=== PATIENT | female | born 1940 | race Caucasian/White ===

== ENCOUNTER → 2018-12-17 12:00 | Outpatient (BNVA) | payer MEDICARE, OTHER, SELFPAY | PROVIDERS: PCP Internal Medicine; Referring Provider Internal Medicine; Visit Provider Psychiatry & Neurology Neurology | DX: M54.17 Radiculopathy, lumbosacral region (principal); I10 Essential (primary) hypertension | CPT/HCPCS: 95886; 95908; 99204 ==

== ENCOUNTER 2022-01-10 16:18 | Emergency (ER) | payer MEDICARE, SELFPAY ==
[2022-01-10] VITALS (31 sets, daily range): BP systolic 118–163; BP diastolic 36–68; PULSE 57–89; RESP 13–29; TEMP 36.2; O2SAT 81–100
--- NOTE | 2022-01-10 16:15 | DI.CT_ITS ---
Exam(s) CT HEAD CERVICAL SPINE WO EXAM: CT HEAD CERVICAL SPINE WO CLINICAL HISTORY: trauma, fall, headache, eliquis. TECHNIQUE: Imaging Protocol: Axial computed tomography images with coronal and sagittal reformatted images were created and reviewed COMPARISON: No exams were available for comparison FINDINGS: CT Head: Ventricles and Extra axial spaces: Normal in size and morphology for the patient's age. Hemorrhage: None. Cerebral parenchyma: No acute territorial infarct is present. There are areas of decreased attenuati on in the white matter most consistent with small vessel ischemic disease. There is a 4.5 AP by 3.5 transverse by 3.3 craniocaudad cm extra-axial parafalcine mass it causes mass effect on the adjacent parietal lobe. It is most suggestive of a meningioma. Midline shift: None. Brainstem/Cerebellum: Normal. Calvarium: Normal. Visualized Paranasal sinuses/Mastoids: Clear. Soft Tissues: There is a right posterior scalp hematoma measuring 1.[address] Cervical Spine: Bones: No acute fracture or subluxation. There is C4 through C7 anterior cervical fusion. Moderate c ervical spondylosis is present. Soft Tissues: Unremarkable. Lung Apices: Clear. IMPRESSION: 1. No acute intracranial process. No intracranial hemorrhage or skull fracture. 2. Right posterior scalp hematoma measuring 1.5 cm in thickness. 3. 4.5 cm hyperdense extra-axial mass along the left parietal convexity with a mass effect on the adj acent parietal lobe. This is most suggestive of a meningioma. An MRI without and with contrast is r ecommended for further evaluation. 4. No acute fracture or subluxation in the cervical spine. RADIATION DOSE DELIVERED: 1,784.71mGy.cm Total DLP DATA REPOSITORY: All CT scans at this facility are submitted to the National Radiology Data Registry (NRDR) Dose Index Registry (DIR) with the [employer] (ACR). RADIATION OPTIMIZATION: All CT scans at this facility use at least one of these dose optimization te chniques: automated exposure control; mA and/or kV adjustment per patient size (includes targeted exa ms where dose is matched to clinical indication); or iterative reconstruction.
--- NOTE | 2022-01-10 16:33 | NUR.NOTE ---
labs done bNursing Note:
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
[2022-01-10 16:48] LABS: HGB 11.9 g/dL (11.2-15.7); MCH 30.9 pg (27.0-33.0); MCV 91 fL (80-95); MPV 9.4 fL (8.0-11.0); Platelet Count 224 10^3/uL (130-400); RBC 3.85 10^6/uL (3.93-5.22); RDW 13.9 % (11.7-14.6); RDW-SD 46.8 fL; WBC 4.38 10^3/uL (4.4-10.8)
--- NOTE | 2022-01-10 17:02 | DI.VRAD_ITS ---
PROCEDURE INFORMATION: Exam: CT Head Without Contrast Exam date and time: 01/10/2022 4:44 PM Age: 81 years old Clinical indication: Injury or trauma; Blunt trauma (contusions or hematomas); Other: Trauma, fall, headache, eliquis; Prior surgery; Surgery date: 6+ months TECHNIQUE: Imaging protocol: Computed tomography of the head without contrast. COMPARISON: No relevant prior studies available. FINDINGS: Brain: Large 4.7 cm left superomedial parietal convexity meningioma causing mass effect upon the adjacent left parietal lobe. Mild nonspecific hypodensities of the periventricular and deep subcortical white matter, most likely secondary to chronic microangiopathic ischemic change. No intracranial hemorrhage or extra-axial fluid collection. Baez-white matter differentiation is normal. Cerebral ventricles: Mild prominence of the ventricles and sulci, most likely attributed to parenchymal volume loss. Paranasal sinuses: Unremarkable. No fluid levels. Mastoid air cells: Unremarkable. Bones/joints: No acute osseus lesion or fracture. Soft tissues: Right posterior scalp hematoma measuring 1.5 cm in thickness. IMPRESSION: 1. No acute traumatic intracranial findings. 2. Large 4.7 cm left superomedial parietal convexity meningioma causing mass effect upon the adjacent left parietal lobe. Recommend neurosurgery consultation and further evaluation with MRI brain with and without IV contrast. 3. Right posterior scalp hematoma measuring 1.5 cm in thickness. 4. Other chronic findings, as above. PROCEDURE INFORMATION: Exam: CT Cervical Spine Without Contrast Exam date and time: 01/10/2022 4:44 PM Age: 81 years old Clinical indication: Injury or trauma; Blunt trauma (contusions or hematomas); Other: Trauma, fall, headache, eliquis; Prior surgery; Surgery date: 6+ months TECHNIQUE: Imaging protocol: Computed tomography of the cervical spine without contrast. COMPARISON: No relevant prior studies available. FINDINGS: Bones/joints: Chronic ACDF changes from C4 through C7. Vertebral body heights are maintained. No locked or perched facets. Multilevel facet arthropathy. No acute cervical spine fracture. The dens is intact. Atlanto-axial intervals are normal. Multilevel degenerative changes with intervertebral disc height loss and osteophyte formation, with multilevel areas of mild canal stenosis. Lungs: Lung apices are clear. Soft tissues: Unremarkable. IMPRESSION: 1. No acute cervical spine fracture. 2. Chronic findings, as above. Dictated and Authenticated by: Ye Cope MD. Ordering:EMMA Andujar MD
[2022-01-10 17:08] LABS: ALT 20 U/L (14-59); AST 12 U/L (15-37); Albumin 3.5 g/dL (3.4-5.0); Alkaline Phosphatase 73 U/L (46-116); Anion Gap 4.8 mmol/L (3-11); BUN 20 mg/dL (7-18); Bilirubin, Total 0.3 mg/dL (0.2-1.0); CO2 28.2 mmol/L (21.0-32.0); CREATININE 1.1 mg/dL (0.55-1.02); Calcium 8.9 mg/dL (8.5-10.1); Chloride 107 mmol/L (98-107); Glucose 118 mg/dL (74-106); Potassium 4.2 mmol/L (3.5-5.1); Sodium 140 mmol/L (136-145); Total Protein 7.2 g/dL (6.4-8.2)
--- NOTE | 2022-01-10 18:12 | NUR.NOTE ---
made dr aware that pt is in pain , no new orders at this time . Nursing Note:
[2022-01-10] MEDS: Acetaminophen 325 MG TAB 650 MG PO (18:33)
== END 2022-01-10 19:15 | disposition home or self-care (01) ==
PROVIDERS: Emergency Provider Student in an Organized Health Care Education/Training Program; PCP Internal Medicine
DX: D32.0 Benign neoplasm of cerebral meninges (principal); S00.03XA Contusion of scalp, initial encounter; W18.39XA Other fall on same level, initial encounter; I47.1 Supraventricular tachycardia; Z79.01 Long term (current) use of anticoagulants
CPT/HCPCS: 80053; 85027; 99284; 70450; 72125

== ENCOUNTER → 2022-02-13 02:43 | Outpatient (CLI) | payer MEDICARE, SELFPAY ==
--- NOTE | 2022-02-13 | DI.MRI_ITS ---
Exam(s) MR BRAIN WO/W EXAM: MR BRAIN WO/W CLINICAL HISTORY: MENINGIOMA, D32.9 TECHNIQUE: Multiplanar multisequence MRI of the brain was performed. Both noninfused and contrast i nfused sequences were performed. IV Contrast injected was cc Dotarem. COMPARISON: CT CT HEAD CERVICAL SPINE WO from 01/10/2022 FINDINGS: CEREBRAL PARENCHYMA: There is no evidence of intracranial hemorrhage. There is a large almost uniformly enhancing extra-axial dural-based mass over the upper left convexit y which has appearance of a meningioma and measures 4.6 cm AP by 3.5 cm wide by 3.1 cm craniocaudal. There is no prominent surrounding brain edema nor shift of midline structures. No ventriculomegaly. There is no adjacent thrombosis of the sagittal venous sinus There are no other abnormal enhancing structures in the brain, intra nor extra-axial. There are multiple small sub CN FLAIR bright foci of signal abnormality consistent with chronic small vessel disease. No abnormal signal on DWI to suggest restricted diffusion. PITUITARY GLAND: No mass nor parasellar abnormality. No obvious abnormality in the cavernous sinuses. FLOW VOIDS: The expected flow void are noted. No evidence of obvious aneurysm nor obvious vascular ma lformation. PARANASAL SINUSES: The visualized paranasal sinuses appear unremarkable. ORBITS: No obvious abnormal findings. IMPRESSION: 1. Large dural-based enhancing extra-axial lesion over the upper left convexity measuring 4.6 x 3.5 x 3.1 cm, not associated with prominent surrounding brain edema, ventriculomegaly, or shift of midline structures. Findings are consistent with a meningioma. 2. No other abnormal enhancing intracranial findings. 3. There are multiple nonspecific sub cm foci of white matter signal abnormality consistent with chr onic small vessel disease, not associated with hemorrhage, surrounding edema, nor restricted diffusio n. DATA REPOSITORY:
[2022-02-13] MEDS: Normal Saline Flush 10 ML SYR IVP (09:51)
[2022-02-13] MEDS: Gadoterate meglumine 20 ML VIAL IVP (09:51)
== END ==
PROVIDERS: PCP Internal Medicine; Visit Provider Neurological Surgery
DX: D32.0 Benign neoplasm of cerebral meninges (principal); I67.89 Other cerebrovascular disease
CPT/HCPCS: 70553

== ENCOUNTER → 2022-06-24 08:41 | Outpatient (BNVA) | payer MEDICARE, SELFPAY | PROVIDERS: PCP Internal Medicine; Referring Provider Neurological Surgery; Visit Provider Psychiatry & Neurology Neurology | DX: M21.371 Foot drop, right foot (principal); D32.0 Benign neoplasm of cerebral meninges | CPT/HCPCS: 95885; 95908; 99214 ==

== ENCOUNTER 2022-07-10 01:29 | Outpatient (CLI) | payer MEDICARE, SELFPAY ==
[2022-07-10 12:09] LABS: Estimated GFR 56.95 (mL/min/1.73m2)
[2022-07-10] MEDS: Normal Saline Flush 10 ML SYR IVP (12:30)
[2022-07-10] MEDS: Gadoterate meglumine 20 ML SYRINGE IVP (12:30)
--- NOTE | 2022-07-10 13:00 | DI.MRI_ITS ---
Exam(s) MR BRAIN WO/W EXAM: MR BRAIN WO/W CLINICAL HISTORY: MENINGIOMA, D32.9. TECHNIQUE: Multiplanar multisequence MRI of the brain was performed. CONTRAST MATERIAL: IV Contrast: 20 ML of Dotarem contrast administered. COMPARISON: MR MR BRAIN WO/W from 02/13/2022 FINDINGS: VENTRICLES AND EXTRA AXIAL SPACES: Normal in size and morphology for the patient's age. HEMORRHAGE: None. CEREBRAL PARENCHYMA: No focus of restricted diffusion to suggest acute infarct. Mild interval increas e in size of previously noted meningioma in the high left frontal parietal region, now measuring 4.9 AP by 3.6 transverse by 3.3 cm cephalo caudad compared to 4.6 x 3.5 x 3.1 cm on the prior exam. Enha ncement pattern is similar. No evidence of hemorrhage. No adjacent white matter edema. Few scatter ed high signal foci in the white matter again noted consistent with microvascular changes. There is mild atrophy consistent with the patient's age. MIDLINE SHIFT: None. BRAINSTEM/CEREBELLUM: Normal. CALVARIUM: Normal. VISUALIZED PARANASAL SINUSES/MASTOIDS: Clear. OTHER FINDINGS: Pituitary and orbits unremarkable. IMPRESSION: Mild interval increase in size left upper convexity meningioma. DATA REPOSITORY:
== END 2022-07-10 01:49 ==
LOC: DI 01:29
PROVIDERS: PCP Internal Medicine; Visit Provider Neurological Surgery
DX: D32.9 Benign neoplasm of meninges, unspecified (principal)
CPT/HCPCS: 70553; 82565

== ENCOUNTER → 2022-07-15 11:06 | Outpatient (BNVA) | payer MEDICARE, SELFPAY | PROVIDERS: PCP Internal Medicine; Referring Provider Internal Medicine; Visit Provider Student in an Organized Health Care Education/Training Program | DX: M17.12 Unilateral primary osteoarthritis, left knee (principal) | CPT/HCPCS: 99214 ==

== ENCOUNTER 2022-10-18 01:59 | Outpatient (CLI) | payer MEDICARE, SELFPAY ==
--- OUTSIDE RECORDS SUMMARY | 2022-10-18 02:01 | XMS_ITS | CCD ---
Author Name Unknown Address [address] [place] [address] [phone] Organization Unknown Address [address] [place] [address] [id number] Care Team Providers Care Dock Associate Name Role Phone TROY PAYNE Attending Physician [phone] TROY PAYNE Rounding (Secondary) Physician [phone] Vital Signs Unknown or Not Available. Allergies Unknown or Not Available. Procedures Unknown or Not Available. 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 Active Medications Unknown or Not Available. Medications Administered During Visit Unknown or Not Available. Encounters Encounter Diagnosis Diagnosis Code Start Date Canceled operative procedure [id number] 05/2021 Social History Smoking Status Code Start Date End Date Never smoker [id number] Patient Decision Aids Unknown or Not Available. Discharge Instructions You were admitted to [facility] on 05/17/2021 13:45 with a principal diagnosis of Procedure and treatment not carried out, unspecified reason You were discharged from [facility] on 05/17/2021 00:00 Should you have any questions prior to discharge, please contact a member of your healthcare team. If you have left the hospital and have any questions, please contact your primary care physician. Chief Complaint and Reason For Visit Unknown or Not Available. Function Status Unknown or Not Available. Plan of Care Unknown or Not Available. Referral/Transition of Care Unknown or Not Available.
--- OUTSIDE RECORDS SUMMARY | 2022-10-18 02:01 | XMS_ITS | CCD ---
Author Name Unknown Address [address] [place] [address] [id number] Organization Unknown Address [address] [place] [address] [phone] Care Team Providers Care Welfare Adviser Name Role Phone TROY PAYNE Attending Physician [phone] TROY PAYNE Rounding (Secondary) Physician [phone] Vital Signs Unknown or Not Available. Allergies [...] Start Date Resolved Date Status MRSA colonization [id number] Active Results Unknown or Not Available. Active Medications Unknown or Not Available. Medications Administered During Visit Unknown or Not Available. 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 Discharge Instructions You were admitted to [facility] on 02/06/2021 14:06 with a principal diagnosis of Bilateral primary osteoarthritis of knee You were discharged from [facility] on 02/06/2021 00:00 Should you have any questions prior [...]
--- OUTSIDE RECORDS SUMMARY | 2022-10-18 02:01 | XMS_ITS | CCD ---
Author Name Unknown Address [address] [place] [address] [phone] Organization Unknown Address [address] [place] [address] [phone] Care Team Providers Care Pharmacist Aide Name Role Phone VALDEZ HARTLEY Attending Physician [phone] VALDEZ HARTLEY Rounding (Secondary) Physician [phone] Vital Signs Unknown or Not Available. Allergies [...] Start Date Resolved Date Status MRSA colonization [id number] Active Results Unknown or Not Available. Active Medications Unknown or Not Available. Medications Administered During Visit Unknown or Not Available. Encounters Encounter Diagnosis Diagnosis Code Start Date Idiopathic osteoarthritis [id number] 2021 Social History Smoking Status Code Start Date End Date Never smoker [id number] Patient Decision Aids Unknown or Not Available. Discharge Instructions You were admitted to [facility] on 04/26/2021 08:48 with a principal diagnosis of Bilateral primary osteoarthritis of knee You were discharged from [facility] on 04/26/2021 00:00 Should you have any questions prior [...]
--- OUTSIDE RECORDS SUMMARY | 2022-10-18 02:01 | XMS_ITS | CCD ---
Author Name Unknown Address [address] [place] [address] [id number] Organization Unknown Address [address] [place] [address] [phone] Care Team Providers Care Pairer Name Role Phone TROY PAYNE Attending Physician [phone] TROY PAYNE Rounding (Secondary) Physician [phone] Vital Signs Unknown or Not Available. Allergies [...] Start Date Resolved Date Status MRSA colonization 019172367 Active Results Unknown or Not Available. Active Medications Unknown or Not Available. Medications Administered During Visit Unknown or Not Available. 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 Discharge Instructions You were admitted to [facility] on 05/21/2021 09:08 with a principal diagnosis of Bilateral primary osteoarthritis of knee You were discharged from [facility] on 05/21/2021 00:00 Should you have any questions prior [...]
--- OUTSIDE RECORDS SUMMARY | 2022-10-18 02:01 | XMS_ITS | CCD ---
Author Name Unknown Address [address] [place] [address] [phone] Organization Unknown Address [address] [place] [address] [phone] Care Team Providers Care Territory Account Executive Name Role Phone TROY PAYNE Attending Physician [phone] Vital Signs Unknown or Not Available. Allergies Unknown or Not Available. Procedures Unknown or Not Available. 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 2 AGE 80 years eGFR (non-Afr.Amer.) 73837-0 57 mL/min eGFR (Afr-Citizen Of [place]) 13258-9 70 mL/min CBC W/ DIFFERENTIAL* - [facility] ct Date/Time: 07/11/2021 10:40 Test Name Code Test Result Test Units Test Ref Rang e WBC 6690-2 4.45 th/cmm L=5.00 H=10.00 NEUT % 53.7 % L=40.0 H=80.0 LYMPH % 34.2 % L=10.0 H=50.0 MONO % 83118-4 8.8 % L=2.0 H=12.0 EOS % 2.0 % L=0.0 H=8.0 BASO % 1.1 % L=0.0 H=3.0 IG % 2514-8 0.2 % L=0.0 H=1.1 NRBC % 89160-3 0.0 % L=0.0 H=0.0 NEUT abs count 751-8 2.4 th/cmm L=1.6 H=8. 4 LYMPH abs count 731-0 1.5 th/cmm L=1.5 H=4 .0 MONO abs count 742-7 0.4 th/cmm L=0.2 H=1. 0 EOS abs count 711-2 0.1 th/cmm L=0.0 H=0.5 BASO abs count 704-7 0.1 th/cmm L=0.0 H=0. 2 IG abs count 25631-8 0.0 th/cmm L=0.0 H=0.1 NRBC abs count 00354-1 0.0 mil/cmm L=0.0 H=0. 0 RBC 789-8 4.23 mil/cmm L=3.90 H=5.40 HEMOGLOBIN 718-7 13.2 gm/dL L=12.0 H=16.0 HEMATOCRIT 4544-3 39 % L=37 H=47 MCV 787-2 92 fL L=82 H=92 MCH 785-6 31.2 pg L=27.0 H=31.0 MCHC 786-4 33.8 % L=32.0 H=36.0 RDW-SD 788-0 46.0 fL L=39.0 H=49.0 PLATELET COUNT 777-3 262 th/cmm L=150 H=45 0 PT PROTHROMBIN TIME* - [facility] ct Date/Time: 07/11/2021 10:40 Test Name Code Test Result Test Units Test Ref Rang e PROTIME 5902-2 10.1 seconds L=9.3 H=11.4 INR 20476-4 1.01 L=2.00 H=3.00 MRSA/MSSA NASAL COMPLETE BY PCR* - Collect Date/Time: 07/11/2021 10:40 Test Name Code Test Result Test Units Test Ref Rang e MRSA 20164-7 POSITIVE N/A Normal: Negati ve MSSA DNR N/A Normal: Negati ve TYPE AND SCREEN* - Collect D ate/Time: 07/11/2021 10:40 Test Name Code Test Result Test Units Test Ref Rang e Blood Group 883-9 B N/A Rh (D) 37677-6 NEGATIVE N/A Antibody Screen 1005-8 NEGATIVE N/A Active Medications Unknown or Not Available. Medications Administered During Visit Unknown or Not Available. Encounters Encounter Diagnosis Diagnosis Code Start Date Encounter for other preprocedural examination Z0 1818 07/11/2021 Social History Smoking Status Code Start Date End Date Never smoker [id number] Patient Decision Aids Unknown or Not Available. Discharge Instructions You were admitted to [facility] on 07/11/2021 09:53 with a principal diagnosis of Encounter for other preprocedural examination You had the following tests done:BASIC METABOLIC PANEL (BMP)CBC W/ DIFFERENTIAL*MRSA/MSSA NASAL COMPLETE BY PCR*PT PROTHROMBIN TIME*TYPE AND SCREEN* You were discharged from [facility] on 07/11/2021 09:53 Should you have any questions prior to [...]
--- OUTSIDE RECORDS SUMMARY | 2022-10-18 02:01 | XMS_ITS | CCD ---
Author Name Unknown Address [address] [place] [address] [phone] Organization Unknown Address [address] [place] [address] [phone] Care Team Providers Care Tugboat Captain Name Role Phone TROY PAYNE Attending Physician [phone] TROY PAYNE Rounding (Secondary) Physician [phone] Vital Signs Unknown or Not Available. Allergies Allergy Code Allergy Type Reaction Status [facility] 79585 Drug allergy HALLUCINATIONS Active SULFA (sulfonamide) 0 Drug allergy ORAL SORES Act elvira Procedures Unknown or Not Available. History of Immunizations Immunization Code Date COVID-19, mRNA, LNP-S, PF, 100 mcg/0.5mL dose or 50 mcg/0.25mL dose 05/03/2020 COVID-19, mRNA, LNP-S, PF, 100 mcg/0.5mL dose or 50 mcg/0.25mL dose 05/31/2020 influenza, unspecified formulation 88 01/08/2021 COVID-19, mRNA, LNP-S, PF, 100 mcg/0.5mL dose or 50 mcg/0.25mL dose 01/20/2021 Problems Problem Code Start Date Resolved Date Status MRSA colonization 320851175 Active Results Unknown or Not Available. Active Medications Unknown or Not Available. Medications Administered During Visit Unknown or Not Available. Encounters Encounter Diagnosis Diagnosis Code Start Date Artificial knee joint present [id number] Social History Smoking Status Code Start Date End Date Never smoker 827365582 Patient Decision Aids Unknown or Not Available. Discharge Instructions You were admitted to [facility] on 08/14/2021 10:20 with a principal diagnosis of Presence of right artificial knee joint You were discharged from [facility] on 08/14/2021 00:00 Should you have any questions prior [...]
--- OUTSIDE RECORDS SUMMARY | 2022-10-18 02:02 | XMS_ITS | CCD ---
Author Name Unknown Address [address] [place] [address] [phone] Organization Unknown Address [address] [place] [address] [phone] Care Team Providers Care Sonography Technologist Name Role Phone TROY PAYNE Attending Physician [phone] Vital Signs Unknown or Not Available. Allergies Allergy Code Allergy Type Reaction Status [facility] 70474 Drug allergy HALLUCINATIONS Active SULFA (sulfonamide) 0 [...] Start Date Resolved Date Status MRSA colonization 965770079 Active Results [facility] COVID RHEONIX* - Vicente ect Date/Time: 08/04/2021 10:34 Test Name Code Test Result Test Units Test Ref Rang e Tier- 54593-3 PRE-OP N/A SARS COV2 RNA: 30418-1 NEGATIVE N/A REFERENCE RANGE: NEGAT Active Medications Unknown or Not Available. Medications Administered During Visit Unknown or Not Available. Encounters Encounter Diagnosis Diagnosis Code Start Date Pre-surgery testing 897810527 08/04/2021 Social History Smoking Status Code Start Date End Date Never smoker 954913035 Patient Decision Aids Unknown or Not Available. Discharge Instructions You were admitted to [facility] on 08/04/2021 06:24 with a principal diagnosis of Encounter for preprocedural laboratory examination You had the following tests done:SENIA ALEXANDER* You were discharged from [facility] on 08/04/2021 06:24 Should you have any questions prior to [...]
--- OUTSIDE RECORDS SUMMARY | 2022-10-18 02:02 | XMS_ITS | CCD ---
Author Name Unknown Address [address] [place] [address] [id number] Organization Unknown Address [address] [place] [address] [phone] Care Team Providers Care Rn Practitioner Name Role Phone TROY PAYNE Attending Physician [phone] TROY PAYNE Rounding (Secondary) Physician [phone] Vital Signs Unknown or Not Available. Allergies Allergy Code Allergy Type Reaction Status [facility] 068[address] Drug allergy HALLUCINATIONS Active SULFA (sulfonamide) 0 [...] Start Date Resolved Date Status MRSA colonization 101191013 Active Results Unknown or Not Available. Active Medications Unknown or Not Available. Medications Administered During Visit Unknown or Not Available. Encounters Encounter Diagnosis Diagnosis Code Start Date Aftercare [id number] 09/10/2021 Social History Smoking Status Code Start Date End Date Never smoker 539565163 Patient Decision Aids Unknown or Not Available. Discharge Instructions You were admitted to [facility] on 09/10/2021 07:49 with a principal diagnosis of Aftercare following joint replacement surgery You were discharged from [facility] on 09/10/2021 00:00 Should you have any questions prior [...]
--- OUTSIDE RECORDS SUMMARY | 2022-10-18 02:02 | XMS_ITS | CCD ---
Author Name Unknown Address [address] [place] [address] [id number] Organization Unknown Address [address] [place] [address] [phone] Care Team Providers Care Roof Plumber Name Role Phone TROY PAYNE Attending Physician [phone] TROY PAYNE Rounding (Secondary) Physician [phone] Vital Signs Unknown or Not Available. Allergies Allergy Code Allergy Type Reaction Status [facility] 33698 Drug allergy HALLUCINATIONS Active SULFA (sulfonamide) 0 [...] Start Date Resolved Date Status MRSA colonization 164515086 Active Results Unknown or Not Available. Active Medications Unknown or Not Available. Medications Administered During Visit Unknown or Not Available. Encounters Encounter Diagnosis Diagnosis Code Start Date Canceled operative procedure [id number] Social History Smoking Status Code Start Date End Date Never smoker 924398357 Patient Decision Aids Unknown or Not Available. Discharge Instructions You were admitted to [facility] on 09/07/2021 10:57 with a principal diagnosis of Procedure and treatment not carried out, unspecified reason You were discharged from [facility] on 09/07/2021 09:19 Should you have any questions prior to [...]
--- OUTSIDE RECORDS SUMMARY | 2022-10-18 02:02 | XMS_ITS | CCD ---
Author Name Unknown Address [address] [place] [address] [id number] Organization Unknown Address [address] [place] [address] [phone] Care Team Providers Care Talent Advisor Name Role Phone TROY PAYNE Attending Physician [phone] Vital Signs Vital Sign Value Unit Date/Time Recent/Initial ? BMI (Body Mass Index) 39.07 kg/m^2 07/24/2021 07: 43 Initial VS Weight Measured 206.78 lbs 07/24/2021 07:43 Ini tial VS Height 61 in 07/24/2021 07:43 Initial VS BSA (Body Surface Area) 2.01 m^2 07/24/2021 0 7:43 Initial VS BP Systolic 127 mmHg 08/07/2021 13:29 Initial VS BP Diastolic 53 mmHg 08/07/2021 13:29 Initia l VS Respiratory Rate 12 bpm 08/07/2021 13:29 In itial VS Heart Rate 54 bpm 08/07/2021 13:29 Initial VS O2 % BldC Oximetry 99 % 08/07/2021 13:29 Initial VS Body Temperature 35.8 degrees 08/07/2021 13:29 In itial VS Weight Measured 229.8 lbs 08/07/2021 14:23 Mos t Recent VS BP Systolic 115 mmHg 08/08/2021 11:40 Most Re cent VS BP Diastolic 72 mmHg 08/08/2021 11:40 Most R ecent VS Respiratory Rate 16 bpm 08/08/2021 11:[address] Recent VS Heart Rate 65 bpm 08/08/2021 11:40 Most Rec ent VS O2 % BldC Oximetry 96 % 08/08/2021 11:40 Most Recent VS Body Temperature 35.7 degrees 08/08/2021 11:[address] Recent VS Allergies Allergy Code Allergy Type Reaction Status [facility] 18021 Drug allergy HALLUCINATIONS Active SULFA (sulfonamide) 0 Drug allergy ORAL SORES Act elvira Procedures Procedure Code Procedure Type Date Replace R Knee Jt w Zirc on Poly, Cement, Open [id number] ICD-10 PCS 08/07/2021 Robotic Assisted Procedure o f Lower Extremity, Open Approach [id number] ICD-10 PCS 08/07/2021 Introduction of Anesthetic A gent into Peripheral Nerves and Plexi, Percutaneous Approach [id number] ICD-10 PCS 08/07/2021 Anesthesia, Open/Surg Arthro scopic Proc, Knee Joint; Total Knee Arthroplasty 08487 CPT 2 History of Immunizations Immunization Code Date COVID-19, mRNA, LNP-S, PF, 100 mcg/0.5mL dose or 50 mcg/0.25mL dose 05/03/2020 COVID-19, mRNA, LNP-S, PF, 100 mcg/0.5mL dose or 50 mcg/0.25mL dose 05/31/2020 influenza, unspecified formulation 88 01/08/2021 COVID-19, mRNA, LNP-S, PF, 100 mcg/0.5mL dose or 50 mcg/0.25mL dose 01/20/2021 Problems Problem Code Start Date Resolved Date Status MRSA colonization 476556295 Active Results Unknown or Not Available. Active Medications Medications Administered During Visit Medication Dose Units Frequency Route Date/Time of Last Dose LACTATED RINGERS 1000ML 1000 ML X1 08/07/2021 09:14 CeFAZolin IVPB FROZEN PREMIX: 2GM/100ML 2 GM X1 08/07/2021 10:45 MIDAZOLAM INJ SDV: 2MG/2ML 3 MG X1 IVP 08/07/2021 09:59 ACETAMINOPHEN TABLET: 325MG 325 MG X1 PO 08/07/2021 08:59 CELECOXIB CAPSULE: 100MG 200 MG X1 PO 08/07/2021 09:00 HYDROmorphone INJ SYRINGE: 0.5MG/0.5ML 0.25 MG PRN IN PACU Q5MIN IVP 08/07/2021 13:59 CETIRIZINE TABLET: 10MG 10 MG DAILY PO 08/08/2021 08:47 DILTIAZEM ER CAPSULE: 180MG 180 MG DAILY PO 08/08/2021 08:[address]: 30MG 60 MG DAILY PO 08/08/2021 08:47 FUROSEMIDE TABLET: 20MG 20 MG DAILY PO 08/08/2021 08:47 LEVOTHYROXINE TABLET: 125MCG 125 MCG DAILY PO 08/08/2021 06:0 9 LOSARTAN TABLET: 25MG 25 MG DAILY PO 08/08/2021 08:47 MELATONIN TABLET: 1MG 3 MG BEDTIME PO 08/07/2021 21:23 PREGABALIN CAPSULE: 25MG 75 MG BID PO 08/08/2021 08:47 ATORVASTATIN TABLET: 10MG 10 MG BEDTIME PO 08/07/2021 21:27 NF-Timolol Maleate Ophth Solution 0.25% 1 DROP BID OPTH 08/08/2021 08 :51 NF-Brimonidine Tartrate Ophth Solution 0 1 DROP BID OPTH 08/08/2021 08:51 TraMADol TABLET: 50MG 50 MG PRN Q6H PO 08/08/2021 03:27 PANTOPRAZOLE TABLET: 40MG 40 MG Q7AM PO 08/08/2021 06:09 APIXABAN TAB: 2.5MG 2.5 MG BID PO 08/08/2021 10:13 HYDROmorphone INJ SYRINGE: 0.5MG/0.5ML 0.5 MG PRN Q2H IVP 08/08/2021 05:3 9 HYDROmorphone INJ SYRINGE: 1MG/ML 0.8 MG PRN Q2H IVP 08/07/2021 21:2 2 KETOROLAC INJ SDV: 30MG/1ML 15 MG Q6H IV P 08/07/2021 21:23 ACETAMINOPHEN INJ IVPB: 1000MG/100ML 1000 MG Q6H 08/08/2021 03:2 0 ACETAMINOPHEN TABLET: 325MG 975 MG TID PO 08/08/2021 08:47 CeFAZolin IVPB FROZEN PREMIX: 2GM/100ML 2 GM Q8H 08/07/2021 21:27 HYDROmorphone TABLET: 2MG 2 MG PRN Q4H PO 08/08/2021 12:42 DEXTROSE 5% AND NACL 0.45% 1000ML 1000 ML CONT 08/08/2021 03:3 0 SENNA/DOCUSATE TABLET: 8.6MG/50MG 2 TAB BID PO 08/08/2021 08:4 7 ASCORBIC ACID TABLET: 500MG 500 MG DAILY PO 08/08/2021 08:47 MULTIVITAMIN W/MINERALS TABLET 1 TAB DAILY WITH FOOD PO 08/08/2021 0 8:47 CeFAZolin IVPB FROZEN PREMIX: 2GM/100ML 2 GM Q8H 08/08/2021 05:44 Encounters Encounter Diagnosis Diagnosis Code Start Date Unilateral primary osteoarthritis, right knee M1 711 08/07/2021 Social History Smoking Status Code Start Date End Date Never smoker [id number] Patient Decision Aids Patient Decision Aid Patient Portal Access Discharge Instructions You were admitted to [facility] on 08/07/2021 12:04 with a principal diagnosis of Unilateral primary osteoarthritis, right knee You had the following procedures done:Replace R Knee Jt w Zirc on Poly, Cement, OpenRobotic Assisted Procedure of Lower Extremity, Open ApproachIntroduction of Anesthetic Agent into Peripheral Nerves and Plexi, Percutaneous ApproachAnesthesia, Open/Surg Arthroscopic Proc, Knee Joint; Total Knee Arthroplasty You were discharged from [facility] on 08/08/2021 14:20 Should you have any questions prior to discharge, please contact a member of your healthcare team. If you have left the hospital and have any questions, please contact your primary care physician. Chief Complaint and Reason For Visit Chief Complaint Date of Onset R TKA Function Status Unknown or Not Available. Plan of Care Unknown or Not Available. Referral/Transition of Care Unknown or Not Available.
--- OUTSIDE RECORDS SUMMARY | 2022-10-18 02:02 | XMS_ITS | CCD ---
Author Name Unknown Address [address] [place] [address] [phone] Organization Unknown Address [address] [place] [address] [phone] Care Team Providers Care Addiction Specialist Name Role Phone TROY PAYNE Attending Physician [phone] Vital Signs Unknown or Not Available. Allergies Allergy Code Allergy Type Reaction Status [facility] [address] Drug allergy HALLUCINATIONS Active SULFA (sulfonamide) 0 [...] Start Date Resolved Date Status MRSA colonization 499992109 Active Results Unknown or Not Available. Active Medications Unknown or Not Available. Medications Administered During Visit Unknown or Not Available. Encounters Encounter Diagnosis Diagnosis Code Start Date Idiopathic osteoarthritis [id number] 2021 Social History Smoking Status Code Start Date End Date Never smoker 782203737 Patient Decision Aids Unknown or Not Available. Discharge Instructions You were admitted to [facility] on 08/07/2021 01:04 with a principal diagnosis of Unilateral primary osteoarthritis, right knee You were discharged from [facility] on 08/08/2021 01:05 Should you have any questions prior to [...]
--- OUTSIDE RECORDS SUMMARY | 2022-10-18 02:02 | XMS_ITS | CCD ---
Author Name Unknown Address [address] [place] [address] [phone] Organization Unknown Address [address] [place] [address] [phone] Care Team Providers Care Map Compiler Name Role Phone TROY PAYNE Attending Physician [phone] TROY PAYNE Rounding (Secondary) Physician [phone] Vital Signs Unknown or Not Available. Allergies Allergy Code Allergy Type Reaction Status [facility] 49215 Drug allergy HALLUCINATIONS Active SULFA (sulfonamide) 0 [...] Start Date Resolved Date Status MRSA colonization 491693878 Active Results Unknown or Not Available. Active Medications Unknown or Not Available. Medications Administered During Visit Unknown or Not Available. Encounters Encounter Diagnosis Diagnosis Code Start Date Removal of suture 54387887 08/23/2021 Social History Smoking Status Code Start Date End Date Never smoker 262869576 Patient Decision Aids Unknown or Not Available. Discharge Instructions You were admitted to [facility] on 08/23/2021 09:49 with a principal diagnosis of Encounter for removal of sutures You were discharged from [facility] on 08/23/2021 08:14 Should you have any questions prior to [...]
--- OUTSIDE RECORDS SUMMARY | 2022-10-18 02:03 | XMS_ITS | CCD ---
Author Name Unknown Address [address] [place] [address] [id number] Organization Unknown Address [address] [place] [address] [phone] Care Team Providers Care Game Farm Supervisor Name Role Phone EILEEN LEE Attending Physician [phone] Vital Signs Unknown or Not Available. Allergies Unknown or Not Available. Procedures Procedure Code Procedure Type Date Arthrocentesis Aspir&/Inj Major Jt/Bursa w/o US CPT 11/09/2020 History of Immunizations Immunization Code Date COVID-19, mRNA, LNP-S, PF, 100 mcg/0.5mL dose or 50 mcg/0.25mL dose 05/03/2020 COVID-19, mRNA, LNP-S, PF, 100 mcg/0.5mL dose or 50 mcg/0.25mL dose 207 05/31/2020 influenza, unspecified formulation 88 01/08/2021 COVID-19, mRNA, LNP-S, PF, 100 mcg/0.5mL dose or 50 mcg/0.25mL dose 207 01/20/2021 Problems Problem Code Start Date Resolved Date Status MRSA colonization 719258659 Active Results Unknown or Not Available. Active Medications Unknown or Not Available. Medications Administered During Visit Unknown or Not Available. Encounters Encounter Diagnosis Diagnosis Code Start Date Bilateral primary osteoarthritis of knee M170 11/09/2020 Social History Smoking Status Code Start Date End Date Never smoker 546832401 Patient Decision Aids Unknown or Not Available. Discharge Instructions You were admitted to [facility] on 11/09/2020 08:45 with a principal diagnosis of Bilateral primary osteoarthritis of knee You had the following procedures done:Arthrocentesis Aspir&/Inj Major Jt/Bursa w/o US You were discharged from [facility] on 11/09/2020 08:45 Should you have any questions prior to [...]
--- OUTSIDE RECORDS SUMMARY | 2022-10-18 02:03 | XMS_ITS | CCD ---
Author Name Unknown Address [address] [place] [address] [id number] Organization Unknown Address [address] [place] [address] [phone] Care Team Providers Care C Python Developer Name Role Phone TROY PAYNE Attending Physician [phone] TROY PAYNE Rounding (Secondary) Physician [phone] Vital Signs Unknown or Not Available. Allergies Allergy Code Allergy Type Reaction Status [facility] 3423 Drug allergy ITCHING; DILAUDID Active PERCOCET 52811 Drug allergy HALLUCINATIONS Active SULFA (sulfonamide) 0 [...] Start Date Resolved Date Status MRSA colonization 981333727 Active Results Unknown or Not Available. Active Medications Unknown or Not Available. Medications Administered During Visit Unknown or Not Available. Encounters Encounter Diagnosis Diagnosis Code Start Date Body mass index 40+ - severely obese 431637209 06/19/2022 Social History Smoking Status Code Start Date End Date Never smoker 526542788 Patient Decision Aids Unknown or Not Available. Discharge Instructions You were admitted to [facility] on 06/19/2022 08:37 with a principal diagnosis of Body mass index [BMI] 40.0-44.9, adult You were discharged from [facility] on 06/19/2022 00:00 Should you have any questions prior [...]
--- OUTSIDE RECORDS SUMMARY | 2022-10-18 02:03 | XMS_ITS | CCD ---
Author Name Unknown Address [address] [place] [address] [phone] Organization Unknown Address [address] [place] [address] [phone] Care Team Providers Care New Business Clerk Name Role Phone JUDSON AUGUSTINE Attending Physician [phone] JUDSON AUGUSTINE Rounding (Secondary) Physicia n [phone] Vital Signs Unknown or Not Available. Allergies Allergy Code Allergy Type Reaction Status [facility] 3423 Drug allergy ITCHING; DILAUDID Active PERCOCET 04943 Drug allergy HALLUCINATIONS Active SULFA (sulfonamide) 0 [...] Start Date Resolved Date Status MRSA colonization 261109410 Active Results Unknown or Not Available. Active Medications Unknown or Not Available. Medications Administered During Visit Unknown or Not Available. Encounters Encounter Diagnosis Diagnosis Code Start Date Foot drop, right foot [id number] 03/04/2022 Social History Smoking Status Code Start Date End Date Never smoker 103411098 Patient Decision Aids Unknown or Not Available. Discharge Instructions You were admitted to [facility] on 03/04/2022 09:28 with a principal diagnosis of Foot drop, right foot You were discharged from [facility] on 03/04/2022 00:00 Should you have any questions prior [...]
--- OUTSIDE RECORDS SUMMARY | 2022-10-18 02:03 | XMS_ITS | CCD ---
Author Name Unknown Address [address] [place] [address] [phone] Organization Unknown Address [address] [place] [address] [phone] Care Team Providers Care Assistant Track Coach Name Role Phone TROY PAYNE Attending Physician [phone] TROY PAYNE Rounding (Secondary) Physician [phone] Vital Signs Unknown or Not Available. Allergies Allergy Code Allergy Type Reaction Status [facility] [address]93 Drug allergy HALLUCINATIONS Active SULFA (sulfonamide) 0 [...] Start Date Resolved Date Status MRSA colonization 129128205 Active Results Unknown or Not Available. Active Medications Unknown or Not Available. Medications Administered During Visit Unknown or Not Available. Encounters Encounter Diagnosis Diagnosis Code Start Date Aftercare [id number] 10/08/2021 Social History Smoking Status Code Start Date End Date Never smoker [id number] Patient Decision Aids Unknown or Not Available. Discharge Instructions You were admitted to [facility] on 10/08/2021 13:41 with a principal diagnosis of Aftercare following joint replacement surgery You were discharged from [facility] on 10/08/2021 00:00 Should you have any questions prior [...]
--- OUTSIDE RECORDS SUMMARY | 2022-10-18 02:03 | XMS_ITS | CCD ---
Author Name Unknown Address [address] [place] [address] [id number] Organization Unknown Address [address] [place] [address] [phone] Care Team Providers Care Patient Access Associate Name Role Phone TROY PAYNE Attending Physician [phone] Vital Signs Vital Sign Value Unit Date/Time Recent/Initial ? BMI (Body Mass Index) 39.73 kg/m^2 01/21/2022 15: 26 Initial VS Weight Measured 212 lbs 01/21/2022 15:26 Ini tial VS Height 61.25 in 01/21/2022 15:26 Initial VS BSA (Body Surface Area) 2.04 m^2 01/21/2022 1 5:26 Initial VS Allergies Allergy Code Allergy Type Reaction Status HYDROMORPHONE 3423 Drug allergy ITCHING; DILAUDID Active PERCOCET 63668 Drug allergy HALLUCINATIONS Active SULFA (sulfonamide) 0 [...] Start Date Resolved Date Status MRSA colonization [id number] Active Results Unknown or Not Available. Active Medications Medications Administered During Visit Unknown or Not Available. Encounters Encounter Diagnosis Diagnosis Code Start Date Procedure and treatment not carried out because of patient's decision for other reasons [id number] 01/31/2022 Social History Smoking Status Code Start Date End Date Never smoker [id number] Patient Decision Aids Unknown or Not Available. Discharge Instructions You were admitted to [facility] on 01/31/2022 15:24 with a principal diagnosis of Procedure and treatment not carried out because of patient's decision for other reasons You were discharged from [facility] on 01/31/2022 15:24 Should you have any questions prior to discharge, please contact a member of your healthcare team. If you have left the hospital and have any questions, please contact your primary care physician. Chief Complaint and Reason For Visit Chief Complaint Date of Onset L TOTAL KNEE ARTHROPLASTY JERICHO PRICE AND NEPHEW JOURNEY II BCS WITH ROBOTIC ASSIST 120MIN IP Function Status Unknown or Not Available. Plan of Care Unknown or Not Available. Referral/Transition of Care Unknown or Not Available.
--- OUTSIDE RECORDS SUMMARY | 2022-10-18 02:03 | XMS_ITS | CCD ---
Author Name Unknown Address [address] [place] [address] [id number] Organization Unknown Address [address] [place] [address] [phone] Care Team Providers Care Sewing Inspector Name Role Phone TROY PAYNE Attending Physician [phone] TROY PAYNE Rounding (Secondary) Physician [phone] Vital Signs Unknown or Not Available. Allergies Allergy Code Allergy Type Reaction Status HYDROMORPHONE 3423 Drug allergy ITCHING; DILAUDID Active PERCOCET 86882 Drug allergy HALLUCINATIONS Active SULFA (sulfonamide) 0 [...] Start Date Resolved Date Status MRSA colonization [id number] Active Results Unknown or Not Available. Active Medications Unknown or Not Available. Medications Administered During Visit Unknown or Not Available. Encounters Encounter Diagnosis Diagnosis Code Start Date Specialized medical examination [id number] 01/23/2022 Social History Smoking Status Code Start Date End Date Never smoker [id number] Patient Decision Aids Unknown or Not Available. Discharge Instructions You were admitted to [facility] on 01/23/2022 09:49 with a principal diagnosis of Encounter for other specified special examinations You were discharged from [facility] on 01/23/2022 00:00 Should you have any questions prior [...]
--- OUTSIDE RECORDS SUMMARY | 2022-10-18 02:03 | XMS_ITS | CCD ---
Author Name Unknown Address [address] [place] [address] [phone] Organization Unknown Address [address] [place] [address] [phone] Care Team Providers Care Blender Operator Name Role Phone TROY PAYNE Attending Physician [phone] TROY PAYNE Rounding (Secondary) Physician [phone] Vital Signs Unknown or Not Available. Allergies Allergy Code Allergy Type Reaction Status [facility] [address]3361 Drug allergy HALLUCINATIONS Active SULFA (sulfonamide) 0 [...] Start Date Resolved Date Status MRSA colonization 439431009 Active Results Unknown or Not Available. Active Medications Unknown or Not Available. Medications Administered During Visit Unknown or Not Available. 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 Discharge Instructions You were admitted to [facility] on 01/01/2022 14:49 with a principal diagnosis of Unilateral primary osteoarthritis, left knee You were discharged from [facility] on 01/01/2022 00:00 Should you have any questions prior [...]
--- OUTSIDE RECORDS SUMMARY | 2022-10-18 02:03 | XMS_ITS | CCD ---
Author Name Unknown Address [address] [place] [address] [id number] Organization Unknown Address [address] [place] [address] [phone] Care Team Providers Care Watermelon Harvesting Supervisor Name Role Phone TROY PAYNE Attending Physician [phone] Vital Signs Unknown or Not Available. Allergies Allergy Code Allergy Type Reaction Status [facility] 05390 Drug allergy HALLUCINATIONS Active SULFA (sulfonamide) 0 [...] Start Date Resolved Date Status MRSA colonization [id number] Active Results BASIC METABOLIC PANEL (BMP) - Collect Date/Time: 01/03/2022 09:55 Test Name Code Test Result Test Units Test Ref Rang e GLUCOSE 2345-7 89 mg/dL L=70 H=116 BUN 3094-0 17 mg/dL L=6 H=25 CREATININE 2160-0 0.84 mg/dL L=0.51 H=0.95 SODIUM SERUM 2951-2 137 mmol/L L=136 H=145 POTASSIUM SERUM 2823-3 3.7 mmol/L L=3.4 H=5 .2 CHLORIDE SERUM 2075-0 103 mmol/L L=96 H=110 CARBON DIOXIDE (CO2) 2027-9 27 mmol/L L=22 H=34 ANION GAP 81114-6 7.2 mmol/L CALCIUM SERUM 22183-0 8.7 mg/dL L=8.2 H=10. 2 AGE 81 years eGFR (non-Afr.Amer.) 48221-0 65 mL/min eGFR (Afr-Bahraini) 05671-3 79 mL/min CBC W/ DIFFERENTIAL* - [facility] ct Date/Time: 01/03/2022 09:55 Test Name Code Test Result Test Units Test Ref Rang e WBC 6690-2 4.21 th/cmm L=5.00 H=10.00 NEUT % 56.6 % L=40.0 H=80.0 LYMPH % 29.9 % L=10.0 H=50.0 MONO % 51109-2 9.0 % L=2.0 H=12.0 EOS % 2.9 % L=0.0 H=8.0 BASO % 1.4 % L=0.0 H=3.0 IG % 2514-8 0.2 % L=0.0 H=1.1 NRBC % 74303-8 0.0 % L=0.0 H=0.0 NEUT abs count 751-8 2.4 th/cmm L=1.6 H=8. 4 LYMPH abs count 731-0 1.3 th/cmm L=1.5 H=4 .0 MONO abs count 742-7 0.4 th/cmm L=0.2 H=1. 0 EOS abs count 711-2 0.1 th/cmm L=0.0 H=0.5 BASO abs count 704-7 0.1 th/cmm L=0.0 H=0. 2 IG abs count 16306-2 0.0 th/cmm L=0.0 H=0.1 NRBC abs count 87523-7 0.0 mil/cmm L=0.0 H=0. 0 RBC 789-8 4.01 mil/cmm L=3.90 H=5.40 HEMOGLOBIN 718-7 12.3 gm/dL L=12.0 H=16.0 HEMATOCRIT 4544-3 37 % L=37 H=47 MCV 787-2 93 fL L=82 H=92 MCH 785-6 30.7 pg L=27.0 H=31.0 MCHC 786-4 33.0 % L=32.0 H=36.0 RDW-SD 788-0 49.1 fL L=39.0 H=49.0 PLATELET COUNT 777-3 243 th/cmm L=150 H=45 0 PT PROTHROMBIN TIME* - [facility] ct Date/Time: 01/03/2022 09:55 Test Name Code Test Result Test Units Test Ref Rang e PROTIME 5902-2 10.5 seconds L=9.3 H=11.4 INR 66141-0 1.05 L=2.00 H=3.00 MRSA/MSSA NASAL COMPLETE BY PCR* - Collect Date/Time: 01/03/2022 09:55 Test Name Code Test Result Test Units Test Ref Rang e MRSA 83052-7 POSITIVE N/A Normal: Negati ve MSSA DNR N/A Normal: Negati ve TYPE AND SCREEN* - Collect D ate/Time: 01/03/2022 09:55 Test Name Code Test Result Test Units Test Ref Rang e Blood Group 883-9 B N/A Rh (D) 89929-3 NEGATIVE N/A Antibody Screen 1005-8 NEGATIVE N/A Active Medications Unknown or Not Available. Medications Administered During Visit Unknown or Not Available. Encounters Encounter Diagnosis Diagnosis Code Start Date Encounter for other preprocedural examination Z0 1818 01/03/2022 Social History Smoking Status Code Start Date End Date Never smoker [id number] Patient Decision Aids Unknown or Not Available. Discharge Instructions You were admitted to [facility] on 01/03/2022 06:44 with a principal diagnosis of Encounter for other preprocedural examination You had the following tests done:BASIC METABOLIC PANEL (BMP)CBC W/ DIFFERENTIAL*MRSA/MSSA NASAL COMPLETE BY PCR*PT PROTHROMBIN TIME*TYPE AND SCREEN* You were discharged from [facility] on 01/03/2022 06:44 Should you have any questions prior to [...]
[2022-10-18 12:07] LABS: HCT 38.9 % (36.0-46.0); HGB 12.5 g/dL (11.2-15.7); MCH 29.8 pg (27.0-33.0); MCHC 32.1 % (32.0-36.0); MCV 93 fL (80-95); MPV 9.5 fL (8.0-11.0); Platelet Count 353 10^3/uL (130-400); RDW 13.5 % (11.7-14.6); RDW-SD 45.8 fL
[2022-10-18 12:30] LABS: Anion Gap 11.7 mmol/L (3-11); BUN 28 mg/dL (7-18); CO2 29.3 mmol/L (21.0-32.0); CREATININE 1.3 mg/dL (0.55-1.02); Calcium 8.9 mg/dL (8.5-10.1); Chloride 99 mmol/L (98-107); Estimated GFR 41.31 (mL/min/1.73m2); Glucose 99 mg/dL (74-106); Potassium 3.9 mmol/L (3.5-5.1); Sodium 140 mmol/L (136-145)
== END 2022-10-18 02:00 | disposition home or self-care (01) ==
LOC: LBO 01:59
PROVIDERS: PCP Internal Medicine; Visit Provider Student in an Organized Health Care Education/Training Program
DX: M17.12 Unilateral primary osteoarthritis, left knee (principal); Z01.818 Encounter for other preprocedural examination
CPT/HCPCS: 36415; 80048; 85027; 73560; 77073

== ENCOUNTER 2022-10-18 10:51 | Outpatient (CLI) | payer MEDICARE, SELFPAY ==
--- NOTE | 2022-10-18 11:30 | DI.RAD_ITS ---
Exam(s) XR KNEE LT 1V XR STANDING ALIGNMENT EXAM: XR STANDING ALIGNMENT CLINICAL HISTORY: PRE OP L TKA. TECHNIQUE: 2D digital imaging was performed. Standing AP views were performed from the pelvis throu gh the ankles. Lateral view left knee COMPARISON: DOC,DX XR KNEE 4V LT* from 05/21/2021 CR XR KNEE LT 1V from 10/18/2022 FINDINGS: BONES: No acute fracture is present. No bony destructive lesion is seen. Leg length discrepancy: No significant leg length discrepancy. JOINTS: Knees: Total right knee prosthesis is unremarkable. The advanced degenerative changes medial femoral tibial joint space of left knee. Spurring from the femoral condyles and tibial plateaus. S purring also noted at the patellofemoral joint. The ankle joints are unremarkable. The hip joints are unremarkable. SOFT TISSUE: Normal. IMPRESSION: Advanced degenerative changes of the left knee. No significant leg length discrepancy. DATA REPOSITORY: RADIATION DOSE DELIVERED:
== END 2022-10-18 10:52 | disposition home or self-care (01) ==
LOC: DIORS 10:51
PROVIDERS: PCP Internal Medicine; Referring Provider Internal Medicine; Visit Provider Student in an Organized Health Care Education/Training Program
DX: Z01.818 Encounter for other preprocedural examination (principal); M17.12 Unilateral primary osteoarthritis, left knee
CPT/HCPCS: 73560; 77073

== ENCOUNTER 2022-10-22 08:51 | Day surgery (SDC) | payer MEDICARE, SELFPAY ==
[2022-10-22] VITALS (9 sets, daily range): BP systolic 114–131; BP diastolic 50–88; PULSE 55–65; RESP 10–17; TEMP 36.2–36.6; O2SAT 95–99; BMI 40.6
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
[2022-10-22] MEDS: Celecoxib 200 MG CAP 400 MG PO (09:41)
[2022-10-22] MEDS: Acetaminophen 500 MG TAB 1000 MG PO (09:41)
[2022-10-22] MEDS: Gabapentin 300 MG CAP PO (09:41)
[2022-10-22] MEDS: Lactated Ringers 1,000 ML 80 ML IV (09:53)
[2022-10-22] MEDS: ceFAZolin 2 GM/50 ML BAG IVPB (10:17)
--- NOTE | 2022-10-22 11:06 | W.ANESNERVE ---
Nerve Block Single Injection Procedure Date and Time Date Performed: 10/22/22 Procedure Start: 09:55 Location Where Procedure Performed Procedure Location: Day Surgery Unit Reason Performed: Postoperative Analgesia Requesting Provider: Ricci Day Timeout Performed Timeout Performed: Yes Monitoring Used ECG, Blood Pressure, SpO2 and See EMR for corresponding vital signs Sterility Sterility: Hand Hygiene, Surgical Cap, Surgical Mask, Sterile Gloves, Sterile Drape/Sheet and Chlorhexidine Sedation Given During Procedure Sedation Given (Indicate Dose Given): Versed IV Dose:: 2 mg Patient Mental Status Patient Mental Status: Sedate with meaningful communication Nerve Block 1st Nerve Block: Laterality: Left Block Type: Adductor Canal Ultrasound Image Saved?: Yes Needle / Catheter Used: 100mm SonoPlex II Local Anesthetic Bolus (Indicate Dose Given): Lidocaine used for local infiltration of skin, Injected in 3-5ml increments after negative blood aspiration and Bupivacaine 0.25% Dose:: 15 ml Additives (Indicate Dose Given): None Ultrasound: Sterile probe cover and gel used Nerve Stimulator: Supplement to Ultrasound use and No twitch or parasthesia noted < 0.5 mA Paresthesia: None Procedure Tolerated: No Complications and Patient tolerated well Procedure Outcome: Successful Performed By: Stacy Gutierrez
[2022-10-22] MEDS: fentaNYL 100 MCG/2 ML VIAL IVP (12:25)
[2022-10-22] MEDS: traMADol 50 MG TAB PO (13:21)
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
--- NOTE | 2022-10-22 14:18 | W.ANESPOSTOP ---
Postoperative Evaluation Date, Time and Location Date Performed: 10/22/22 Time Performed: 13:25 Patient Location: PACU Vital Signs Most Recent Imported Vital Signs: Most Recent Vital Signs Temp Pulse Resp BP Pulse Ox 36.2 C L 62 17 117/61 95 10/22/22 13:35 10/22/22 13:35 10/22/22 13:35 10/22/22 13:35 10/22/22 13:35 Pain Score Most Recent Pain Score: Most Recent Pain Score Pain Level 2 10/22/22 13:35 Assessment Mental Status: Awake (Alert & Oriented to Patient Baseline) Airway and Respiratory Function: Patent airway with normal (patient baseline) respiratory exam Cardiovascular Function: Hemodynamically Stable Hydration Status: Adequately Hydrated Nausea & Vomiting: No Nausea or Vomiting Pain: Pain is tolerable per patient Peripheral Nerve Block: Regional nerve block not resolved at time of post operative discharge
--- NOTE | 2022-10-22 15:49 | IN_ITS ---
Date of service: 10/22/22 Time of Service: 14:25 PT Notes Visit Reasons: Left knee DJD Physical Therapy Day Surgery Initial Evaluation Date: 10/22/2022 Referring Doctor: JAIMEE Almazan PT Orders: PT CONSULT: S/P Ortho surgery Precautions: WBAT on left LE with AD. Patient Profile/Admitting Diagnosis: Courtney is an 82-year-old female with primary osteoarthritis of the left knee and is status post left total knee arthroplasty on postoperative day 0. PMHX: Medical History?(Updated 07/15/22 @ 21:44 by JAIMEE Davila) Depression Fibromyalgia GERD (gastroesophageal reflux disease) H/O recent trauma Headache History of cataract History of rectocele Hyperlipidemia Hypertension Hypothyroidism IBS (irritable bowel syndrome) Migraine headache Nausea Paroxysmal SVT (supraventricular tachycardia) Scoliosis Surgical History?(Updated 07/15/22 @ 21:44 by JAIMEE Davila) Cervical vertebral fusion H/O cardiac radiofrequency ablation s/p SVT History of bladder surgery prolapse History of carpal tunnel syndrome s/p bilateral release History of cataract surgery History of eyelid surgery History of hysterectomy History of knee replacement RIGHT [place] of [place] [facility] [place] at [facility]; 2019 at [facility] History of rectal surgery rectoceleHistory of tubal ligation S/P spinal surgery Social History/Home Situation: Lives alone in a private home without stairs. Daughter lives an hour away but will help with overall set up tonight to minimize fall risk. Equipment Owned/DME: 4[employer] Subjective: Reports 2/10 pain in the left knee at rest and with weight bearing. No chest pain, no lightheadedness, normal headache throughout session. Objective: General Observation: Lucas wraps to left LE. Cryocuff to left knee. TEDS to right leg. Mental Status: Alert and oriented x4 Pain: 2/10 left knee ROM: Right Lower Extremity: Hip flexion WFL. Hip abduction WFL. Knee flexion WFL. Ankle dorsiflexion WFL. Ankle plantarflexion WFL. Left Lower Extremity: Hip flexion WFL. Hip abduction WFL. Knee flexion 0-100 degrees. Ankle dorsiflexion WFL. Ankle plantarflexion WFL. Strength: Right Lower Extremity: Hip flexors 5/5. Hip abductors 5/5. Knee flexors 5/5. Knee extensors 5/5. Ankle dorsiflexors 5/5. Ankle plantarflexors 5/5. Left Lower Extremity:Hip flexors 5/5. Hip abductors 5/5. Knee flexors 3-/5. Knee extensors 4-/5. Ankle dorsiflexors 5/5. Ankle plantarflexors 5/5. Sensation: Intact as to pain and light pressure in BLE Bed Mobility/Transfers: Supine to sit standby assist Sit to stand stand by assist Stand to sit stand by assist Bed to chair stand by assist Gait: 150 feet on level surface using FWW with step through gait pattern with stand by assist, cues provided to maintain head in forward direction as patient got preoccupied looking down. Mild tibial external rotation and out toeing noted which patient was able to correct with verbal cueing. No LOB. No SOB. Balance: Static Sitting: Normal Dynamic Sitting: Normal Static Standing: Fair Dynamic Standing: Fair Special Tests: Mobility Limitations Standardized Measure [facility] 6 clicks Basic Mobility Inpatient Short Form: Raw Score: 23 CMS Score: 11% deficit Informed Consent/Education: Patient instructed in purpose of PT consult. Packet containing TKA exercise protocol has been given to patient. Education and training on initial set of exercises that can be done at home have been completed with patient. THERA EX: - Quadriceps Sets - 1 x daily - 7 x weekly - 1 sets - 10 reps - 5 hold - Supine Heel Slide - 1 x daily - 7 x weekly - 1 sets - 10 reps - 5 hold - Supine Ankle Pumps - 1 x daily - 7 x weekly - 1 sets - 10 reps - 5 hold - Small range straight leg raise - 1 x daily - 7 x weekly - 1 sets - 10 reps - 5 hold - Seated March - 1 x daily - 7 x weekly - 1 sets - 10 reps - 5 hold Assessment: Patient requires the use of a front wheeled walker to maximize independence and reduce fall risk. Patient presents with clinical signs and symptoms consistent with current/admitting diagnoses that have resulted to mobility limitations, gait instability, generalized weakness, and impairment of motor control as demonstrated by the following impairment level findings: 1. Decreased strength to left knee major muscle groups 2. Impaired standing balance 3. Limitation of joint range of motion in left knee Impairments are contributing to the following functional limitations: 1. Inability to safely ambulate without assistive device 2. Increase completion time for mobility ADL performance 3. Increased fall risk Patient is assessed as a 77819 moderate complexity based on the following: History: 82-year-old female with impairment level findings, functional limitations, and past medical history as indicated above Examination: Demonstrable impairment in strength, balance, and mobility level with underlying impairments and functional limitations as documented above Presentation: Evolving Decision Makin moderate complexity Goals: N/A. PT evaluation and 1-2 treatment sessions only for functional mobility training using recommended AD and for HEP instruction. Plan of Care/Treatment Plan: N/A. PT evaluation and 1-2 treatment session only for functional mobility training using recommended AD and for HEP instruction. DISCHARGE RECOMMENDATIONS: Home when medically cleared by orthopedic surgeon. Recommend outpatient PT services in order to optimize functional mobility outcomes and facilitate return to independent community ambulation without an assistive device. TREATMENT CODE/TIME: 06560 x 20 minutes (1 unit), 28305 x 20 minutes (1 unit) beginning at 14:25 PM. Thank you for the opportunity to participate in the care of this patient. Gaviota Michael PT, DPT, CLT [facility] [place], [place]
--- NOTE | 2022-10-22 21:00 | ROE_ITS ---
Date of service: 10/22/22 Time of Service: 11:40 Operative Note Operative Note DATE OF PROCEDURE: 10/22/22 PRE-OP DIAGNOSIS: Left Knee Osteoarthritis POST-OP DIAGNOSIS: same PROCEDURE: Left Total Knee Replacement SURGEON: Ricci Day SALES SUPPORT MANAGER: Belkis Gary ANESTHESIA TYPE: Spinal Refer to Anesthesia Record ESTIMATED BLOOD LOSS: 150 PATHOLOGY: none sent TOURNIQUET TIME: 0 COMPLICATIONS: None Patient was transported to: PACU Patient's condition: stable Implants: 1. Depuy Attune Cementless Cruciate Retainin Femoral Component, Size 6 2. Depuy Attune Cementless Fixed Bearing Tibial Component, Size 5 3. Depuy Attune 6x6 CR/FB Poly, Medial Lipped 4. Depuy Attune Patellar Component, Size 35 Indications: I have seen Courtney in clinic for symptoms of knee arthritis, confirmed with radiographic findings. She has exhausted nonoperative methods and was having significant limitations in daily function and desired better function and less pain. I discussed the technical details of a knee replacement. I explained the risks of the procedure to include, but not limited to, bleeding, infection, pain, stiffness, fracture, damage to nerves and vessels, damage to muscles and tendons, loosening, need for repeat procedure, blood clot and cardiopulmonary demise. Despite these risks, Courtney elected to proceed. Findings: There was significant signs of arthritis throughout the knee involving all 3 compartments. Procedure Description: Courtney was greeted in the preoperative holding area where the correct side was identified and marked. The consent was reviewed with the patient and signed. The history and physical was updated. All questions were answered. Preoperative medications were administered: Acetaminophen 1000mg, Celebrex 400mg, and Gabapentin 300mg. An adductor canal block was then administered by the anesthesia team in the PACU. Courtney was taken back to the operating room. A spinal anesthestic was then administered. The patient was placed into the supine position on the operating room table. A nonsterile tourniquet was placed high onto the leg but only used for cementing. Posts were placed for positioning during the procedure. All bony prominences were well padded. Prophylactic antibiotics in the form of Cefazolin were administered. 1g of Tranxemic Acid was given intravenously within 30 minutes of incision. The left leg was then prepped with Chloraprep and draped in a standard fashion with impervious stockinette. A second prep with Chloraprep was performed prior to application of Iodine impregnated skin protection. A timeout to confirm correct identity, side and site, procedure, allergies, anesthesia, and medical concerns was performed. With the knee in some flexion, a midline incision was made overlying the knee. Full thickness skin flaps were raised once the extensor mechanism was encountered. These were raised medially and laterally. Any bleeding was controlled with electrocautery. Once the extensor mechanism was fully exposed, a medial parapatellar arthrotomy was performed in a flexed position. All bleeding from the arthrotomy and the geniculate arteries was coagulated. A medial subperiosteal peel was performed with electrocautery to the midcoronal plane. Due to the significant varus deformity the entire medial tibial plateau was exposed. The fat pad was removed while keeping the patellar tendon protected. The anterior distal femur synovium was removed for later visualization. The ACL and PCL were resected and the anterior horn of the lateral meniscus was transected. The knee was then flexed with the patella everted. Large osteophytes from the tibia were removed. Large osteophytes from the femur were removed. Using a step drill, and based on preoperative templating, the femoral canal was entered. This was done with a step drill without any difficulty. The intramedullary distal femoral cut guide was inserted, set to a 5 degree valgus cut and 9mm cut thickness. The distal femoral cut guide was then held in position and pinned. With the soft tissues protected, the distal cut was performed. This was passed over a few times to ensure a planar cut. I then turned attention to the tibia. The extramedullary guide was placed onto the leg. The distal aspect was slid medial to adjust for position of center of ankle and stay in line with shaft of the tibia. Approximately 3-5 degrees of posterior slope was kept in the proximal cutting guide. The center of the guide was aligned with the PCL. The stylus was used to assess cut thickness. The medial side, most involved side, was set for a 4mm cut. This was then held in position and pinned into place with 2 additional pins and a cross pin for stability. The medial and lateral collateral ligaments were protected and the cut was performed. With this completed, it was assessed and noted to be of appropriate dimensions. The guide was removed. A spacer block was inserted and the knee was brought into extension. The 6mm spacer block provided full extension, without hyperextension and with stability of both the medial and lateral collateral ligaments was assessed. The pins from the femur and the tibia were then removed. The distal femur was then sized. The anterior stylus was placed onto the lateral ridge of the anterior femur. This indicated a size 6 femur. The external rotation of the guide was adjusted to 3 degrees to match the epicondylar axis, perpendicular to Lynn?s line. The 4-in-1 cutting guide was the placed. The posterior medial femur cut was evaluated and appeared of good thickness. The spacer block was inserted underneath the cutting guide and stability was confirmed in 90 degrees of flexion. An brittany wing was used to confirm appropriate position of the anterior cut to avoid notching. This cutting guide was ensured to be flush on the cut surface and then pinned into place with headed pins. While protecting the soft tissues, quad tendon, and collateral ligaments, the anterior and posterior cuts were performed with a saw. The central two pins were removed and the posterior and anterior chamfers were cut next. The notch-cutting guide was placed. This was pinned to lateralize the femoral component as much as possible while keeping it flush on the cut surface. This was then pinned into position. A reciprocating saw was used to make the notch cut. A rasp smoothed the cut surfaces. The medial and lateral menisci were removed. A trial femoral component was then inserted, impacted down to the cut surfaces, and the lug holes were drilled. A provisional trial tibial component was placed and the knee was brought through range of motion. There was noted to be excellent extension and flexion. There was no significant instability. The patella was tracking without thumbs although it did have some lateral pull and tilt, it stayed in the trochlea throughout range of motion. A size 6mm polyethylene component provided the best range of motion and stability with less than 2mm gapping with medial and lateral stress and full extension without significant hyperextension. The tibial cut surface was fully exposed. The tibia was then sized as a 5. The tibia had been previously marked during trialing to correspond to the center of the tibial component to help with rotation. The trial was aligned to this kranthi, approximately rotated to the medial 1/3rd of the tibial tubercle. The trial was pinned into place. The tibia was prepared with a reamer and a keel punch and lug holes. The knee was then brought into extension and the patella was measured as 22mm. Using the patellar clamp and cut guide, this was resected to a flat surface with at least 13mm of thickness remaining. The size 35 patella fit the best. This was oriented and then clamped into position. The lugs were drilled. The trial components were removed. The final components were opened on the back table. The periosteal and capsular tissues, especially posteriorly, around the knee were then systematically injected with a periarticular cocktail consisting of 246mg of Ropivacaine, 0.5mg of Epinephrine, 0.08mg of Clonidine, and 30mg of Ketorolac, diluted to 100cc. On the back table, with the implants opened, the cement was mixed. One batch of high viscosity cement was prepared with vacuum assistance. After the cement was ready a small amount was placed on the cut surface of the patella and the patellar button was clamped into position and held. While the cement was hardening, the cementless knee components were placed. Starting with the tibial component, the tibia was subluxed anteriorly and the lug holes of the component were lined up. The tibia was then impacted with an impactor and mallet until the tibial component was in contact with the tibia. Then, the femoral component was inserted. The lug holes were aligned and the component was impacted into position. The final polyethylene component was inserted. The knee was irrigated with Surgiphor Betadine solution. This was allowed to sit in the knee for 3 minutes and then it was irrigated out with saline. After the cement had finally cured, approximately 15min, the clamp was removed from the patella and the knee was taken through range of motion. The patella was tracking with a no-thumbs technique. The capsule was then reapproximated with a No. 1 Vicryl at multiple locations. The capsule was finally closed with a No. 2 Stratafix, barbed suture. The second dosing of 1g TXA was started. Deep tissues were then reapproximated with 0 Vicryl and 2-0 Vicryl. The skin was closed with a running 3-0 Monocryl in a subcuticular fashion. This was reinforced with skin glue. A Mepilex silver dressing was applied along with a aqya-ui-tyoiw SARABJIT wrap. A CryoCuff was applied. Courtney was transferred to the hospital bed without difficulty an suffering no apparent complication. She has a good prognosis. Physical therapy will start today and without re strictions, weight-bearing as tolerated. Her usual Apixaban will be used for DVT prophylaxis.
== END 2022-10-22 15:40 | disposition home or self-care (01) ==
PROVIDERS: PCP Internal Medicine; Visit Provider Student in an Organized Health Care Education/Training Program
PROC: (CPT 27447; principal; 2022-10-22 11:15)
DX: M17.12 Unilateral primary osteoarthritis, left knee (principal); G47.33 Obstructive sleep apnea (adult) (pediatric); K21.9 Gastro-esophageal reflux disease without esophagitis; I10 Essential (primary) hypertension; I47.1 Supraventricular tachycardia
CPT/HCPCS: 27447; C1776; 76942; 97162; J0690; J1100; J2250; J2371; J2405; J3010

== ENCOUNTER 2022-11-04 14:52 | Outpatient (CLI) | payer MEDICARE, SELFPAY ==
--- NOTE | 2022-11-04 14:15 | DI.RAD_ITS ---
Exam(s) XR KNEE LT 1V XR STANDING ALIGNMENT EXAM: XR STANDING ALIGNMENT and XR knee LT 1 V CLINICAL HISTORY: f/u L TKA. TECHNIQUE: 2D digital imaging was performed. Five images were obtained. COMPARISON: CR XR STANDING ALIGNMENT from 10/18/2022 FINDINGS: BONES: The hips are well maintained. There are now bilateral total knee replacements which appear in good position. The ankles are well maintained.There is no significant leg length discrepancy. SOFT TISSUE: Normal. IMPRESSION: Stable bilateral total knee replacements. DATA REPOSITORY: RADIATION DOSE DELIVERED:
== END 2022-11-04 14:53 | disposition home or self-care (01) ==
LOC: DIORS 14:52
PROVIDERS: PCP Internal Medicine; Referring Provider Internal Medicine; Visit Provider Student in an Organized Health Care Education/Training Program
DX: Z96.652 Presence of left artificial knee joint (principal); Z47.1 Aftercare following joint replacement surgery; T81.49XD Infection following a procedure, other surgical site, subsequent encounter
CPT/HCPCS: 73560; 77073

== ENCOUNTER → 2022-12-02 13:48 | Outpatient (BNVA) | payer MEDICARE, SELFPAY | PROVIDERS: PCP Internal Medicine; Referring Provider Internal Medicine | DX: Z47.1 Aftercare following joint replacement surgery (principal); Z96.652 Presence of left artificial knee joint ==

== ENCOUNTER → 2023-01-20 13:34 | Outpatient (BNVA) | payer MEDICARE, SELFPAY | PROVIDERS: PCP Internal Medicine; Referring Provider Internal Medicine; Visit Provider Student in an Organized Health Care Education/Training Program | DX: Z47.1 Aftercare following joint replacement surgery (principal); Z96.652 Presence of left artificial knee joint ==

== ENCOUNTER → 2023-03-13 00:10 | Outpatient (CLI) | payer MEDICARE, SELFPAY ==
--- OUTSIDE RECORDS SUMMARY | 2023-03-13 00:20 | XMS_ITS | CCD ---
Author Name Unknown Address [address] [place] [address] [phone] Organization Unknown Address [address] [place] [address] [phone] Care Team Providers Care Physician Primary Care Sports Medicine Name Role Phone TROY PAYNE Attending Physician [phone] TROY PAYNE Rounding (Secondary) Physician [phone] Vital Signs Unknown or Not Available. 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 Active Medications Unknown or Not Available. Medications Administered During Visit Unknown or Not Available. Encounters Encounter Diagnosis Diagnosis Code Start Date Specialized medical examination [id number] 01/23/2022 Social History Smoking Status Code Start Date End Date Never smoker [id number] Patient Decision Aids Unknown or Not Available. Discharge Instructions You were admitted to [facility] on 01/23/2022 09:49 with a principal diagnosis of Encounter for other specified special examinations You were discharged from [facility] on 01/23/2022 00:00 Should you have [...]
--- OUTSIDE RECORDS SUMMARY | 2023-03-13 00:20 | XMS_ITS | CCD ---
Author Name Unknown Address [address] [place] [address] [id number] Organization Unknown Address [address] [place] [address] [phone] Care Team Providers Care Bdr Name Role Phone TROY PAYNE Attending Physician [phone] TROY PAYNE Rounding (Secondary) Physician [phone] Vital Signs Unknown or Not Available. Allergies Allergy Code Allergy Type Reaction Status HYDROMORPHONE 3423 Drug allergy ITCHING; DILAUDID Active PERCOCET 84273 Drug allergy HALLUCINATIONS Active SULFA (sulfonamide) 0 [...] Start Date Resolved Date Status MRSA colonization 635717806 Active Results Unknown or Not Available. Active Medications Unknown or Not Available. Medications Administered During Visit Unknown or Not Available. Encounters Encounter Diagnosis Diagnosis Code Start Date Body mass index 40+ - severely obese 443709812 06/19/2022 Social History Smoking Status Code Start Date End Date Never smoker [id number] Patient Decision Aids Unknown or Not Available. Discharge Instructions You were admitted to [facility] on 06/19/2022 08:37 with a principal diagnosis of Body mass index [BMI] 40.0-44.9, adult You were discharged from [facility] on 06/19/2022 00:00 Should you have [...]
--- OUTSIDE RECORDS SUMMARY | 2023-03-13 00:20 | XMS_ITS | CCD ---
Author Name Unknown Address [address] [place] [address] [phone] Organization Unknown Address [address] [place] [address] [phone] Care Team Providers Care Change Number Operator Name Role Phone JUDSON AUGUSTINE Attending Physician [phone] JUDSON AUGUSTINE Rounding (Secondary) Physicia n [phone] Vital Signs Unknown or Not Available. Allergies Allergy Code Allergy Type Reaction Status HYDROMORPHONE 3423 Drug allergy ITCHING; DILAUDID Active PERCOCET 25831 Drug allergy HALLUCINATIONS Active SULFA (sulfonamide) 0 [...] Start Date Resolved Date Status MRSA colonization 971733003 Active Results Unknown or Not Available. Active Medications Unknown or Not Available. Medications Administered During Visit Unknown or Not Available. Encounters Encounter Diagnosis Diagnosis Code Start Date Foot drop, right foot [id number] 03/04/2022 Social History Smoking Status Code Start Date End Date Never smoker [id number] Patient Decision Aids Unknown or Not Available. Discharge Instructions You were admitted to [facility] on 03/04/2022 09:28 with a principal diagnosis of Foot drop, right foot You were discharged from [facility] on 03/04/2022 00:00 Should you have [...]
--- OUTSIDE RECORDS SUMMARY | 2023-03-13 00:20 | XMS_ITS | CCD ---
Author Name Unknown Address [address] [place] [address] [id number] Organization Unknown Address [address] [place] [address] [phone] Care Team Providers Care Vp Foundation Name Role Phone TROY PAYNE Attending Physician [phone] Vital Signs Vital Sign Value Unit Date/Time Recent/Initial ? BMI (Body Mass Index) 39.73 kg/m^2 01/21/2022 15: 26 Initial VS Weight Measured 212 lbs 01/21/2022 15:26 Ini tial VS Height 61.25 in 01/21/2022 15:26 Initial VS BSA (Body Surface Area) 2.04 m^2 01/21/2022 1 5:26 Initial VS Allergies Allergy Code Allergy Type Reaction Status HYDROMORPHONE 3423 Drug allergy ITCHING; DILAUDID Active PERCOCET 18213 Drug allergy HALLUCINATIONS Active SULFA (sulfonamide) 0 [...] Start Date Resolved Date Status MRSA colonization 286265588 Active Results Unknown or Not Available. Active Medications Medications Administered During Visit Unknown or Not Available. Encounters Encounter Diagnosis Diagnosis Code Start Date Procedure and treatment not carried out because of patient's decision for other reasons [id number] 01/31/2022 Social History Smoking Status Code Start Date End Date Never smoker [id number] Patient Decision Aids Unknown or Not Available. Discharge Instructions You were admitted to [facility] on 01/31/2022 15:24 with a principal diagnosis of Procedure and treatment not carried out because of patient's decision for other reasons You were discharged from [facility] on 01/31/2022 15:24 Should you have any [...]
--- OUTSIDE RECORDS SUMMARY | 2023-03-13 00:20 | XMS_ITS | CCD ---
Author Name Unknown Address [address] [place] [address] [id number] Organization Unknown Address [address] [place] [address] [id number] Care Team Providers Care Chargeback Analyst Name Role Phone TROY PAYNE Attending Physician [phone] Vital Signs Unknown or Not Available. Allergies Allergy Code Allergy Type Reaction Status [facility] 26857 Drug allergy HALLUCINATIONS Active SULFA (sulfonamide) 0 [...] Start Date Resolved Date Status MRSA colonization 286838310 Active Results BASIC METABOLIC PANEL (BMP) - [...] 2027-9 27 mmol/L L=22 H=34 ANION GAP 56699-7 7.2 mmol/L CALCIUM SERUM 65338-6 8.7 mg/dL L=8.2 H=10. 2 AGE 81 years eGFR (non-Afr.Amer.) 54022-3 65 mL/min eGFR (Afr-Uruguayan) 05979-0 79 mL/min CBC W/ DIFFERENTIAL* - [facility] ct Date/Time: 01/03/2022 09:55 Test Name Code Test Result Test Units Test Ref Rang e WBC 6690-2 4.21 th/cmm L=5.00 H=10.00 NEUT % 56.6 % L=40.0 H=80.0 LYMPH % 29.9 % L=10.0 H=50.0 MONO % 20490-4 9.0 % L=2.0 H=12.0 EOS % 2.9 % L=0.0 H=8.0 BASO % 1.4 % L=0.0 H=3.0 IG % 2514-8 0.2 % L=0.0 H=1.1 NRBC % 67917-3 0.0 % L=0.0 H=0.0 NEUT abs count 751-8 2.4 th/cmm L=1.6 H=8. 4 LYMPH abs count 731-0 1.3 th/cmm L=1.5 H=4 .0 MONO abs count 742-7 0.4 th/cmm L=0.2 H=1. 0 EOS abs count 711-2 0.1 th/cmm L=0.0 H=0.5 BASO abs count 704-7 0.1 th/cmm L=0.0 H=0. 2 IG abs count 57909-8 0.0 th/cmm L=0.0 H=0.1 NRBC abs count 74236-3 0.0 mil/cmm L=0.0 H=0. 0 RBC 789-8 [...] PROTIME 5902-2 10.5 seconds L=9.3 H=11.4 INR 39090-9 1.05 L=2.00 H=3.00 MRSA/MSSA NASAL COMPLETE BY PCR* - Collect Date/Time: 01/03/2022 09:55 Test Name Code Test Result Test Units Test Ref Rang e MRSA 24407-2 POSITIVE N/A Normal: Negati ve MSSA DNR N/A Normal: Negati ve TYPE AND SCREEN* - Collect D ate/Time: 01/03/2022 09:55 Test Name Code Test Result Test Units Test Ref Rang e Blood Group 883-9 B N/A Rh (D) 54710-4 NEGATIVE N/A Antibody Screen 1005-8 NEGATIVE N/A Active Medications Unknown or Not Available. Medications Administered During Visit Unknown or Not Available. Encounters Encounter Diagnosis Diagnosis Code Start Date Encounter for other preprocedural examination Z0 1818 01/03/2022 Social History Smoking Status Code Start Date End Date Never smoker [id number] Patient Decision Aids Unknown or Not Available. Discharge Instructions You were admitted to [facility] on 01/03/2022 06:44 with a principal diagnosis of Encounter for other preprocedural examination You had the following tests done:BASIC METABOLIC PANEL (BMP)CBC W/ DIFFERENTIAL*MRSA/MSSA NASAL COMPLETE BY PCR*PT PROTHROMBIN TIME*TYPE AND SCREEN* You were discharged from [facility] on 01/03/2022 06:44 Should you [...]
--- OUTSIDE RECORDS SUMMARY | 2023-03-13 00:20 | XMS_ITS | CCD ---
Author Name Unknown Address [address] [place] [address] [phone] Organization Unknown Address [address] [place] [address] [id number] Care Team Providers Care Military Source Operations Specialist Name Role Phone TROY PAYNE Attending Physician [phone] TROY PAYNE Rounding (Secondary) Physician [phone] Vital Signs Unknown or Not Available. Allergies Allergy Code Allergy Type Reaction Status [facility] 16188 Drug allergy HALLUCINATIONS Active SULFA (sulfonamide) 0 [...] Start Date Resolved Date Status MRSA colonization 160129455 Active Results Unknown or Not Available. Active Medications Unknown or Not Available. Medications Administered During Visit Unknown or Not Available. 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 Discharge Instructions You were admitted to [facility] on 01/01/2022 14:49 with a principal diagnosis of Unilateral primary osteoarthritis, left knee You were discharged from [facility] on 01/01/2022 00:00 Should you have [...]
--- OUTSIDE RECORDS SUMMARY | 2023-03-13 00:21 | XMS_ITS | CCD ---
Author Name Unknown Address [address] [place] [address] [id number] Organization Unknown Address [address] [place] [address] [phone] Care Team Providers Care Printed Circuit Boards Beveler Name Role Phone TROY PAYNE Attending Physician [phone] TROY PAYNE Rounding (Secondary) Physician [phone] Vital Signs Unknown or Not Available. Allergies Allergy Code Allergy Type Reaction Status [facility] 31548 Drug allergy HALLUCINATIONS Active SULFA (sulfonamide) 0 [...] Start Date Resolved Date Status MRSA colonization 562979858 Active Results Unknown or Not Available. Active Medications Unknown or Not Available. Medications Administered During Visit Unknown or Not Available. Encounters Encounter Diagnosis Diagnosis Code Start Date Canceled operative procedure [id number] Social History Smoking Status Code Start Date End Date Never smoker 854819595 Patient Decision Aids Unknown or Not Available. Discharge Instructions You were admitted to [facility] on 09/07/2021 10:57 with a principal diagnosis of Procedure and treatment not carried out, unspecified reason You were discharged from [facility] on 09/07/2021 09:19 Should you have any [...]
--- OUTSIDE RECORDS SUMMARY | 2023-03-13 00:21 | XMS_ITS | CCD ---
Author Name Unknown Address [address] [place] [address] [id number] Organization Unknown Address [address] [place] [address] [phone] Care Team Providers Care Director [employer] Name Role Phone TROY PAYNE Attending Physician [phone] TROY PAYNE Rounding (Secondary) Physician [phone] Vital Signs Unknown or Not Available. Allergies Allergy Code Allergy Type Reaction Status [facility] 75861 Drug allergy HALLUCINATIONS Active SULFA (sulfonamide) 0 [...] Start Date Resolved Date Status MRSA colonization 444390925 Active Results Unknown or Not Available. Active Medications Unknown or Not Available. Medications Administered During Visit Unknown or Not Available. Encounters Encounter Diagnosis Diagnosis Code Start Date Aftercare [id number] 09/10/2021 Social History Smoking Status Code Start Date End Date Never smoker 561107439 Patient Decision Aids Unknown or Not Available. Discharge Instructions You were admitted to [facility] on 09/10/2021 07:49 with a principal diagnosis of Aftercare following joint replacement surgery You were discharged from [facility] on 09/10/2021 00:00 Should you have any [...]
--- OUTSIDE RECORDS SUMMARY | 2023-03-13 00:21 | XMS_ITS | CCD ---
Author Name Unknown Address [address] [place] [address] [phone] Organization Unknown Address [address] [place] [address] [phone] Care Team Providers Care Technician Telecommunication Systems Name Role Phone TROY PAYNE Attending Physician [phone] Vital Signs Unknown or Not Available. Allergies Allergy Code Allergy Type Reaction Status [facility] 39471 Drug allergy HALLUCINATIONS Active SULFA (sulfonamide) 0 [...] Start Date Resolved Date Status MRSA colonization 141228308 Active Results Unknown or Not Available. Active Medications Unknown or Not Available. Medications Administered During Visit Unknown or Not Available. Encounters Encounter Diagnosis Diagnosis Code Start Date Idiopathic osteoarthritis [id number] 2021 Social History Smoking Status Code Start Date End Date Never smoker 783781741 Patient Decision Aids Unknown or Not Available. [...]
--- OUTSIDE RECORDS SUMMARY | 2023-03-13 00:21 | XMS_ITS | CCD ---
Author Name Unknown Address [address] [place] [address] [phone] Organization Unknown Address [address] [place] [address] [phone] Care Team Providers Care Interventional Radiology Rn Name Role Phone TROY PAYNE Attending Physician [phone] TROY PAYNE Rounding (Secondary) Physician [phone] Vital Signs Unknown or Not Available. Allergies Allergy Code Allergy Type Reaction Status [facility] 40657 Drug allergy HALLUCINATIONS Active SULFA (sulfonamide) 0 [...] Start Date Resolved Date Status MRSA colonization 361766441 Active Results Unknown or Not Available. Active Medications Unknown or Not Available. Medications Administered During Visit Unknown or Not Available. Encounters Encounter Diagnosis Diagnosis Code Start Date Removal of suture [id number] 08/23/2021 Social History Smoking Status Code Start Date End Date Never smoker [id number] Patient Decision Aids Unknown or Not Available. Discharge Instructions You were admitted to [facility] on 08/23/2021 09:49 with a principal diagnosis of Encounter for removal of sutures You were discharged from [facility] on 08/23/2021 08:14 Should you [...]
--- OUTSIDE RECORDS SUMMARY | 2023-03-13 00:21 | XMS_ITS | CCD ---
Author Name Unknown Address [address] [place] [address] [id number] Organization Unknown Address [address] [place] [address] [phone] Care Team Providers Care Automotive Engineering Teacher Name Role Phone TROY PAYNE Attending Physician [phone] Vital Signs Unknown or Not Available. Allergies Allergy Code Allergy Type Reaction Status [facility] 15598 Drug allergy HALLUCINATIONS Active SULFA (sulfonamide) 0 [...] Start Date Resolved Date Status MRSA colonization 167759575 Active Results [facility] COVID RHEONIX* - Vicente ect Date/Time: 08/04/2021 10:34 Test Name Code Test Result Test Units Test Ref Rang e Tier- 83320-6 PRE-OP N/A SARS COV2 RNA: 27470-4 NEGATIVE N/A REFERENCE RANGE: NEGAT Active Medications Unknown or Not Available. Medications Administered During Visit Unknown or Not Available. Encounters Encounter Diagnosis Diagnosis Code Start Date Pre-surgery testing [id number] 08/04/2021 Social History Smoking Status Code Start Date End Date Never smoker [id number] Patient Decision Aids Unknown or Not Available. Discharge Instructions You were admitted to [facility] on 08/04/2021 06:24 with a principal diagnosis of Encounter for preprocedural laboratory examination You had the following tests done:SENIA ALEXANDER* You were discharged from [facility] on 08/04/2021 06:24 Should you have [...]
--- OUTSIDE RECORDS SUMMARY | 2023-03-13 00:22 | XMS_ITS | CCD ---
Author Name Unknown Address [address] [place] [address] [phone] Organization Unknown Address [address] [place] [address] [phone] Care Team Providers Care Harness Installer Name Role Phone VALDEZ HARTLEY Attending Physician [phone] VALDEZ HARTLEY Rounding (Secondary) Physician [phone] Vital Signs Unknown or Not Available. Allergies [...] Start Date Resolved Date Status MRSA colonization 463090549 Active Results Unknown or Not Available. Active Medications Unknown or Not Available. Medications Administered During Visit Unknown or Not Available. 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 Discharge Instructions You were admitted to [facility] on 04/26/2021 08:48 with a principal diagnosis of Bilateral primary osteoarthritis of knee You were discharged from [facility] on 04/26/2021 00:00 Should you have [...]
--- OUTSIDE RECORDS SUMMARY | 2023-03-13 00:22 | XMS_ITS | CCD ---
Author Name Unknown Address [address] [place] [address] [phone] Organization Unknown Address [address] [place] [address] [phone] Care Team Providers Care Lockstitch Front Maker Name Role Phone TROY PAYNE Attending Physician [phone] TROY PAYNE Rounding (Secondary) Physician [phone] Vital Signs Unknown or Not Available. Allergies [...] Start Date Resolved Date Status MRSA colonization 358075971 Active Results Unknown or Not Available. Active Medications Unknown or Not Available. Medications Administered During Visit Unknown or Not Available. Encounters Encounter Diagnosis Diagnosis Code Start Date Idiopathic osteoarthritis [id number] 2021 Social History Smoking Status Code Start Date End Date Never smoker [id number] Patient Decision Aids Unknown or Not Available. Discharge Instructions You were admitted to [facility] on 05/21/2021 09:08 with a principal diagnosis of Bilateral primary osteoarthritis of knee You were discharged from [facility] on 05/21/2021 00:00 Should you have [...]
--- OUTSIDE RECORDS SUMMARY | 2023-03-13 00:22 | XMS_ITS | CCD ---
Author Name Unknown Address [address] [place] [address] [id number] Organization Unknown Address [address] [place] [address] [phone] Care Team Providers Care Rag Sorter And Cutter Name Role Phone TROY PAYNE Attending Physician [phone] TROY PAYNE Rounding (Secondary) Physician [phone] Vital Signs Unknown or Not Available. Allergies [...] Start Date Resolved Date Status MRSA colonization 428730316 Active Results Unknown or Not Available. Active Medications Unknown or Not Available. Medications Administered During Visit Unknown or Not Available. Encounters Encounter Diagnosis Diagnosis Code Start Date Canceled operative procedure [id number] 05/2021 Social History Smoking Status Code Start Date End Date Never smoker 404490436 Patient Decision Aids Unknown or Not Available. Discharge Instructions You were admitted to [facility] on 05/17/2021 13:45 with a principal diagnosis of Procedure and treatment not carried out, unspecified reason You were discharged from [facility] on 05/17/2021 00:00 Should you have any [...]
--- OUTSIDE RECORDS SUMMARY | 2023-03-13 00:22 | XMS_ITS | CCD ---
Author Name Unknown Address [address] [place] [address] [phone] Organization Unknown Address [address] [place] [address] [phone] Care Team Providers Care It Support Manager Name Role Phone EILEEN LEE Attending Physician [phone] Vital Signs Unknown or Not Available. [...] Start Date Resolved Date Status MRSA colonization 058458798 Active Results Unknown or Not Available. Active Medications Unknown or Not Available. Medications Administered During Visit Unknown or Not Available. Encounters Encounter Diagnosis Diagnosis Code Start Date Bilateral primary osteoarthritis of knee M170 11/09/2020 Social History Smoking Status Code Start Date End Date Never smoker 647456423 Patient Decision Aids Unknown or Not Available. Discharge Instructions You were admitted to [facility] on 11/09/2020 08:45 with a principal diagnosis of Bilateral primary osteoarthritis of knee You had the following procedures done:Arthrocentesis Aspir&/Inj Major Jt/Bursa w/o US You were discharged from [facility] on 11/09/2020 08:45 Should you have any [...]
--- OUTSIDE RECORDS SUMMARY | 2023-03-13 00:22 | XMS_ITS | CCD ---
Author Name Unknown Address [address] [place] [address] [phone] Organization Unknown Address [address] [place] [address] [phone] Care Team Providers Care Shingle Catcher Name Role Phone TROY PAYNE Attending Physician [phone] TROY PAYNE Rounding (Secondary) Physician [phone] Vital Signs Unknown or Not Available. Allergies Allergy Code Allergy Type Reaction Status [facility] 14099 Drug allergy HALLUCINATIONS Active SULFA (sulfonamide) 0 [...] Start Date Resolved Date Status MRSA colonization 202627352 Active Results Unknown or Not Available. Active Medications Unknown or Not Available. Medications Administered During Visit Unknown or Not Available. Encounters Encounter Diagnosis Diagnosis Code Start Date Artificial knee joint present [id number] Social History Smoking Status Code Start Date End Date Never smoker 471222552 Patient Decision Aids Unknown or Not Available. Discharge Instructions You were admitted to [facility] on 08/14/2021 10:20 with a principal diagnosis of Presence of right artificial knee joint You were discharged from [facility] on 08/14/2021 00:00 Should you have any [...]
[2023-03-13 10:54] LABS: CREATININE 1.3 mg/dL (0.55-1.02); Estimated GFR 41.31 (mL/min/1.73m2)
[2023-03-13] MEDS: Gadoterate meglumine 20 ML SYRINGE IVP (11:04)
[2023-03-13] MEDS: Normal Saline Flush 10 ML SYR IVP (11:05)
--- NOTE | 2023-03-13 11:20 | DI.MRI_ITS ---
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 TECHNIQUE: Multiplanar multisequence MRI of the brain was performed. CONTRAST MATERIAL: IV Contrast: 20 ML of Dotarem contrast administered. COMPARISON: MR MR BRAIN WO/W from 07/10/2022 FINDINGS: VENTRICLES AND EXTRA AXIAL SPACES: Normal in size and morphology for the patient's age. HEMORRHAGE: None. CEREBRAL PARENCHYMA: No focus of restricted diffusion to suggest acute infarct. Interval resection of previously noted meningioma small amount of residual or recurrent tissue measuring 10 x 13 x 15 mill imeters adjacent to the falx in the high left temporal region. Small focus of hemosiderin surroundin g high signal in the adjacent brain. Scattered foci of high signal in the white matter consistent w ith microvascular changes. MIDLINE SHIFT: None. BRAINSTEM/CEREBELLUM: Normal. CALVARIUM: Craniotomy defect now seen in the high left parietal region. ENHANCEMENT: No suspicious enhancement identified. VISUALIZED PARANASAL SINUSES/MASTOIDS: Clear. Orbits: Unremarkable. Pituitary: Normal. Vasculature: Normal flow voids. IMPRESSION: 15 millimeter area of residual versus recurrent meningioma in the high left parietal region. No sign ificant mass effect. Minimal edema hemosiderin presumed postsurgical. Overlying craniotomy defect n oted. DATA REPOSITORY:
== END ==
PROVIDERS: PCP Internal Medicine; Visit Provider Physician Assistant
DX: D32.9 Benign neoplasm of meninges, unspecified (principal)
CPT/HCPCS: 70553; 82565

== ENCOUNTER → 2023-11-06 11:15 | Outpatient (BNVA) | payer MEDICARE, SELFPAY | PROVIDERS: PCP Internal Medicine; Referring Provider Internal Medicine; Visit Provider Surgery | DX: R13.10 Dysphagia, unspecified (principal); K21.9 Gastro-esophageal reflux disease without esophagitis; R11.0 Nausea; Z90.49 Acquired absence of other specified parts of digestive tract | CPT/HCPCS: 99214 ==

== ENCOUNTER 2023-11-28 08:39 | Day surgery (SDC) | payer MEDICARE, SELFPAY ==
--- NOTE | 2023-11-27 10:56 | ENDO_ITS ---
Date of service: 11/28/23 Time of Service: 11:08 Endoscopy Report DATE OF PROCEDURE: 11/28/23 PRE-OP DIAGNOSIS: DYSPHAGIA POST-OP DIAGNOSIS: other (Mild gastritis. Fundic gland polyps from longstanding PPI use) SURGEON: Belkis Ott ANESTHESIA TYPE: General:No Airway ESTIMATED BLOOD LOSS: 2 PATHOLOGY: other COMPLICATIONS: None DISPOSITION: same day PROCEDURE DESCRIPTION: Informed consent was obtained from the pt; explaining the benefits and Risks: bleeding, infections, perforations {which could require surgery or antibiotics and prolonged hospital stay}, or ostomy, and complications of anaesthesia, ambrose aspiration). The patient was take to the procedure room and placed in a supine position. Monitors were applied and a time out was done. The patients name, date of , procedure type, allergies to medications and metal in their body was reviewed. A bite block was placed and the patient was sedated. Once sedated and comfortable an Olympus gastroscope (see RN notes for scope #) was advanced through the oropharynx which was grossly normal, and passed into the esophagus. The proximal and mid-esophagus were normal. The distal esophagus does not show any: dilation/strictures/varices/erosions or ulcers/bleeding noted. The scope was advanced into the stomach and through the pylorus into the proximal jejunum. The duodenum was noted to be normal. Biopsies were done of the duodenal bulb.. The scope was retracted back into the stomach and biopsies were taken of the antrum. There is some mild redness radiating from the antrum in a straight fashion. There were /gastropathy/ ulcers/masses noted. The scope was retroflexed. The cardia and fundus were noted to be normal. There is no hiatal hernia noted. The scope was retracted back into the esophagus and biopsies were done of the GE junction (in all 4 quadrants) and distal esophagus (2cm above the GE junction) to rule out Christine's. All specimens are retrieved and no bleeding was noted. The Z line was regular. The GE junction was at 38 cm. The scope was removed and the patient was woken up and taken back to [facility] in stable condition.
--- NOTE | 2023-11-27 10:57 | PDOC.DSDIS_ITS ---
Date of service: 11/28/23 Time of Service: 11:05 Discharge Plan Disposition Patient Disposition: Home Condition: Good Discharge Details Reason For Visit: EGD Attending Provider: Belkis Ott Primary Care Provider: Yoselin Roberts Home Meds and New Rx's Prescriptions: No Action Eylea 2 mg/0.05 mL solution intravitreal Linzess 145 mcg capsule 145 mcg PO DAILY Qty: 90 12RF pantoprazole [Protonix] 40 mg tablet,delayed release (DR/EC) 40 mg PO DAILY Qty: 90 6RF multivitamin Tablet 1 tab PO DAILY lorazepam [Ativan] 1 mg tablet 1 mg PO QHS PRN loratadine [Claritin] 10 mg tablet 10 mg PO DAILY fluticasone propionate 50 mcg/actuation spray,suspension 2 spray EDWIGE DAILY levothyroxine 125 mcg capsule 125 mcg PO DAILY losartan 25 mg tablet 25 mg PO DAILY melatonin 3 mg capsule 3 mg PO HS PRN polyethylene glycol 3350 [Miralax] 17 gram powder in packet 17 gm PO DAILY diclofenac sodium [Voltaren] 1 % gel 2 gm TP QID sumatriptan succinate 50 mg tablet 50 mg PO ONCE PRN gabapentin 300 mg capsule 300 mg PO TID cholecalciferol (vitamin D3) 10 mcg (400 unit) capsule 10 mcg PO DAILY duloxetine [Cymbalta] 60 mg capsule,delayed release(DR/EC) 60 mg PO HS latanoprost 0.005 % drops 1 drp ophthalmic (eye) QPM Eliquis 5 mg tablet 5 mg PO BID torsemide 20 mg tablet 40 mg PO DAILY PRN Patient Comments: PRN per pt based on weight timolol 0.25 % drops 1 drp ophthalmic (eye) DAILY atorvastatin 40 mg tablet 40 mg PO DAILY cyclobenzaprine 10 mg tablet 10 mg PO TID PRN diltiazem HCl 180 mg capsule,extended release 24hr 180 mg PO DAILY enoxaparin [Lovenox] 100 mg/mL syringe 100 mg subcut Q12H Qty: 4 0RF Premarin 0.625 mg/gram Cream 0.625 mg VAGINAL DAILY Rx Instructions: off 5 days; repeat cycle acetaminophen 500 mg tablet 1,000 mg PO Q8H PRN Qty: 90 0RF Rx Instructions: Take two tablets up to every 8 hours as needed for pain celecoxib [Celebrex] 200 mg capsule 200 mg PO BID PRNQty: 60 0RF Rx Instructions: Take one tablet twice daily for pain and inflammation Discharge Instructions Additional Instructions: Post EGD Instruction ?You had anesthesia for your EGD/stomach scope today.? For your safety, please do the following for the next twenty-four (24) hours: Do Not operate a motor vehicle (car, truck, motorcycle, etc.) Do Not drink alcoholic beverages or use any recreational drugs for the first 24 hours or while taking pain medications. The medications in your body may have a reaction that can be dangerous. Do Not make any important decisions or sign any important papers You have just had a gastroscopy (EGD) or upper GI tract examination. It is important for your smooth recovery that you carefully follow the recommendations below. Do not hesitate to call if any questions should arise about your anesthesia, condition, or care. -Symptoms you may experience during the next 24 hours: ?1. Mild abdominal pain or excessive gas or a bloated feeling which improves with rest, liquids, eating? slightly, and walking as tolerated. 2. Drowsiness and/or forgetfulness because of the medications you were given. 3. A sore throat which you can treat with throat lozenges or by gargling with salt water 4-5 times a day. 4. Redness at the site of your IV which you can treat with warm compresses. SPECIAL INSTRUCTIONS: 1. You may resume your previous diet in one hour. We recommend a light meal to start, then progress as tolerated. 2. Restart regular medications in one hour. 3. No aspirin or non-steroidal containing medication for 24 hrs. 4. No lifting over 20 pounds or strenuous activity for the first 24 hours after your procedure. After 24 hours there are no restrictions on your activity, but you may feel fatigued for a few days. -Findings: mild gastritis -Medications: cont protonix and Linzess. I want to see what your biopsy show prior to making any other adjustments. -Resume Elliquis Friday am. -Resume Lovenox injection at 10pm tonight. continue for until Friday am (5 doses) -Continue to follow lifestyle modifications: No alcohol, tobacco products, Aspirin or NSAID's (ibuprofen, Motrin, Naprosyn, aleve, etc).? Try to limit/avoid:? soda pop/any carbonated beverages, caffeine (including tea & chocolate), and acidic foods, (tomatoes, citrus, onions, peppermints) spicy or fried/fatty foods. Do not lie down for 30 minutes after eating, and do not eat 2 hours prior to bedtime. Avoid wearing tight fitting clothing/ belts. Follow up: -My office will send a letter with the results of your biopsy?s in 2-3wks time. Call the office at [phone] (Office) or [phone] (Hospital), or go to the ER right away if you notice any of the followin. Vomiting blood and /or ?coffee ground? material. ?2. Worsening of abdominal pain or cramping. ?3. Trouble with breathing, cough, and/or fever (temperature above 101.5 F). 4. Increasing pain with swallowing. ?5. Chest pain. 6. Any new symptoms. 7. Worsening of the redness at the IV site Activity:: see above Diet:: see above Discharge Orders Discharge Orders: Discharge Order (Routine); Ordered 11/28/23 Ordered By: Belkis Ott DS: Diagnosis Discharge Diagnosis (1) Hx of snf use of blood thinners: Status: Acute (2) Class 3 severe obesity due to excess calories without serious comorbidity with body mass index (BMI) of 40.0 to 44.9 in adult: Status: Acute (3) Dysphagia: Status: Acute Asessment and Plan: Patient is seen and examined after they are endoscopy.? Patient has minimal sore throat.? They have been able to tolerate liquids.? They do not have any nausea vomiting.? They are not having any chest pain or shortness of breath.? They have been able to pass gas and are not having any abdominal pain or distention.? They have not vomited any blood.? The vital signs have been stable-see nursing notes. We discussed findings on their endoscopy. We reviewed the importance of lifestyle modification-see discharge instructions We reviewed any new medications that the patient may be prescribed-see discharge instructions Patient will either be sent a letter with the biopsy results or follow-up in the office-see discharge instructions. Patient was given explicit instructions to follow-up regarding post endoscopy- refer to discharge Patient verbalized understanding and discharged in stable and satisfactory condition.? See nursing notes. (4) History of cholecystectomy: Status: Chronic (5) Cerebral meningioma: Status: Acute (6) Fibromyalgia: (7) LAUREN on CPAP: (8) Foot drop, right: Status: Acute (9) Paroxysmal SVT (supraventricular tachycardia): (10) Hypertension: (11) Hyperlipidemia:
[2023-11-28 09:22] VITALS: BP 124/57; PULSE 63; RESP 16; TEMP 36.4; O2SAT 96
[2023-11-28] MEDS: Lactated Ringers 1,000 ML 80 ML IV (09:48)
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
[2023-11-28 10:22] VITALS: BMI 42.3
--- NOTE | 2023-11-28 10:49 | STOM_PTH ---
PATIENT: Courtney Mckenzie LOC: [facility] U#:[id number] AGE/SX: 83/F ROOM: RE11/28/[address]: Belkis Ott : 1940 BED: DIS: 11/28/2023 SPEC #: [id number] RECD: 11/28/23 12:16 STATUS: RYDER RE #: [id number] JOSELINE: 11/28/23 10:[address]: Belkis Ott DEPT: Surgical Specimen RECD BY: Gilda Hickman ENTERED: 11/28/23 12:18 SP TYPE: STOMACH OTHR DR: Yoselin Roberts Tissues: 1 - BIOPSY BOWEL 2 - STOMACH BIOPSY 3 - STOMACH BIOPSY 4 - ESOPHAGUS BIOPSY 5 - ESOPHAGUS BIOPSY 6 - STOMACH BIOPSY Procedures: GROSS AND MICRO LEVEL 4 Comments: [id number]
[2023-11-28 11:06] VITALS: BP 127/96; PULSE 66; RESP 18; TEMP 35.7; O2SAT 97
--- NOTE | 2023-11-28 11:10 | W.PM.DSUDISC ---
Date of service: 11/28/23 Time of Service: 11:12 Discharge Plan Disposition Patient Disposition: Home Condition: Good Discharge Details Reason For Visit: EGD Attending Provider: Belkis Ott Primary Care Provider: Yoselin Roberts Home Meds and New Rx's Prescriptions: No Action Eylea 2 mg/0.05 mL solution intravitreal Linzess 145 mcg capsule 145 mcg PO DAILY Qty: 90 12RF pantoprazole [Protonix] 40 mg tablet,delayed release (DR/EC) 40 mg PO DAILY Qty: 90 6RF multivitamin Tablet 1 tab PO DAILY lorazepam [Ativan] 1 mg tablet 1 mg PO QHS PRN loratadine [Claritin] 10 mg tablet 10 mg PO DAILY fluticasone propionate 50 mcg/actuation spray,suspension 2 spray EDWIGE DAILY levothyroxine 125 mcg capsule 125 mcg PO DAILY losartan 25 mg tablet 25 mg PO DAILY melatonin 3 mg capsule 3 mg PO HS PRN polyethylene glycol 3350 [Miralax] 17 gram powder in packet 17 gm PO DAILY diclofenac sodium [Voltaren] 1 % gel 2 gm TP QID sumatriptan succinate 50 mg tablet 50 mg PO ONCE PRN gabapentin 300 mg capsule 300 mg PO TID cholecalciferol (vitamin D3) 10 mcg (400 unit) capsule 10 mcg PO DAILY duloxetine [Cymbalta] 60 mg capsule,delayed release(DR/EC) 60 mg PO HS latanoprost 0.005 % drops 1 drp ophthalmic (eye) QPM Eliquis 5 mg tablet 5 mg PO BID torsemide 20 mg tablet 40 mg PO DAILY PRN Patient Comments: PRN per pt based on weight timolol 0.25 % drops 1 drp ophthalmic (eye) DAILY atorvastatin 40 mg tablet 40 mg PO DAILY cyclobenzaprine 10 mg tablet 10 mg PO TID PRN diltiazem HCl 180 mg capsule,extended release 24hr 180 mg PO DAILY enoxaparin [Lovenox] 100 mg/mL syringe 100 mg subcut Q12H Qty: 4 0RF Premarin 0.625 mg/gram Cream 0.625 mg VAGINAL DAILY Rx Instructions: off 5 days; repeat cycle acetaminophen 500 mg tablet 1,000 mg PO Q8H PRN Qty: 90 0RF Rx Instructions: Take two tablets up to every 8 hours as needed for pain celecoxib [Celebrex] 200 mg capsule 200 mg PO BID PRNQty: 60 0RF Rx Instructions: Take one tablet twice daily for pain and inflammation Discharge Instructions Additional Instructions: Post EGD Instruction ?You had anesthesia for your EGD/stomach scope today.? For your safety, please do the following for the next twenty-four (24) hours: Do Not operate a motor vehicle (car, truck, motorcycle, etc.) Do Not drink alcoholic beverages or use any recreational drugs for the first 24 hours or while taking pain medications. The medications in your body may have a reaction that can be dangerous. Do Not make any important decisions or sign any important papers You have just had a gastroscopy (EGD) or upper GI tract examination. It is important for your smooth recovery that you carefully follow the recommendations below. Do not hesitate to call if any questions should arise about your anesthesia, condition, or care. -Symptoms you may experience during the next 24 hours: ?1. Mild abdominal pain or excessive gas or a bloated feeling which improves with rest, liquids, eating? slightly, and walking as tolerated. 2. Drowsiness and/or forgetfulness because of the medications you were given. 3. A sore throat which you can treat with throat lozenges or by gargling with salt water 4-5 times a day. 4. Redness at the site of your IV which you can treat with warm compresses. SPECIAL INSTRUCTIONS: 1. You may resume your previous diet in one hour. We recommend a light meal to start, then progress as tolerated. 2. Restart regular medications in one hour. 3. No aspirin or non-steroidal containing medication for 24 hrs. 4. No lifting over 20 pounds or strenuous activity for the first 24 hours after your procedure. After 24 hours there are no restrictions on your activity, but you may feel fatigued for a few days. -Findings: mild gastritis -Medications: cont protonix and Linzess. I want to see what your biopsy show prior to making any other adjustments. -Resume Elliquis Friday am. -Resume Lovenox injection at 10pm tonight. continue for until Friday pm -Continue to follow lifestyle modifications: No alcohol, tobacco products, Aspirin or NSAID's (ibuprofen, Motrin, Naprosyn, aleve, etc).? Try to limit/avoid:? soda pop/any carbonated beverages, caffeine (including tea & chocolate), and acidic foods, (tomatoes, citrus, onions, peppermints) spicy or fried/fatty foods. Do not lie down for 30 minutes after eating, and do not eat 2 hours prior to bedtime. Avoid wearing tight fitting clothing/ belts. Follow up: -My office will send a letter with the results of your biopsy?s in 2-3wks time. Call the office at [phone] (Office) or [phone] (Hospital), or go to the ER right away if you notice any of the followin. Vomiting blood and /or ?coffee ground? material. ?2. Worsening of abdominal pain or cramping. ?3. Trouble with breathing, cough, and/or fever (temperature above 101.5 F). 4. Increasing pain with swallowing. ?5. Chest pain. 6. Any new symptoms. 7. 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
[2023-11-28 11:34] VITALS: BP 124/76; PULSE 55; RESP 18; TEMP 36.1; O2SAT 97
--- NOTE | 2023-11-28 12:48 | W.ANESPOSTOP ---
Postoperative Evaluation Date, Time and Location Date Performed: 11/28/23 Time Performed: 11:40 Patient Location: Day Surgery Unit Vital Signs Most Recent Imported Vital Signs: Most Recent Vital Signs Temp Pulse Resp BP Pulse Ox 36.1 C L 55 L 18 124/76 97 11/28/23 11:34 11/28/23 11:34 11/28/23 11:34 11/28/23 11:34 11/28/23 11:34 Pain Score Most Recent Pain Score: Most Recent Pain Score Pain Level 0 11/28/23 11:34 Assessment Mental Status: Awake (Alert & Oriented to Patient Baseline) Airway and Respiratory Function: Patent airway with normal (patient baseline) respiratory exam Cardiovascular Function: Hemodynamically Stable Hydration Status: Adequately Hydrated Nausea & Vomiting: No Nausea or Vomiting Pain: Pt. Denies Any Pain Peripheral Nerve Block: Patient did not receive a nerve block
== END 2023-11-28 11:49 | disposition home or self-care (01) ==
LOC: SUR 08:39
PROVIDERS: PCP Internal Medicine; Visit Provider Surgery
PROC: 0DJ68ZZ Inspection of Stomach, Via Natural or Artificial Opening Endoscopic (ICD-10-PCS; CPT 43235; principal; 2023-11-28 10:00)
DX: R13.10 Dysphagia, unspecified (principal); K29.70 Gastritis, unspecified, without bleeding; K31.7 Polyp of stomach and duodenum; K31.89 Other diseases of stomach and duodenum; K22.89 Other specified disease of esophagus
CPT/HCPCS: 43239; 88305; J2001; J2704

== ENCOUNTER 2024-04-02 00:27 | Outpatient (CLI) | payer MEDICARE, SELFPAY ==
--- NOTE | 2024-04-02 | DI.MRI_ITS ---
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 TECHNIQUE: Multiplanar multisequence MRI of the brain was performed. CONTRAST MATERIAL: IV Contrast: 20 ML of Dotarem contrast administered. COMPARISON: MR MR BRAIN WO/W from 02/13/2022 MR MR BRAIN WO/W from 07/10/2022 MR MR BRAIN WO/W from 03/13/2023 FINDINGS: VENTRICLES AND EXTRA AXIAL SPACES: Normal in size and morphology for the patient's age. HEMORRHAGE: None. CEREBRAL PARENCHYMA: No focus of restricted diffusion to suggest acute infarct. Mild interval increa se in size of previously noted meningioma adjacent to the falx in the high left parietal region. It now measures 18 millimeter cephalo caudad by 11 millimeters transverse by 19 millimeters AP. An stab le area of subjacent fluid and edema in the brain. No additional lesions are identified. There are scattered foci of high signal consistent with microvascular changes. BRAINSTEM/CEREBELLUM: Normal. CALVARIUM: Normal. ENHANCEMENT: No suspicious enhancement identified. VISUALIZED PARANASAL SINUSES/MASTOIDS: Clear. Orbits: Stable appearance of increased AP diameter of both globes. The findings are symmetric. Pituitary: Not enlarged. Vasculature: Normal flow voids. IMPRESSION: Interval increase in size meningioma over the high left falx. DATA REPOSITORY:
--- OUTSIDE RECORDS SUMMARY | 2024-04-02 00:30 | XMS_ITS | Encounter Summary ---
Author Organization [facility] Address [address] [place] [address] Care Team Providers Care Component Assembler Supervisor Name Role Phone Yoselin Roberts MD Primary Care Provider [phone] Encounter Details Date Type Department Care Team (Late st Contact Info) Description 11/28/2023 Lab Requisition [facility] Pathology & Laboratory Medicine - [address] [address] Belkis Ott, DO [address] [place], [place] [id number] Gastritis, unspecified, without bleeding Social History Tobacco Use Types Packs/Day Years Used Date Smoking Tobacco: Never Smokeless Tobacco: Never Alcohol Use Standard Drinks/Week Comments Yes 0 (1 standard drink = 0.6 oz pur e alcohol) occ Interpersonal Safety Answer Date Record ed Physically Hurt Never 10/17/2019 Verbally Threaten Not on file 10/17/2019 Comments No Sex and Gender Information Value Date Recorded Sex Assigned at Not on file Legal Sex Female 17:30 EST Gender Identity Not on file Sexual Orientation Not on file Occupation Industry Job Start Date Job End Date Not on file Not on file Not on file Not on file Not on file Not on file Not on file Not on file documented as of this encounter Functional Status * Because of a physical, mental, or emotional condition, does this person have difficulty doing errands alone such as visiting a doctor's office or shopping? Answer Date of Assessment Author No 01/31/2017 9:14 EST documented as of this encounter Mental Status * Because of a physical, mental, or emotional condition, does this person have serious difficulty concentrating, remembering, or making decisions? Answer Entry Date Author No 01/31/2017 9:14 EST documented in this encounter Plan of Treatment Upcoming Encounters Date Type Department Care Team (Late st Contact Info) Description 05/24/2024 14:00 EDT Office Visit [facility] Ophthalmology - [address] [place] [address] Josemanuel Gomes MD [address] [place] [address] [address] [place] [address] documented as of this encounter Procedures Procedure Name Priority Date/Time Associated Diagnosis Comments SURGICAL PATHOLOGY Today 11/28/2023 10 :49 EDT Gastritis, unspecified, without bleeding documented in this encounter Results * SURGICAL PATHOLOGY (11/28/2023 10:49 EDT) Note to Patient The following pathology results have been interpreted by your pathologist and may be available to you before your health provider has had the opportunity to review them. Please allow time for your provider to receive these results and explore management options, if applicable. 12/03/2023 8:17 EDT [facility] Final Diagnosis A. DUODENUM, BULB, BIOPSY: - Duodenal mucosa without significant diagnostic abnormality. B. STOMACH, ANTRUM, BIOPSY: - Antral mucosa with reactive gastropathy. - No histologic evidence of Helicobacter organisms. C. STOMACH, GREATER CURVE, BIOPSY: - Oxyntic mucosa without significant diagnostic abnormality. - No histologic evidence of Helicobacter organisms. D. GASTROESOPHAGEAL JUNCTION, BIOPSY: - Inflamed squamocolumnar junctional mucosa. - Negative for intestinal metaplasia and dysplasia. E. ESOPHAGUS, DISTAL, BIOPSY: - Squamous mucosa without significant diagnostic abnormality. F. STOMACH, POLYP, BIOPSY: - Fundic gland polyp. 12/03/2023 8:17 EDT [facility] Attestation There was significant resident/fellow involvement in the diagnostic evaluation of this case. By the signature below, the attending physician certifies that they have personally conducted a gross and/or microscopic examination of the described specimens and rendered or confirmed the above diagnosis. 12/03/2023 8:17 [facility] at 0816 Clinical History GERD/dysphagia, gastritis 12/03/2023 8:17 [facility] Gross Description A. Received in formalin labelled with proper patient identification (initials L, C) and duodenal bulb is a single mcgrath tissue fragment (0.3 x 0.2 x 0.2 cm). Entirely submitted in A1. B. Received in formalin labelled with proper patient identification (initials L, C) and antrum is a single mcgrath tissue fragment (0.3 x 0.3 x 0.2 cm). Entirely submitted in B1. C. Received in formalin labelled with proper patient identification (initials L, C) and greater curve are 2 mcgrath focally brown tissue fragments (0.1 x 0.1 x 0.1 cm and 0.3 x 0.3 x 0.2 cm). Entirely submitted in C1. D. Received in formalin labelled with proper patient identification (initials L, C) and GE junction are 5 pale mcgrath to mcgrath and focally brown tissue fragments (0.1 x 0.1 x 0.1 cm to 0.5 x 0.2 x 0.2 cm). Entirely submitted in D1. E. Received in formalin labelled with proper patient identification (initials L, C) and distal esophagus are 2 translucent white focally mcgrath tissue fragments (0.2 x 0.1 x 0.1 cm and 0.4 x 0.2 x 0.1 cm). Entirely submitted in E1. F. Received in formalin labelled with proper patient identification (initials L, C) and gastric polyp is a single mcgrath tissue fragment (0.3 x 0.3 x 0.1 cm). Entirely submitted in F1. Diya Delarosa 11/29/2023 8:27 12/03/2023 8:17 [facility] Resident/Yvan w: Zoe Garibay MD 12/03/2023 8:17 [facility] Performing Lab [facility] 8:17 [facility] Scanned Images 12/03/2023 8:17 [facility] Tissue STOMACH STRUCTURE / Unknown 11/28/2023 10:49 EDT 11/28/2023 17:33 EDT Tissue specimen (specimen) STOMACH STRUCTURE / Unknown 11/28/2023 10:49 EDT 11/28/2023 17:33 EDT Tissue specimen (specimen) STOMACH STRUCTURE / Unknown 11/28/2023 10:49 EDT 11/28/2023 17:33 EDT Tissue specimen (specimen) ESOPHAGEAL STRUCTURE / Unknown 11/28/2023 10:49 EDT 11/28/2023 17:33 EDT Tissue specimen (specimen) ESOPHAGEAL STRUCTURE / Unknown 11/28/2023 10:49 EDT 11/28/2023 17:33 EDT Tissue specimen (specimen) STOMACH STRUCTURE / Unknown 11/28/2023 10:49 EDT 11/28/2023 17:33 EDT us Belkis Ott DO PATHOLOGY ORDERABLES Final Re sult [facility] [address] [place], [place] [address] documented in this encounter Visit Diagnoses Diagnosis Gastritis, unspecified, without bleeding documented in this encounter Care Teams Component Assembler Supervisor Relationship Specialty Start Date End Date Yoselin Roberts MD [address] [place] [id number] PCP - General 04/22/11 documented as of this encounter
--- OUTSIDE RECORDS SUMMARY | 2024-04-02 00:30 | XMS_ITS | Encounter Summary ---
Author Organization [facility] Address [address] [place] [address] Care Team Providers Care Locator Specialist Name Role Phone Yoselin Roberts MD Primary Care Provider +1- [phone] Reason for Visit * Reason Comments Eye Problem Encounter Details Date Type Department Care Team (Late st Contact Info) Description 08/04/2023 12:30 EDT Office Visit [facility] Ophthalmology [address] [address] Josemanuel Gomes MD [address] [facility], [address] [place] [address] Social History Tobacco Use Types Packs/Day Years [...] 01/31/2017 9:14 EST documented in this encounter Progress Notes * Josemanuel Gomes MD - 08/04/2023 1230 EDT Chief Complaint Patient presents with Eye Problem HPI 5 weeks s/p Eylea left 06/30/23. Wet AMD left eye. Vision seems stable. No pain, or new flashes, or floaters. Gtts: Latan hs/hs and Timolol 2/2. Base Eye Exam Visual Acuity (Snellen - Linear) Right Left Dist cc 20/40 20/250 eccen Dist ph cc NI Correction: Glasses Tonometry (Applanation, 12:47) Right Left Pressure 16 16 Neuro/Psych Oriented x3: Yes Mood/Affect: Normal Dilation Left eye: Tropicamide 1%, Phenylephrine 2.5% @ 12:47 Slit Lamp and Fundus Exam Slit Lamp Exam Right Left Anterior Chamber Deep and quiet Deep and quiet Please refer to large retinal drawing. OCT, Retina - OU - Both Eyes Right Eye Quality was good. Scan locations included subfoveal. Progression has been stable. Findings include (Irregular contour). Left Eye Quality was good. Scan locations included subfoveal. Progression has been stable. Findings include choroidal neovascular membrane (Irregular). Intravitreal Injection, Pharmacologic Agent - OS - Left Eye Time Out 08/04/2023. 12:50. Confirmed correct patient, procedure, site, and patient consented. Anesthesia Topical anesthesia was used. Anesthetic medications included Proparacaine 0.5%, Tetracaine 0.5%. Procedure Preparation included 5% betadine to ocular surface, eyelid speculum. A 30 gauge needle was used. Injection: 2 mg aflibercept 2 mg/0.05 mL Route: intravitreal, Site: Left Eye [facility]: 48814-174-91, Lot: [id number], Expiration date: 05/15/2024 Post-op Post injection exam found visual acuity of at least counting fingers. The patient tolerated the procedure well. There were no complications. The patient received written and verbal post procedure care education. Post injection medications included erythromycin. IMPRESSION: 1. 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) OCT, RETINA - OU - BOTH EYES INTRAVITREAL INJECTION, PHARMACOLOGIC AGENT - OS - LEFT EYE aflibercept (EYLEA) intravitreal syringe 2 mg PLAN: Wet age-related macular degeneration left eye 5 weeks s/p Eylea left 06/30/23 Will obtain PA for Eylea HD - discussed the pt can switch next time if they want or stick with the regular Eylea at 5 week interval Recommend Eylea left eye today Patient agrees Eylea injected to left eye today Erythromycin ointment applied after injection Return in about 6 weeks (around 09/15/2023), or if symptoms worsen or fail to improve, for Dilation, OCT, Eylea HD vs Eylea left. I, Josemanuel Gomes MD, have performed my own history, and have evaluated and examined the patient myself. I am scribing for Josemanuel Gomes MD while he is personally performing the service. 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 12:50. Confirmed correct patient, procedure, site, and patient consented. Anesthesia Topical anesthesia was used. Anesthetic medications included Proparacaine 0.5%, Tetracaine 0.5%. Procedure Preparation included 5% betadine to ocular surface, eyelid speculum. A 30 gauge needle was used. Injection: 2 mg aflibercept 2 mg/0.05 mL ??Route: intravitreal, Site: Left Eye ??[facility]: 10471-684-44, Lot: [id number], Expiration date: 05/15/2024 Post-op Post injection exam found visual acuity of at least counting fingers. The patient tolerated the procedure well. There were no complications. The patient received written and verbal post procedure care education. Post injection medications included erythromycin. Josemanuel Gomes MD OPHTH CLINIC PROCEDURES Final Result Performing Organization Address [facility] Co de Phone Number [facility] POINT OF CARE * OCT, RETINA - OU - BOTH EYES (08/04/2023 13:08 EDT) Narrative [facility] OPHTHALMOLOGY - 08/04/2023 13:17 EDT Right Eye Quality was good. Scan locations included subfoveal. Progression has been stable. Findings include (Irregular contour). Left Eye Quality was good. Scan locations included subfoveal. Progression has been stable. Findings include choroidal neovascular membrane (Irregular). 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)- Primary documented in this encounter Administered Medications Inactive Administered Medications - up to 3 most recent administrations Medication Order MAR Action Action Date Dose Rate Site aflibercept (EYLEA) intravitreal syringe 2 mg 2 mg, intravitreal, Starting on Fri08/04/23 at 1317, Until 5/20/24 at 1317, RoutineIndications: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) Given 08/04/2023 13:17 EDT 2 mg Left Eye documented in this encounter Orders Medications Ordered That Ramon ht Not Have Been Administered Count Last Ordered Date First Ordered Date aflibercept (EYLEA) intravit real syringe 2 mg 1 08/04/2023 documented in this encounter Eye Exam Visual Acuity (Snellen - Linear) Right eye Left eye Dist cc 20/40 20/250 eccen Dist ph cc NI Correction: Glasses Tonometry (Applanation, 12:47) Right eye Left eye Pressure 16 16 Neuro/Psych Oriented x3: Yes Mood/Affect: Normal Dilation Left eye: Tropicamide 1%, Ph enylephrine 2.5% @ 12:47 Slit Lamp Exam Right eye Left eye Anterior Chamber Deep and quiet Deep and quiet Care Teams Locator Specialist Relationship Specialty Start Date End Date Yoselin Roberts MD [address] [place] [address] [place] [address] PCP - General 04/22/11 documented as of this encounter
--- OUTSIDE RECORDS SUMMARY | 2024-04-02 00:30 | XMS_ITS | Encounter Summary ---
Author Organization [facility] Address [address] [place] [address] Care Team Providers Care Acetylene Plant Operator Name Role Phone Yoselin Roberts MD Primary Care Provider +1- [phone] Reason for Visit * Reason Comments Macular Degeneration Encounter Details Date Type Department Care Team (Late st Contact Info) Description 10/27/2023 11:00 EDT Office Visit [facility] Ophthalmology [address] [address] Josemanuel Gomes MD 111 [facility], [address] [place] [address] Social History Tobacco Use Types [...] Progress Notes * Josemanuel Gomes MD - 10/27/2023 1100 EDT Chief Complaint Patient presents with Macular Degeneration HPI Wet Age related Macular Degeneration of left eye s/p Eylea HD 09/15/23. Visual acuity stable, same per pt. C/o lots of allergies. Using Pataday daily. Using Latanoprost hs/hs and Timolol 2/2. Base Eye Exam Visual Acuity (Snellen - Linear) Right Left Dist cc 20/30 +1/-1 20/200 +2 Dist ph cc 20/25 +1 NI Correction: Glasses Tonometry (Applanation, 10:44) Right Left Pressure 16 16 Dilation Left eye: Tropicamide 1% @ 10:44 Slit Lamp and Fundus Exam Slit Lamp Exam Right Left Anterior Chamber Deep and quiet Deep and quiet Please refer to large retinal drawing. OCT, Retina - OU - Both Eyes Right Eye Quality was good. Scan locations included subfoveal. Progression has been stable. Findings include abnormal foveal contour. Left Eye Quality was good. Scan locations included subfoveal. Progression has been stable. Findings include abnormal foveal contour, choroidal neovascular membrane. Intravitreal Injection, Pharmacologic Agent - OS - Left Eye Time Out 10/27/2023. 11:06. Confirmed correct patient, procedure, site, and patient consented. Anesthesia Topical anesthesia was used. Anesthetic medications included Proparacaine 0.5%, Tetracaine 0.5%. Procedure Preparation included 5% betadine to ocular surface, eyelid speculum. A 30 gauge needle was used. Injection: 8 mg aflibercept 8 mg/0.07 mL Route: intravitreal, Site: Left Eye [facility]: 79774-485-68, Lot: [id number], Expiration date: 07/14/2024 Post-op Post injection exam found visual acuity of at least counting fingers. The patient tolerated the procedure well. There were no complications. Post injection medications included erythromycin. IMPRESSION: 1. 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 Stable Recommended to continue with Eylea HD q 6 weeks for now (will try to extend after next injection) Pt agreed Return in about 6 weeks (around 12/08/2023) for OCT, Eylea HD, Left. I, Josemanuel Gomes MD, have performed my own history, and have evaluated and examined the patient myself. I am scribing for Josemnauel Gomes MD while he is personally performing the service. 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 11:06. Confirmed correct patient, procedure, site, and patient consented. Anesthesia Topical anesthesia was used. Anesthetic medications included Proparacaine 0.5%, Tetracaine 0.5%. Procedure Preparation included 5% betadine to ocular surface, eyelid speculum. A 30 gauge needle was used. Injection: 8 mg aflibercept 8 mg/0.07 mL ??Route: intravitreal, Site: Left Eye ??[facility]: 82107-167-86, Lot: [id number], Expiration date: 07/14/2024 Post-op Post injection exam found visual acuity of at least counting fingers. The patient tolerated the procedure well. There were no complications. Post injection medications included erythromycin. Josemanuel Gomes MD OPHTH CLINIC PROCEDURES Final Result Performing Organization Address [facility] Co de Phone Number [facility] POINT OF CARE * OCT, RETINA - OU - BOTH EYES (10/27/2023 11:15 EDT) Narrative [facility] OPHTHALMOLOGY - 10/27/2023 11:15 EDT Right Eye Quality was good. Scan locations included subfoveal. Progression has been stable. Findings include abnormal foveal contour. Left Eye Quality was good. Scan locations included subfoveal. Progression has been stable. Findings include abnormal foveal contour, choroidal neovascular membrane. Josemanuel Gomes MD OPHTH TOMOGRAPHY Final Result Performing Organization Address 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)- Primary documented in this encounter Administered Medications Inactive Administered Medications - up to 3 most recent administrations Medication Order MAR Action Action Date Dose Rate Site aflibercept (EYLEA HD) intravitreal solution 8 mg 8 mg, intravitreal, Starting on Fri10/27/23 at 1115, Until Fri10/27/23 at 1115, RoutineIndications: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 cyclobenzaprine (FLEXERIL) 10 mg tablet Take 1 Tablet by mouth 3 times daily as needed for Muscle Spasms. added in this encounter Eye Exam Visual Acuity (Snellen - Linear) Right eye Left eye Dist cc 20/30 +1/-1 20/200 +2 Dist ph cc 20/25 +1 NI Correction: Glasses Tonometry (Applanation, 10:44) Right eye Left eye Pressure 16 16 Dilation Left eye: Tropicamide 1% @ 1 0:44 Slit Lamp Exam Right eye Left eye Anterior Chamber Deep and quiet Deep and quiet Care Teams Acetylene Plant Operator Relationship Specialty Start Date End Date Yoselin Roberts MD [address] [place] [address] [place] [address] PCP - General 04/22/11 documented as of this encounter
--- OUTSIDE RECORDS SUMMARY | 2024-04-02 00:30 | XMS_ITS | Encounter Summary ---
Author Organization [facility] Address [address] [place] [address] Care Team Providers Care Legal Support Specialist Name Role Phone Yoselin Roberts MD Primary Care Provider +1- [phone] Reason for Visit * Reason Comments Eye Problem Encounter Details Date Type Department Care Team (Late st Contact Info) Description 03/29/2024 11:00 EST Office Visit [facility] Ophthalmology [address] [address] Josemanuel Gomes MD 111 [facility], [address] [place] [address] Arrived Social History Tobacco Use Types Packs/Day Years [...] Progress Notes * Josemanuel Gomes MD - 03/29/2024 1100 EST Chief Complaint Patient presents with Eye Problem HPI 8 weeks s/p Eylea HD left eye 02/02/24. Wet age-related macular degeneration left eye. Vision seemsabout the same. Eye ache and fatigue both eyes. No pain, or new flashes, or floaters. Uses systane and Pataday PRN. Base Eye Exam Visual Acuity (Snellen - Linear) Right Left Dist cc 20/40 -1 20/200 eccen Dist ph cc 20/25 -2 Correction: Glasses Tonometry (Applanation, 11:28) Right Left Pressure 19 18 Neuro/Psych Oriented x3: Yes Mood/Affect: Normal Dilation Left eye: Tropicamide 1%, Phenylephrine 2.5% @ 11:28 Please refer to large retinal drawing. OCT, Retina - OU - Both Eyes Right Eye Quality was good. Scan locations included subfoveal. Progression has been stable. Findings include abnormal foveal contour. Left Eye Quality was good. Scan locations included subfoveal. Progression has been stable. Findings include abnormal foveal contour, choroidal neovascular membrane. Intravitreal Injection, Pharmacologic Agent - OS - Left Eye Time Out 03/29/2024. 11:36. Confirmed correct patient, procedure, site, and patient consented. Anesthesia Topical anesthesia was used. Anesthetic medications included Proparacaine 0.5%, Tetracaine 0.5%. Procedure Preparation included 5% betadine to ocular surface, eyelid speculum. A 30 gauge needle was used. Injection: 8 mg aflibercept 8 mg/0.07 mL Route: intravitreal, Site: Left Eye [facility]: 47733-516-23, Lot: [id number], Expiration date: 03/16/2025 Post-op Post injection exam found visual acuity [...] HD) intravitreal solution 8 mg PLAN: Wet age-related macular degeneration left eye 8 weeks s/p Eylea HD left eye 02/02/24 - stable Recommend Eylea HD left eye today Patient agrees Eylea HD injection done to left eye today Erythromycin ointment applied after injection Return in about 8 weeks (around 05/24/2024), or if symptoms worsen or fail to improve, for Dilation,OCT, Eylea HD. I, Josemanuel Gomes MD, have performed my own history, and have evaluated and examined the patient myself. I am scribing for Josemanuel Gomes MD while he is personally performing the service. 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 Scan locations included subfoveal. Progression has been stable. Findings include abnormal foveal contour. Left Eye Quality was good. Scan locations included subfoveal. Progression has been stable. Findings include abnormal foveal contour, choroidal neovascular membrane. Josemanuel Gomes MD OPHTH TOMOGRAPHY Final Result Performing Organization Address [facility] Co de Phone Number [facility] OPHTHALMOLOGY * INTRAVITREAL INJECTION, PHARMACOLOGIC AGENT - OS - LEFT EYE (03/29/2024 11:48 EST) Narrative [facility] POINT OF CARE - 03/29/2024 13:21 EST Time Out 03/29/2024. 11:36. Confirmed correct patient, procedure, site, and patient consented. Anesthesia Topical anesthesia was used. Anesthetic medications included Proparacaine 0.5%, Tetracaine 0.5%. Procedure Preparation included 5% betadine to ocular surface, eyelid speculum. A 30 gauge needle was used. Injection: 8 mg aflibercept 8 mg/0.07 mL ??Route: intravitreal, Site: Left Eye ??[facility]: [id number], Lot: [id number], Expiration date: 03/16/2025 Post-op Post injection exam found visual acuity of at least counting fingers. The patient tolerated the procedure well. There were no complications. The patient received written and verbal post procedure care education. Post injection medications included erythromycin. Josemanuel Gomes MD OPH CLINIC PROCEDURES Final Result Performing Organization Address 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)- Primary documented in this encounter Administered Medications Inactive Administered Medications - up to 3 most recent administrations Medication Order MAR Action Action Date Dose Rate Site aflibercept (EYLEA HD) intravitreal solution 8 mg 8 mg, intravitreal, Starting on Fri03/29/24 at 1321, Until Fri03/29/24 at 1321, RoutineIndications: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) Given 03/29/2024 13:21 EST 8 mg Left Eye documented in this encounter Orders Medications Ordered That Ramon ht Not Have Been Administered Count Last Ordered Date First Ordered Date aflibercept (EYLEA HD) intra vitreal solution 8 mg 1 03/29/2024 documented in this encounter Eye Exam Visual Acuity (Snellen - Linear) Right eye Left eye Dist cc 20/40 -1 20/200 eccen Dist ph cc 20/25 -2 Correction: Glasses Tonometry (Applanation, 11:28) Right eye Left eye Pressure 19 18 Neuro/Psych Oriented x3: Yes Mood/Affect: Normal Dilation Left eye: Tropicamide 1%, Ph enylephrine 2.5% @ 11:28 Care Teams Legal Support Specialist Relationship Specialty Start Date End Date Yoselin Roberts MD [address] [place] [address] [place] [address] PCP - General 04/22/11 documented as of this encounter
--- OUTSIDE RECORDS SUMMARY | 2024-04-02 00:30 | XMS_ITS | Referral Summary ---
Author Organization [facility] Address [address] [place] [address] Care Team Providers Care Food Safety Scientist Name Role Phone Yoselin Roberts MD Primary Care Provider +1- [phone] Encounters Date Type Department Care Team Description 03/29/2024 11:00 EST Office Visit [facility] Ophthalmology - [address] [place] [phone] Josemanuel Gomes MD Arrived 02/02/2024 11:00 EST Office Visit [facility] Ophthalmology - [address] [place] [address] Josemanuel Gomes MD from Last 3 Months Allergies Active Allergy Reactions Criticality Noted Date Comments Hydromorphone 10/15/2021 Oxycodone-Acetaminophen Other (See Comments) hallucinations Sulfa (Sulfonamide Antibiotics) Other (See Comments) 01/22/2010 Mouth sores Medications lansoprazole (PREVACID) 30 mg capsule Take 1 Capsule by mouth daily. Active DULoxetine (CYMBALTA) 60 mg capsule Take 1 Capsule by mouth daily. Active loratadine (CLARITIN) 10 mg tablet Take 1 Tablet by mouth daily. PRN Active levothyroxine (SYNTHROID) 125 mcg tablet Take 1 Tablet by mouth daily. Active Multivitamins with Minerals Tab Take 1 Tablet by mouth daily. Active UNABLE TO FIND 1,000 mg daily. Med Name: Lineilic (CLA), 1000 mg. Active latanoprost (XALATAN) 0.005 % ophthalmic solution Place 1 Drop into both eyes at bedtime. Active SUMAtriptan (IMITREX) 50 mg tabletIndicatio ns:migraine Take 1 Tablet by mouth as needed. Active losartan (COZAAR) 50 mg tablet Take 1 Tablet by mouth daily. Active simvastatin (ZOCOR) 10 mg tablet Take 1 Tablet by mouth every evening. Active CELECOXIB (CELEBREX ORAL) Take 200 mg by mouth daily. Active Diltiazem HCl 180 mg tablet extended release 24 hr Take 180 mg by mouth daily. Active furosemide (LASIX) 20 mg tablet Take 1 Tablet by mouth daily. Active polyethylene glycol 3350 (MIRALAX) 17 gram packet Take 17 g by mouth daily. Active linaCLOtide (LINZESS) 72 mcg capsule Take 1 Capsule by mouth daily. Active docusate sodium (COLACE) 100 mg capsule Take 1 Capsule by mouth daily. Active traMADol (ULTRAM) 50 mg tablet Take 1 Tablet by mouth daily. Active ipratropium, 0.5mg/2.5ml, (ATROVENT) 0.02 % nebulizer solution Take 2.5 mL by nebulization 4 times daily. Nares inhaler Active apixaban (ELIQUIS) 5 mg tablet Take 1 Tablet by mouth 2 times daily. Active LORazepam (ATIVAN) 1 mg tablet Take 1 Tablet by mouth at bedtime. 2 Active brimonidine (ALPHAGAN) 0.2 % ophthalmic solution Place 1 Drop into both eyes 2 times daily. 30 mL 3 2 Active Additional Information Patient not taking.Reported on 03/29/2024 timolol (TIMOPTIC) 0.5 % ophthalmic solution PLACE 1 DROP INTO BOTH EYES TWO TIMES A DAY 30 mL 3 Active cyclobenzaprine (FLEXERIL) 10 mg tablet Take 1 Tablet by mouth 3 times daily as needed for Muscle Spasms. Active Active Problems Problem Noted Date Diagnosed Date SVT (supraventricular tachycardia) ([facility]) CNVM (choroidal neovascular membrane), left 05/16 Degenerative myopia 08/08/2010 Overview (2010): A. 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/07/2009 Social History Tobacco Use Types Packs/Day Years [...] file Not on file Not on file Last Filed Vital Signs Vital Sign Reading Time Taken Comments Blood Pressure 130/82 09/01/2018 1135 EDT Pulse 68 01/31/2017 0907 EST irregula r Temperature 36.2 ??C (97.2 ??F) 08/19/2018 1630 EDT Respiratory Rate 20 08/19/2018 1630 EDT Oxygen Saturation 99% 08/19/2018 1630 EDT Inhaled Oxygen Concentration - - Weight 99.8 kg (220 lb) 08/12/2018 1048 EDT Height 161.3 cm (5' 3.5) 08/12/2018 1048 EDT Body Mass Index 38.36 08/12/2018 1048 EDT Functional Status * Because of a physical, mental, or emotional condition, does this person have difficulty doing errands alone such as visiting a doctor's office or shopping? Answer Date of Assessment Author No 01/31/2017 9:14 EST Mental Status * Because of a physical, mental, or emotional condition, does this person have serious difficulty concentrating, remembering, or making decisions? 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 Scan locations included subfoveal. Progression has been stable. Findings include abnormal foveal contour. Left Eye Quality was good. Scan locations included subfoveal. Progression has been stable. Findings include abnormal foveal contour, choroidal neovascular membrane. us Josemanuel Gomes MD OPHTH TOMOGRAPHY Final Result [facility] OPHTHALMOLOGY * INTRAVITREAL INJECTION, PHARMACOLOGIC AGENT - OS - LEFT EYE (03/29/2024 11:48 EST) Narrative [facility] POINT OF CARE - 03/29/2024 13:21 EST Time Out 03/29/2024. 11:36. Confirmed correct patient, procedure, site, and patient consented. Anesthesia Topical anesthesia was used. Anesthetic medications included Proparacaine 0.5%, Tetracaine 0.5%. Procedure Preparation included 5% betadine to ocular surface, eyelid speculum. A 30 gauge needle was used. Injection: 8 mg aflibercept 8 mg/0.07 mL ??Route: intravitreal, Site: Left Eye ??[facility]: 68082-280-97, Lot: [id number], Expiration date: 03/16/2025 Post-op Post injection exam found visual acuity of at least counting fingers. The patient tolerated the procedure well. There were no complications. The patient received written and verbal post procedure care education. Post injection medications included erythromycin. Josemanuel Gomes MD OPHTH CLINIC PROCEDURES Final Result Performing Organization Address [facility] Co de Phone Number [facility] POINT OF CARE * OCT, RETINA - OU - BOTH EYES (02/02/2024 11:27 EST) Narrative [facility] OPHTHALMOLOGY - 02/02/2024 11:30 EST Right Eye Quality was good. Scan locations included subfoveal. Progression has been stable. Findings include abnormal foveal contour. Left Eye Quality was good. Scan locations included subfoveal. Progression has been stable. Findings include abnormal foveal contour, choroidal neovascular membrane. Josemanuel Gomes MD OPHTH TOMOGRAPHY Final Result Performing Organization Address [facility] de Phone Number [facility] OPHTHALMOLOGY * INTRAVITREAL INJECTION, PHARMACOLOGIC AGENT - OS - LEFT EYE (02/02/2024 11:27 EST) Narrative [facility] POINT OF CARE - 02/02/2024 11:30 EST Time Out 02/02/2024. 11:27. Confirmed correct patient, procedure, site, and patient consented. Anesthesia Topical anesthesia was used. Anesthetic medications included Proparacaine 0.5%, Tetracaine 0.5%. Procedure Preparation included 5% betadine to ocular surface, eyelid speculum. A 30 gauge needle was used. Injection: 8 mg aflibercept 8 mg/0.07 mL ??Route: intravitreal, Site: Left Eye ??[facility]: 14862-399-08, Lot: [id number], Expiration date: 03/16/2025 Post-op Post injection exam found visual acuity of at least counting fingers. The patient tolerated the procedure well. There were no complications. The patient received written and verbal post procedure care education. Post injection medications included erythromycin. Josemanuel Gomes MD OPHTH CLINIC PROCEDURES Final Result [facility] POINT OF CARE from Last 3 Months Insurance [facility] MEDIC[facility] Care Teams Food Safety Scientist Relationship Specialty Start Date End Date Yoselin Roberts MD [address] [place] [address] [place] [address] PCP - General 04/22/11
--- OUTSIDE RECORDS SUMMARY | 2024-04-02 00:30 | XMS_ITS | Encounter Summary ---
Author Organization [facility] Address [address] [place] [address] Care Team Providers Care Glazing Machine Operator Name Role Phone Yoselin Roberts MD Primary Care Provider +1- [phone] Reason for Visit * Reason Comments Eye Problem Encounter Details Date Type Department Care Team (Late st Contact Info) Description 06/30/2023 11:00 EDT Office Visit [facility] Ophthalmology [address] [address] Josemanuel Gomes MD [address] [facility], [address] [place] [address] Social History Tobacco Use Types [...] Progress Notes * Josemanuel Gomes MD - 06/30/2023 1100 EDT Chief Complaint Patient presents with Eye Problem HPI 6 weeks s/p Eylea left eye 06/30/23. Wet AMD left eye. Vision seems stable. No pain, or new flashes,or floaters. Gtts: Latan hs/hs and Timolol 2/2. Base Eye Exam Visual Acuity (Snellen - Linear) Right Left Dist cc 20/40 +1 20/250 eccen Dist ph cc NI Tonometry (Applanation, 11:08) Right Left Pressure 17 16 Neuro/Psych Oriented x3: Yes Mood/Affect: Normal Dilation Left eye: Tropicamide 1%, Phenylephrine 2.5% @ 11:08 Slit Lamp and Fundus Exam Slit Lamp [...] - OS - Left Eye Time Out 06/30/2023. 10:49. Confirmed correct patient, procedure, site, and patient consented. Anesthesia Topical anesthesia was used. Anesthetic medications included Proparacaine 0.5%, Tetracaine 0.5%. Procedure Preparation included 5% betadine to ocular surface, eyelid speculum. A 30 gauge needle was used. Injection: 2 mg aflibercept 2 mg/0.05 mL Route: intravitreal, Site: Left Eye [facility]: [id number], Lot: [id number], Expiration date: 05/15/2024 Post-op Post injection exam [...] PLAN: Wet age-related macular degeneration left eye 6 weeks s/p Eylea left 05/19/23 Recommend Eylea left eye today Patient agrees Eylea injected to left eye today Erythromycin ointment applied after injection Return in about 5 weeks (around 08/04/2023), or if symptoms worsen or fail to improve, for Dilation,OCT, Eylea left. I, Josemanuel Gomes MD, have performed my own history, and have evaluated and examined the patient myself. I am scribing for Josemanuel Gomes MD while he is personally performing the service. 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 Scan locations included subfoveal. Progression has been stable. Findings include (Irregular contour). Left Eye Quality was good. Scan locations included subfoveal. Progression has been stable. Findings include choroidal neovascular membrane (Irregular). Result [facility] Josemanuel Gomes MD OPH TOMOGRAPHY Final Result Performing Organization Address [facility] [place] Co de Phone Number [facility] OPHTHALMOLOGY * INTRAVITREAL INJECTION, PHARMACOLOGIC AGENT - OS - LEFT EYE (06/30/2023 11:31 EDT) Narrative [facility] POINT OF CARE - 06/30/2023 13:21 EDT Time Out 06/30/2023. 10:49. Confirmed correct patient, procedure, site, and patient consented. Anesthesia Topical anesthesia was used. Anesthetic medications included Proparacaine 0.5%, Tetracaine 0.5%. Procedure Preparation included 5% betadine to ocular surface, eyelid speculum. A 30 gauge needle was used. Injection: 2 mg aflibercept 2 mg/0.05 mL ??Route: intravitreal, Site: Left Eye ??[facility]: 99409-454-78, Lot: [id number], Expiration date: 05/15/2024 Post-op Post injection exam found visual acuity of at least counting fingers. The patient tolerated the procedure well. There were no complications. The patient received written and verbal post procedure care education. Post injection medications included erythromycin. 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)- Primary documented in this encounter Administered Medications Inactive Administered Medications - up to 3 most recent administrations Medication Order MAR Action Action Date Dose Rate Site aflibercept (EYLEA) intravitreal syringe 2 mg 2 mg, intravitreal, Starting on Fri06/30/23 at 1321, Until Fri06/30/23 at 1321, RoutineIndications: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) Given 06/30/2023 13:21 EDT 2 mg Left Eye documented in this encounter Orders Medications Ordered That Ramon ht Not Have Been Administered Count Last Ordered Date First Ordered Date aflibercept (EYLEA) intravit real syringe 2 mg 1 06/30/2023 documented in this encounter Eye Exam Visual Acuity (Snellen - Linear) Right eye Left eye Dist cc 20/40 +1 20/250 eccen Dist ph cc NI Tonometry (Applanation, 11:08) Right eye Left eye Pressure 17 16 Neuro/Psych Oriented x3: Yes Mood/Affect: Normal Dilation Left eye: Tropicamide 1%, Ph enylephrine 2.5% @ 11:08 Slit Lamp Exam Right eye Left eye Anterior Chamber Deep and quiet Deep and quiet Care Teams Glazing Machine Operator Relationship Specialty Start Date End Date Yoselin Roberts MD [address] [place] [address] [place] [address] PCP - General 04/22/11 documented as of this encounter
--- OUTSIDE RECORDS SUMMARY | 2024-04-02 00:30 | XMS_ITS | Encounter Summary ---
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 ([facility]) Procedures WI INTRAVITREAL NJX PHARMACOLOGIC AGT SPX WI INJECTION, AFLIBERCEPT HD, 1 MG [facility] Ophthalmology [address] [address] Phone: tel: fax: [facility] Ophthalmology [address] [address] Phone: tel: fax: Referral ID Status Reason Start Date Expiration Date Visits Requested Visits Authorized [id number] Authorization Not Required 2 2 Encounter Details Date Type Department Care Team (Late st Contact Info) Description 09/15/2023 14:00 EDT Office Visit [facility] Ophthalmology [facility] [address] [place] [address] Josemanuel Gomes MD [address] [facility], [address] [place] [address] Social History Tobacco Use Types Packs/Day Years [...] Progress Notes * Josemanuel Gomes MD - 09/15/2023 1400 EDT Chief Complaint Patient presents with Eye Problem HPI Patient here for Wet AMD left eye, s/p eylea injection left eye 520/24. Base Eye Exam Visual Acuity (Snellen - Linear) Right Left Dist cc 20/40 20/200 Dist ph cc NI NI Correction: Glasses Tonometry (Applanation, 14:05) Right Left Pressure 15 15 Neuro/Psych Oriented x3: Yes Mood/Affect: Normal Dilation Left eye: Phenylephrine 2.5%, Tropicamide 1% @ 14:05 Please refer to large retinal drawing. Intravitreal Injection, Pharmacologic Agent - OS - Left Eye Time Out 09/15/2023. 14:40. Confirmed correct patient, procedure, site, and patient consented. Anesthesia Topical anesthesia was used. Anesthetic medications included Proparacaine 0.5%, Tetracaine 0.5%. Procedure Preparation included 5% betadine to ocular surface, eyelid speculum. A 30 gauge needle was used. Injection: 8 mg aflibercept 8 mg/0.07 mL Route: intravitreal, Site: Left Eye [facility]: [id number], Lot: [id number], Expiration date: 07/14/2024 Post-op Post injection exam found visual acuity of at least counting fingers. The patient tolerated the procedure well. There were no complications. The patient received written and verbal post procedure care education. Post injection medications included erythromycin. OCT, Retina - OU - Both Eyes Right Eye Quality was good. Scan locations included subfoveal. Progression has been stable. Findings include abnormal foveal contour. Left Eye Quality was good. Scan locations included subfoveal. Progression has been stable. Findings include abnormal foveal contour, choroidal neovascular membrane. IMPRESSION: 1. 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 I, Josemanuel Gomes MD, have performed my own history, and have evaluated and examined the patient myself. I am scribing for Josemanuel Gomes MD while he is personally performing the service. Rolando De Leon (Scribe) documented in this encounter Plan of Treatment Upcoming Encounters Date Type Department Care Team (Late st Contact Info) Description 05/24/2024 14:00 EDT Office Visit [facility] Ophthalmology - 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 14:40. Confirmed correct patient, procedure, site, and patient consented. Anesthesia Topical anesthesia was used. Anesthetic medications included Proparacaine 0.5%, Tetracaine 0.5%. Procedure Preparation included 5% betadine to ocular surface, eyelid speculum. A 30 gauge needle was used. Injection: 8 mg aflibercept 8 mg/0.07 mL ??Route: intravitreal, Site: Left Eye ??[facility]: [id number], Lot: [id number], Expiration date: 07/14/2024 Post-op Post injection exam found visual acuity of at least counting fingers. The patient tolerated the procedure well. There were no complications. The patient received written and verbal post procedure care education. Post injection medications included erythromycin. Josemanuel Gomes MD OPHTH CLINIC PROCEDURES Final Result [facility] POINT OF CARE * OCT, RETINA - OU - BOTH EYES (09/15/2023 14:27 EDT) Narrative [facility] OPHTHALMOLOGY - 09/15/2023 14:45 EDT Right Eye Quality was good. Scan locations included subfoveal. Progression has been stable. Findings include abnormal foveal contour. Left Eye Quality was good. Scan locations included subfoveal. Progression has been stable. Findings include abnormal foveal contour, choroidal neovascular membrane. 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)- Primary documented in this encounter Administered Medications Inactive Administered Medications - up to 3 most recent administrations Medication Order MAR Action Action Date Dose Rate Site aflibercept (EYLEA HD) intravitreal solution 8 mg 8 mg, intravitreal, Starting on Fri09/15/23 at 1445, Until Fri09/15/23 at 1445, RoutineIndications: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) Given 09/15/2023 14:45 EDT 8 mg Left Eye documented in this encounter Orders Medications Ordered That Ramon ht Not Have Been Administered Count Last Ordered Date First Ordered Date aflibercept (EYLEA HD) intra vitreal solution 8 mg 1 09/15/2023 documented in this encounter Eye Exam Visual Acuity (Snellen - Linear) Right eye Left eye Dist cc 20/40 20/200 Dist ph cc NI NI Correction: Glasses Tonometry (Applanation, 14:05) Right eye Left eye Pressure 15 15 Neuro/Psych Oriented x3: Yes Mood/Affect: Normal Dilation Left eye: Phenylephrine 2.5% , Tropicamide 1% @ 14:05 Care Teams Supervisor Liquid Yeast Relationship Specialty Start Date End Date Yoselin Roberts MD [address] [place] [address] [place] [address] PCP - General 04/22/11 documented as of this encounter
--- OUTSIDE RECORDS SUMMARY | 2024-04-02 00:30 | XMS_ITS | Clinical Summary ---
Author Organization [facility] Address [address] [place] [address] Care Team Providers Care Health Science Writer Name Role Phone Yoselin Roberts MD Primary Care Provider +1- [phone] Allergies Active Allergy Reactions Criticality Noted Date [...] Noted Date Diagnosed Date SVT (supraventricular tachycardia) ([facility]) CNVM (choroidal neovascular membrane), left 05/16 Degenerative myopia 08/08/2010 Overview (2010): A. 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/07/2009 Encounters Date Type Department Care Team Description 03/29/2024 11:00 EST Office Visit [facility] Ophthalmology [facility] [address] [place] [address] Josemanuel Gomes MD Arrived 02/02/2024 11:00 EST Office Visit [facility] Ophthalmology - [address] [place] [address] Josemanuel Gomes MD from Last 3 Months Surgical History Surgery Date Site/Laterality Comments CATARACT REMOVAL WITH IMPLANT 2005 HYSTERECTOMY, TOTAL ABDOMINAL CHOLECYSTECTOMY CARPAL TUNNEL RELEASE LAMINECTOMY EYE SURGERY Avastin to left eye INTRAOCULAR LENS PROSTHESIS INSERTION bilat CATARACT REMOVAL bilat CERVICAL FUSION Medical History Medical History Date Comments Fibromyalgia Arthropathy Thyroid disease Blood transfusion Glaucoma Ptosis Family History Medical History Relation Comments Diabetes Maternal Grandmother Macular Degeneration Mother Blindness Neg Hx Cataract Neg Hx Glaucoma Neg Hx Keratoconus Neg Hx Retinal Detachment Neg Hx Retinitis Pigmentosa Neg Hx Relation Status Comments Maternal Grandmother Mother Social History Tobacco Use Types Packs/Day Years [...] file Not on file Not on file Obstetrics History Last Filed Vital Signs Vital Sign Reading [...] Body Mass Index 38.36 08/12/2018 1048 EDT Plan of Treatment Upcoming Encounters Date Type Department Care Team (Late st Contact Info) Description 05/24/2024 14:00 EDT Office Visit [facility] Ophthalmology - [address] [place], [place] [id number] Josemaunel Gomes MD [address] [facility], [address] [place] [address] Health Maintenance Due Date Last Done Comments Fall Risk Screening 2006 RSV Immunization ( o r 60+ Years) (1 - 1-dose 75+ series) 2016 COVID-19 Vaccine ( season) 2023 01/20/2021, 05/31/2020, 05/03/2020 Procedures Procedure Name Priority Date/Time Associated Diagnosis [...] - BOTH EYES (03/29/2024 11:49 EST) Narrative [facility] OPHTHALMOLOGY - 03/29/2024 13:20 EST Right Eye Quality was good. Scan locations included subfoveal. Progression has been stable. Findings include abnormal foveal contour. Left Eye Quality was good. Scan locations included subfoveal. Progression has been stable. Findings include abnormal foveal contour, choroidal neovascular membrane. us Josemanuel Gomes MD OPHTH TOMOGRAPHY Final Result [facility] OPHTHALMOLOGY * INTRAVITREAL INJECTION, PHARMACOLOGIC AGENT - OS - LEFT EYE (03/29/2024 11:48 EST) Narrative [facility] POINT OF CARE - 03/29/2024 13:21 EST Time Out 03/29/2024. 11:36. Confirmed correct patient, procedure, site, and patient consented. Anesthesia Topical anesthesia was used. Anesthetic medications included Proparacaine 0.5%, Tetracaine 0.5%. Procedure Preparation included 5% betadine to ocular surface, eyelid speculum. A 30 gauge needle was used. Injection: 8 mg aflibercept 8 mg/0.07 mL ??Route: intravitreal, Site: Left Eye ??[facility]: 84686-430-07, Lot: [id number], Expiration date: 03/16/2025 Post-op Post injection exam found visual acuity of at least counting fingers. The patient tolerated the procedure well. There were no complications. The patient received written and verbal post procedure care education. Post injection medications included erythromycin. Josemanuel Gomes MD OPHTH CLINIC PROCEDURES Final Result Performing Organization Address [facility] Co de Phone Number [facility] POINT OF CARE * OCT, RETINA - OU - BOTH EYES (02/02/2024 11:27 EST) Narrative [facility] OPHTHALMOLOGY - 02/02/2024 11:30 EST Right Eye Quality was good. Scan locations included subfoveal. Progression has been stable. Findings include abnormal foveal contour. Left Eye Quality was good. Scan locations included subfoveal. Progression has been stable. Findings include abnormal foveal contour, choroidal neovascular membrane. Josemanuel Gomes MD OPHTH TOMOGRAPHY Final Result Performing Organization Address [facility] Co de Phone Number [facility] OPHTHALMOLOGY * INTRAVITREAL INJECTION, PHARMACOLOGIC AGENT - OS - LEFT EYE (02/02/2024 11:27 EST) Narrative [facility] POINT OF CARE - 02/02/2024 11:30 EST Time Out 02/02/2024. 11:27. Confirmed correct patient, procedure, site, and patient consented. Anesthesia Topical anesthesia was used. Anesthetic medications included Proparacaine 0.5%, Tetracaine 0.5%. Procedure Preparation included 5% betadine to ocular surface, eyelid speculum. A 30 gauge needle was used. Injection: 8 mg aflibercept 8 mg/0.07 mL ??Route: intravitreal, Site: Left Eye ??[facility]: 79720-795-65, Lot: [id number], Expiration date: 03/16/2025 Post-op Post injection exam found visual acuity of at least counting fingers. The patient tolerated the procedure well. There were no complications. The patient received written and verbal post procedure care education. Post injection medications included erythromycin. Josemanuel Gomes MD OPHTH CLINIC PROCEDURES Final Result [facility] POINT OF CARE from Last 3 Months Insurance [facility] [employer] Care Teams Health Science Writer Relationship Specialty Start Date End Date Yoselin Roberts MD [address] [place] [address] [place] [address] PCP - General 04/22/11
--- OUTSIDE RECORDS SUMMARY | 2024-04-02 00:30 | XMS_ITS | Encounter Summary ---
Author Organization [facility] Address [address] [place] [address] Care Team Providers Care Shipfitter Helper Name Role Phone Yoselin Roberts MD Primary Care Provider +1- [phone] Reason for Visit * Reason Comments Macular Degeneration Encounter Details Date Type Department Care Team (Late st Contact Info) Description 12/08/2023 11:00 EDT Office Visit [facility] Ophthalmology [address] [address] Josemanuel Gomes MD [address] [facility], [address] [place] [address] Social History Tobacco Use Types [...] Progress Notes * Josemanuel Gomes MD - 12/08/2023 1100 EDT Chief Complaint Patient presents with Macular Degeneration HPI 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 Visual acuity about the sameno changes. No pain. Using Timolol 2/2, Latanoprost hs/hs and Pataday PRN. Base Eye Exam Visual Acuity (Snellen - Linear) Right Left Dist cc 20/30 +2/-1 20/200 'single lines' Dist ph cc 20/25 NI Correction: Glasses Tonometry (Applanation, 11:12) Right Left Pressure 18 16 Dilation Left eye: Tropicamide 1% @ 11:13 Slit Lamp and Fundus Exam Slit Lamp [...] - OS - Left Eye Time Out 12/08/2023. 11:32. Confirmed correct patient, procedure, site, and patient consented. Anesthesia Topical anesthesia was used. Anesthetic medications included Proparacaine 0.5%, Tetracaine 0.5%. Procedure Preparation included 5% betadine to ocular surface, eyelid speculum. A 30 gauge needle was used. Injection: 8 mg aflibercept 8 mg/0.07 mL Route: intravitreal, Site: Left Eye [facility]: [id number], Lot: [id number], Expiration date: 02/13/2025 Post-op Post injection exam found visual acuity of at least counting fingers. The patient tolerated the procedure well. There were no complications. Post injection medications included erythromycin. IMPRESSION: 1. 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 Pt agreed Return in about 8 weeks (around 02/02/2024) for OCT, Eylea HD, Left. I, Josemanuel Gomes MD, have performed my own history, and have evaluated and examined the patient myself. I am scribing for Josemanuel Gomes MD while he is personally performing the service. 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 11:32. Confirmed correct patient, procedure, site, and patient consented. Anesthesia Topical anesthesia was used. Anesthetic medications included Proparacaine 0.5%, Tetracaine 0.5%. Procedure Preparation included 5% betadine to ocular surface, eyelid speculum. A 30 gauge needle was used. Injection: 8 mg aflibercept 8 mg/0.07 mL ??Route: intravitreal, Site: Left Eye ??[facility]: 82254-031-88, Lot: [id number], Expiration date: 02/13/2025 Post-op Post injection exam found visual acuity of at least counting fingers. The patient tolerated the procedure well. There were no complications. Post injection medications included erythromycin. Josemanuel Gomes MD OPHTH CLINIC PROCEDURES Final Result Performing Organization Address City/[facility]/ZIP Co de Phone Number [facility] POINT OF CARE * OCT, RETINA - OU - BOTH EYES (12/08/2023 12:13 EDT) Narrative [facility] OPHTHALMOLOGY - 12/08/2023 12:13 EDT Right Eye Quality was good. Scan locations included subfoveal. Progression has been stable. Findings include abnormal foveal contour. Left Eye Quality was good. Scan locations included subfoveal. Progression has been stable. Findings include abnormal foveal contour, choroidal neovascular membrane. 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)- Primary documented in this encounter Administered Medications Inactive Administered Medications - up to 3 most recent administrations Medication Order MAR Action Action Date Dose Rate Site aflibercept (EYLEA HD) intravitreal solution 8 mg 8 mg, intravitreal, Starting on Fri12/08/23 at 1213, Until Fri12/08/23 at 1213, RoutineIndications: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) Given 12/08/2023 12:13 EDT 8 mg Left Eye documented in this encounter Orders Medications Ordered That Ramon ht Not Have Been Administered Count Last Ordered Date First Ordered Date aflibercept (EYLEA HD) intra vitreal solution 8 mg 1 12/08/2023 documented in this encounter Eye Exam Visual Acuity (Snellen - Linear) Right eye Left eye Dist cc 20/30 +2/-1 20/200 'single l fernando' Dist ph cc 20/25 NI Correction: Glasses Tonometry (Applanation, 11:12) Right eye Left eye Pressure 18 16 Dilation Left eye: Tropicamide 1% @ 1 1:13 Slit Lamp Exam Right eye Left eye Anterior Chamber Deep and quiet Deep and quiet Care Teams Shipfitter Helper Relationship Specialty Start Date End Date Yoselin Roberts MD [address] [place] [id number] PCP - General 04/22/11 documented as of this encounter
--- OUTSIDE RECORDS SUMMARY | 2024-04-02 00:30 | XMS_ITS | Encounter Summary ---
Author Organization [facility] Address [address] [place] [address] Care Team Providers Care Desk Top Publisher Name Role Phone Yoselin Roberts MD Primary Care Provider +1- [phone] Reason for Visit * Reason Comments Eye Problem Encounter Details Date Type Department Care Team (Late st Contact Info) Description 02/02/2024 11:00 EST Office Visit [facility] Ophthalmology [address] [address] Josemanuel Gomes MD [address] [facility], [address] [place] [address] Social History Tobacco Use Types [...] Progress Notes * Josemanuel Gomes MD - 02/02/2024 1100 EST Chief Complaint Patient presents with Eye Problem HPI 8 weeks s/p Eylea HD left eye 12/08/23. Wet age-related macular degeneration left eye. Vision seems pretty good. No pain, or new flashes, or floaters. Base Eye Exam Visual Acuity (Snellen - Linear) Right Left Dist cc 20/40 -2 20/150 eccen Dist ph cc 20/25 -1 Correction: Glasses Tonometry (Applanation, 11:04) Right Left Pressure 16 16 Neuro/Psych Oriented x3: Yes Mood/Affect: Normal Dilation Left eye: Tropicamide 1%, Phenylephrine 2.5% @ 11:04 Slit Lamp and Fundus Exam Slit Lamp [...] - OS - Left Eye Time Out 02/02/2024. 11:27. Confirmed correct patient, procedure, site, and patient consented. Anesthesia Topical anesthesia was used. Anesthetic medications included Proparacaine 0.5%, Tetracaine 0.5%. Procedure Preparation included 5% betadine to ocular surface, eyelid speculum. A 30 gauge needle was used. Injection: 8 mg aflibercept 8 mg/0.07 mL Route: intravitreal, Site: Left Eye [facility]: 41314-734-29, Lot: [id number], Expiration date: 03/16/2025 Post-op Post injection exam [...] 8 weeks s/p Eylea HD left eye 12/08/23 Recommend Eylea HD left eye today Patient agrees Eylea HD injection done left eye today Erythromycin ointment applied after injection Return in about 8 weeks (around 03/29/2024), or if symptoms worsen or fail to [...] Info) Description 05/24/2024 14:00 EDT Office Visit [facility] Ophthalmology - [address] [place] [address] Josemanuel Gomes MD [address] [place] [address], [address] [place] [address] documented as of this encounter [...] - BOTH EYES (02/02/2024 11:27 EST) Narrative [facility] OPHTHALMOLOGY - 02/02/2024 11:30 EST Right Eye Quality was good. Scan locations included subfoveal. Progression has been stable. Findings include abnormal foveal contour. Left Eye Quality was good. Scan locations included subfoveal. Progression has been stable. Findings include abnormal foveal contour, choroidal neovascular membrane. Josemanuel Gomes MD OPHTH TOMOGRAPHY Final Result Performing Organization Address [facility] de Phone Number [facility] OPHTHALMOLOGY * INTRAVITREAL INJECTION, PHARMACOLOGIC AGENT - OS - LEFT EYE (02/02/2024 11:27 EST) Narrative [facility] POINT OF CARE - 02/02/2024 11:30 EST Time Out 02/02/2024. 11:27. Confirmed correct patient, procedure, site, and patient consented. Anesthesia Topical anesthesia was used. Anesthetic medications included Proparacaine 0.5%, Tetracaine 0.5%. Procedure Preparation included 5% betadine to ocular surface, eyelid speculum. A 30 gauge needle was used. Injection: 8 mg aflibercept 8 mg/0.07 mL ??Route: intravitreal, Site: Left Eye ??[facility]: 30604-936-55, Lot: [id number], Expiration date: 03/16/2025 Post-op Post injection exam found visual acuity of at least counting fingers. The patient tolerated the procedure well. There were no complications. The patient received written and verbal post procedure care education. Post injection medications included erythromycin. Josemanuel Gomes MD OPH CLINIC PROCEDURES Final Result Performing Organization Address 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) Given 02/02/2024 11:30 EST 8 mg Left Eye documented in this encounter Orders Medications Ordered That Ramon ht Not Have Been Administered Count Last Ordered Date First Ordered Date aflibercept (EYLEA HD) intra vitreal solution 8 mg 1 02/02/2024 documented in this encounter Eye Exam Visual Acuity (Snellen - Linear) Right eye Left eye Dist cc 20/40 -2 20/150 eccen Dist ph cc 20/25 -1 Correction: Glasses Tonometry (Applanation, 11:04) Right eye Left eye Pressure 16 16 Neuro/Psych Oriented x3: Yes Mood/Affect: Normal Dilation Left eye: Tropicamide 1%, Ph enylephrine 2.5% @ 11:04 Slit Lamp Exam Right eye Left eye Anterior Chamber Deep and quiet Deep and quiet Care Teams Desk Top Publisher Relationship Specialty Start Date End Date Yoselin Roberts MD [address] [place] [address] [place] [address] PCP - General 04/22/11 documented as of this encounter
--- OUTSIDE RECORDS SUMMARY | 2024-04-02 00:31 | XMS_ITS | Encounter Summary ---
Author Organization [facility] Address [address] [place] [address] Care Team Providers Care Academic Records Specialist Name Role Phone Yoselin Roberts MD Primary Care Provider +1- [phone] Reason for Visit * Reason Comments Eye Problem * Prior Authorization (Routine) - New Request Specialty Diagnoses / Procedures Referred By Kishan sewell Referred To Contact Diagnoses AMD (age-related macular degeneration), wet ([facility]) Procedures [place] INJECT INTRAVITREAL PHARMCOLOGIC [place] AFLIBERCEPT INJECTION [place] BEVACIZUMAB INJECTION [facility] Ophthalmology [address] [address] Phone: tel: fax: [facility] Ophthalmology [address] [address] Phone: tel: fax: Referral ID Status Reason Start Date Expiration Date V isits Requested Visits Authorized [id number] New Request 2 2 Encounter Details Date Type Department Care Team (Late st Contact Info) Description 12/23/2022 13:15 EDT Office Visit [facility] Ophthalmology [facility] [address] [place] [address] Josemanuel Gomes MD [address] [facility], [address] [place] [id number] Social History Tobacco Use Types Packs/Day Years [...] Progress Notes * Josemanuel Gomes MD - 12/23/2022 1315 EDT Chief Complaint Patient presents with ??? Eye Problem HPI Choroidal neovascular membrane of left eye. Progressive Myopia both eyes. Visual acuity left eye blurry per pt for about month. She thought from Allergy but not sure. No new F and F. Left eye hurts per pt. For about a month 2-3/10 all the time. Using Timolol 2/2 and Latanoprost hs/hs. Base Eye Exam Visual Acuity (Snellen - Linear) Right Left Dist cc 20/30 +1/-1 20/200 +1/-1 Dist ph cc NI Correction: Glasses Tonometry (Applanation, 13:58) Right Left Pressure 19 19 Neuro/Psych Oriented x3: Yes Mood/Affect: Normal Dilation Both eyes: Tropicamide 1%, Phenylephrine 2.5% @ 13:59 Slit Lamp and Fundus Exam External Exam Right Left External Normal Normal Slit Lamp Exam Right Left Lids/Lashes Blepharitis running suture in place, APRIL Conjunctiva/Sclera White and quiet Injection Cornea Arcus Arcus Anterior Chamber Deep and quiet Deep and quiet Iris Round and reactive Round and reactive Lens Posterior chamber intraocular lens Posterior chamber intraocular lens Vitreous Posterior vitreous detachment Posterior vitreous detachment Fundus Exam Right Left Disc Tilted disc tilted , Peripapillary atrophy C/D Ratio 0.5 0.5 Macula RPE changes, no heme atrophic scar, SR heme Vessels Normal Normal Periphery Normal Normal Please refer to large retinal drawing. OCT, Retina - OU - Both Eyes Right Eye Progression has been stable. Findings include (Irregular contour). Left Eye Progression has worsened. Findings include subretinal fluid. Intravitreal Injection, Pharmacologic Agent - OS - Left Eye Time Out 12/23/2022. 14:19. Confirmed correct patient, procedure, site, and patient consented. Anesthesia Topical anesthesia was used. Anesthetic medications included Proparacaine 0.5%, Tetracaine 0.5%. Procedure Preparation included 5% betadine to ocular surface, eyelid speculum. A 30 gauge needle was used. Injection: 2 mg aflibercept 2 mg/0.05 mL Route: intravitreal, Site: Left Eye ND: [id number], Lot: [id number], Expiration date: 12/16/2023 Post-op Post injection exam found visual acuity of at least counting fingers. The patient tolerated the procedure well. There were no complications. The patient received written and verbal post procedure care education. Post injection medications were not given. IMPRESSION: 1. 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 R + B explained Pt agreed. Eylea done to left eye Return in about 6 weeks (around 02/03/2023) for OCT, Eylea, Left. I, Josemanuel Gomes MD, have performed my own history, and have evaluated and examined the patient myself. I am scribing for Josemanuel Gomes MD while he is personally performing the service. 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 Findings include (Irregular contour). Left Eye Progression has worsened. Findings include subretinal fluid. us Josemanuel Gomes MD OPHTH TOMOGRAPHY Final Result [facility] OPHTHALMOLOGY * INTRAVITREAL INJECTION, PHARMACOLOGIC AGENT - OS - LEFT EYE (12/23/2022 13:15 EDT) Narrative [facility] CARE - 12/24/2022 8:56 EDT Time Out 12/23/2022. 14:19. Confirmed correct patient, procedure, site, and patient consented. Anesthesia Topical anesthesia was used. Anesthetic medications included Proparacaine 0.5%, Tetracaine 0.5%. Procedure Preparation included 5% betadine to ocular surface, eyelid speculum. A 30 gauge needle was used. Injection: 2 mg aflibercept 2 mg/0.05 mL ??Route: intravitreal, Site: Left Eye ??NDC: 26154-113-23, Lot: [id number], Expiration date: 12/16/2023 Post-op Post injection exam found visual acuity of at least counting fingers. The patient tolerated the procedure well. There were no complications. The patient received written and verbal post procedure care education. Post injection medications were not given. 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) Given 12/23/2022 13:15 EDT 2 mg Left Eye documented in this encounter Orders Medications Ordered That Ramon ht Not Have Been Administered Count Last Ordered Date First Ordered Date aflibercept (EYLEA) intravit real syringe 2 mg 1 12/23/2022 documented in this encounter Eye Exam Visual Acuity (Snellen - Linear) Right eye Left eye Dist cc 20/30 +1/-1 20/200 +1/-1 Dist ph cc NI Correction: Glasses Tonometry (Applanation, 13:58) Right eye Left eye Pressure 19 19 Neuro/Psych Oriented x3: Yes Mood/Affect: Normal Dilation Both eyes: Tropicamide 1%, P henylephrine 2.5% @ 13:59 External Exam Right eye Left eye External Normal Normal Slit Lamp Exam Right eye Left eye Lids/Lashes Blepharitis running suture i n place, APRIL Conjunctiva/Sclera White and quiet Injection Cornea Arcus Arcus Anterior Chamber Deep and quiet Deep and quiet Iris Round and reactive Round and marko ctive Lens Posterior chamber in traocular lens Posterior chamber intraocular lens Anterior Vitreous Posterior vitreous detachment Posterior vitreous detachment Fundus Exam Right eye Left eye Disc Tilted disc tilted , Peripap illary atrophy C/D Ratio 0.5 0.5 Macula RPE changes, no heme atrophic sc ar, SR heme Vessels Normal Normal Periphery Normal Normal Care Teams Academic Records Specialist Relationship Specialty Start Date End Date Yoselin Roberts MD [address] [place] [address] [place] [address] PCP - General 04/22/11 documented as of this encounter
--- OUTSIDE RECORDS SUMMARY | 2024-04-02 00:31 | XMS_ITS | Encounter Summary ---
Author Organization [facility] Address [address] [place] [address] Care Team Providers Care Adjunct Latin Professor Name Role Phone Yoselin Roberts MD Primary Care Provider +1- [phone] Reason for Visit * Reason Comments Other Encounter Details Date Type Department Care Team (Late st Contact Info) Description 10/21/2021 [facility] Ophthalmology - [address] [phone] Kody Martinez MD [address] [facility], [address] [place] [address] Other Social History Tobacco Use Types Packs/Day Years [...] 01/31/2017 9:14 EST documented in this encounter Ordered Prescriptions Prescription Sig Dispense Quantity Refills Last Filled Start Date End Date timolol (TIMOPTIC) 0.5 % ophthalmic solution PLACE 1 DROP INTO BOTH EYES TWO TIMES A DAY 15 mL 4 10/22/2021 10/22/2021 documented in this encounter Plan of Treatment Upcoming Encounters Date Type Department Care Team (Late st Contact Info) Description 05/24/2024 14:00 EDT Office Visit [facility] Ophthalmology - [facility] [address] [place] [address] Josemanuel Gomes MD [address] [place] [address], [facility] [address] [place] [phone] documented as of this encounter Visit Diagnoses Not on filedocumented in this encounter Discontinued Medications Medication Sig Discontinue Reason Start Date End Da te timolol (TIMOPTIC) 0.5 % ophthalmic solution Place 1 Drop into both eyes 2 times daily. 05/04/2021 10/22/2021 documented as of this encounter Care Teams Adjunct Latin Professor Relationship Specialty Start Date End Date Yoselin Roberts MD [address] [place] [address] PCP - General 04/22/11 documented as of this encounter
--- OUTSIDE RECORDS SUMMARY | 2024-04-02 00:31 | XMS_ITS | Encounter Summary ---
Author Organization [facility] Address [address] [place] [address] Care Team Providers Care Imaging Nurse Name Role Phone Yoselin Roberts MD Primary Care Provider +1- [phone] Reason for Visit * Reason Onset Date Comments Medications Refill 10/22/2021 Encounter Details Date Type Department Care Team (Late st Contact Info) Description 10/22/2021 Refill [facility] Ophthalmology - [facility] [address] [place] [address] Kody Martinez MD 111 [facility], [address] [place] [address] Medications Refill Social History Tobacco Use Types Packs/Day Years [...] Refills Last Filled Start Date End Date brimonidine (ALPHAGAN) 0.2 % ophthalmic solution Place 1 Drop into both eyes 2 times daily. 30 mL 3 10/22/2021 timolol (TIMOPTIC) 0.5 % ophthalmic solution PLACE 1 DROP INTO BOTH EYES TWO TIMES A DAY 30 mL 3 10/22/2021 09/03/2022 documented in this encounter Miscellaneous Notes * Telephone Encounter - Taylor Campos - 10/22/2021 9104 EDT Medication Refill Medication(s) Requested: Timolol and Brinonidine Pharmacy: [facility] in [place], [place] Is patient out of medication? Yes, out of Timolol. She'd like to pick it up tomorrow. 30 day supply/ 90 day supply: 90 day Follow up appointment: Due in Spring 2022 Please remind the patient that it can take 24-48 hours for the med to be refilled, and to call the pharmacy to make sure the refill is available before driving there. documented in this encounter Plan of Treatment Upcoming Encounters Date Type Department Care Team (Late st Contact Info) Description 05/24/2024 14:00 EDT Office Visit [facility] Ophthalmology - [facility] [address] [place] [address] Josemanuel Gomes MD [address] [place] [address], [address] [place] [address] documented as of this encounter Visit Diagnoses Not on filedocumented in this encounter Discontinued Medications Medication Sig Discontinue Reason Start Date End Da te brimonidine (ALPHAGAN) 0.2 % ophthalmic solution Place 1 Drop into both eyes 2 times daily. Reorder 05/04/2021 10/22/2021 timolol (TIMOPTIC) 0.5 % ophthalmic solution PLACE 1 DROP INTO BOTH EYES TWO TIMES A DAY Reorder 10/22/2021 10/22/2021 documented as of this encounter Care Teams Imaging Nurse Relationship Specialty Start Date End Date Yoselin Roberts MD [address] [place] [address] [place] [address] PCP - General 04/22/11 documented as of this encounter
--- OUTSIDE RECORDS SUMMARY | 2024-04-02 00:31 | XMS_ITS | Encounter Summary ---
Author Organization [facility] Address [address] [place] [address] Care Team Providers Care Interior Systems Carpenter Name Role Phone Yoselin Roberts MD Primary Care Provider +1- [phone] Reason for Referral * (Routine) - New Request Specialty Diagnoses / [facility] Contact Diagnoses CNVM (choroidal neovascular membrane), left Procedures OCT (OPHTHALMIC DIGITAL IMAGING, POSTERIOR SEGMENT) Josemanuel Gomes MD Phone: tel: fax: Referral ID Status Reason Start Date Expiration Date V isits Requested Visits Authorized [id number] New Request 01/14/2019 1 1 Reason for Visit * Reason Comments Eye Exam CNVM left eye Encounter Details Date Type Department Care Team (Late st Contact Info) Description 01/14/2019 14:15 EDT Office Visit [facility] Ophthalmology - [address] [id number] Josemanuel Gomes MD [address] [facility], [address] [place] [address] Social History Tobacco Use Types Packs/Day Years Used Date Smoking Tobacco: Never Smokeless Tobacco: Never Alcohol Use Standard Drinks/Week Comments Yes 0 (1 standard drink = 0.6 oz pur e alcohol) occ Comments No Sex and Gender Information Value [...] this encounter Progress Notes * Josemanuel Gomes MD, - 01/14/2019 1415 EDT Chief Complaint Patient presents with ??? Eye Exam CNVM left eye HPI Location: Left eye Pain: 0 - No pain Quality: Blurry Severity: Severe Duration: Years Timing: Constant Lasts: Continuous Context: CNVM left eye Modifying factors: High myope Associated Signs & Symptoms: Vision not as good both eyes, is getting new glasses just has not bought them yet. No pain No flashes same floaters Visual Fluctuations: doing well in general after having hard time recovering from back surgery She does think vision is not quite as sharp both eyes, but also feels like she is due for new glasses She got a Mrx She just has not yet had them filled Attestation: Base Eye Exam Visual Acuity (Snellen - Linear) Right Left Dist cc 20/40 -2 20/350 Dist ph cc 20/30 +2 Correction: Glasses Tonometry (Applanation, 14:15) Right Left Pressure 24 21 Pupils Pupils Right PERRL Left PERRL Visual De Jesus Right Left Full Full Extraocular Movement Right Left Full Full Neuro/Psych Oriented x3: Yes Mood/Affect: Normal Dilation Both eyes: 1.0% Mydriacyl, 2.5% Phenylephrine @ 14:16 Slit Lamp and Fundus Exam External Exam [...] vitreous detachment Fundus Exam Right Left Disc tilted , Peripapillary atrophy tilted , Peripapillary atrophy C/D Ratio 0.5 0.5 Macula RPE changes, no heme atrophic scar, no fluid or heme Vessels Normal Normal Periphery Normal Normal All five layers of the cornea are normal unless otherwise specified. Please refer to large retinal drawing. IMAGING: OCT REPORT Indications: CNVM Findings: Right Eye Left Eye Minimal irregylrity Scar Original test to be found in patients shadow chart IMPRESSION: 1. CNVM (choroidal neovascular membrane), left 2. Posterior vitreous detachment of both eyes 3. Degenerative myopia of both eyes, unspecified whether complication present 4. Chronic open angle glaucoma of both eyes, unspecified glaucoma stage PLAN: CNVM left eye Quiet, No injection needed today Follow High myopia both eyes No holes or tears Retina attached Posterior vitreous detachment both eyes No holes or tears seen Retinal detachment precautions Follow Glaucoma both eye Continue Latanoprost and timolol 03/[address] Sonja tellez more elevated IOP today right>left Will have pt see MP in about 3 months Will send a note to as well, if she feels she needs to be sooner, I will leave that up to her Follow Follow up in 4 months, OCT or PRN I, Dr. Josemanuel Gomes, have performed my own HPI and reviewed the tech's ROS. I have also reviewed thepatient's past medical, family, social and surgical history, as well as the patient's medications, allergies, and problem list. I am scribing for Dr. Josemanuel Gomes MD while he is personally performing the service. MEREDITH Zaldivar (Scribe) documented in this encounter Plan of Treatment Upcoming Encounters Date Type Department Care Team (Late st Contact Info) Description 05/24/2024 14:00 EDT Office Visit [facility] Ophthalmology - [address] [place] [address] Josemanuel Gomes MD [address] [place] [address], [address] [place] [address] Scheduled Orders Name Type Priority Associated Diagnoses Orde r Schedule OCT (OPHTHALMIC DIGITAL IMAGING, POSTERIOR SEGMENT) Ophthalmology Routine CNVM (choroidal neovascular membrane), left Ordered: 01/14/2019 documented as of this encounter Visit Diagnoses Diagnosis CNVM (choroidal neovascular membrane), left- Primary Posterior vitreous detachment of both eyes Vitreous degeneration Degenerative myopia of both eyes, unspecified whether complication present Chronic open angle glaucoma of both eyes, unspecified glaucoma stage documented in this encounter Eye Exam Visual Acuity (Snellen - Linear) Right eye Left eye Dist cc 20/40 -2 20/350 Dist ph cc 20/30 +2 Correction: Glasses Tonometry (Applanation, 14:15) Right eye Left eye Pressure 24 21 Pupils Pupils Right eye PERRL Left eye PERRL Visual De Jesus Right eye Left eye Full Full Extraocular Movement Right eye Left eye Full, Ortho Full, Ortho Neuro/Psych Oriented x3: Yes Mood/Affect: Normal Dilation Both eyes: 1.0% Mydriacyl, 2 .5% Phenylephrine @ 14:16 External Exam Right eye Left eye External Normal Normal Slit Lamp Exam Right eye Left eye Lids/Lashes Blepharitis running suture i n place, APRIL Conjunctiva/Sclera White and quiet Injection Cornea Arcus Arcus Anterior Chamber Deep and quiet Deep and quiet Iris Round and reactive Round and marko ctive Lens Posterior chamber in traocular lens Posterior chamber intraocular lens Vitreous Posterior vitreous detachment Po sterior vitreous detachment Fundus Exam Right eye Left eye Disc tilted , Peripapillary atrophy t ilted , Peripapillary atrophy C/D Ratio 0.5 0.5 Macula RPE changes, no heme atrophic sc ar, no fluid or heme Vessels Normal Normal Periphery Normal Normal Care Teams Interior Systems Carpenter Relationship Specialty Start Date End Date Yoselin Roberts MD [address] [place] [address] [place] [address] PCP - General 04/22/11 documented as of this encounter
--- OUTSIDE RECORDS SUMMARY | 2024-04-02 00:31 | XMS_ITS | Encounter Summary ---
Author Organization [facility] Address [address] [place] [address] Care Team Providers Care Lead Systems Analyst Name Role Phone Yoselin Roberts MD Primary Care Provider +1- [phone] Reason for Visit * Reason Onset Date Comments Medication Problem 02/26/2022 Encounter Details Date Type Department Care Team (Late st Contact Info) Description 02/26/2022 Telephone [facility] Ophthalmology - [address] [address] Kody Martinez MD [address] [facility], [address] [place] [address] Medication Problem Social History Tobacco Use Types Packs/Day Years [...] 01/31/2017 9:14 EST documented in this encounter Miscellaneous Notes * Telephone Encounter - Raina Merino MA - 02/27/2022 0823 EST Called pt and relayed message per Dr. Martinez. * Telephone Encounter - Sharif Christy RN - 02/27/[address] Martinez, stop Brimonidine for likely allergy. Dr Martinez would like patient to continue timolol 1 drop into both eyes x2 daily and latanoprost into both eyes at bed time. Follow up as planned. Please call pt. Sharif Christy RN 02/27/2022 7:25 * Telephone Encounter - Sharif Christy RN - 02/26/2022 1416 EST Called and spoke to patient. Stated Dr Martinez is in OR today. She is okay that we speak to Dr Martinez tomorrow when he is back in clinic tomorrow. She last used the drops last evening, none today. The Brimonidine causes pain. Sometimes it last several days. She is tolerating all other drops. Sharif Christy RN 02/26/2022 14:19 * Telephone Encounter - Viridiana Maxwell - 02/26/2022 1356 EST Patient states she's been using the brimonidine consistently and it's making her eyes painful, and the lids very heavy. She feels like her lids needs to close all the time. Both her actual eyeball aswell as the eyelid are sore. Left more than right. Having no issues with her other meds. Wants to know if there is an alternative. Viridiana Maxwell 02/26/2022 13:58 documented in this encounter Plan of Treatment Upcoming Encounters Date Type Department Care Team (Late st Contact Info) Description 05/24/2024 14:00 EDT Office Visit [facility] Ophthalmology - [facility] [address] [place] [address] Josemanuel Gomes MD [address] [facility], [facility] [address] [place] [phone] documented as of this encounter Visit Diagnoses Not on filedocumented in this encounter Care Teams Lead Systems Analyst Relationship Specialty Start Date End Date Yoselin Roberts MD [address] [place] [address] [place] [address] PCP - General 04/22/11 documented as of this encounter
--- OUTSIDE RECORDS SUMMARY | 2024-04-02 00:31 | XMS_ITS | Encounter Summary ---
Author Organization [facility] Address [address] [place] [address] Care Team Providers Care Law Instructor Name Role Phone Yoselin Roberts MD Primary Care Provider +1- [phone] Reason for Visit * Reason Onset Date Comments Appointment Related 12/18/2022 Encounter Details Date Type Department Care Team (Late st Contact Info) Description 12/18/[address] [address] Ashu Fabian MD 111 [facility] [address] [place] [address] Appointment Related Social History Tobacco Use Types Packs/Day Years [...] encounter Miscellaneous Notes * Telephone Encounter - Jennifer Lowery - 12/18/2022 1242 EDT Patient called wanting to change appointment to be with a different retina provider. Was going to encounter, but Kyra was available to take the call. documented in this encounter Plan of Treatment Upcoming Encounters Date Type Department Care Team (Late st Contact Info) Description 05/24/2024 14:00 EDT Office Visit [facility] Ophthalmology - [address] [address] Josemanuel Gomes MD [address] [place] [address], [address] [place] [address] documented as of this encounter Visit Diagnoses Not on filedocumented in this encounter Care Teams Law Instructor Relationship Specialty Start Date End Date Yoselin Roberts MD [address] [place] [address] [place] [address] PCP - General 04/22/11 documented as of this encounter
--- OUTSIDE RECORDS SUMMARY | 2024-04-02 00:31 | XMS_ITS | Encounter Summary ---
Author Organization [facility] Address [address] [place] [address] Care Team Providers Care Dressing Machine Operator Name Role Phone Yoselin Roberts MD Primary Care Provider +1- [phone] Reason for Visit * Reason Comments Eye Problem Encounter Details Date Type Department Care Team (Late st Contact Info) Description 04/07/2023 12:30 EST Office Visit [facility] Ophthalmology [address] [address] Josemanuel Gomes MD 111 [facility], [address] 5 [place] [address] Social History Tobacco Use Types [...] Progress Notes * Josemanuel Gomes MD - 04/07/2023 1230 EST Chief Complaint Patient presents with Eye Problem HPI Wet Macular Degeneration / choroidal neovascular membrane left eye S/[p Eylea left eye 03/03/23 Left eye vision blurry but the same. Right eye vision doing well. Patient states the left eye vision seems to get in the way while watching tv. No new flashes or floaters no pain Base Eye Exam Visual Acuity (Snellen - Linear) Right Left Dist cc 20/40 +2 20/250 eccentric Tonometry (Applanation, 12:45) Right Left Pressure 16 14 Dilation Left eye: Phenylephrine 2.5%, Tropicamide 1% @ 12:46 Please refer to large retinal drawing. OCT, Retina - OU - Both Eyes Right Eye Quality was good. Scan locations included subfoveal. Progression has been stable. Findings include (Irregular contour). Left Eye Quality was good. Scan locations included subfoveal. Progression has been stable. Findings include choroidal neovascular membrane. Intravitreal Injection, Pharmacologic Agent - OS - Left Eye Time Out 04/07/2023. 12:53. Confirmed correct patient, procedure, site, and patient consented. Anesthesia Topical anesthesia was used. Anesthetic medications included Proparacaine 0.5%, Tetracaine 0.5%. Procedure Preparation included 5% betadine to ocular surface, eyelid speculum. A 30 gauge needle was used. Injection: 2 mg aflibercept 2 mg/0.05 mL Route: intravitreal, Site: Left Eye [facility]: 96215-013-38, Lot: [id number], Expiration date: 05/15/2024 Post-op The patient tolerated the procedure well. There were no complications. Post injection medications were not given. IMPRESSION: 1. 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 I, Josemanuel Gomes MD, have performed my own history, and have evaluated and examined the patient myself. I am scribing for Josemanuel Gomes MD while he is personally performing the service. 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 12:53. Confirmed correct patient, procedure, site, and patient consented. Anesthesia Topical anesthesia was used. Anesthetic medications included Proparacaine 0.5%, Tetracaine 0.5%. Procedure Preparation included 5% betadine to ocular surface, eyelid speculum. A 30 gauge needle was used. Injection: 2 mg aflibercept 2 mg/0.05 mL ??Route: intravitreal, Site: Left Eye ??[facility]: 03668-411-35, Lot: [id number], Expiration date: 05/15/2024 Post-op The patient tolerated the procedure well. There were no complications. Post injection medications were not given. Josemanuel Gomes MD OPHTH CLINIC PROCEDURES Final Result Performing Organization Address [facility] de Phone Number [facility] POINT OF CARE * OCT, RETINA - OU - BOTH EYES (04/07/2023 13:12 EST) Narrative [facility] OPHTHALMOLOGY - 04/07/2023 13:44 EST Right Eye Quality was good. Scan locations included subfoveal. Progression has been stable. Findings include (Irregular contour). Left Eye Quality was good. Scan locations included subfoveal. Progression has been stable. Findings include choroidal neovascular membrane. Josemanuel Gomes MD OPHTH TOMOGRAPHY Final Result Performing Organization Address 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)- Primary documented in this encounter Administered Medications Inactive Administered Medications - up to 3 most recent administrations Medication Order MAR Action Action Date Dose Rate Site aflibercept (EYLEA) intravitreal syringe 2 mg 2 mg, intravitreal, Starting on Fri04/07/23 at 1344, Until Fri04/07/23 at 1344, RoutineIndications: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) Given 04/07/2023 13:44 EST 2 mg Left Eye documented in this encounter Orders Medications Ordered That Ramon ht Not Have Been Administered Count Last Ordered Date First Ordered Date aflibercept (EYLEA) intravit real syringe 2 mg 1 04/07/2023 documented in this encounter Eye Exam Visual Acuity (Snellen - Linear) Right eye Left eye Dist cc 20/40 +2 20/250 eccentric Tonometry (Applanation, 12:45) Right eye Left eye Pressure 16 14 Dilation Left eye: Phenylephrine 2.5% , Tropicamide 1% @ 12:46 Care Teams Dressing Machine Operator Relationship Specialty Start Date End Date Yoselin Roberts MD [address] [place] [address] [place] [address] PCP - General 04/22/11 documented as of this encounter
--- OUTSIDE RECORDS SUMMARY | 2024-04-02 00:31 | XMS_ITS | Encounter Summary ---
Author Organization [facility] Address [address] [place] [address] Care Team Providers Care Visual Communications Instructor Name Role Phone Yoselin Roberts MD Primary Care Provider +1- [phone] Reason for Visit * Reason Onset Date Comments Appointment Related 11/29/2019 Encounter Details Date Type Department Care Team (Late st Contact Info) Description 11/29/[address] [address] Ashu Fabian MD 111 [facility], [address] [place] [address] Appointment Related Social History Tobacco [...] encounter Miscellaneous Notes * Telephone Encounter - Kyra Wodo - 11/29/2019 1132 EDT Lmom for pt to call back and schedule next appt. Reminder has been placed documented in this encounter Plan of Treatment Upcoming Encounters Date Type Department Care Team (Late st Contact Info) Description 05/24/2024 14:00 EDT Office Visit [facility] Ophthalmology - [place] [phone] [place] [address] Josemanuel Gomes MD [address] [facility], [address] [place] [address] documented as of this encounter Visit Diagnoses Not on filedocumented in this encounter Care Teams Visual Communications Instructor Relationship Specialty Start Date End Date Yoselin Roberts MD [address] [place] [address] [place] [address] PCP - General 04/22/11 documented as of this encounter
--- OUTSIDE RECORDS SUMMARY | 2024-04-02 00:31 | XMS_ITS | Encounter Summary ---
Author Organization [facility] Address [address] [place] [address] Care Team Providers Care Hospitality Specialist Name Role Phone Yoselin Roberts MD Primary Care Provider +1- [phone] Reason for Visit * Reason Comments Eye Problem Encounter Details Date Type Department Care Team (Late st Contact Info) Description 01/29/2021 10:00 EST Office Visit [facility] Ophthalmology - [address] [phone] Ashu Fabian MD 111 [facility], [address] [place] [address] Social History Tobacco Use Types [...] documented in this encounter Progress Notes * Ashu Fabian MD - 01/29/2021 1000 EST Chief Complaint Patient presents with ??? Eye Problem Comments Quiet CNVM left eye with macular scar, cobblestones both eyes, PVD both eyes, PCIOL both eyes. HPI Location: Left eye Pain: 0 - No pain Quality: Blurry Severity: Moderate Duration: Years Timing: Constant Lasts: Continuous Context: Quiet CNVM left eye with macular scar, cobblestones both eyes, PVD both eyes, PCIOL both eyes. Modifying factors: Patient saw Dr. Casillas about a month ago and everything is stable. Pt hasn't noticed any changes in vision but notes that some days are better than others. No eye pain, pt has afloater in the left eye that is not new. No flashes of light. Associated Signs & Symptoms: combigan 2/2, latan hs/hs. Pt feels that combigan is making eyes sore and irritated, has apt with [facility] after this one. Visual Fluctuations: Floaters Attestation: Base Eye Exam Visual Acuity (Snellen - Linear) Right Left Dist cc 20/40 +2 20/400 slow Dist ph cc 20/30 +1 Correction: Glasses Tonometry (Applanation, 10:19) Right Left Pressure 18 17 Neuro/Psych Oriented x3: Yes Mood/Affect: Normal Dilation Both eyes: Tropicamide 1%, Phenylephrine 2.5% @ 10:19 Slit Lamp and Fundus Exam Slit Lamp Exam Right Left Lids/Lashes Normal Normal Conjunctiva/Sclera White and quiet White and quiet Cornea Clear Clear Anterior Chamber Deep and quiet Deep and quiet Iris dilated dilated Lens Posterior chamber intraocular lens Posterior chamber intraocular lens Vitreous Posterior vitreous detachment Posterior vitreous detachment Fundus Exam Right Left Disc tilted disc, Peripapillary atrophy Tilted disc, Peripapillary atrophy C/D Ratio 0.6 0.7 Macula mottled, mild staphyloma macular scar Vessels Normal Normal Periphery Pavingstone degeneration 5-7, confluent Pavingstone degeneration 4-6, confluent Imaging: OCT, Retina - OU - Both Eyes OCT REPORT Test Details: of , Indications: Choroidal Neovascular Membrane Findings: Right Eye Left Eye Staphyloma, increased thickness, no cysts, no SRF Subretinal Scar, staphyloma, no fluid Original test to be found in patients shadow chart Impression: 1. CNVM (choroidal neovascular membrane), left OCT, RETINA - OU - BOTH EYES 2. Posterior vitreous detachment of both eyes 3. High myopia, bilateral 4. 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 Chronic open angle glaucoma of right eye, moderate stage Plan: Choroidal neovascular membrane left eye, quiescent Macular scar without heme or fluid Observe Posterior vitreous detachment both eyes The patient has been informed that they have a chronic posterior vitreous detachment. At this juncture the risk of retinal detachment is reduced but not zero. The patient has been instructed to continue to be alert for worsening of floaters or flashes or loss of peripheral vision. If these symptomsoccur the patient will call us immediately as these symptoms could be consistent with new holes tears or retinal detachment. The patient understands and agrees to do this. High myopia both eyes Courtney Mckenzie is a high myope. She was informed they are at increased risk for rhegmatogenous retinal detachment and for subfoveal choroidal neovascularization. She understands the importance of immediate reporting of flashers, floaters or a curtain coming into their field of vison, i.e., that she may have a hole, tear, or retinal detachment. She also understands the importance of immediate reporting of any sudden altercation of central vision or alteration of an Amsler grid, i.e., she may have a choroidal neovascular membrane. She was instructed on the use of the Amsler grid. She knows the importance of reporting symptomatology noted above, and also understands failure to report such symptomatology could result in severe visual loss or even blindness. Cobblestones both eyes No holes Retinal detachment warnings discussed Observe COAG both eyes, followed by Martinez Return 6 months, sooner prn Comment- stable high myopia- with quiet cnvms I, Dr. Fabian, have performed my own HPI and reviewed the tech's ROS. I have also reviewed the patient's past medical, family, social and surgical history, as well as the patient's medications, allergies, and problem list. I am scribing for, Ashu Fabian MD, while he is personally performing the service. ARELY Amanda (Scribe) documented in this encounter Plan of Treatment Upcoming Encounters Date Type Department Care Team (Late st Contact Info) Description 05/24/2024 14:00 EDT Office Visit [facility] Ophthalmology - [facility] [address] [place], [place] [phone] Josemanuel Gomes MD [address] [place] [address] [address] [place] [address] documented as of this encounter Procedures Procedure Name Priority Date/Time Associated Diagnosis Comments OCT, RETINA - OU - BOTH EYES Routine 01/29/2021 15:20 EST CNVM (choroidal neovascular membrane), left documented in this encounter Results * OCT, RETINA - OU - BOTH EYES (01/29/2021 15:20 EST) Narrative [facility] POINT OF CARE - 01/29/2021 15:20 EST OCT REPORT Test Details: ?of ??, ?? 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 Chronic open angle glaucoma of right eye, moderate stage documented in this encounter Eye Exam Visual Acuity (Snellen - Linear) Right eye Left eye Dist cc 20/40 +2 20/400 slow Dist ph cc 20/30 +1 Correction: Glasses Tonometry (Applanation, 10:19) Right eye Left eye Pressure 18 17 Neuro/Psych Oriented x3: Yes Mood/Affect: Normal Dilation Both eyes: Tropicamide 1%, P henylephrine 2.5% @ 10:19 Slit Lamp Exam Right eye Left eye Lids/Lashes Normal Normal Conjunctiva/Sclera White and quiet White and marysol et Cornea Clear Clear Anterior Chamber Deep and quiet Deep and quiet Iris dilated dilated Lens Posterior chamber in traocular lens Posterior chamber intraocular lens Vitreous Posterior vitreous detachment Po sterior vitreous detachment Fundus Exam Right eye Left eye Disc tilted disc, Peripapillary atrop hy Tilted disc, Peripapillary atrophy C/D Ratio 0.6 0.7 Macula mottled, mild staphyloma macular scar Vessels Normal Normal Periphery Pavingstone degenera tion 5-7, confluent Pavingstone degeneration 4-6, confluent Care Teams Hospitality Specialist Relationship Specialty Start Date End Date Yoselin Roberts MD [address] [place] [address] [place] [address] PCP - General 04/22/11 documented as of this encounter
--- OUTSIDE RECORDS SUMMARY | 2024-04-02 00:31 | XMS_ITS | Encounter Summary ---
Author Organization [facility] Address [address] [place] [address] Care Team Providers Care Certified Industrial Hygienist Name Role Phone Yoselin Roberts MD Primary Care Provider +1- [phone] Reason for Visit * Reason Comments Eye Exam Encounter Details Date Type Department Care Team (Late st Contact Info) Description 01/29/2021 12:45 EST Office Visit [facility] Ophthalmology - [address] [phone] Kody Martinez MD 111 [facility], [address] [place] [address] Social History Tobacco Use Types [...] documented in this encounter Progress Notes * Kody Martinez MD - 01/29/2021 1245 EST Pt not seen today -- retina visit only. documented in this encounter Plan of Treatment Upcoming Encounters Date Type Department Care Team (Late st Contact Info) Description 05/24/2024 14:00 EDT Office Visit [facility] Ophthalmology - [place] [phone] [place] [address] Josemanuel Gomes MD [address] [facility], [address] [place] [address] documented as of this encounter Visit Diagnoses Diagnosis Glaucoma suspect of both eyes- Primary Preglaucoma, unspecified documented in this encounter Care Teams Certified Industrial Hygienist Relationship Specialty Start Date End Date Yoselin Roberts MD [address] [place] [address] PCP - General 04/22/11 documented as of this encounter
--- OUTSIDE RECORDS SUMMARY | 2024-04-02 00:31 | XMS_ITS | Encounter Summary ---
Author Organization [facility] Address [address] [place] [address] Care Team Providers Care Genetic Technologist Name Role Phone Yoselin Roberts MD Primary Care Provider +1- [phone] Encounter Details Date Type Department Care Team (Late st Contact Info) Description 02/24/2019 Lab Requisition [facility] Pathology & Laboratory Medicine - [address] [address] Emily Smart MD Social History Tobacco Use Types Packs/Day Years [...] Info) Description 05/24/2024 14:00 EDT Office Visit [facility] Ophthalmology - [address] [place] [address] Josemanuel Gomes MD 111 [facility], [facility] [address] [place] [address] documented as of this encounter Procedures Procedure Name Priority Date/Time Associated Diagnosis Comments LYME AB Routine 02/24/2019 12:52 EST ANTI NUCLEAR AB (AFSANEH), IFA Routine 02/24/2019 12:52 EST documented in this encounter Results * LYME AB (02/24/2019 12:52 EST) Lyme Ab Negative Negative 02/25/2019 10:[address] [facility] Blood VENOUS BLOOD / Unknown 02/24/2019 12:52 EST 02/24/2019 22:31 EST us Emily Rayo MD IMMUNOLOGY AND SEROLO GY ORDERABLES Final Result [facility] [address] [place] [address] * (ABNORMAL) ANTI NUCLEAR AB (AFSANEH), IFA (02/24/2019 12:52 EST) AFSANEH Interpretation Positive(A) Negative 02/25/2019 14:[address] [facility] Comment: For titers greater than or equal to 1:160 (except the centromere and nucleolar patterns) it is recommended that specific follow-up autoantibody testing ??(such as for dsDNA and Extractable Nuclear Antigens) be performed on all diffuse and/or speckled patterns NOTE: For add-on testing dsDNA is aliyah for 7 days refrigerated while Extractable Nuclear Antigens are only stable for 48 hours refrigerated. Cytoplasmic Pattern Noted, Speckled AFSANEH Titer and Pattern 1 1:320 Speckled 02/25/2019 14:[address] [facility] Blood VENOUS BLOOD / Unknown 02/24/2019 12:52 EST 02/24/2019 22:[address] [facility] - 02/25/2019 14:52 EST Results were obtained with the INOVA NOVA Lite HEp-2 AFSANEH Kit by indirect immunofluorescence. us Emily Rayo MD IMMUNOLOGY AND STEVEN DAVIS ORDERABLES Final Result Performing Organization Address City/State/[facility] Co de Phone Number [facility] [address] [place] [address] documented in this encounter Visit Diagnoses Not on filedocumented in this encounter Care Teams Genetic Technologist Relationship Specialty Start Date End Date Yoselin Roberts MD [address] [place] [address] PCP - General 04/22/11 documented as of this encounter
--- OUTSIDE RECORDS SUMMARY | 2024-04-02 00:31 | XMS_ITS | Encounter Summary ---
Author Organization [facility] Address [address] [place] [address] Care Team Providers Care Wharf Laborer Name Role Phone Yoselin Roberts MD Primary Care Provider +1- [phone] Reason for Visit * Reason Comments Macular Degeneration Encounter Details Date Type Department Care Team (Late st Contact Info) Description 05/19/2023 12:30 EST Office Visit [facility] Ophthalmology [address] [address] Josemanuel Gomes MD [address] [facility], [address] [place] [address] Social History Tobacco Use Types [...] Progress Notes * Josemanuel Gomes MD - 05/19/2023 1230 EST Chief Complaint Patient presents with Macular Degeneration HPI Wet 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 Visual acuity stable per pt. Nonew changes. Using Latanoprost hs/hs and Timolol 2/2. Base Eye Exam Visual Acuity (Snellen - Linear) Right Left Dist cc 20/30 +2/-1'single lines' 20/200 +2 Correction: Glasses Tonometry (Applanation, 12:46) Right Left Pressure 18 16 Neuro/Psych Oriented x3: Yes Mood/Affect: Normal Dilation Left eye: Tropicamide 1% @ 12:46 Slit Lamp and Fundus Exam Slit Lamp [...] - OS - Left Eye Time Out 05/19/2023. 13:00. Confirmed correct patient, procedure, site, and patient consented. Anesthesia Topical anesthesia was used. Anesthetic medications included Proparacaine 0.5%, Tetracaine 0.5%. Procedure Preparation included 5% betadine to ocular surface, eyelid speculum. A 30 gauge needle was used. Injection: 2 mg aflibercept 2 mg/0.05 mL Route: intravitreal, Site: Left Eye [facility]: 13931-067-21, Lot: [id number], Expiration date: 05/15/2024 Post-op Post injection exam found visual acuity of at least counting fingers. The patient tolerated the procedure well. There were no complications. Post injection medications included erythromycin. IMPRESSION: 1. 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 13:00. Confirmed correct patient, procedure, site, and patient consented. Anesthesia Topical anesthesia was used. Anesthetic medications included Proparacaine 0.5%, Tetracaine 0.5%. Procedure Preparation included 5% betadine to ocular surface, eyelid speculum. A 30 gauge needle was used. Injection: 2 mg aflibercept 2 mg/0.05 mL ??Route: intravitreal, Site: Left Eye [facility]: 84894-542-41, Lot: [id number], Expiration date: 05/15/2024 Post-op Post injection exam found visual acuity of at least counting fingers. The patient tolerated the procedure well. There were no complications. Post injection medications included erythromycin. Josemanuel Gomes MD OPHTH CLINIC PROCEDURES Final Result Performing Organization Address [facility] Co de Phone Number [facility] POINT OF CARE * OCT, RETINA - OU - BOTH EYES (05/19/2023 14:02 EST) Narrative [facility] OPHTHALMOLOGY - 05/19/2023 14:02 EST Right Eye Quality was good. Scan locations included subfoveal. Progression has been stable. Findings include (Irregular contour). Left Eye Quality was good. Scan locations included subfoveal. Progression has been stable. Findings include choroidal neovascular membrane (Irregular). Josemanuel Gomes MD OPHTH TOMOGRAPHY Final Result Performing Organization Address 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)- Primary documented in this encounter Administered Medications Inactive Administered Medications - up to 3 most recent administrations Medication Order MAR Action Action Date Dose Rate Site aflibercept (EYLEA) intravitreal syringe 2 mg 2 mg, intravitreal, Starting on 05/19/23 at 1402, Until Fri05/19/23 at 1402, RoutineIndications: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) Given 05/19/2023 14:02 EST 2 mg Left Eye documented in this encounter Orders Medications Ordered That Ramon ht Not Have Been Administered Count Last Ordered Date First Ordered Date aflibercept (EYLEA) intravit real syringe 2 mg 1 05/19/2023 documented in this encounter Eye Exam Visual Acuity (Snellen - Linear) Right eye Left eye Dist cc 20/30 +2/-1'single lines' 20/200 +2 Correction: Glasses Tonometry (Applanation, 12:46) Right eye Left eye Pressure 18 16 Neuro/Psych Oriented x3: Yes Mood/Affect: Normal Dilation Left eye: Tropicamide 1% @ 1 2:46 Slit Lamp Exam Right eye Left eye Anterior Chamber Deep and quiet Deep and quiet Care Teams Wharf Laborer Relationship Specialty Start Date End Date Yoselin Roberts MD [address] [place] [address] [place] [address] PCP - General 04/22/11 documented as of this encounter
--- OUTSIDE RECORDS SUMMARY | 2024-04-02 00:31 | XMS_ITS | Encounter Summary ---
Author Organization [facility] Address [address] [place] [address] Care Team Providers Care Maintenance Painter Apprentice Name Role Phone Yoselin Roberts MD Primary Care Provider +1- [phone] Reason for Visit * Reason Comments Macular Degeneration Encounter Details Date Type Department Care Team (Late st Contact Info) Description 11/24/2019 12:15 EDT Office Visit [facility] Ophthalmology - [address] [id number] Ashu Fabian MD [address] [facility], [address] [place] [address] Social History Tobacco Use Types [...] Progress Notes * Ashu Fabian MD - 11/24/2019 4365 EDT Chief Complaint Patient presents with ??? Macular Degeneration Comments F/u on CNVM left eye. High Myopia. HPI Choroidal neovascular membrane left eye Vision severely blurred but stable left eye, mildly blurred right eye, no new distortion, years, constant, no eye pain Location: Left eye Pain: 0 - No pain Quality: Blurry Severity: Moderate Duration: Months Timing: Constant Lasts: Continuous Context: CNVM left.High Myopia. Glaucoma. Using Latanoprost and timolol 03/17 Modifying factors: Same flashes and floaters left eye nasal side.No veil or shade over VA Associated Signs & Symptoms: VA stable per pt. No pain. 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 Macula. Clinic. Left Eye 60??. Macula. Clinic. Fluorescein Angiography - OU - Both Eyes Right Eye Transit OS. Macula. 60??. Macula. Clinic. Injection: 100 mg fluorescein 500 mg/5 mL (10 %) ND: 27490-902-36, Lot: [id number], Expiration date: 11/15/2020 Route: intravenous, Site: IV Left Eye Transit OS. Macula. 60??. Macula. Clinic. Injection: 100 mg fluorescein 500 mg/5 mL (10 %) NDC: 93912-960-61, Lot: [id number], Expiration date: 11/15/2020 Route: intravenous, Site: IV Impression: 1. CNVM (choroidal neovascular membrane), left OCT, RETINA - OU - BOTH EYES COLOR FUNDUS PHOTOGRAPHY - OU - BOTH EYES FLUORESCEIN ANGIOGRAPHY - OU - BOTH EYES fluorescein 500 mg/5 mL (10 %) injection 100 mg fluorescein 500 mg/5 mL (10 %) injection 100 mg 2. Degenerative myopia of both eyes, unspecified whether complication present 3. Macular scar of left eye 4. Posterior vitreous detachment of both eyes 5. Chronic open angle glaucoma of right eye, moderate stage Plan: High myopia both eyes Macy Fritz is a high myope. She was informed [...] in severe visual loss or even blindness. Macular scar secondary to choroidal neovascular membrane left eye New SR heme inferior, ? etiology IVFA and photos done today: no leakage evident left eye Discussed option of initiating injections left eye Do not recommend unless worsening Pt agrees to observe closely Will recheck in 6 weeks Posterior vitreous detachment both eyes, chronic The patient has been informed that they [...] patient understands and agrees to do this. COAG, both eyes The patient has coag-IOP is acceptable today but I will defer to the patients primary eye care provider or prescription benefit specialist on the patients target intraocular pressure Return 6 weeks, sooner prn This office note has been dictated. Comment - new mac heme left---no leak on ivfa---will follow I, Dr. Fabian, have performed my own HPI and reviewed the tech's ROS. I have also reviewed the patient's past medical, family, social and surgical history, as well as the patient's medications, allergies, and problem list. I am scribing for, Ashu Fabian MD, while he is personally performing the service. ARELY Amanda (Scribe) * Ashu Fabian MD - 11/24/2019 1207 EDT [facility] OPHTHALMOLOGY November 24, 2019 Yoselin Roberts MD [address], [address] [place] [address] RE: MACY FRITZ : 1940 Dear Yoselin: Ms Fritz was seen today. As you know, she is a high myope and has lost central vision in the left eye because of a choroidal neovascular membrane. Her right eye continues to look good. I notice in the left eye, she has a retinal hemorrhage. Can you please make sure she is not an uncontrolled hypertensive and is not an occult diabetic, and please check a CBC and differential as well as coags on the patient? Fluorescein angiogram was also done today. Indications: New retinal hemorrhage, history of choroidal neovascularization. Color photos reveal tilted discs and myopic looking fundi with staphylomatous appearance of the posterior pole and a central atrophic scar. There is a small hemorrhage along the inferotemporal arcadein the left eye. Assessment: High myope, with history of CNVM, left, and new subretinal hemorrhage. Plan: Fluorescein directed toward the left eye shows blocking defect in the area of the hemorrhage and mottled hyperfluorescence in the central macular scar of the left eye. As the study proceeds, there is no active leakage noted including the area of subretinal hemorrhage. Assessment: Hemorrhage, left eye, etiology unclear, not clearly associated with choroidal neovascularization. I will ask the patient's family doctor to make sure she is not an occult diabetic and notan uncontrolled hypertensive. I think it would also be a good idea to check a CBC and differential and coags on the patient as well. Sincerely, Ashu Fabian MD / CF Dictation ID: [id number] cc: Yoselin Roberts MD, [facility], [address] [place] [address], [facility] [address] [address] documented in this encounter Plan of Treatment Upcoming Encounters Date Type Department Care Team (Late st Contact Info) Description 05/24/2024 14:00 EDT Office Visit [facility] Ophthalmology - [address] [place] [address] Josemanuel Gomes MD [address] [facility], [address] [place] [address] documented as of this encounter Procedures Procedure Name Priority Date/Time Associated Diagnosis Comments COLOR FUNDUS PHOTOGRAPHY - OU - BOTH EYES Routine 11/24/2019 14:38 EDT CNVM (choroidal neovascular membrane), left OCT, RETINA - OU - BOTH EYES Routine 11/24/2019 14:38 EDT CNVM (choroidal neovascular membrane), left FLUORESCEIN ANGIOGRAPHY - OU - BOTH EYES Routine 11/24/2019 14:38 EDT CNVM (choroidal neovascular membrane), left documented in this encounter Results * COLOR FUNDUS PHOTOGRAPHY - OU - BOTH EYES (11/24/2019 14:38 EDT) Narrative [facility] POINT OF CARE - 11/24/2019 14:38 EDT Right Eye 60??. Macula. Clinic. Left Eye 60??. Macula. Clinic. Notes This office note has been dictated. Ashu Fabian MD OPHTH PHOTOGRAPHY Final Resul t Performing Organization Address [facility] Phone Number [facility] POINT OF 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 * FLUORESCEIN ANGIOGRAPHY - OU - BOTH EYES (11/24/2019 14:38 EDT) Narrative [facility] POINT OF CARE - 11/24/2019 14:38 EDT Right Eye Transit OS. Macula. 60??. Macula. Clinic. Injection: 100 mg fluorescein 500 mg/5 mL (10 %) ??ND: 47768-857-19, Lot: [id number], Expiration date: 11/15/2020 ??Route: intravenous, Site: IV Left Eye Transit OS. Macula. 60??. Macula. Clinic. Injection: 100 mg fluorescein 500 mg/5 mL (10 %) ??ND: 33811-381-99, Lot: [id number], Expiration date: 11/15/2020 ??Route: intravenous, Site: IV Notes This office note has been dictated. Ashu Fabian MD OPHTH PHOTOGRAPHY Final Resul t [facility] documented in this encounter Visit Diagnoses Diagnosis CNVM (choroidal neovascular membrane), left- Primary Degenerative myopia of both eyes, unspecified whether complication present Macular scar of left eye Posterior vitreous detachment of both eyes Vitreous degeneration Chronic open angle glaucoma of right eye, moderate stage documented in this encounter Administered Medications Inactive Administered Medications - up to 3 most recent administrations Medication Order MAR Action Action Date Dose Rate Site fluorescein 500 mg/5 mL (10 %) injection 100 mg 100 mg, intravenous, Starting on Fri11/24/19 at 1327, Until Fri11/24/19 at 1801, RoutineIndications:CNVM (choroidal neovascular membrane), left Given 11/24/2019 13:27 EDT 100 mg IV fluorescein 500 mg/5 mL (10 %) injection 100 mg 100 mg, intravenous, Starting on Fri11/24/19 at 1327, Until Fri11/24/19 at 1801, RoutineIndications:CNVM (choroidal neovascular membrane), left Given 11/24/2019 13:27 EDT 100 mg IV documented in this encounter Orders Medications Ordered That Ramon ht Not Have Been Administered Count Last Ordered Date First Ordered Date fluorescein 500 mg/5 mL (10 %) injection 100 mg 1 11/24/2019 documented in this encounter Eye Exam Visual Acuity (Snellen - Linear) Right eye Left eye Dist cc 20/25 +1/-1 20/800 'Eccentri c fix Tonometry (Applanation, 12:35) Right eye Left eye Pressure 17 16 Pupils Pupils APD Right eye PERRL - Left eye PERRL - Neuro/Psych Oriented x3: Yes Mood/Affect: Normal Dilation Both eyes: Tropicamide 1%, P henylephrine 2.5% @ 12:35 External Exam Right eye Left eye External [...] t ilted , Peripapillary atrophy C/D Ratio 0.6 0.7 Macula RPE changes, Staphyloma; 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
--- OUTSIDE RECORDS SUMMARY | 2024-04-02 00:31 | XMS_ITS | Encounter Summary ---
Author Organization [facility] Address [address] [place] [address] Care Team Providers Care Hitting Coach Name Role Phone Yoselin Roberts MD Primary Care Provider +1- [phone] Reason for Visit * (Routine/Next Available) - Receiving Office to Obtain Authorization Specialty Diagnoses / Procedures Referred By Kishan t Referred To Contact Procedures XR OUTSIDE IMAGES Emily Najera MD Referral ID Status Reason Start Date Expiration Date Visits Requested Visits Authorized [id number] Receiving Office to Obtain Authorization 09/28/2021 1 1 Encounter Details Date Type Department Care Team (Latest Contact Info) Description 09/28/2021 15:10 EDT - 09/28/2021 23:59 EDT Hospital Encounter [facility] Secondary Reads [place] Discharge Disposition: Home or Self Care Social History Tobacco Use Types Packs/Day Years [...] 01/31/2017 9:14 EST documented in this encounter Medications at Time of Discharge apixaban (ELIQUIS) 5 mg tablet Take 1 Tablet by mouth 2 times daily. CELECOXIB (CELEBREX ORAL) Take 200 mg by mouth daily. Diltiazem HCl 180 mg tablet extended release 24 hr Take 180 mg by mouth daily. docusate sodium (COLACE) 100 mg capsule Take 1 Capsule by mouth daily. DULoxetine (CYMBALTA) 60 mg capsule Take 1 Capsule by mouth daily. furosemide (LASIX) 20 mg tablet Take 1 Tablet by mouth daily. ipratropium, 0.5mg/2.5ml, (ATROVENT) 0.02 % nebulizer solution Take 2.5 mL by nebulization 4 times daily. Nares inhaler lansoprazole (PREVACID) 30 mg capsule Take 1 Capsule by mouth daily. latanoprost (XALATAN) 0.005 % ophthalmic solution Place 1 Drop into both eyes at bedtime. levothyroxine (SYNTHROID) 125 mcg tablet Take 1 Tablet by mouth daily. linaCLOtide (LINZESS) 72 mcg capsule Take 1 Capsule by mouth daily. loratadine (CLARITIN) 10 mg tablet Take 1 Tablet by mouth daily. PRN losartan (COZAAR) 50 mg tablet Take 1 Tablet by mouth daily. Multivitamins with Minerals Tab Take 1 Tablet by mouth daily. polyethylene glycol 3350 (MIRALAX) 17 gram packet Take 17 g by mouth daily. simvastatin (ZOCOR) 10 mg tablet Take 1 Tablet by mouth every evening. SUMAtriptan (IMITREX) 50 mg tabletIndication s:migraine Take 1 Tablet by mouth as needed. traMADol (ULTRAM) 50 mg tablet Take 1 Tablet by mouth daily. UNABLE TO FIND 1,000 mg daily. Med Name: Lineilic (CLA), 1000 mg. aspirin 81 mg EC tablet Take 81 mg by mouth daily. 2 brimonidine (ALPHAGAN) 0.2 % ophthalmic solution Place 1 Drop into both eyes 2 times daily. 15 mL 4 05/04/2021 2 timolol (TIMOPTIC) 0.5 % ophthalmic solution Place 1 Drop into both eyes 2 times daily. 15 mL 4 05/04/2021 2 documented as of this encounter Discharge Disposition Disposition Code Departure Means Destination Home or Self Care documented in this encounter Plan of Treatment Upcoming Encounters Date Type Department Care Team (Late st Contact Info) Description 05/24/2024 14:00 EDT Office Visit [facility] Ophthalmology - [address] [place] [address] Josemanuel Gomes MD [address] [facility], [facility] [address] [place] [address] documented as of this encounter Procedures Procedure Name Priority Date/Time Associated Diagnosis Comments XR OUTSIDE IMAGES MSK Routine 09/28/2021 15:10 EDT documented in this encounter Results * XR OUTSIDE IMAGES MSK (09/28/2021 15:10 EDT) Narrative 09/28/2021 15:10 EDT This is a non-reportable exam. us Emily Rayo MD IMG OTHER IMAGING ORD ERABLES Final Result documented in this encounter Visit Diagnoses Not on filedocumented in this encounter Care Teams Hitting Coach Relationship Specialty Start Date End Date Yoselin Roberts MD [address] [place] [address] [place] [address] PCP - General 04/22/11 documented as of this encounter
--- OUTSIDE RECORDS SUMMARY | 2024-04-02 00:31 | XMS_ITS | Encounter Summary ---
Author Organization [facility] Address [address] [place] [address] Care Team Providers Care Spacer Type Bar And Segment Name Role Phone Yoselin Roberts MD Primary Care Provider +1- [phone] Reason for Visit * Reason Onset Date Comments Release of Information 10/19/2019 Encounter Details Date Type Department Care Team (Late st Contact Info) Description 10/19/2019 Telephone [facility] Ophthalmology - [address] [address] Ashu Fabian MD [address] [place] [address], [address] [place] [address] Release of Information Social History Tobacco Use Types Packs/Day Years [...] encounter Miscellaneous Notes * Telephone Encounter - Robert De Leon - 10/19/2019 0939 EDT Mailed her the CALLIE, she would like the doctors notes from her last visit. As per Chen she needs to fill out the CALLIE before we can send it out. documented in this encounter Plan of Treatment Upcoming Encounters Date Type Department Care Team (Late st Contact Info) Description 05/24/2024 14:00 EDT Office Visit [facility] Ophthalmology - [address] [place] [address] Josemanuel Gomes MD [address] [place] [address], [address] [place] [address] documented as of this encounter Visit Diagnoses Not on filedocumented in this encounter Care Teams Spacer Type Bar And Segment Relationship Specialty Start Date End Date Yoselin Roberts MD [address] [place] [address] PCP - General 04/22/11 documented as of this encounter
--- OUTSIDE RECORDS SUMMARY | 2024-04-02 00:31 | XMS_ITS | Encounter Summary ---
Author Organization [facility] Address [address] [place] [address] Care Team Providers Care Claims Service Representative Name Role Phone Yoselin Roberts MD Primary Care Provider +1- [phone] Encounter Details Date Type Department Care Team (Late st Contact Info) Description 02/10/2023 Lab Requisition [facility] - [address] [id number] Outr Resulting Lab, Provider Social History Tobacco Use Types Packs/Day Years [...] Info) Description 05/24/2024 14:00 EDT Office Visit [facility] Ophthalmology - [address] [place] [address] Josemanuel Gomes MD [address] [place] [address], [facility] [address] [place] [address] documented as of this encounter Procedures Procedure Name Priority Date/Time Associated Diagnosis Comments SYNTHETIC OPIOID CONFIRMATION PANEL Routine 02/10/2023 13:16 EST documented in this encounter Results * (ABNORMAL) SYNTHETIC OPIOID CONFIRMATION PANEL (02/10/2023 13:16 EST) Tramadol Confirmation 861(A) <50 ng/mL 02/12/2023 8:51 EST [facility] Tapentadol Confirmation Negative <100 ng/mL 02/12/2023 8:51 EST [facility] N-Desmethyl Tapentadol Confirmation Negative <100 ng/mL 02/12/2023 8:51 EST [facility] Meperidine Confirmation Negative <100 ng/mL 02/12/2023 8:51 EST [facility] Normeperidine Confirmation Negative <100 ng/mL 02/12/2023 8:51 EST [facility] Dextromethorphan Confirmation Negative <50 ng/mL 02/12/2023 8:51 EST [facility] Dextrorphan Confirmation Negative <50 ng/mL 02/12/2023 8:51 EST [facility] Urine URINE / Unknown 02/10/2023 1 3:16 EST 02/10/2023 21:23 EST Narrative [facility] - 02/12/2023 8:51 EST Testing performed by: [facility] [address] [place] [address], [address] [address] Stone Driller: Narendra Bashir MD; CLIA # [id number] us Provider Outr Resulting Lab GEN LAB UNIT COLLECT ORDERABLES Final Result [facility] [address] [facility], [address] [phone] documented in this encounter Visit Diagnoses Not on filedocumented in this encounter Care Teams Claims Service Representative Relationship Specialty Start Date End Date Yoselin Roberts MD [address] [place] [address] [place] [address] PCP - General 04/22/11 documented as of this encounter
--- OUTSIDE RECORDS SUMMARY | 2024-04-02 00:31 | XMS_ITS | Encounter Summary ---
Author Organization [facility] Address [address] [place] [address] Care Team Providers Care Warehouse Material Handler Name Role Phone Yoselin Roberts MD Primary Care Provider +1- [phone] Reason for Visit * Reason Comments Eye Problem Macular Degeneration Encounter Details Date Type Department Care Team (Late st Contact Info) Description 10/13/2019 12:15 EDT Office Visit [facility] Ophthalmology - [address] [id number] Ashu Fabian MD [address] [place] [address], [address] [place] [address] Social History Tobacco Use Types [...] Progress Notes * Ashu Fabian MD - 10/13/2019 1215 EDT Chief Complaint Patient presents with ??? Eye Problem ??? Macular Degeneration The patient is here for follow up of several separate and distinct issues including 1. Chronic open angle glaucoma of right eye, moderate stage 2. Degenerative myopia of both eyes, unspecified whether complication present OCT, RETINA - OU - BOTH EYES 3. CNVM (choroidal neovascular membrane), left OCT, RETINA - OU - BOTH EYES 4. Macular scar of left eye OCT, RETINA - OU - BOTH EYES 5. Posterior vitreous detachment of both eyes HPI Location: Left eye Pain: 0 - No pain Quality: Blurry Severity: Moderate Duration: Months Timing: Constant Lasts: Continuous Context: CNVM left.High Myopia. Glaucoma. Using Latanoprost and timolol 03/17 Modifying factors: Noticed flashes in right eye nasal side left eye for few weeks. Mostly at night off and on. Big floater underneath that. Associated Signs & Symptoms: VA maybe little blurrier because of medication/lyrica per pt. Not due to F and F. No veil or shade over VA. No pain. Non DM. 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 Chronic open angle glaucoma of right eye, moderate stage 2. Degenerative myopia of both eyes, unspecified whether complication present OCT, RETINA - OU - BOTH EYES 3. CNVM (choroidal neovascular membrane), left OCT, RETINA - OU - BOTH EYES 4. Macular scar of left eye OCT, RETINA - OU - BOTH EYES 5. Posterior vitreous detachment of both eyes Comment: Courtney Mckenzie was counseled on posterior vitreous detachment. She will be alert to increased flashes, floaters or a curtain coming into her field of vision, in which case she will report these immediately. Courtney Mckenzie knows these could be consistent with holes, tears or detachments in their retina and she understands the importance of immediate reporting. Instructed to cover noninvolved eyeonce per day at least to determine if losing any side vision in involved eye and report any such loss to us immediately. LEFT EYE Pt has well placed IOL(s) and natural lens of eye has been removed. There is no anterior segment inflammation. Positioning of judith(s) is good. Patient reassured. Increased risk RD post lensectomy /IOL Spoke with Courtney Mckenzie and cautioned them to notice any new flashes, floaters, or loss in peripheral vision. If they saw any of these signs, they were instructed to contact office immediately. They have been further counseled to cover the unaffected eye at least once per day to ascertain whether there is any increase in floaters , flashes or loss of side vision occurring in the affected eye. BOTH The patient has coag-IOP is acceptable today but I will defer to the patients primary eye care provider or refractory specialist on the patients target intraocular pressure Courtney Mckenzie is a high myope. She [...] in severe visual loss or even blindness. MAC SCAR LT LIMITS VISION FOLLOW CHOROIDAL NEOVASCULAR MEMBRANE LEFT QUIET - FOLLOW---QD AMSLER BOTH ---WARNED RE POSSIBILITY CHOROIDAL NEOVASCULAR MEMBRANE RT---PT UNDERSTANDS cOMMENT - RECENT LT PVD - NO HOLES TEARS OR RETINAL DETACHMENT NOTED I, Dr. Fabian, personally performed my own HPI and I have reviewed the tech's ROS as well. Parts ofthis note have been dictated. Ashu Fabian MD``` * AngellaRoboral, [facility] - 10/13/2019 1215 EDT Chief Complaint Patient presents with ??? Eye Problem ??? Macular Degeneration Comments CNVM left.High Myopia. Glaucoma. Using Latanoprost and timolol 03/17 HPI Location: Left eye Pain: 0 - No pain Quality: Blurry Severity: Moderate Duration: Months Timing: Constant Lasts: Continuous Context: CNVM left.High Myopia. Glaucoma. Using Latanoprost and timolol 03/17 Modifying factors: Noticed flashes in right eye nasal side left eye for few weeks. Mostly at night off and on. Big floater underneath that. Associated Signs & Symptoms: VA maybe little blurrier because of medication/lyrica per pt. Not due to F and F. No veil or shade over VA. No pain. Non DM. Visual Fluctuations: Floaters, Flashes Attestation: F/u on CNVM left. High Myopia. Glaucoma. VA stable right. Blurry left. For months. Constant. + New flashes left eye nasal side. + big floater underneath of flashes. No pain. On Timolol and Latanoprost 03/17. 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 Scan locations included subfoveal. Left Eye Quality was good. Scan locations included subfoveal. 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 Subfoveal scar. Original test to be found in patients shadow chart Impression: 1. Degenerative myopia of both eyes, unspecified whether complication present 2. CNVM (choroidal neovascular membrane), left 3. Macular scar of left eye 4. Posterior vitreous detachment of both eyes Plan: 13:12 High Myopia Courtney Mckenzie is a high myope. She [...] in severe visual loss or even blindness. CNVM- quiescent left Follow Mac Scar- limits VA Follow PVD-left recent Courtney Mckenzie was counseled on posterior vitreous detachment. She will be alert to increased flashes, floaters or a curtain coming into her field of vision, in which case she will report these immediately. Courtney Mckenzie knows these could be consistent with holes, tears or detachments in their retina and she understands the importance of immediate reporting. Instructed to cover noninvolved eyeonce per day at least to determine if losing any side vision in involved eye and report any such loss to us immediately. Spoke with Courtney Nadeem Mckenzie and cautioned them to notice any new flashes, floaters, or loss in peripheral vision. If they have any of these symptoms, they were instructed to contact office immediately. They have been further counseled to cover the unaffected eye at least once per day to ascertain whether there is any increase in floaters , flashes or loss of side vision occurring in the affected eye. Comment: Recent PVD left eye No holes or tears noted Follow Discussed the global COVID-19 pandemic. Encouraged patient to maintain social distancing, wash hands frequently, wear a facemask when out of the house and to limit social gatherings whenever possible. Patient understands and agrees. F/u in 1 month. OCT. I, Dr. Fabian, have performed my own HPI and reviewed the tech's ROS. I have also reviewed the patient's past medical, family, social and surgical history, as well as the patient's medications, allergies, and problem list. I am scribing for Dr. Ashu Fabian MD while he is personally performing the service. ARELY Silva (Scribe) documented in this encounter Plan of Treatment Upcoming Encounters Date Type Department Care Team (Late st Contact Info) Description 05/24/2024 14:00 EDT Office Visit [facility] Op[facility]mology - [address] [id number] Josemanuel Gomes MD [address] [place] [address], [address] [place] [address] documented as of this encounter Procedures Procedure Name Priority Date/Time Associated Diagnosis Comments OCT, RETINA - OU - BOTH EYES Routine 10/13/2019 13:30 EDT Degenerative myopia of both eyes, unspecified whether complication present CNVM (choroidal neovascular membrane), left Macular scar of left eye documented in this encounter Results * OCT, RETINA - OU - BOTH EYES (10/13/2019 13:30 EDT) Narrative [facility] - 10/13/2019 13:30 EDT Right Eye Quality was good. Scan locations included subfoveal. Left Eye Quality was good. Scan locations included subfoveal. 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 Subfoveal scar. Original test to be found in patients shadow chart Ashu Fabian MD OPHTH TOMOGRAPHY Final Result [facility] documented in this encounter Visit Diagnoses Diagnosis Chronic open angle glaucoma of right eye, moderate stage- Primary Degenerative myopia of both eyes, unspecified whether complication present CNVM (choroidal neovascular membrane), left Macular scar of left eye Posterior vitreous detachment of both eyes Vitreous degeneration documented in this encounter Historical Medications * This list may reflect changes made after this encounter. apixaban (ELIQUIS) 5 mg tablet Take 1 Tablet by mouth 2 times daily. 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
--- OUTSIDE RECORDS SUMMARY | 2024-04-02 00:31 | XMS_ITS | Encounter Summary ---
Author Organization [facility] Address [address] [place] [address] Care Team Providers Care Etl Application Developer Name Role Phone Yoselin Roberts MD Primary Care Provider +1- [phone] Reason for Visit * Reason Comments Eye Problem Encounter Details Date Type Department Care Team (Late st Contact Info) Description 10/15/2021 13:30 EDT Office Visit [facility] Ophthalmology - [address] [phone] Ashu Fabian MD [address] [place] [address], [address] [place] [address] Social History Tobacco Use Types [...] Progress Notes * Ashu Fabian MD - 10/15/2021 1330 EDT Chief Complaint Patient presents with ??? Eye Problem Comments Transferred from Dr Salazar. Overdue 4 M: IOP, HVF 24-2 FAST OU, APD check, gonio -- Pt also seeing [facility] today. H/O glaucoma suspect, CNVM OS. Currently taking timolol OU BID, brimonidine OU BID and latanoprost OU at bedtime. Vision seems stable in glasses, getting Rx checked next week with optometry. Sometimes left eye is dry, uses ATs to help. HPI Location: Both eyes Pain: 0 - No pain (Transferred from Dr Salazar.) Quality: Severity: Duration: Years Timing: Constant Lasts: Continuous Context: Overdue 4 M: IOP, HVF 24-2 FAST OU, APD check, gonio -- Pt also seeing [facility] today. (Transferred from Dr Salazar.) Modifying factors: Currently taking timolol OU BID, brimonidine OU BID and latanoprost OU at bedtime. (Transferred from Dr Salazar.) Associated Signs & Symptoms: H/O glaucoma suspect, CNVM OS. (Transferred from Dr Salazar.) Visual Fluctuations: Floaters (Longstanding floater.) Attestation: follow up degenerative myopia both eyes, CNVM left eye, quiescent, PVD both, Cobblestones both. COAG. Vision is mildly blurry right eye, moderately blurry left eye for months, constant. No eye pain. No new flashes or floaters. Base Eye Exam Visual Acuity (Snellen - Linear) Right Left Dist cc 20/40 +2 20/400 Dist ph cc NI Correction: Glasses Transferred from Dr aSlazar. Tonometry (Applanation, 11:09) Right Left Pressure [address] Salazar. Pupils Dark Light Shape APD Right 5 4 Round None Left 5 4 Round APD Transferred from Dr Salazar. Visual De Jesus See HVF. Extraocular Movement Right Left Full, Ortho Full, Ortho Transferred from Dr Salazar. Neuro/Psych Oriented x3: Yes Mood/Affect: Normal Transferred from Dr Salazar. Dilation Both eyes: Tropicamide 1%, Phenylephrine 2.5% @ 12:[address] Salazar. 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 Imaging: OCT, Retina - OU - Both Eyes Right Eye Quality was good. Scan locations included subfoveal. Progression has been stable. Left Eye Quality was good. Scan locations included subfoveal. Progression has been stable. Notes OCT REPORT Indications: Choroidal Neovascular Membrane Findings: Right Eye Left Eye staphyloma, no SRF, no retinal edema SR scar, atrophy, no fluid Original test to be found in patients shadow chart Impression: 1. CNVM (choroidal neovascular membrane), left OCT, RETINA - OU - BOTH EYES 2. High myopia, bilateral 3. Posterior vitreous detachment of both eyes 4. 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 Glaucoma suspect of both eyes Plan: CNVM left eye Quiescent Follow High myopia both eyes Courtney Mckenzie is [...] in severe visual loss or even blindness. PVD both eyes The patient has been informed [...] patient understands and agrees to do this. Cobblestones both eyes Stable Follow COAG both Managed by Dr. Salazar The patient has coag-IOP is acceptable today but I will defer to the patients primary eye care provider or it infrastructure specialist on the patients target intraocular pressure Return in about 6 months (around 04/17/2022), or if symptoms worsen or fail to improve, for OCT Macular. cOMMENT - INACTIVE CENTRAL CHOROIDAL NEOVASCULAR MEMBRANE LEFT IN HIGH MYOPIA SEE Mercer IN dR Salazar NOTE I, Dr. Fabian, have performed my own HPI and reviewed the tech's ROS. I have also reviewed the patient's past medical, family, social and surgical history, as well as the patient's medications, allergies, and problem list. I am scribing for Dr. Ashu Fabian MD while he is personally performing the service. PEDRO Schilling (Scribe) documented in this encounter Plan of Treatment Upcoming Encounters Date Type Department Care Team (Late st Contact Info) Description 05/24/2024 14:00 EDT Office Visit [facility] Ophthalmology - [id number] [place] [address] Josemanuel Gomes MD [address] [place] [address], [address] [place] [address] documented as of this encounter Procedures Procedure Name Priority Date/Time Associated Diagnosis Comments OCT, RETINA - OU - BOTH EYES Routine 10/15/2021 13:23 EDT CNVM (choroidal neovascular membrane), left documented in this encounter Results * OCT, RETINA - OU - BOTH EYES (10/15/2021 13:23 EDT) Narrative [facility] POINT OF CARE - 10/15/2021 14:52 EDT Right Eye Quality was good. Scan locations included subfoveal. Progression has been stable. Left Eye Quality was good. Scan locations included subfoveal. Progression has been stable. Notes OCT REPORT Indications: ??Choroidal Neovascular Membrane Findings: Right Eye Left Eye staphyloma, no SRF, no retinal edema SR scar, atrophy, no fluid Original test to be found in patients shadow chart us Ashu Fabian MD OPHTH TOMOGRAPHY Edited Resul t - Final [facility] POINT [facility] documented in this encounter Visit Diagnoses Diagnosis CNVM (choroidal neovascular membrane), left- Primary High myopia, bilateral Myopia Posterior vitreous detachment of both eyes Vitreous degeneration 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 Paving stone degeneration of peripheral retina Glaucoma suspect of both eyes Preglaucoma, unspecified documented in this encounter Eye Exam Visual Acuity (Snellen - Linear) Right eye Left eye Dist cc 20/40 +2 20/400 Dist ph cc NI Correction: Glasses Transferred from Dr Salazar. Tonometry (Applanation, 11:09) Right eye Left eye Pressure [address] Salazar. Pupils Dark Light Shape APD Right eye 5 4 Round None Left eye 5 4 Round APD Transferred from Dr Salazar. Visual De Jesus See HVF. Extraocular Movement Right eye Left eye Full, Ortho Full, Ortho Transferred from Dr Salazar. Neuro/Psych Oriented x3: Yes Mood/Affect: Normal Transferred from Dr Salazar. Dilation Both eyes: Tropicamide 1%, P henylephrine 2.5% @ 12:[address] Salazar. Slit Lamp Exam Right eye Left eye Lids/Lashes Normal Normal Conjunctiva/Sclera White and quiet White and marysol et Cornea Clear Clear Anterior Chamber Deep and quiet Deep and quiet Iris Dilated Dilated Lens Posterior chamber in traocular lens Posterior chamber intraocular lens Vitreous Posterior vitreous detachment Po sterior vitreous detachment Fundus Exam Right eye Left eye C/D Ratio 0.70.8 0.7-0.8 Macula staphyloma, no heme or HE centra l scar Vessels Normal Normal Periphery cobblestone cobblestone mid perip. Care Teams Etl Application Developer Relationship Specialty Start Date End Date Yoselin Roberts MD [address] [place] [address] [place] [address] PCP - General 04/22/11 documented as of this encounter
--- OUTSIDE RECORDS SUMMARY | 2024-04-02 00:31 | XMS_ITS | Encounter Summary ---
Author Organization [facility] Address [address] [place] [address] Care Team Providers Care Hoop Coiling Machine Operator Name Role Phone Yoselin Roberts MD Primary Care Provider +1- [phone] Reason for Visit * Reason Onset Date Comments Appointment Related 11/09/2020 Encounter Details Date Type Department Care Team (Late st Contact Info) Description 11/09/2020 Telephone [facility] Ophthalmology - [address] [address] Ashu Fabian MD [address] [facility], [address] [place] [address] Appointment Related Social History Tobacco [...] Miscellaneous Notes * Telephone Encounter - Kyra Wood - 11/09/2020 1623 EDT Pt has been scheduled with Dr. Fabian and patient also requested that she scheduled her appointmentshe cancelled last week with Dr. Martinez be on the same day * Telephone Encounter - Natalia Smith - 11/09/2020 1342 EDT Call to schedule appt documented in this encounter Plan of Treatment Upcoming Encounters Date Type Department Care Team (Late st Contact Info) Description 05/24/2024 14:00 EDT Office Visit [facility] Ophthalmology - [address] [place] [address] Josemanuel Gomes MD [address] [place] [address], [address] [place] [address] documented as of this encounter Visit Diagnoses Not on filedocumented in this encounter Care Teams Hoop Coiling Machine Operator Relationship Specialty Start Date End Date Yoselin Roberts MD [address] [place] [address] [place] [address] PCP - General 04/22/11 documented as of this encounter
--- OUTSIDE RECORDS SUMMARY | 2024-04-02 00:31 | XMS_ITS | Encounter Summary ---
Author Organization [facility] Address [address] [place] [address] Care Team Providers Care [employer]oc[employer] Electrical Designer Name Role Phone Yoselin Roberts MD Primary Care Provider +1- [phone] Reason for Visit * Reason Comments Eye Problem Encounter Details Date Type Department Care Team (Late st Contact Info) Description 03/03/2023 13:15 EST Office Visit [facility] Ophthalmology [address] [address] Josemanuel Gomes MD [address] 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 Choroidal neovascular membrane s/p Eylea 01/27/23. Visual acuity about the same per pt. No changes. Using Timolol 2/2 and Latanoprost hs/hs. Base Eye Exam Visual Acuity (Snellen - Linear) Right Left Dist cc 20/30 +2 20/200 +1/-1 Dist ph cc NI Correction: Glasses Tonometry (Applanation, 13:43) Right Left Pressure 18 17 Dilation Left eye: Tropicamide 1% @ 13:43 Slit Lamp and Fundus Exam Slit Lamp [...] has been stable. Findings include choroidal neovascular membrane, subretinal fluid. Intravitreal Injection, Pharmacologic Agent - OS - Left Eye Time Out 03/03/2023. 13:58. Confirmed correct patient, procedure, site, and patient consented. Anesthesia Topical anesthesia was used. Anesthetic medications included Proparacaine 0.5%, Tetracaine 0.5%. Procedure Preparation included 5% betadine to ocular surface, eyelid speculum. A 30 gauge needle was used. Injection: 2 mg aflibercept 2 mg/0.05 mL Route: intravitreal, Site: Left Eye [facility]: 85521-472-58, Lot: [id number], Expiration date: 04/17/2024 Post-op Post injection exam found visual acuity of at least counting fingers. The patient tolerated the procedure well. There were no complications. The patient received written and verbal post procedure care education. Post injection medications included erythromycin. IMPRESSION: 1. 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 CNVM (choroidal neovascular membrane), left PLAN: Wet age-related macular degeneration left eye 5 weeks s/p Eylea left eye Recommend Eylea left eye today Patient agrees Return in about 6 weeks (around 04/14/2023) for OCT, Eylea, Left. 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 13:58. Confirmed correct patient, procedure, site, and patient consented. Anesthesia Topical anesthesia was used. Anesthetic medications included Proparacaine 0.5%, Tetracaine 0.5%. Procedure Preparation included 5% betadine to ocular surface, eyelid speculum. A 30 gauge needle was used. Injection: 2 mg aflibercept 2 mg/0.05 mL ??Route: intravitreal, Site: Left Eye ??[facility]: 12423-639-71, Lot: [id number], Expiration date: 04/17/2024 Post-op Post injection exam found visual acuity of at least counting fingers. The patient tolerated the procedure well. There were no complications. The patient received written and verbal post procedure care education. Post injection medications included erythromycin. Josemanuel Gomes MD OPHTH CLINIC PROCEDURES Final Result Performing Organization Address [facility] Co de Phone Number [facility]INT [facility] * OCT, RETINA - OU - BOTH EYES (03/03/2023 14:05 EST) Narrative [facility] OPHTHALMOLOGY - 03/03/2023 14:05 EST Right Eye Quality was good. Scan locations included subfoveal. Progression has been stable. Findings include (Irregular contour). Left Eye Quality was good. Scan locations included subfoveal. Progression has been stable. Findings include choroidal neovascular membrane, subretinal fluid. 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)- Primary CNVM (choroidal neovascular membrane), left documented in this encounter Administered Medications Inactive Administered Medications - up to 3 most recent administrations Medication Order MAR Action Action Date Dose Rate Site aflibercept (EYLEA) intravitreal syringe 2 mg 2 mg, intravitreal, Starting on Fri03/03/23 at 1405, Until Fri03/03/23 at 1405, RoutineIndications: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) Given 03/03/2023 14:05 EST 2 mg Left Eye documented in this encounter Orders Medications Ordered That Ramon ht Not Have Been Administered Count Last Ordered Date First Ordered Date aflibercept (EYLEA) intravit real syringe 2 mg 1 03/03/2023 documented in this encounter Eye Exam Visual Acuity (Snellen - Linear) Right eye Left eye Dist cc 20/30 +2 20/200 +1/-1 Dist ph cc NI Correction: Glasses Tonometry (Applanation, 13:43) Right eye Left eye Pressure 18 17 Dilation Left eye: Tropicamide 1% @ 1 3:43 Slit Lamp Exam Right eye Left eye Anterior Chamber Deep and quiet Deep and quiet Care Teams [employer]oc[employer] Electrical Designer Relationship Specialty Start Date End Date Yoselin Roberts MD [address] [place] [address] [place] [address] PCP - General 04/22/11 documented as of this encounter
--- OUTSIDE RECORDS SUMMARY | 2024-04-02 00:31 | XMS_ITS | Encounter Summary ---
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 Name Role Phone Yoselin Roberts MD Primary Care Provider [phone]- [phone] Encounter Details Date Type Department Care Team (Late st Contact Info) Description 09/13/2019 Lab Requisition [facility] Pathology & Laboratory Medicine - [address] [address] Outr Resulting Lab, Provider Social History Tobacco [...] Info) Description 05/24/2024 14:00 EDT Office Visit [facility] Ophthalmology - [address] [place] [address] Josemanuel Gomes MD [address] [facility], [address] [place] [address] documented as of this encounter Procedures Procedure Name Priority Date/Time Associated Diagnosis Comments ZZCOVID-[address] [facility] PCR Today 09/12/2019 20:15 EDT COVID-19 TESTING Routine 09/12/2019 20:1 5 EDT documented in this encounter Results * COVID-[address] [facility] PCR (09/12/2019 20:15 EDT) Swab ENTIRE NASOPHARYNX / Unknown 09/12/2019 20:15 EDT 09/13/2019 21:56 EDT us Provider Outr Resulting Lab MICROBIOLOGY - GENER AL ORDERABLES Final Result [facility] [address] [place] [address] * COVID-19 TESTING (09/12/2019 20:15 EDT) COVID-19 rt-PCR Result Negative Negative 09/14/2019 12:10 EDT [facility] Comment: This test has not been FDA cleared or approved. This test has been authorized by FDA under an EUA for use by authorized laboratories. This test has been authorized only for detection of nucleic acid from 2019-nCoV, not for any other viruses or pathogens. This test is only authorized for the duration of the declaration that circumstances exist justifying the authorization of emergency use of in vitro diagnostic tests for detection and/or diagnosis of 2019-nCoV under section 564(b)(1) of Act, 21 U.S.C ?? 360bbb-3(b) (1), unless the authorization is terminated or revoked sooner. Negative results do not preclude 2019-nCoV infection and should not be used as the sole basis for treatment or other patient management decisions. Negative results must be combined with clinical observations, patient history, and epidemiological information. Performed on the [employer] [place] Fusion instrument Performing Lab [place] [facility] 09/14/2019 12:10 EDT [facility] Swab 09/12/2019 20:1 5 EDT 09/13/2019 21:56 EDT us Provider Outr Resulting Lab MICROBIOLOGY - GENER AL ORDERABLES Final Result [facility] [address] [place] [address] documented in this encounter Visit Diagnoses Not on filedocumented in this encounter Care Teams Waterworks Employee Relationship Specialty Start Date End Date Yoselin Roberts MD [address] [place] [id number] PCP - General 04/22/11 documented as of this encounter
--- OUTSIDE RECORDS SUMMARY | 2024-04-02 00:31 | XMS_ITS | Encounter Summary ---
Author Organization [facility] Address [address] [place] [address] Care Team Providers Care Gas Station Cashier Name Role Phone Yoselin Roberts MD Primary Care Provider +1- [phone] Reason for Visit * Reason Comments Post-OP Follow Up 2 month s/p bilatera l blepharoptosis repair on 08/19/18 and wound dehiscence on 09/01/18. No pain per patient, but still a little tender. Eyes are no more dry now than they were before. Using ats 1-2 times a day. Encounter Details Date Type Department Care Team (Late st Contact Info) Description 10/19/2018 12:45 EDT Office Visit [facility] Ophthalmology [id number] [place] [address] Rocio Gama MD [address] [facility], [address] [place] [address] Discharge Disposition: Auto Discharge Social History Tobacco Use Types Packs/Day Years [...] 01/31/2017 9:14 EST documented in this encounter Discharge Diagnoses Diagnosis H02.403 Unspecified ptosis of bilateral eyelids-H02.403[ICD-10-CM] documented in this encounter Discharge Disposition Disposition Code Departure Means Destination Auto Discharge documented in this encounter Progress Notes * Rocio Gama MD - 10/19/2018 1245 EDT Chief Complaint Patient presents with ??? Post-OP Follow Up 2 month s/p bilateral blepharoptosis repair on 08/19/18 and wound dehiscence on 09/01/18. No pain per patient, but still a little tender. Eyes are no more dry now than they were before. Using ats 1-2 times a day. HPI The patient is a 78 y.o. female here for 2 month follow up s/p bilateral blepharoptosis repair on 08/19/18 and wound dehiscence on 09/01/18. No pain per patient, but still a little tender. Eyes are no more dry now than they were before. Using ats 1-2 times a day. ROS Constitutional: NL ENT/Mouth NL Cardiovascular: NL Respiratory: NL Gastrointestinal: NL Genitourinary: NL Musculoskeletal: NL Integumentary: NL Neurologic: NL Psychiatric: Depression Endocrine: Thyroid problems Hematologic: (asa 81 mg daily) Immunologic: Drug Allergy Settlement Processor: Exposures: None Other: Attestation: Allergies include: Percocet [oxycodone-acetaminophen] and Sulfa (sulfonamide antibiotics) Patient Active Problem List Diagnosis ??? Retinal neovascularization ??? Degenerative myopia ??? Posterior vitreous detachment of both eyes ??? Blepharitis of both eyes ??? Pseudophakia of both eyes ??? Neovascular membrane of left choroid artery ??? SVT (supraventricular tachycardia) ([facility]) Outpatient Medications Marked as Taking for the 10/19/18 encounter (Office Visit) with Rocio Gama MD Medication Sig ??? aspirin 81 mg EC tablet Take 81 mg by mouth daily. ??? CELECOXIB (CELEBREX ORAL) Take 200 mg by mouth daily. ??? Diltiazem HCl 180 mg tablet extended release 24 hr Take 180 mg by mouth daily. ??? docusate sodium (COLACE) 100 mg capsule Take 100 mg by mouth daily. ??? duloxetine (CYMBALTA) 60 mg capsule Take 60 mg by mouth daily. ??? furosemide (LASIX) 20 mg tablet Take 20 mg by mouth daily. ??? ipratropium, 0.5mg/2.5ml, (ATROVENT) 0.02 % nebulizer solution Take 0.5 mg by nebulization 4 times daily. Nares inhaler ??? lansoprazole (PREVACID) 30 mg capsule Take 30 mg by mouth daily. ??? latanoprost (XALATAN) 0.005 % ophthalmic solution Place 1 Drop into both eyes at bedtime. ??? levothyroxine (SYNTHROID) 125 mcg tablet Take 125 mcg by mouth daily. ??? linaclotide (LINZESS) 72 mcg capsule Take 72 mcg by mouth daily. ??? loratadine (CLARITIN) 10 mg tablet Take 10 mg by mouth daily. PRN ??? losartan (COZAAR) 50 mg tablet Take 50 mg by mouth daily. ??? Multivitamins with Minerals Tab Take 1 Tab by mouth daily. ??? polyethylene glycol 3350 (MIRALAX) 17 gram packet Take 17 g by mouth daily. ??? simvastatin (ZOCOR) 10 mg tablet Take 10 mg by mouth every evening. ??? sumatriptan (IMITREX) 50 mg tablet Take 50 mg by mouth as needed. ??? timolol (TIMOPTIC) 0.5 % ophthalmic solution Place 1 Drop into both eyes daily. In the morning. ??? traMADol (ULTRAM) 50 mg tablet Take 50 mg by mouth daily. ??? UNABLE TO FIND 1,000 mg daily. Med Name: Lineilic (CLA), 1000 mg. Base Eye Exam Visual Acuity (Snellen - Linear) Right Left Dist cc 20/40 -2 20/350 Tonometry (Applanation, 12:58) Right Left Pressure 19 19 Slit Lamp and Fundus Exam External Exam Right Left External good height and contour good height and contour Slit Lamp Exam Right Left Lids/Lashes incisions well healed incisions well healed Conjunctiva/Sclera White and quiet White and quiet Cornea Clear Clear Anterior Chamber Deep and quiet Deep and quiet Iris Round and reactive Round and reactive DIAGNOSTIC TESTS: IMPRESSION & PLAN: Encounter Diagnosis Name Primary? Ptosis, bilateral Yes 1. Ptosis, bilateral POM#2 s/p bilateral ptosis repair, s/p resuturing of left wound dehiscence. Doing well. Improved vision. Happy with results. Follow up in 2-3 months. I have reviewed the patient's past medical, family, social and surgical history. I have also reviewed the patient's medications, allergies, and problem list. I performed my own HPI and have reviewed the tech's ROS as well. I personally completed this exam myself. Rocio Gama MD I am scribing for Dr Gama while she personally performs the service Marielle MCGEE The patient was instructed to call our office or go to emergency room if worse vision, worse symptoms, or new/other concerns arise. documented in this encounter Plan of Treatment Upcoming Encounters Date Type Department Care Team (Late st Contact Info) Description 05/24/2024 14:00 EDT Office Visit [facility] Ophthalmology - [address] [address] Josemanuel Gomes MD [address] [place] [address], [address] [place] [address] documented as of this encounter Visit Diagnoses Diagnosis Ptosis, bilateral- Primary Unspecified ptosis of eyelid documented in this encounter Discontinued Medications Medication Sig Discontinue Reason Start Date End Da te vcrvjjkt-juaqrhasr-vmike ethasone (MAXITROL) ophthalmic ointment Apply to both upper eyelids twice daily for 10 days Therapy completed 08/19/2018 10/19/2018 documented as of this encounter Eye Exam Visual Acuity (Snellen - Linear) Right eye Left eye Dist cc 20/40 -2 20/350 Tonometry (Applanation, 12:58) Right eye Left eye Pressure 19 19 External Exam Right eye Left eye External good height and contour good hei ght and contour Slit Lamp Exam Right eye Left eye Lids/Lashes incisions well healed incisions well healed Conjunctiva/Sclera White and quiet White and marysol et Cornea Clear Clear Anterior Chamber Deep and quiet Deep and quiet Iris Round and reactive Round and marko ctive Care Teams Gas Station Cashier Relationship Specialty Start Date End Date Yoselin Roberts MD [address] [place] [address] [place] [address] PCP - General 04/22/11 documented as of this encounter
--- OUTSIDE RECORDS SUMMARY | 2024-04-02 00:31 | XMS_ITS | Encounter Summary ---
Author Organization [facility] Address [address] [place] [address] Care Team Providers Care Correctional Case Manager Name Role Phone Yoselin Roberts MD Primary Care Provider +1- [phone] Reason for Visit * Reason Comments Glaucoma Suspicion Encounter Details Date Type Department Care Team (Late st Contact Info) Description 10/15/2021 10:30 EDT Office Visit [facility] Ophthalmology - [address] [phone] Kody Martinez MD [address] [facility], [address] [place] [address] Social History Tobacco Use Types [...] Progress Notes * Kody Martinez MD - 10/15/2021 1030 EDT Chief Complaint Patient presents with ??? Glaucoma Suspicion Comments Overdue 4 M: IOP, HVF 24-2 FAST OU, APD check, gonio -- Pt also seeing RHM today. H/O glaucoma suspect, CNVM OS. Currently taking timolol OU BID, brimonidine OU BID and latanoprost OU at bedtime. Vision seems stable in glasses, getting Rx checked next week with optometry. Sometimes left eye is dry, uses ATs to help. HPI :The patient is a 81 y.o. female Physician HPI: Pt denies recent vision change Added brimonidine as discussed last visit no recent flashes -- no new floaters denies eye redness -- denies eye pain denies recent eye trauma Physician ROS: Pt denies diabetes -- Pt denies new cough / shortness of breath Right Eye: NL Left Eye: Blurred Vision Visual Aid: Glasses Current Rx Age Location: Both eyes Pain: 0 - No pain Quality: Severity: Duration: Years Timing: Constant Lasts: Continuous Context: Overdue 4 M: IOP, HVF 24-2 FAST OU, APD check, gonio -- Pt also seeing RHM today. Modifying factors: Currently taking timolol OU BID, brimonidine OU BID and latanoprost OU at bedtime. Associated Signs & Symptoms: H/O glaucoma suspect, CNVM OS. Attestation: ROS Constitutional: ENT/Mouth Cardiovascular: High Blood Pressure, High Cholesterol Respiratory: Gastrointestinal: Genitourinary: Musculoskeletal: Integumentary: Neurologic: Psychiatric: Endocrine: Thyroid problems Hematologic: Immunologic: Aluminum Siding Mechanic: Exposures: Other: Attestation: Allergies include: Dilaudid [hydromorphone], Percocet [oxycodone-acetaminophen], and Sulfa (sulfonamide antibiotics) Patient Active Problem List Diagnosis ??? Retinal neovascularization ??? Degenerative myopia ??? Posterior vitreous detachment of both eyes ??? Blepharitis of both eyes ??? Pseudophakia of both eyes ??? CNVM (choroidal neovascular membrane), left ??? SVT (supraventricular tachycardia) ([facility]) ([facility]) Outpatient Medications Marked as Taking for the 10/15/21 encounter (Office Visit) with Kody Martinez MD Medication Sig ??? apixaban (ELIQUIS) 5 mg tablet Take 5 mg by mouth 2 times daily. ??? brimonidine (ALPHAGAN) 0.2 % ophthalmic solution Place 1 Drop into both eyes 2 times daily. ??? CELECOXIB (CELEBREX ORAL) Take 200 [...] 10 mg by mouth daily. PRN ??? LORazepam (ATIVAN) 1 mg tablet Take 1 mg by mouth at bedtime. ??? losartan (COZAAR) 50 mg tablet Take [...] Drop into both eyes 2 times daily. ??? traMADol (ULTRAM) 50 mg tablet Take 50 mg by mouth daily. Past Medical History: Diagnosis Date ??? Arthropathy ??? Blood transfusion ??? Fibromyalgia ??? Glaucoma ??? Ptosis ??? Thyroid disease Past Surgical History: Procedure Laterality Date ??? CARPAL TUNNEL RELEASE ??? CATARACT REMOVAL bilat ??? CATARACT REMOVAL WITH IMPLANT 2004 ??? CERVICAL FUSION ??? CHOLECYSTECTOMY ??? EYE SURGERY Avastin to left eye ??? HYSTERECTOMY, TOTAL ABDOMINAL ??? INTRAOCULAR LENS PROSTHESIS INSERTION bilat ??? LAMINECTOMY Family History Problem Relation Age of Onset ??? Macular Degeneration Mother ??? Diabetes Maternal Grandmother ??? Blindness Neg Hx ??? Cataract Neg Hx ??? Glaucoma Neg Hx ??? Retinal Detachment Neg Hx ??? Keratoconus Neg Hx ??? Retinitis Pigmentosa Neg Hx Patient reports that she has never smoked. She has never used smokeless tobacco. She reports current alcohol use. Recent HbA1c: No results found for: HGBA1C Base Eye Exam Visual Acuity (Snellen - Linear) Right Left Dist cc 20/40 +2 20/400 Dist ph cc NI Correction: Glasses Tonometry (Applanation, 11:09) Right Left Pressure 18 19 Pupils Dark Light Shape APD Right 5 4 Round None Left 5 4 Round APD Visual De Jesus See HVF Extraocular Movement Right Left Full, Ortho Full, Ortho Neuro/Psych Oriented x3: Yes Mood/Affect: Normal Dilation Both eyes: Tropicamide 1%, Phenylephrine 2.5% @ 12:05 Slit Lamp and Fundus Exam External Exam Right Left External Normal Normal Slit Lamp Exam Right Left Lids/Lashes Normal Normal Conjunctiva/Sclera White and quiet White and quiet Cornea Clear Clear Anterior Chamber Deep and quiet Deep and quiet Iris Round and reactive Round and reactive Lens PCIOL PCIOL Vitreous Clear, PVD Clear, PVD Fundus Exam Right Left Disc very thin inferior and temporal, tilt, PPA very thin inferior and temporal, tilt, PPA C/D Ratio 0.7 ~0.7 Macula Diffuse RPE thinning Diffuse RPE thinning, large GA Vessels Normal Normal Refraction Wearing Rx Sphere Cylinder [place] Add Right -3.75 +1.75 103 +2.25 Left -3.50 +1.75 097 +2.25 Type: PAL IMPRESSION & PLAN: 1. 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 -- last visit added brimonidine, IOP seems better -- OCT NFL OU (06/04) irregular OU with PPA artifact, not useful data -- unfortunately no ON photos and no VFs -- HVF 24-2 OU today (11/05) reliable, trace diffuse depression L >R consistent with refractive / retinal pathology, no glaucoma pattern -- D/W pt, reassuring exam and tests, cont rx below, F/U 8- M: IOP, HVF 24-2 FAST OU 02/26/22 addendum: pt reports brimonidine causing pain, lids closing, heavy feeling --> D/C brimonidine for likely allergy, cont other rx and F/U as planned ON: ~0.7 / ~0.7 -- large tilt OU, very thin inferior and temporal OU -- L APD Tmax: CCT: 486 / 488 Gonio: VF: diffuse mild depression / diffuse mild depression (11/05) OCT: 82 / 81 (06/04) Surg: none Drops: timolol OU BID, brimonidine OU BID, latanoprost OU QHS Allergy: none 2. 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 Posterior vitreous detachment of both eyes -- cont care with RHM 4. Pseudophakia of both eyes -- stable PCIOL OU I have reviewed the past medical, family, social and surgical history. I have reviewed the meds, allergies, and problem list. I performed my own HPI and reviewed the ROS. I personally completed the exam. The patient was instructed to call our office or go to emergency room if worse vision, worse symptoms, or new/other concerns arise. Kody Martinez MD documented in this encounter Plan of Treatment Upcoming Encounters Date Type Department Care Team (Late st Contact Info) Description 05/24/2024 14:00 EDT Office Visit [facility] Ophthalmology - [address] [place] [address] Josemanuel Gomes MD [address] [facility], [address] [place] [address] documented as of this encounter Procedures Procedure Name Priority Date/Time Associated Diagnosis Comments ALSTON VF 24-2 FAST - OU - BOTH EYES Routine 10/15/2021 12:00 EDT Glaucoma suspect of both eyes documented in this encounter Results * ALSTON VF 24-2 FAST - OU - BOTH EYES (10/15/2021 12:00 EDT) Narrative [facility] POINT OF CARE - 10/15/2021 12:00 EDT See interpretation / assessment in main note. us Kody Martinez MD OPHTH VISUAL FIELD Edited Re sult - Final [facility] POINT OF CARE documented in this encounter Visit Diagnoses Diagnosis Glaucoma suspect of both eyes- Primary Preglaucoma, unspecified Posterior vitreous detachment of both eyes Vitreous degeneration Pseudophakia of both eyes Lens replaced by other means documented in this encounter Discontinued Medications Medication Sig Discontinue Reason Start Date End Da te aspirin 81 mg EC tablet Take 81 mg by mouth daily. Error 10/15/2021 documented as of this encounter Historical Medications * This list may reflect changes made after this encounter. LORazepam (ATIVAN) 1 mg tablet Take 1 Tablet by mouth at bedtime. 10/08/2021 added in this encounter Eye Exam Visual Acuity (Snellen - Linear) Right eye Left eye Dist cc 20/40 +2 20/400 Dist ph cc NI Correction: Glasses Tonometry (Applanation, 11:09) Right eye Left eye Pressure 18 19 Pupils Dark Light Shape APD Right eye 5 4 Round None Left eye 5 4 Round APD Visual De Jesus See HVF Extraocular Movement Right eye Left eye Full, Ortho Full, Ortho Neuro/Psych Oriented x3: Yes Mood/Affect: Normal Dilation Both eyes: Tropicamide 1%, P henylephrine 2.5% @ 12:05 External Exam Right eye Left eye External Normal Normal Slit Lamp Exam Right eye Left eye Lids/Lashes Normal Normal Conjunctiva/Sclera White and quiet White and marysol et Cornea Clear Clear Anterior Chamber Deep and quiet Deep and quiet Iris Round and reactive Round and marko ctive Lens PCIOL PCIOL Vitreous Clear, PVD Clear, PVD Fundus Exam Right eye Left eye Disc very thin inferior a nd temporal, tilt, PPA very thin inferior and temporal, tilt, PPA C/D Ratio 0.7 ~0.7 Macula Diffuse RPE thinning Diffuse RPE thinning, large GA Vessels Normal Normal Wearing Rx Sphere Cylinder [place] Add Right eye -3.75 +1.75 103 +2.25 Left eye -3.50 +1.75 097 +2.25 Type: PAL Care Teams Correctional Case Manager Relationship Specialty Start Date End Date Yoselin Roberts MD [address] [place] [address] [place] [address] PCP - General 04/22/11 documented as of this encounter
--- OUTSIDE RECORDS SUMMARY | 2024-04-02 00:31 | XMS_ITS | Encounter Summary ---
Author Organization [facility] Address [address] [place] [address] Care Team Providers Care Pocket Maker Name Role Phone Yoselin Roberts MD Primary Care Provider [phone]- [phone] Reason for Visit * Reason Comments Eye Problem Encounter Details Date Type Department Care Team (Late st Contact Info) Description 10/02/2020 10:45 EDT Office Visit [facility] Ophthalmology - [address] [phone] Ashu Fabian MD [address] [facility], [address] [place] [address] Social History Tobacco Use Types [...] Progress Notes * Ashu Fabian MD - 10/02/2020 1045 EDT Chief Complaint Patient presents with ??? Eye Problem Comments Patient here for CNVM left eye. VA no changes. Floaters and flashes still persistent. No eye pain. Current eye drops: comb 2/2, latan hs/hs HPI Location: Both eyes Pain: 0 - No pain Quality: Blurry Severity: Moderate Duration: Timing: Lasts: Context: Patient here for CNVM left eye. VA no changes. Floaters and flashes still persistent. No eye pain. Current eye drops: comb 2/2, latan hs/hs Modifying factors: Associated Signs & Symptoms: CNVM left eye Visual Fluctuations: Flashes, Floaters Attestation: Base Eye Exam Visual Acuity (Snellen - Linear) Right Left Dist cc 20/30 20/400 Dist ph cc NI Correction: Glasses Tonometry (Applanation, 11:28) Right Left Pressure 14 13 Pupils APD Right None Left None Neuro/Psych Oriented x3: Yes Mood/Affect: Normal Dilation Both eyes: Phenylephrine 2.5%, Tropicamide 1% @ 11:28 Slit Lamp and Fundus Exam Slit Lamp Exam Right Left Lids/Lashes Normal Normal Conjunctiva/Sclera White and quiet White and quiet Cornea Clear Clear Anterior Chamber Deep and quiet Deep and quiet Iris dilated dilated Lens Posterior chamber intraocular lens Posterior chamber intraocular lens Vitreous Posterior vitreous detachment Posterior vitreous detachment Fundus Exam Right Left Disc tilted disc Tilted disc C/D Ratio 0.6 0.7 Macula mottled, staphyloma geographic scar, mottling below and nasa Vessels Normal Normal Periphery cobblestone inf cobblestones Imaging: OCT, Retina - OU - Both Eyes OCT REPORT Indications: CNVM Findings: Right Eye Left Eye Staphyloma,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 CNVM (choroidal neovascular membrane), left OCT, RETINA - OU - BOTH EYES 2. Posterior vitreous detachment of both eyes 3. Pseudophakia of both eyes 4. High myopia, bilateral 5. 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 She [...] in severe visual loss or even blindness. Cobblestones-Both eyes Observe PVD-Both eyes No holes,tears or breaks Observe The patient has been informed that they [...] patient understands and agrees to do this. PCIOL-Both eyes Well positioned Observe Pt has well placed IOL(s) and natural [...] side vision occurring in the affected eye. Comment SUMMARY: RETINAL ISSUES CLINICALLY STABLE. FOLLOW UP PER APPOINTED TIME OR PRN CHANGE IN CENTRAL VISION, CHANGE IN AMSLER GRID IF USING GRID FREQUENTLY OR PRN INCREASED FLASHES, FLOATERS OR LOSS SIDE VISION, PAIN , REDNESS , OR PHOTOPHOBIA Return 4 months or PRN I, Dr. Fabian, have performed my own HPI and reviewed the tech's ROS. I have also reviewed the patient's past medical, family, social and surgical history, as well as the patient's medications, allergies, and problem list. I am scribing for Dr. Ashu Fabian MD while he is personally performing the service. ARELY Betancourt (Scribe) documented in this encounter Plan of Treatment Upcoming Encounters Date Type Department Care Team (Late st Contact Info) Description 05/24/2024 14:00 EDT Office Visit [facility] Ophthalmology - [facility] [address] [place] [address] Josemanuel Gomes MD [address] [facility], 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, No retinal edema Mac scar Original test to be found in patients shadow chart us Ashu Fabian MD OPHTH TOMOGRAPHY Final Result [facility] POINT OF CARE documented in this encounter Visit Diagnoses Diagnosis CNVM (choroidal neovascular membrane), left- Primary Posterior vitreous detachment of both eyes Vitreous degeneration Pseudophakia of both eyes Lens replaced by other means High myopia, bilateral Myopia 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 Paving stone degeneration of peripheral retina documented in this encounter Eye Exam Visual Acuity (Snellen - Linear) Right eye Left eye Dist cc 20/30 20/400 Dist ph cc NI Correction: Glasses Tonometry (Applanation, 11:28) Right eye Left eye Pressure 14 13 Pupils APD Right eye None Left eye None Neuro/Psych Oriented x3: Yes Mood/Affect: Normal Dilation Both eyes: Phenylephrine 2.5 %, Tropicamide 1% @ 11:28 Slit Lamp Exam Right eye Left eye Lids/Lashes Normal Normal Conjunctiva/Sclera White and quiet White and marysol et Cornea Clear Clear Anterior Chamber Deep and quiet Deep and quiet Iris dilated dilated Lens Posterior chamber in traocular lens Posterior chamber intraocular lens Vitreous Posterior vitreous detachment Po sterior vitreous detachment Fundus Exam Right eye Left eye Disc tilted disc Tilted disc C/D Ratio 0.6 0.7 Macula mottled, staphyloma geographic s car, mottling below and nasa Vessels Normal Normal Periphery cobblestone inf cobblestones Care Teams Pocket Maker Relationship Specialty Start Date End Date Yoselin Roberts MD [address] [place] [address] [place] [address] PCP - General 04/22/11 documented as of this encounter
--- OUTSIDE RECORDS SUMMARY | 2024-04-02 00:31 | XMS_ITS | Encounter Summary ---
Author Organization [facility] Address [address] [place] [address] Care Team Providers Care Formal Service Waiter Name Role Phone Yoselin Roberts MD Primary Care Provider +1- [phone] Reason for Visit * Reason Onset Date Comments Appointment Related 08/17/2020 Encounter Details Date Type Department Care Team (Late st Contact Info) Description 08/17/2020 Telephone [facility] Ophthalmology - [address] [phone] Ashu Fabian MD [address] [facility], [address] [place] [address] Appointment Related Social History Tobacco [...] encounter Miscellaneous Notes * Telephone Encounter - Sweta Monroe - 08/17/2020 1519 EDT Scheduled * Telephone Encounter - Randy Mckeon - 08/17/2020 1430 EDT Patient requests to plan 4m appt with Dr. Fabian in mid September. Requests call back to mobile # when possible. documented in this encounter Plan of Treatment Upcoming Encounters Date Type Department Care Team (Late st Contact Info) Description 05/24/2024 14:00 EDT Office Visit [facility] Ophthalmology - [address] [address] Josemanuel Gomes MD [address] [place] [address], [address] [place] [address] documented as of this encounter Visit Diagnoses Not on filedocumented in this encounter Care Teams Formal Service Waiter Relationship Specialty Start Date End Date Yoselin Roberts MD [address] [place] [address] PCP - General 04/22/11 documented as of this encounter
--- OUTSIDE RECORDS SUMMARY | 2024-04-02 00:31 | XMS_ITS | Encounter Summary ---
Author Organization [facility] Address [address] [place] [address] Care Team Providers Care Dynamicist Name Role Phone Yoselin Roberts MD Primary Care Provider +1- [phone] Reason for Visit * Reason Comments Other Encounter Details Date Type Department Care Team (Late st Contact Info) Description 05/30/2021 [facility] Ophthalmology - [address] [phone] Kody Martinez MD [address] [facility], [address] [place] [address] Other Social History Tobacco Use [...] Info) Description 05/24/2024 14:00 EDT Office Visit [facility] Ophthalmology - [facility] [address] [place] [address] Josemanuel Gomes MD [address] [place] [address], [facility] [address] [place] [phone] documented as of this encounter Visit Diagnoses Not on filedocumented in this encounter Care Teams Dynamicist Relationship Specialty Start Date End Date Yoselin Roberts MD [address] [place] [address] [place] [address] PCP - General 04/22/11 documented as of this encounter
--- OUTSIDE RECORDS SUMMARY | 2024-04-02 00:31 | XMS_ITS | Encounter Summary ---
Author Organization [facility] Address [address] [place] [address] Care Team Providers Care Salesperson Women'S Dresses Name Role Phone Yoselin Roberts MD Primary Care Provider +1- [phone] Reason for Visit * Reason Comments Eye Problem Encounter Details Date Type Department Care Team (Late st Contact Info) Description 05/29/2020 10:45 EDT Office Visit [facility]mology - [address] [phone] Ashu Fabian MD [address] [facility], [address] [place] [address] Social History Tobacco Use Types [...] Progress Notes * Ashu Fabian MD - 05/29/2020 7244 EDT Chief Complaint Patient presents with ??? Eye Problem Comments CNVM Left h/o High Myopia and POAG HPI Location: Left eye Pain: 0 - No pain Quality: Severity: Mild Duration: Months Timing: Constant Lasts: Continuous Context: f/u CNVM left eye- c/o flashes still occuring in right, no new Floaters Modifying factors: nothing Associated Signs & Symptoms: no pain, Visual Fluctuations: Flashes Attestation: follow up CNVM left eye, macular scar. Vision is severely blurry left eye and mildly blurry right eye for months, constant. Feels eyes get tired more. Using amsler grid. No pain, no new flashes or floaters. Base Eye Exam Visual Acuity (Snellen - Linear) Right Left Dist cc 20/25 -1 20/400 +1 Correction: Glasses Tonometry (Applanation, 11:13) Right Left Pressure 24 19 Pupils Dark Light Shape React APD Right 5 3 Round Brisk None Left 5 3.5 Round Brisk None Visual De Jesus Right Left Full Restrictions Partial inner superior temporal, inferior temporal, superior nasal, inferior nasal deficiencies Extraocular Movement Right Left Full, Ortho Full, Ortho Neuro/Psych Oriented x3: Yes Mood/Affect: Normal Dilation Both eyes: Phenylephrine 2.5%, Tropicamide 1% @ 11:13 Slit Lamp and Fundus Exam Slit Lamp Exam Right Left Lids/Lashes Normal Normal Conjunctiva/Sclera White and quiet White and quiet Cornea Clear Clear Anterior Chamber Deep and quiet Deep and quiet Iris dilated dilated Lens Posterior chamber intraocular lens Posterior chamber intraocular lens Vitreous Posterior vitreous detachment Posterior vitreous detachment Fundus Exam Right Left Disc thin IT rim tilted, thin IT rim C/D Ratio 0.7-0.8 0.7 Macula mottled, staphyloma geographic scar, mottling below and nasa Vessels Normal Normal Periphery cobblestone inf cobblestones Imaging: Impression: 1. CNVM (choroidal neovascular membrane), left 2. Degenerative myopia of both eyes, unspecified whether complication present 3. Macular scar of left eye 4. Posterior vitreous detachment of both eyes 5. Chronic open angle glaucoma of right eye, moderate stage Plan: High myopia both eyes Courtney Mckenzie is [...] visual loss or even blindness. Macular scar left eye- choroidal neovascular membrane quiet left Limits vision Follow Posterior staphyloma both eyes Stable Follow PVD both eyes The patient has been [...] and agrees to do this. Cobblestones both Follow CNVM left eye Quiescent Daily amlser Patient to call if changes in grid Coag--IOP up rt---defer to Martinez on whether drops should be altered Return in about 4 months (around 09/28/2020), or if symptoms worsen or fail to improve, for OCT Macular. I, Dr. Fabian, have performed my own [...] Info) Description 05/24/2024 14:00 EDT Office Visit [facility] - [address] [place], [place] [phone] Josemanuel Gomes MD 111 [facility], [address] [place] [address] documented as of this encounter Procedures Procedure Name Priority Date/Time Associated Diagnosis Comments OCT, RETINA - OU - BOTH EYES Routine 05/29/2020 11:59 EDT CNVM (choroidal neovascular membrane), left documented in this encounter Results * OCT, RETINA - OU - BOTH EYES (05/29/2020 11:59 EDT) Narrative [facility] POINT OF CARE - 05/29/2020 12:28 EDT Right Eye Quality was good. Scan locations included subfoveal. Left Eye Quality was good. Scan locations included subfoveal. Notes OCT REPORT Indications: ??CNVM Findings: Right Eye Left Eye staphyloma increased central thickness central scar Original test to be found in patients shadow chart Ashu Fabian MD OPHTH TOMOGRAPHY Final Result [facility] POINT OF CARE documented in this [...] Right eye Left eye Dist cc 20/25 -1 20/400 +1 Correction: Glasses Tonometry (Applanation, 11:13) Right eye Left eye Pressure 24 19 Pupils Dark Light Shape React APD Right eye 5 3 Round Brisk None Left eye 5 3.5 Round Brisk None Visual De Jesus Right eye Left eye Full Restrictions Partial inner davis perior temporal, inferior temporal, superior nasal, inferior nasal deficiencies Extraocular Movement Right eye Left eye Full, Ortho Full, Ortho Neuro/Psych Oriented x3: Yes Mood/Affect: Normal Dilation Both eyes: Phenylephrine 2.5 %, Tropicamide 1% @ 11:13 Slit Lamp Exam Right eye Left eye Lids/Lashes Normal Normal Conjunctiva/Sclera White and quiet White and marysol et Cornea Clear Clear Anterior Chamber Deep and quiet Deep and quiet Iris dilated dilated Lens Posterior chamber in traocular lens Posterior chamber intraocular lens Vitreous Posterior vitreous detachment Po sterior vitreous detachment Fundus Exam Right eye Left eye Disc thin IT rim tilted, thin IT rim C/D Ratio 0.7-0.8 0.7 Macula mottled, staphyloma geographic s car, mottling below and nasa Vessels Normal Normal Periphery cobblestone inf cobblestones Care Teams Salesperson Women'S Dresses Relationship Specialty Start Date End Date Yoselin Roberts MD [address] [place] [address] [place] [address] PCP - General 04/22/11 documented as of this encounter
--- OUTSIDE RECORDS SUMMARY | 2024-04-02 00:31 | XMS_ITS | Encounter Summary ---
Author Organization [facility] Address [address] [place] [address] Care Team Providers Care Central Office Maintainer Name Role Phone Yoselin Roberts MD Primary Care Provider +1- [phone] Encounter Details Date Type Department Care Team (Late st Contact Info) Description 12/10/2019 Lab Requisition [facility] Pathology & Laboratory Medicine - [address] [id number] Outr Resulting Lab, Provider Social History Tobacco [...] Info) Description 05/24/2024 14:00 EDT Office Visit [facility] Ophthalmology - [address] [place] [address] Josemanuel Gomes MD 111 [facility], [address] [place] [address] documented as of this encounter Procedures Procedure Name Priority Date/Time Associated Diagnosis Comments DO NOT ORDER STANDALONE - BROAD COVID TEST Today 12/10/2019 10:14 EDT COVID-19 TESTING Routine 12/10/2019 10:1 4 EDT documented in this encounter Results * DO NOT ORDER STANDALONE - BROAD COVID TEST (12/10/2019 10:14 EDT) COVID-19 rt-PCR Result NEGATIVE Negative 12/11/2019 21:27 EDT [facility] Comment: 2019-novel Coronavirus (2019-nCoV) not detected by the qRT-PCR assay. Consider testing for other respiratory viruses or re-collecting for 2019-nCoV testing. Note: Optimum timing for peak viral levels during infections caused by 2019-nCoV have not been determined. Collection of multiple specimens from the same patient may be necessary to detect the virus. Limitations Positive results are indicative of active infection with SARS-CoV-2 but do not rule out bacterial infection or co-infection with other viruses. The agent detected may not be the definite cause of disease. In addition, detection of viral RNA may not indicate the presence of infectious virus or that SARS-CoV-2 is the causative agent for clinical symptoms. Negative results do not preclude SARS-CoV-2 infection and should not be used as the sole basis for patient management decisions. Negative results must be combined with clinical observations, patient history, and epidemiological information. False negative results may also occur if amplification inhibitors are present in the specimen or if inadequate numbers of organisms are present in the specimen. Optimum specimen types and timing for peak viral levels during infections caused by SARS-CoV-2 have not been fully determined. Collection of multiple specimens (types and time points) from the same patient may be necessary to detect the virus. The test was validated for use with upper respiratory specimens obtained via nasopharyngeal or oropharyngeal swabs in VTM, UTM, M4, M5, M6, saline, and MTM media. The performance of this test has not been established for other specimens. Specimens collected using other FDA recommended Specimen Collection Materials listed in the FDA COVID-19 Diagnostic Technologies communication (June 10, 2019) are processed with the caveat that they were not all validated for use with this test and the result must be interpreted in this context. Furthermore, a false negative results may occur if a specimen is improperly collected, transported or handled. If the virus mutates in the RT-PCR target region, SARS-CoV-2 may not be detected or may be detected less predictably. Inhibitors or other types of interference may produce a false negative result. An interference study evaluating the effect of common cold medications was not performed. This test is not FDA-cleared but its performance characteristics were established by our CLIA-certified, CAP-accredited, high complexity laboratory in accordance with CLIA regulations, [employer] (CAP) guidelines (Jun 03, 2019), and FDA guidance (May 15, 2019). This test is only for use under the Food and Drug Administration's Emergency Use Authorization. Swab ENTIRE NASOPHARYNX / Unknown 12/10/2019 10:14 EDT 12/10/2019 16:39 EDT us Provider Outr Resulting Lab MICROBIOLOGY - GENER AL ORDERABLES Final Result [facility] [place] [place] * COVID-19 TESTING (12/10/2019 10:14 EDT) COVID-19 rt-PCR Result NEGATIVE Negative 12/11/2019 23:25 EDT [facility] Comment: 2019-novel Coronavirus (2019-nCoV) not detected by the qRT-PCR assay. Consider testing for other respiratory viruses or re-collecting for 2019-nCoV testing. Note: Optimum timing for peak viral levels during infections caused by 2019-nCoV have not been determined. Collection of multiple specimens from the same patient may be necessary to detect the virus. Limitations Positive results are indicative of active infection with SARS-CoV-2 but do not rule out bacterial infection or co-infection with other viruses. The agent detected may not be the definite cause of disease. In addition, detection of viral RNA may not indicate the presence of infectious virus or that SARS-CoV-2 is the causative agent for clinical symptoms. Negative results do not preclude SARS-CoV-2 infection and should not be used as the sole basis for patient management decisions. Negative results must be combined with clinical observations, patient history, and epidemiological information. False negative results may also occur if amplification inhibitors are present in the specimen or if inadequate numbers of organisms are present in the specimen. Optimum specimen types and timing for peak viral levels during infections caused by SARS-CoV-2 have not been fully determined. Collection of multiple specimens (types and time points) from the same patient may be necessary to detect the virus. The test was validated for use with upper respiratory specimens obtained via nasopharyngeal or oropharyngeal swabs in VTM, UTM, M4, M5, M6, saline, and MTM media. The performance of this test has not been established for other specimens. Specimens collected using other FDA recommended Specimen Collection Materials listed in the FDA COVID-19 [employer] communication (June 10, 2019) are processed with the caveat that they were not all validated for use with this test and the result must be interpreted in this context. Furthermore, a false negative results may occur if a specimen is improperly collected, transported or handled. If the virus mutates in the RT-PCR target region, SARS-CoV-2 may not be detected or may be detected less predictably. Inhibitors or other types of interference may produce a false negative result. An interference study evaluating the effect of common cold medications was not performed. This test is not FDA-cleared but its performance characteristics were established by our CLIA-certified, CAP-accredited, high complexity laboratory in accordance with CLIA regulations, [employer] (CAP) guidelines (Jun 03, 2019), and FDA guidance (May 15, 2019). This test is only for use under the Food and Drug Administration's Emergency Use Authorization. Performing Lab [facility] 12/11/2019 23:25 EDT [facility] Swab 12/10/2019 10:1 4 EDT 12/10/2019 16:39 EDT us Provider Outr Resulting Lab MICROBIOLOGY - GENER AL ORDERABLES Final Result [facility] [address] [place] [address] [facility] [place], [place] documented in this encounter Visit Diagnoses Not on filedocumented in this encounter Care Teams Central Office Maintainer Relationship Specialty Start Date End Date Yoselin Roberts MD [address] [place] [address] [place], [place] [id number] PCP - General 04/22/11 documented as of this encounter
--- OUTSIDE RECORDS SUMMARY | 2024-04-02 00:31 | XMS_ITS | Encounter Summary ---
Author Organization [facility] Address [address] [place] [address] Care Team Providers Care Facility Examiner Name Role Phone Yoselin Roberts MD Primary Care Provider +1- [phone] Reason for Visit * Reason Onset Date Comments Medications Refill 09/03/2022 Encounter Details Date Type Department Care Team (Late st Contact Info) Description 09/03/2022 Refill [facility] Ophthalmology - [address] [address] Kody Martinez MD 111 [facility], [address] [place] [address] Medications Refill Social History Tobacco [...] EYES TWO TIMES A DAY 30 mL 09/03/2022 documented in this encounter Plan of Treatment Upcoming Encounters Date Type Department Care Team (Late st Contact Info) Description 05/24/2024 14:00 EDT Office Visit [facility] Ophthalmology - [facility] [address] [place] [address] Jsoemanuel Gomes MD 111 [facility], [facility] [address] [place] [phone] documented as of this encounter Visit Diagnoses Not on filedocumented in this encounter Discontinued Medications Medication Sig Discontinue Reason Start Date End Da te timolol (TIMOPTIC) 0.5 % ophthalmic solution PLACE 1 DROP INTO BOTH EYES TWO TIMES A DAY Reorder 10/22/2021 09/03/2022 documented as of this encounter Care Teams Facility Examiner Relationship Specialty Start Date End Date Yoselin Roberts MD [address] [place] [id number] PCP - General 04/22/11 documented as of this encounter
--- OUTSIDE RECORDS SUMMARY | 2024-04-02 00:31 | XMS_ITS | Encounter Summary ---
Author Organization [facility] Address [address] [place] [address] Care Team Providers Care Desktop Publishing Operator Name Role Phone Yoselin Roberts MD Primary Care Provider +1- [phone] Reason for Visit * Reason Onset Date Comments Medication Adherence 05/03/2021 Encounter Details Date Type Department Care Team (Late st Contact Info) Description 05/03/2021 Telephone [facility] - [address] [address] Kody Martinez MD 111 [facility], [address] [place] [address] Medication Adherence Social History Tobacco Use Types Packs/Day Years [...] Date timolol (TIMOPTIC) 0.5 % ophthalmic solution Place 1 Drop into both eyes 2 times daily. 15 mL 4 05/04/2021 10/22/2021 brimonidine (ALPHAGAN) 0.2 % ophthalmic solution Place 1 Drop into both eyes 2 times daily. 15 mL 4 05/04/2021 10/22/2021 documented in this encounter Miscellaneous Notes * Telephone Encounter - Marcie Alcantar RN - 05/04/2021 1208 EST Spoke with patient and relayed information. Patient verbalized understanding. Per note to pharmacy on last refill 05/29/2020, Note to Pharmacy: Ok to dispense timolol 0.5% and brimonidine 0.2% if Combigan too expensive Will order Timolol 0.5% and Brimonidine 0.2% to be filled at [facility]. Marcie Alcantar RN 05/04/2021 12:13 * Telephone Encounter - Sharif Christy RN - 05/03/2021 1334 EST Received mail stating that Combigan would need an authorization. As noted in refill note to pharmacy, it was okay to dispense Brimonidine and timolol separately. Plan to DC Combigan and order [place] Brimonidine, [employer] [phone]. No ID number given. Left message asking patient to call back. Please transfer to nursing to discuss change. Verify pharmacy. Sharif Hernandez RN 05/03/2021 13:43 documented in this encounter Plan of Treatment Upcoming Encounters Date Type Department Care Team (Late st Contact Info) Description 05/24/2024 14:00 EDT Office Visit [facility] - [address] [place] [address] Josemanuel Gomes MD 111 [facility], [address] [place] [address] documented as of this encounter Visit Diagnoses Not on filedocumented in this encounter Discontinued Medications Medication Sig Discontinue Reason Start Date End Da te brimonidine-timoloL (COMBIGAN) 0.2-0.5 % drops opthalmic solutionIndications:Gla ucoma suspect of both eyes Place 1 Drop into both eyes 2 times daily. Insurance does not cover 05/29/2020 05/04/2021 documented as of this encounter Care Teams Desktop Publishing Operator Relationship Specialty Start Date End Date Yoselin Roberts MD [address] [place] [address] [place] [address] PCP - General 04/22/11 documented as of this encounter
--- OUTSIDE RECORDS SUMMARY | 2024-04-02 00:31 | XMS_ITS | Encounter Summary ---
Author Organization [facility] Address [address] [place] [address] Care Team Providers Care Claim Service Representative Name Role Phone Yoselin Roberts MD Primary Care Provider +1- [phone] Reason for Visit * Reason Comments Eye Problem Encounter Details Date Type Department Care Team (Late st Contact Info) Description 03/13/2020 10:00 EST Office Visit [facility] Ophthalmology - [address] [phone] Ashu Fabian MD 111 [facility], [address] [place] [address] Social History Tobacco Use Types [...] Progress Notes * Ashu Fabian MD - 03/13/2020 1000 EST Chief Complaint Patient presents with ??? Eye Problem Comments CNVM, high myopia HPI Location: Both eyes Pain: 0 - No pain Quality: Blurry Severity: Moderate Duration: Months Timing: Constant Lasts: Continuous Context: CNVM left eye, high myopia Modifying factors: Patient has been in and out of the hospital for blood clots in lungs. She notes had and episode of red / itchy/ burning eyes. Saw regular eye doctor and was prescribed patanol which helped. Then had episodes of sharp shooting pains across both eyes but has gone away. Vision seemsstable. Still has same floater and flashes that she had in November. Associated Signs & Symptoms: Tears PRN both eyes Visual Fluctuations: None Attestation: High myopia with hx left central choroidal neovascular membrane with poor vision left mos constant ---vision good stable rt eye Base Eye Exam Visual Acuity (Snellen - Linear) Right Left Dist cc 20/30 20/150-2 eccen Correction: Glasses Tonometry (Applanation, 10:33) Right Left Pressure 25 19 Pupils Pupils APD Right PERRL None Left PERRL None Extraocular Movement Right Left Full, Ortho Full, Ortho Neuro/Psych Oriented x3: Yes Mood/Affect: Normal Dilation Both eyes: Tropicamide 1%, Phenylephrine 2.5% @ 10:35 Slit Lamp and Fundus Exam External Exam [...] Fundus Exam Right Left Disc tilted , thin inferior temoral rim, Peripapillary atrophy tilted , Peripapillary atrophy. atrophic area below disc C/D Ratio 0.7 0.6 Macula Mottled fovea, no heme Central atrophic macular scar, punched out about 1DD Vessels Normal Normal Periphery Superior-temporal and Inferior Cobblestones Inferior and Superior- temporal Cobblestones Imaging: OCT, Retina - OU - Both Eyes OCT REPORT Indications: High myopia/CNVM Findings: Right Eye Left Eye Decrease sup. And inf. Macula thickening Decrease inf and sup. And temporal mac. thickness Original test to be found in patients shadow chart Impression: 1. CNVM (choroidal neovascular membrane), left OCT, RETINA - OU - BOTH EYES 2. Degenerative myopia of both eyes, unspecified whether complication present OCT, RETINA - OU - BOTH EYES 3. Macular scar of left eye Plan: High myopia both eyes Courtney Mckenzie [...] loss or even blindness. 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 Chronic open angle glaucoma Continue with Latanoprost 1/1 andTimolol 2/[address] Martinez consultation The patient has coag-IOP is acceptable today but I will defer to the patients primary eye care provider or mirror specialist on the patients target intraocular pressure Comment: Stable left CNVM, continue to use amsler grid. Recommend COAG evaluation with Dr. Martinez - IOP = 25 in good eye today Follow up in 4 months with OCT or PRN Follow up with Dr. Martinez for COAG evaluation in 1-3 months I, Dr. Fabian, have performed my own [...] Office Visit [facility] Ophthalmology - [id number] [place], [place] [phone] Josemanuel Gomes MD 111 [facility], [facility] [address] [place] [address] documented as of this encounter Procedures Procedure Name Priority Date/Time Associated Diagnosis Comments OCT, RETINA - OU - BOTH EYES Routine 03/13/2020 12:24 EST CNVM (choroidal neovascular membrane), left Degenerative myopia of both eyes, unspecified whether complication present documented in this encounter Results * OCT, RETINA - OU - BOTH EYES (03/13/2020 12:24 EST) Narrative [facility] POINT [facility] CARE - 03/13/2020 16:18 EST OCT REPORT Indications: High myopia/CNVM Findings: Right Eye Left Eye Decrease sup. And inf. Macula thickening Decrease inf and sup. And temporal mac. thickness Original test to be found in patients shadow chart us Ashu Fabian MD OPHTH TOMOGRAPHY Final Result [facility] POINT OF CARE documented in this encounter Visit Diagnoses Diagnosis CNVM (choroidal neovascular membrane), left- Primary Degenerative myopia of both eyes, unspecified whether complication present Macular scar of left eye documented in this encounter Eye Exam Visual Acuity (Snellen - Linear) Right eye Left eye Dist cc 20/30 20/150-2 eccen Correction: Glasses Tonometry (Applanation, 10:33) Right eye Left eye Pressure 25 19 Pupils Pupils APD Right eye PERRL None Left eye PERRL None Extraocular Movement Right eye Left eye Full, Ortho Full, Ortho Neuro/Psych Oriented x3: Yes Mood/Affect: Normal Dilation Both eyes: Tropicamide 1%, P henylephrine 2.5% @ 10:35 External Exam Right eye Left eye External [...] Right eye Left eye Disc tilted , thin inferi or temoral rim, Peripapillary atrophy tilted , Peripapillary atrophy. atrophic area below disc C/D Ratio 0.7 0.6 Macula Mottled fovea, no heme Central a trophic macular scar, punched out about 1DD Vessels Normal Normal Periphery Superior-temporal an d Inferior Cobblestones Inferior and Superior-temporal Cobblestones Care Teams Claim Service Representative Relationship Specialty Start Date End Date Yoselin Roberts MD [address] [place] [address] [place] [address] PCP - General 04/22/11 documented as of this encounter
--- OUTSIDE RECORDS SUMMARY | 2024-04-02 00:31 | XMS_ITS | Encounter Summary ---
Author Organization [facility] [place] Address [address] [place] [address] Care Team Providers Care Door Person Name Role Phone Yoselin Roberts MD Primary Care Provider +1- [phone] Reason for Visit * Reason Onset Date Comments Appointment Related 05/04/2020 Encounter Details Date Type Department Care Team (Late st Contact Info) Description 05/04/2020 Telephone [facility] Ophthalmology - [address] [id number] Ashu Fabian MD [address] [facility], [address] 5 [place] [address] Appointment Related Social History Tobacco [...] * Telephone Encounter - Kyra Wood - 05/04/2020 1409 EST Pt has been rescheduled for both Dr. Fabian and Shell on the same day * Telephone Encounter - Natalia Smith - 05/04/2020 1127 EST Please call to set up her appt with BRYAN and she would also like to schedule SHELL on the same dayif at all possible as she comes from [place] documented in this encounter Plan of Treatment Upcoming Encounters Date Type Department Care Team (Late st Contact Info) Description 05/24/2024 14:00 EDT Office Visit [facility] Ophthalmology - [id number] [place] [address] Josemanuel Gomes MD [address] [place] [address], [address] [place] [address] documented as of this encounter Visit Diagnoses Not on filedocumented in this encounter Care Teams Door Person Relationship Specialty Start Date End Date Yoselin Roberts MD [address] [place] [address] [place] [address] PCP - General 04/22/11 documented as of this encounter
--- OUTSIDE RECORDS SUMMARY | 2024-04-02 00:31 | XMS_ITS | Encounter Summary ---
Author Organization [facility] Address [address] [place] [address] Care Team Providers Care Metal Model Maker Name Role Phone Yoselin Roberts MD Primary Care Provider +1- [phone] Reason for Visit * Reason Comments Eye Problem Encounter Details Date Type Department Care Team (Late st Contact Info) Description 06/26/2022 10:45 EDT Office Visit [facility] Ophthalmology - [address] [id number] Ashu Fabian MD 111 [facility], [address] 5 [place] [address] Social History Tobacco Use Types [...] Progress Notes * Ashu Fabian MD - 06/26/2022 1045 EDT Chief Complaint Patient presents with ??? Eye Problem Comments Patient here for CNVM left eye, high myopia, PVD both eyes, cobblestone both eyes, COAG. VA better since getting new glasses. Still having flash in left eye. Longstanding floaters. No eye pain. Stopped brimonidine due to allergy. Drops: calli 2/2, latan hs/hs HPI Location: Both eyes Pain: 0 - No pain Quality: Severity: Duration: Timing: Lasts: Context: Patient here for CNVM left eye, high myopia, PVD both eyes, cobblestone both eyes, COAG. VA better since getting new glasses. Still having flash in left eye. Longstanding floaters. No eye pain. Stopped brimonidine due to allergy. Drops: calli 2/2, latan hs/hs Modifying factors: Associated Signs & Symptoms: Visual Fluctuations: Flashes, Floaters Attestation: Dx'd with meningioma. No vision changes both eyes. No pain no new F.F. No double vision I have examined the following issues including lids , lashes , conjunctiva- both bulbar and palpebral, orbits, lacrimal glands, extraocular movement/eye alignment and confrontation visual navas and these were all noted to be normal except dermatochalasis Base Eye Exam Visual Acuity (Snellen - Linear) Right Left Dist sc ecc Dist cc 20/30 20/250 Dist ph cc NI 20/200 Correction: Glasses Tonometry (Applanation, 11:07) Right Left Pressure 15 15 Pupils APD Right None Left APD Extraocular Movement Right Left Full Full Neuro/Psych Oriented x3: Yes Mood/Affect: Normal Dilation Both eyes: Phenylephrine 2.5%, Tropicamide 1% @ 11:07 Slit Lamp and Fundus Exam Slit Lamp Exam Right Left Lids/Lashes Normal Normal Conjunctiva/Sclera White and quiet White and quiet Cornea Clear Clear Anterior Chamber Deep and quiet Deep and quiet Iris Round and reactive Round and reactive Anterior Vitreous Posterior vitreous detachment Posterior vitreous detachment Imaging: OCT, Retina - OU - Both Eyes OCT REPORT Indications: 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 CNVM (choroidal neovascular membrane), left OCT, RETINA - OU - BOTH EYES 2. Degenerative myopia of both eyes, unspecified whether complication present 3. Posterior vitreous detachment of both eyes 4. Pseudophakia of both eyes 5. Chronic open angle glaucoma of right eye, moderate stage Plan: CNVM left eye Quiet Follow PVD both eyes The patient has [...] patient understands and agrees to do this. Myopic Degeneration/ high myope. Courtney Mckenzie is a high myope. She [...] in severe visual loss or even blindness. COAG both eyes The patient has coag-IOP is acceptable today but I will defer to the patients primary eye care provider or import/export specialist on the patients target intraocular pressure PCIOL both eyes Pt has well placed IOL(s) and natural lens of eye has been removed. There is no anterior segment inflammation. Positioning of judith(s) is good. Patient reassured. Increased risk RD post lensectomy /IOL It is important for the patient to notice and report to retina doctor any new flashes, floaters, orloss in peripheral vision. If they saw any of these signs, they should contact office immediately. It is optimum if they check each eye once per day by covering the fellow eye to look for increased flashes , floaters or loss of peripheral vision and report changes to retina doctor should they be observed. Hx of Meningioma no HOMONYMOUS VF defect NOTABLE ON CONF vf Comment SUMMARY: RETINAL ISSUES CLINICALLY STABLE. FOLLOW UP PER APPOINTED TIME OR PRN CHANGE IN CENTRAL VISION, CHANGE IN AMSLER GRID IF USING GRID FREQUENTLY OR PRN INCREASED FLASHES, FLOATERS OR LOSS SIDE VISION, PAIN , REDNESS , OR PHOTOPHOBIA Return in about 6 months (around 12/26/2022), or if symptoms worsen or fail to improve, for OCT. I, Dr. Fabian, have performed my own HPI and reviewed the tech's ROS. I have also reviewed the patient's past medical, family, social and surgical history, as well as the patient's medications, allergies, and problem list. I am scribing for Dr. Ashu Fabian MD while he is personally performing the service. Dinah OSBORNE (Scribe) documented in this encounter Plan of Treatment Upcoming Encounters Date Type Department Care Team (Late st Contact Info) Description 05/24/2024 14:00 EDT Office Visit [facility] Ophthalmology - [facility] [address] [place] [address] Josemanuel Gomes MD [address] [place] [address], [address] [place] [address] documented as of this encounter Procedures Procedure Name Priority Date/Time Associated Diagnosis Comments OCT, RETINA - OU - BOTH EYES Routine 06/26/2022 11:26 EDT CNVM (choroidal neovascular membrane), left documented in this encounter Results * OCT, RETINA - OU - BOTH EYES (06/26/2022 11:26 EDT) Narrative [facility] - 06/26/2022 12:40 EDT Table formatting from the original result was not included. 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, SR scar Original test to be found in patients shadow chart us Ashu Fabian MD OPHTH TOMOGRAPHY Final Result [facility] documented in this encounter Visit Diagnoses Diagnosis CNVM (choroidal neovascular membrane), left- Primary Degenerative myopia of both eyes, unspecified whether complication present Posterior vitreous detachment of both eyes Vitreous degeneration Pseudophakia of both eyes Lens replaced by other means Chronic open angle glaucoma of right eye, moderate stage documented in this encounter Eye Exam Visual Acuity (Snellen - Linear) Right eye Left eye Dist sc ecc Dist cc 20/30 20/250 Dist ph cc NI 20/200 Correction: Glasses Tonometry (Applanation, 11:07) Right eye Left eye Pressure 15 15 Pupils APD Right eye None Left eye APD Extraocular Movement Right eye Left eye Full Full Neuro/Psych Oriented x3: Yes Mood/Affect: Normal Dilation Both eyes: Phenylephrine 2.5 %, Tropicamide 1% @ 11:07 Slit Lamp Exam Right eye Left eye Lids/Lashes Normal Normal Conjunctiva/Sclera White and quiet White and marysol et Cornea Clear Clear Anterior Chamber Deep and quiet Deep and quiet Iris Round and reactive Round and marko ctive Lens Posterior chamber in traocular lens Posterior chamber intraocular lens Anterior Vitreous Posterior vitreous detachment Posterior vitreous detachment Fundus Exam Right eye Left eye C/D Ratio 0.7 0.7 Macula staphyloma, 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
--- OUTSIDE RECORDS SUMMARY | 2024-04-02 00:31 | XMS_ITS | Encounter Summary ---
Author Organization [facility] Address [address] [place] [address] Care Team Providers Care Quarry Plant Crusher Operator Name Role Phone Yoselin Roberts MD Primary Care Provider +1- [phone] Reason for Visit * Reason Comments Eye Exam Encounter Details Date Type Department Care Team (Late st Contact Info) Description 05/29/2020 12:30 EDT Office Visit [facility] Ophthalmology - [address] [phone] Kody Martinez MD [address] [place] [address], [address] [place] [address] Social History Tobacco Use Types [...] Refills Last Filled Start Date End Date brimonidine-timoloL (COMBIGAN) 0.2-0.5 % drops opthalmic solutionIndications :Glaucoma suspect of both eyes Place 1 Drop into both eyes 2 times daily. 10 mL 11 05/29/2020 05/04/2021 documented in this encounter Progress Notes * Kody Martinez MD - 05/29/2020 1230 EDT Chief Complaint Patient presents with ??? Eye Exam Comments NPV- POAG Eval- DX in her 40's has used drops off and on. ref: [facility] Using Latan hs/hs and Corey 1/1 c/o pressure increasing right eye. No Pain, No new Flashes or Floaters, Vision stable. HPI :The patient is a 79 y.o. female Right Eye: NL, Floaters Left Eye: Flashes, Floaters, Loss of Side Vision Visual Aid: Glasses Current Rx Age Location: Left eye Pain: 0 - No pain Quality: Severity: Mild Duration: Months Timing: Constant Lasts: Continuous Context: NOV POAG- ref [facility] Modifying factors: Latan hs/hs and Corey 1/1 Associated Signs & Symptoms: f/u CNVM left eye- c/o flashes still occuring in right, no new Floaters, no Pain, VA stable Attestation: ROS Constitutional: NL ENT/Mouth NL Cardiovascular: High Blood Pressure, High Cholesterol Respiratory: NL Gastrointestinal: NL Genitourinary: NL Musculoskeletal: NL Integumentary: Neurologic: Headache Psychiatric: Depression, Uncontrolled Anxiety Endocrine: Thyroid problems Hematologic: NL Immunologic: Drug Allergy Venipuncturist: Menopause Exposures: None Other: Attestation: Allergies include: Percocet [oxycodone-acetaminophen] and Sulfa (sulfonamide antibiotics) Patient Active Problem List Diagnosis ??? Retinal neovascularization ??? Degenerative myopia ??? Posterior vitreous detachment of both eyes ??? Blepharitis of both eyes ??? Pseudophakia of both eyes ??? CNVM (choroidal neovascular membrane), left ??? SVT (supraventricular tachycardia) ([facility]) Outpatient Medications Marked as Taking for the 05/29/20 encounter (Office Visit) with Kody Martinez MD Medication Sig ??? apixaban (ELIQUIS) 5 mg tablet Take 5 mg by mouth 2 times daily. ??? aspirin 81 mg EC tablet Take [...] 50 mg by mouth as needed. ??? [DISCONTINUED] timolol (TIMOPTIC) 0.5 % ophthalmic solution Place 1 Drop into both eyes daily. In the morning. ??? traMADol (ULTRAM) 50 mg tablet Take 50 mg by mouth daily. ??? UNABLE TO FIND 1,000 mg daily. Med Name: Lineilic (CLA), 1000 mg. Past Medical History: Diagnosis Date ??? Arthropathy [...] Right Left Dist cc 20/25 -1 20/400 ecct +1 Dist ph cc NI Correction: Glasses From [facility] exam Tonometry (Applanation, 11:33) Right Left Pressure 24 19 From [facility] exam Pachymetry (05/29/2020) Right Left Thickness 486 488 Pupils Dark Light Shape React APD Right 5 3 Round Brisk None Left 5 3.56 Round Brisk None Visual De Jesus Right Left Full Restrictions Central scotoma From [facility] exam Extraocular Movement Right Left Full, Ortho Full, Ortho From [facility] exam Neuro/Psych Oriented x3: Yes Mood/Affect: Normal Dilation Both eyes: Phenylephrine 2.5%, Tropicamide 1% @ 11:33 Slit Lamp and Fundus Exam External Exam [...] tilt, PPA C/D Ratio 0.7 ~0.7 Macula diffuse RPE thinning diffuse RPE thinning Vessels Normal Normal Refraction Wearing Rx Sphere Cylinder Birchwood Add Right -3.75 +1.75 103 +2.25 Left -3.50 +1.75 097 +2.25 Type: PAL IMPRESSION & PLAN: 1. 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, beginning approx 2018 -- OCT NFL OU today (06/04) irregular OU with PPA artifact, not useful data -- unfortunately no ON photos and no VFs -- D/W pt, agree possible glaucoma and agreeneed to control IOP -- change timolol to combigan OU BID -- F/U 4 M: IOP, HVF 24-2 FAST OU, APD check, gonio 01/29/21 addendum: pt seen today by [facility], cancelled today's DJD visit because already dilated -- shec/o heaviness and irritation from Combigan -- examined eyes after dilation, no allergic appearance -- cont rx and F/U in next weeks as planned above -- note pt recently did VF at optometry office, she will get that test and bring with her to compare vs our test ON: ~0.7 / ~0.7 -- large tilt OU, very thin inferior and temporal OU Tmax: CCT: 486 / 488 Gonio: VF: OCT: 82 / 81 (06/04) Surg: none Drops: timolol OU QAM, latanoprost OU QHS Allergy: none 2. Degenerative [...] or new/other concerns arise. Kody Martinez MD I am scribing for Dr. Martinez, while he is performing the service. Kody Martinez MD documented in this encounter Plan of Treatment Upcoming Encounters Date Type Department Care Team (Late st Contact Info) Description 05/24/2024 14:00 EDT Office Visit [facility] Ophthalmology - [facility] [address] [place] [address] Josemanuel Gomes MD 111 [facility] [address] [place] [address] documented as of this encounter Procedures Procedure Name Priority Date/Time Associated Diagnosis Comments OCT, OPTIC NERVE - OU - BOTH EYES Routine 05/29/2020 12:26 EDT Glaucoma suspect of both eyes documented in this encounter Results * OCT, OPTIC NERVE - OU - BOTH EYES (05/29/2020 12:26 EDT) Narrative [facility] POINT OF CARE - 05/29/2020 12:26 EDT See interpretation / assessment in main note. us Kody Martinez MD OPHTH TOMOGRAPHY Final Resul t [facility] POINT OF CARE documented in this encounter Visit Diagnoses Diagnosis Glaucoma suspect of both eyes- Primary Preglaucoma, unspecified Degenerative myopia of both eyes, unspecified whether complication present Posterior vitreous detachment of both eyes Vitreous degeneration Pseudophakia of both eyes Lens replaced by other means documented in this encounter Discontinued Medications Medication Sig Discontinue Reason Start Date End Da te timolol (TIMOPTIC) 0.5 % ophthalmic solution Place 1 Drop into both eyes daily. In the morning. Alternate therapy 05/29/2020 documented as of this encounter Eye Exam Visual Acuity (Snellen - Linear) Right eye Left eye Dist cc 20/25 -1 20/400 ecct +1 Dist ph cc NI Correction: Glasses From RH exam Tonometry (Applanation, 11:33) Right eye Left eye Pressure 24 19 From [facility] exam Pachymetry (05/29/2020) Right eye Left eye Thickness 486 488 Pupils Dark Light Shape React APD Right eye 5 3 Round Brisk None Left eye 5 3.56 Round Brisk None Visual De Jesus Right eye Left eye Full Restrictions Central scotoma From [facility] exam Extraocular Movement Right eye Left eye Full, Ortho Full, Ortho From [facility] exam Neuro/Psych Oriented x3: Yes Mood/Affect: Normal Dilation Both eyes: Phenylephrine 2.5 %, Tropicamide 1% @ 11:33 External Exam Right eye Left eye External [...] tilt, PPA C/D Ratio 0.7 ~0.7 Macula diffuse RPE thinning diffuse RPE thinning Vessels Normal Normal Wearing Rx Sphere Cylinder Birchwood Add Right eye -3.75 +1.75 103 +2.25 Left eye -3.50 +1.75 097 +2.25 Type: PAL Care Teams Quarry Plant Crusher Operator Relationship Specialty Start Date End Date Yoselin Roberts MD [address] [place] [address] [place] [address] PCP - General 04/22/11 documented as of this encounter
--- OUTSIDE RECORDS SUMMARY | 2024-04-02 00:31 | XMS_ITS | Encounter Summary ---
Author Organization [facility] Address [address] [place] [address] Care Team Providers Care Legal Support Manager Name Role Phone Yoselin Roberts MD Primary Care Provider +1- [phone] Encounter Details Date Type Department Care Team (Late st Contact Info) Description 12/17/2019 Lab Requisition [facility] Pathology & Laboratory Medicine - [address] [address] Louise Hunt MD [address] [place] [address] [place], [place] [id number] Encounter for other general examination Social History Tobacco Use Types Packs/Day Years [...] 05/24/2024 14:00 EDT Office Visit [facility] Ophthalmology - [address] [place] [address] Josemanuel Gomes MD [address] [place] [address] [address] [place] [address] documented as of this encounter Procedures Procedure Name Priority Date/Time Associated Diagnosis Comments SURGICAL PATHOLOGY Today 12/17/2019 9:24 EDT documented in this encounter Results * SURGICAL PATHOLOGY (12/17/2019 9:24 EDT) Final Diagnosis A. STOMACH, BIOPSY: - Antral mucosa with mild reactive (chemical) gastropathy. - Negative for Helicobacter pylori microorganisms on H&E stained sections. B. STOMACH, POLYP, BIOPSY: - Fundic gland polyp(s). C. ESOPHAGUS, GE JUNCTION, BIOPSY: - Gastroesophageal junction mucosa with mild reactive changes. - Negative for intestinal metaplasia and dysplasia. D. COLON, DESCENDING, POLYP, BIOPSY: - Tubular adenoma. 12/20/2019 11:41 [facility] Attestation By the signature below, the attending physician certifies that they have 1) personally conducted a gross and/or microscopic examination of the described specimen(s), and/or personally interpreted the results of laboratory testing of the described specimen(s), and 2) personally rendered or confirmed the above diagnosis. 12/20/2019 11:41 [facility] at 1141 Clinical History Abdominal pain, dysphagia, constipation; diverticulosis, colon polyp, external hemorrhoids, gastric polyps, esophagitis 12/20/2019 11:41 [facility] Gross Description A. Received in formalin labelled with proper patient identification (initials L, C) and A. Gastric mucosal biopsy is a single mcgrath tissue (0.5 x 0.3 x 0.1 cm). Submitted intact in A1. B. Received in formalin labelled with proper patient identification (initials L, C) and B. Gastric polyp biopsies are three mcgrath tissues (0.3 x 0.3 x 0.2 cm to 0.2 x 0.2 x 0.2 cm). Entirely submitted in B1. C. Received in formalin labelled with proper patient identification (initials L, C) and C. GE junction biopsies are three pale mcgrath tissues (0.4 x 0.2 x 0.1 cm to 0.1 x 0.1 by less than 0.1 cm). Entirely submitted in C1. D. Received in formalin labelled with proper patient identification (initials L, C) and D. Descending colon polyp is a single mcgrath tissue (0.3 x 0.3 x 0.3 cm). Submitted intact in D1. Mj [place] 12/18/2019 12:47 12/20/2019 11:41 EDT [facility] Performing Lab [facility] 11:41 EDT [facility] Scanned Images 12/20/2019 11:41 T [facility] Tissue DESCENDING COLON STRUCTURE / Unknown 12/17/2019 9:24 EDT 12/18/2019 10:26 EDT Tissue specimen (specimen) SPECIMEN FROM STOMACH OBTAINED BY TOTAL GASTRECTOMY / Unknown 12/17/2019 9:24 EDT 12/18/2019 10:26 EDT Tissue specimen (specimen) CARDIOESOPHAGEAL JUNCTION STRUCTURE / Unknown 12/17/2019 9:24 EDT 12/18/2019 10:26 EDT Tissue specimen (specimen) DESCENDING COLON STRUCTURE / Unknown 12/17/2019 9:24 EDT 12/18/2019 10:26 EDT us Louise Hunt MD PATHOLOGY ORDERABLES Fi nal Result [facility] [address] [place] [address] documented in this encounter Visit Diagnoses Diagnosis Encounter for other general examination documented in this encounter Care Teams Legal Support Manager Relationship Specialty Start Date End Date Yoselin Roberts MD [address] [place] [address] [place] [address] PCP - General 04/22/11 documented as of this encounter
--- OUTSIDE RECORDS SUMMARY | 2024-04-02 00:31 | XMS_ITS | Encounter Summary ---
Author Organization [facility] Address [address] [place] [address] Care Team Providers Care Legal Transcriptionist Name Role Phone Yoselin Roberts MD Primary Care Provider +1- [phone] Reason for Visit * Reason Comments Eye Problem Encounter Details Date Type Department Care Team (Late st Contact Info) Description 01/27/2023 10:15 EST Office Visit [facility] [address] [address] Josemanuel Gomes MD [address] [facility], [address] [place] [address] Social History Tobacco Use Types [...] Progress Notes * Josemanuel Gomes MD - 01/27/2023 1015 EST Chief Complaint Patient presents with ??? Eye Problem HPI 5 weeks s/p Eylea left eye 12/23/22. Wet AMD left eye. Vision seems the same. No pain, or new flashes, or floaters. Gtts: Timolol 2/2 and Latan hs/hs (forgot last night). HPI Location: Left eye Pain: 0 - No pain Quality: Severity: Moderate Duration: Months Timing: Constant Lasts: Continuous Context: Wet AMD left eye. Modifying factors: Glasses. 5 weeks s/p Eylea left eye 12/23/22. Gtts: Timolol 2/2 and Latan hs/hs (forgot last night). Associated Signs & Symptoms: Vision seems the same. No pain, or new flashes, or floaters. Visual Fluctuations: Floaters (Usual floaters.) Attestation: Base Eye Exam Visual Acuity (Snellen - Linear) Right Left Dist cc 20/30 -2 20/300 eccen Dist ph cc NI NI Correction: Glasses Tonometry (Applanation, 10:21) Right Left Pressure 17 17 Neuro/Psych Oriented x3: Yes Mood/Affect: Normal Dilation Both eyes: Tropicamide 1%, Phenylephrine 2.5% @ 10:21 Slit Lamp and Fundus Exam Slit Lamp Exam Right Left Anterior Chamber Deep and quiet Deep and quiet All five layers of the cornea are normal unless otherwise specified. Please refer to large retinal drawing. OCT, Retina - OU - Both Eyes Right Eye Quality was good. Scan locations included subfoveal. Progression has been stable. Findings include (Irregular contour). Left Eye Quality was good. Scan locations included subfoveal. Progression has been stable. Findings include subretinal fluid. Intravitreal Injection, Pharmacologic Agent - OS - Left Eye Time Out 01/27/2023. 10:37. Confirmed correct patient, procedure, site, and patient consented. Anesthesia Topical anesthesia was used. Anesthetic medications included Proparacaine 0.5%, Tetracaine 0.5%. Procedure Preparation included 5% betadine to ocular surface, eyelid speculum. A 30 gauge needle was used. Injection: 2 mg aflibercept 2 mg/0.05 mL Route: intravitreal, Site: Left Eye [facility]: 75059-668-21, Lot: [id number], Expiration date: 03/17/2024 Post-op Post injection exam found visual acuity of at least counting fingers. The patient tolerated the procedure well. There were no complications. The patient received written and verbal post procedure care education. Post injection medications were not given. IMPRESSION: 1. 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 I have reviewed the patient's past medical, family, social and surgical history. I have also reviewed the patient's medications, allergies, and problem list. I performed my own HPI and have reviewed the tech's ROS as well. I personally completed this exam myself. Josemanuel Gomes MD I am scribing for Dr. Josemanuel Gomes MD, while he is personally performing the service. 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 POINT OF CARE - 01/27/2023 12:26 EST Time Out 01/27/2023. 10:37. Confirmed correct patient, procedure, site, and patient consented. Anesthesia Topical anesthesia was used. Anesthetic medications included Proparacaine 0.5%, Tetracaine 0.5%. Procedure Preparation included 5% betadine to ocular surface, eyelid speculum. A 30 gauge needle was used. Injection: 2 mg aflibercept 2 mg/0.05 mL ??Route: intravitreal, Site: Left Eye ??[facility]: [id number], Lot: [id number], Expiration date: 03/17/2024 Post-op Post injection exam found visual acuity of at least counting fingers. The patient tolerated the procedure well. There were no complications. The patient received written and verbal post procedure care education. Post injection medications were not given. Josemanuel Gomes MD [facility] PROCEDURES Final Result [facility] POINT OF CARE * OCT, RETINA - OU - BOTH EYES (01/27/2023 10:46 EST) Narrative [facility] OPHTHALMOLOGY - 01/27/2023 12:26 EST Right Eye Quality was good. Scan locations included subfoveal. Progression has been stable. Findings include (Irregular contour). Left Eye Quality was good. Scan locations included subfoveal. Progression has been stable. Findings include subretinal fluid. 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) Given 01/27/2023 12:26 EST 2 mg Left Eye documented in this encounter Orders Medications Ordered That Ramon ht Not Have Been Administered Count Last Ordered Date First Ordered Date aflibercept (EYLEA) intravit real syringe 2 mg 1 01/27/2023 documented in this encounter Eye Exam Visual Acuity (Snellen - Linear) Right eye Left eye Dist cc 20/30 -2 20/300 eccen Dist ph cc NI NI Correction: Glasses Tonometry (Applanation, 10:21) Right eye Left eye Pressure 17 17 Neuro/Psych Oriented x3: Yes Mood/Affect: Normal Dilation Both eyes: Tropicamide 1%, P henylephrine 2.5% @ 10:21 Slit Lamp Exam Right eye Left eye Anterior Chamber Deep and quiet Deep and quiet Care Teams Legal Transcriptionist Relationship Specialty Start Date End Date Yoselin Roberts MD [address] [place] [address] [place] [address] PCP - General 04/22/11 documented as of this encounter
--- OUTSIDE RECORDS SUMMARY | 2024-04-02 00:32 | XMS_ITS | Encounter Summary ---
Author Organization [facility] Address [address] [place] [address] Care Team Providers Care Voice Intercept Technician Name Role Phone Yoselin Roberts MD Primary Care Provider +1- [phone] Reason for Referral * (Routine) - New Request Specialty Diagnoses / Procedures Referred By Contac t Referred To Contact Diagnoses Retinal neovascularization of both eyes Procedures OCT (OPHTHALMIC DIGITAL IMAGING, POSTERIOR SEGMENT) Josemanuel Gomes MD Phone: tel: fax: Referral ID Status Reason Start Date Expiration Date V isits Requested Visits Authorized [id number] New Request 09/10/2018 1 1 Reason for Visit * Reason Comments Eye Problem High myopiaQ. 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 Eye Problem High myopia Q. CNVM Vit syneresis left eye HPI Location: Both eyes Pain: 0 - No pain Quality: Blurry Severity: Mild Duration: Months Timing: Constant Lasts: Continuous Context: Pt feels she needs a new Rx b/c her Va is worse at a distance. Va is more blurred now x 3 mos which is staying the same since onset. Modifying factors: s/p ptosis sx both eyes 08/19/18 Associated Signs & Symptoms: +floaters, ongoing. Denies flashes of light. Pt is doing well Had ptosis surgery left recently Has suture in place Is a little itchy Better than before Vision is fairly good both at near Distance not quite as good both Visual Fluctuations: None Attestation: Base Eye Exam Visual Acuity (Snellen - Linear) Right Left Dist cc 20/40 -2 20/300 ECCEN -1 Dist ph cc NI NI Correction: Glasses Tonometry (Applanation, 12:39) Right Left Pressure 19 19 Pupils Pupils Right PERRL Left PERRL Visual De Jesus Right Left Full Full Extraocular Movement Right Left Full, Ortho Full, Ortho Neuro/Psych Oriented x3: Yes Mood/Affect: Normal Dilation Both eyes: 1.0% Mydriacyl, 2.5% Phenylephrine @ 12:39 Slit Lamp and Fundus Exam External Exam [...] fluid or heme Vessels Normal Normal Periphery scattered cobblestones scattered cobblestones All five layers of the cornea are normal unless otherwise specified. Please refer to large retinal drawing. IMAGING: OCT REPORT Indications: Choroidal Neovascular Membrane Findings: Right Eye Left Eye Normal Subretinal Scar Original test to be found in patients shadow chart IMPRESSION: 1. Retinal neovascularization of both eyes OCT (OPHTHALMIC DIGITAL IMAGING, POSTERIOR SEGMENT) 2. Posterior vitreous detachment of both eyes 3. Degenerative myopia of both eyes PLAN: CNVM left looks quiet Observe Pt agrees PVD both No tears Retina flat No RD HM both No tears RD precautions Suture removed APRIL without complication See LH as scheduled See me 4 mnths sooner PRN I have reviewed the patient's past medical, family, social and surgical history. I have also reviewed the patient's medications, allergies, and problem list. I performed my own HPI and have reviewed the tech's ROS as well. I personally completed this exam myself. Josemanuel Gomes MD I am scribing for Dr. Josemanuel Gomes MD, while he is personally performing the service. documented in this encounter Plan of Treatment Upcoming Encounters Date Type Department Care Team (Late st Contact Info) Description 05/24/2024 14:00 EDT Office Visit [facility] Ophthalmology - [id number] [place] [address] Josemanuel Gomes MD [address] [facility], [address] [place] [address] Scheduled Orders Name Type Priority Associated Diagnoses Orde r Schedule OCT (OPHTHALMIC DIGITAL IMAGING, POSTERIOR SEGMENT) Ophthalmology Routine Retinal neovascularization of both eyes Ordered: 09/10/2018 documented as of this encounter Visit Diagnoses Diagnosis Retinal neovascularization of both eyes- Primary Retinal neovascularization NOS Posterior vitreous detachment of both eyes Vitreous degeneration Degenerative myopia of both eyes Progressive high (degenerative) myopia documented in this encounter Eye Exam Visual Acuity (Snellen - Linear) Right eye Left eye Dist cc 20/40 -2 20/300 ECCEN -1 Dist ph cc NI NI Correction: Glasses Tonometry (Applanation, 12:39) Right eye Left eye Pressure 19 19 Pupils Pupils Right eye PERRL Left eye PERRL Visual De Jesus Right eye Left eye Full Full Extraocular Movement Right eye Left eye Full, Ortho Full, Ortho Neuro/Psych Oriented x3: Yes Mood/Affect: Normal Dilation Both eyes: 1.0% Mydriacyl, 2 .5% Phenylephrine @ 12:39 External Exam Right eye Left eye External [...] fluid or heme Vessels Normal Normal Periphery scattered cobblestones scattered cobblestones Care Teams Voice Intercept Technician Relationship Specialty Start Date End Date Yoselin Roberts MD [address] [place] [address] [place] [address] PCP - General 04/22/11 documented as of this encounter
--- OUTSIDE RECORDS SUMMARY | 2024-04-02 00:32 | XMS_ITS | Encounter Summary ---
Author Organization [facility] Address [address] [place] [address] Care Team Providers Care Repeat Photocomposing Machine Operator Name Role Phone Yoselin Roberts MD Primary Care Provider +1- [phone] Reason for Visit * Reason Comments Eye Problem Pt notes suture on t he left eyelid has come undone 3 days ago. No pain, redness or discharge. Swelling has gone down. Using Maxitrol BID left side makes it feel better. Encounter Details Date Type Department Care Team (Late st Contact Info) Description 09/01/2018 11:15 EDT Office Visit [facility] Ophthalmology - [address] [address] Rocio Gama MD [address] [facility], [address] [place] [address] Social History Tobacco Use Types [...] on file documented as of this encounter Last Filed Vital Signs Vital Sign Reading Time Taken Comments Blood Pressure 130/82 09/01/2018 1135 EDT Pulse - - Temperature - - Respiratory Rate - - Oxygen Saturation - - Inhaled Oxygen Concentration - - Weight - - Height - - Body Mass Index - - documented in this encounter Functional Status * Because of [...] 01/31/2017 9:14 EST documented in this encounter Procedure Notes * Rocio Gama MD - 09/01/2018 1115 EDT Title of procedure: resuturing of wound of left upper eyelid Pre-operative diagnosis: wound dehiscence, left upper eyelid Post-operative diagnosis: same Surgeon: Rocio Gama MD Anesthesia: local 2% lidocaine with 1:100,000 epinephrine INformed consent obtained. Site identifed and marked. Time out held. Local anesthetic infected. Edges of wounds de-epithelialized with forceps and scissors. Hemostasis maintained with bipolar cautery. The wound was resutured with 8-0 nylon. Maxitrol ointment applied. Follow up in 1 week for suture removal. documented in this encounter Plan of Treatment Upcoming Encounters Date Type Department Care Team (Late st Contact Info) Description 05/24/2024 14:00 EDT Office Visit [facility] Ophthalmology - [address] [place] [address] Josemanuel Gomes MD [address] [facility], [address] [place] [address] documented as of this encounter Visit Diagnoses Diagnosis Wound dehiscence- Primary Disruption of external operation (surgical) wound documented in this encounter Discontinued Medications Medication Sig Discontinue Reason Start Date End Da te mhwcqenu-mtnocbnhv-rjfai ethasone (MAXITROL) ophthalmic ointment Apply to both upper eyelids twice daily for 10 days Therapy completed 08/19/2018 09/01/2018 documented as of this encounter Eye Exam Visual Acuity (Snellen - Linear) Right eye Left eye Dist cc 20/40 -2+1 20/300 -1 Dist ph cc 20/30 -2 Tonometry (Applanation, 11:43) Right eye Left eye Pressure 20 20 Pupils Pupils Right eye PERRL Left eye PERRL Neuro/Psych Oriented x3: Yes Mood/Affect: Normal Care Teams Repeat Photocomposing Machine Operator Relationship Specialty Start Date End Date Yoselin Roberts MD [address] [place] [address] [place] [address] PCP - General 04/22/11 documented as of this encounter
--- OUTSIDE RECORDS SUMMARY | 2024-04-02 00:32 | XMS_ITS | Encounter Summary ---
Author Organization [facility] Address [address] [place] [address] Care Team Providers Care Enlisted Aircrew/Aerial Observer/Gunner Name Role Phone Yoselin Roberts MD Primary Care Provider +1- [phone] Reason for Referral * (Routine) - Closed Specialty Diagnoses / Procedures [facility] To Contact Diagnoses CNVM (choroidal neovascular membrane), left Progressive high myopia, bilateral Procedures OCT (OPHTHALMIC DIGITAL IMAGING, POSTERIOR SEGMENT) Josemanuel Gomes MD Phone: tel: fax: Referral ID Status Reason Start Date Expiration Date Visits Re quested Visits Authorized [id number] Closed 06/03/2016 1 1 Reason for Visit * Reason Comments Eye Problem High myope, Hx of CN VM left eye with Hx of avastin injections Encounter Details Date Type Department Care Team (Late st Contact Info) Description 06/03/2016 13:45 EDT Office Visit [facility] Ophthalmology - [facility] [address] [place] [address] Josemanuel Gomes MD [address] [facility], [address] [place] [address] Discharge Disposition: Auto Discharge Social History Tobacco Use Types Packs/Day Years Used Date Smoking Tobacco: Never Alcohol Use Standard Drinks/Week Comments [...] on file documented as of this encounter Discharge Diagnoses Diagnosis H35.052 Retinal neovascularization, unspecified, left eye-H35.052[ICD-10-CM] H43.813 Vitreous degeneration, bilateral-H43.813[ICD-10-CM] H44.23 Degenerative myopia, bilateral-H44.23[ICD-10-CM] documented in this encounter Discharge Disposition Disposition Code Departure Means Destination Auto Discharge documented in this encounter Progress Notes * Josemanuel Gomes MD - 06/03/2016 9638 EDT Chief Complaint Patient presents with ??? Eye Problem High myope, Hx of CNVM left eye with Hx of avastin injections HPI Location: Left eye Pain: 0 - No pain Quality: Blurry Severity: Moderate Duration: Years Timing: Constant Lasts: Continuous Context: High myope, Hx of CNVM left eye Modifying factors: hx of avastin injections left eye Associated Signs & Symptoms: chronically blurred vision left eye, no changes noticed. Able to read fine print with specs, distance vision seems stable As long as she has glasses, she can see both But small print gives her a hard time both eyes left more than right Visual Fluctuations: None Attestation: Base Eye Exam Visual Acuity (Snellen - Linear) Right Left Dist cc 20/25 +2 20/80 -1 Correction: Glasses Tonometry (Applanation, 14:14) Right Left Pressure 19 19 Pupils Pupils Right PERRL Left PERRL Visual De Jesus Right Left Result Full Full Extraocular Movement Right Left Result Full Full Neuro/Psych Oriented x3: Yes Mood/Affect: Normal Dilation Both eyes: 1.0% Mydriacyl, 2.5% Phenylephrine @ 14:14 Slit Lamp and Fundus Exam External Exam Right Left External Normal Normal Slit Lamp Exam Right Left Lids/Lashes Blepharitis Blepharitis Conjunctiva/Sclera White and quiet White and quiet Cornea Arcus, SPK Arcus, SPK Anterior Chamber Deep and quiet Deep and quiet Iris Round and reactive Round and reactive Lens Posterior chamber intraocular lens Posterior chamber intraocular lens Vitreous Posterior vitreous detachment Posterior vitreous detachment Fundus Exam Right Left Disc tilted , Peripapillary atrophy tilted , Peripapillary atrophy C/D Ratio 0.3-0.4 0.3-0.4 Macula RPE changes, no heme atrophic scar, no fluid or heme Vessels Normal Normal Periphery Normal Normal All five layers of the cornea are normal unless otherwise specified. Please refer to large retinal drawing. IMAGING: OCT REPORT Test Details: of , Indications: Cystoid Macular Edema Findings: Right Eye Left Eye irregular irregular with small scar Original test to be found in patients shadow chart IMPRESSION: 1. CNVM (choroidal neovascular membrane), left OCT (OPHTHALMIC DIGITAL IMAGING, POSTERIOR SEGMENT) 2. Progressive high myopia, bilateral OCT (OPHTHALMIC DIGITAL IMAGING, POSTERIOR SEGMENT) 3. Posterior vitreous detachment of both eyes PLAN: Quiescent CNVM left eye Hold on injection Continue observation High myopia both eyes No holes, tears or RD RD warnings reviewed PVD both eyes, no tears Follow Recheck 3 months, sooner prn I, Dr. Josemanuel Gomes, have performed my own HPI and reviewed the tech's ROS. I have also reviewed thepatient's past medical, family, social and surgical history, as well as the patient's medications, allergies, and problem list. I am scribing for Josemanuel Gomes MD while he is personally performing the service. ARELY Atkinson (Scribe) documented in this encounter Plan of Treatment Upcoming Encounters Date Type Department Care Team (Late st Contact Info) Description 05/24/2024 14:00 EDT Office Visit [facility] Ophthalmology - [address] [place] [address] Josemanuel Gomes MD [address] [place] [address], [address] [place] [address] Scheduled Orders Name Type Priority Associated Diagnoses Orde r Schedule OCT (OPHTHALMIC DIGITAL IMAGING, POSTERIOR SEGMENT) Ophthalmology Routine CNVM (choroidal neovascular membrane), left Progressive high myopia, bilateral Ordered: 06/03/2016 documented as of this encounter Visit Diagnoses Diagnosis CNVM (choroidal neovascular membrane), left- Primary Progressive high myopia, bilateral Posterior vitreous detachment of both eyes Vitreous degeneration documented in this encounter Eye Exam Visual Acuity (Snellen - Linear) Right eye Left eye Dist cc 20/25 +2 20/80 -1 Correction: Glasses Tonometry (Applanation, 14:14) Right eye Left eye Pressure 19 19 Pupils Pupils Right eye PERRL Left eye PERRL Visual De Jesus Right eye Left eye Full Full Extraocular Movement Right eye Left eye Full Full Neuro/Psych Oriented x3: Yes Mood/Affect: Normal Dilation Both eyes: 1.0% Mydriacyl, 2 .5% Phenylephrine @ 14:14 External Exam Right eye Left eye External Normal Normal Slit Lamp Exam Right eye Left eye Lids/Lashes Blepharitis Blepharitis Conjunctiva/Sclera White and quiet White and marysol et Cornea Arcus, SPK Arcus, SPK Anterior Chamber Deep and quiet Deep and quiet Iris Round and reactive Round and marko ctive Lens Posterior chamber in traocular lens Posterior chamber intraocular lens Vitreous Posterior vitreous detachment Po sterior vitreous detachment Fundus Exam Right eye Left eye Disc tilted , Peripapillary atrophy t ilted , Peripapillary atrophy C/D Ratio 0.3-0.4 0.3-0.4 Macula RPE changes, no heme atrophic sc ar, no fluid or heme Vessels Normal Normal Periphery Normal Normal Care Teams Enlisted Aircrew/Aerial Observer/Gunner Relationship Specialty Start Date End Date Yoselin Roberts MD [address] [place] [address] [place] [address] PCP - General 04/22/11 documented as of this encounter
--- OUTSIDE RECORDS SUMMARY | 2024-04-02 00:32 | XMS_ITS | Encounter Summary ---
Author Organization [facility] Address [address] [place] [address] Care Team Providers Care Parts Fabricator Name Role Phone Yoselin Roberts MD Primary Care Provider +1- [phone] Reason for Visit * Reason Comments Atrial Fibrillation Encounter Details Date Type Department Care Team (Late st Contact Info) Description 01/31/2017 9:00 EST Office Visit [facility] Cardiology - [address] [address] Carlos Metz Sa, MD [address] [place] [address] [address] [place] [address] Atrial fibrillation, unspecified type (CMS-HCC) (HCC-CMS) (Primary Dx); SVT (supraventricular tachycardia) (CMS-HCC) (HCC-CMS) Discharge Disposition: Auto Discharge Social History Tobacco [...] Sign Reading Time Taken Comments Blood Pressure 124/84 01/31/2017 0907 EST Pulse 68 01/31/2017 0907 EST irregula r Temperature - - Respiratory Rate - - Oxygen Saturation - - Inhaled Oxygen Concentration - - Weight 99.3 kg (219 lb) 01/31/2017 0907 EST Height 162.6 cm (5' 4) 01/31/2017 0907 EST Body Mass Index 37.59 01/31/2017 0907 EST documented in this encounter Functional Status * [...] documented in this encounter Discharge Diagnoses Diagnosis I48.91 Unspecified atrial fibrillation-I48.91[ICD-10-CM] I47.1 Supraventricular tachycardia-I47.1[ICD-10-CM] documented in this encounter Discharge Disposition Disposition Code Departure Means Destination Auto Discharge documented in this encounter Progress Notes * Carlos Metz Sa, MD - 01/31/2017 0900 EST Electrophysiology Clinic New Patient Encounter Chief Complaint Patient presents with ??? Atrial Fibrillation HPI: I had the privilege of seeing Mrs Fritz at the cardiac arrhythmia at the request of Dr Perry in forconsultation regarding supraventricular tachycardia. This very pleasant 76-year-old lady states that she started having palpitations in her 50s. She describes a sudden onset and offset of very fast beats that were associated with shortness of breath and diaphoresis. Finally, diagnosis of supraventricular tachycardia was made. She states that for 3 occasions she had to go to the ER and receive adenosine for tachycardia termination. Vagal maneuvers had had mixed results. In 2016, the patient underwent an ablation procedure at [facility]. I do not have the results of that ablation procedure. The patient states that the ablation was unsuccessful, and ever since she has been taking diltiazem. Now, she is on treatment for obstructive sleep apnea. She states that she will have an episode for up to 15 minutes, every other month. She states that the episodes are now not very bothersome. At some point, she was on a higher dose of diltiazem but had to be decreased due to fatigue. She denies syncope. A 10-point review of systems was conducted. Pertinent positives are noted in HPI. Past Medical History: Diagnosis Date ??? Arthropathy ??? Blood transfusion ??? Fibromyalgia ??? Glaucoma ??? Ptosis ??? Thyroid disease Allergies as of 01/31/2017 - Jimy as Reviewed 01/31/2017 Allergen Reaction Noted ??? Percocet [oxycodone-acetaminophen] Other (See Comments) 01/31/2017 ??? Sulfa (sulfonamide antibiotics) 01/22/2010 Social History Social History ??? Marital status: Spouse name: N/A ??? Number of children: N/A ??? Years of education: N/A Occupational History ??? [employer] ??? [employer] Social History Main Topics ??? Smoking status: Never Smoker ??? Smokeless tobacco: Never Used ??? Alcohol use Yes Comment: occ ??? Drug use: Not on file ??? Sexual activity: Not on file Other Topics Concern ??? Not on file Social History Narrative Family History Problem Relation Age of Onset ??? Macular Degeneration Mother ??? Diabetes Maternal Grandmother ??? Blindness Neg Hx ??? Cataract Neg Hx ??? Glaucoma Neg Hx ??? Retinal Detachment Neg Hx ??? Keratoconus Neg Hx ??? Retinitis Pigmentosa Neg Hx Patient Active Problem List Diagnosis Date Noted ??? SVT (supraventricular tachycardia) [facility] 01/31/2017 Priority: Medium ??? 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 Degenerative myopia 08/08/2010 ??? Posterior vitreous detachment of both eyes 08/08/2010 ??? Blepharitis of both eyes 08/08/2010 ??? 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 Pseudophakia of both eyes 11/07/2009 Medications Prior to Today's Visit Medication Sig ??? aspirin 81 mg EC tablet Take 81 mg by mouth daily. ??? CELECOXIB (CELEBREX ORAL) Take 200 mg by mouth daily. ??? DILTiazem (TIAZAC) 120 mg SR capsule Take 180 mg by mouth daily. ??? duloxetine (CYMBALTA) 60 mg capsule Take 60 mg by mouth daily. ??? lansoprazole (PREVACID) 30 mg capsule Take 30 mg by mouth daily. ??? latanoprost (XALATAN) 0.005 % ophthalmic solution Place 1 Drop into both eyes at bedtime. ??? levothyroxine (SYNTHROID) 100 mcg tablet Take 125 mcg by mouth daily. ??? loratadine (CLARITIN) 10 mg tablet Take 10 mg by mouth daily. PRN ??? losartan (COZAAR) 50 mg tablet Take 50 mg by mouth daily. ??? Multivitamins with Minerals Tab Take 1 Tab by mouth daily. ??? PREGABALIN (LYRICA ORAL) Take by mouth ??? simvastatin (ZOCOR) 10 mg tablet Take 10 mg by mouth every evening. ??? sumatriptan (IMITREX) 50 mg tablet Take 50 mg by mouth as needed. ??? timolol (TIMOPTIC) 0.5 % ophthalmic solution Place 1 Drop into both eyes daily. In the morning. ??? UNABLE TO FIND 1,000 mg daily. Med Name: Lineilic (CLA), 1000 mg. No facility-administered medications prior to visit. Exam Vitals: 01/31/17 0907 BP: 124/84 Pulse: 68 Weight: 99.3 kg (219 lb) Height: 162.6 cm (64) Body mass index is 37.59 kg/(m^2). General: Alert, cooperative, no distress, appears stated age. Eyes: Conjunctivae not injected, not pale, nonicteric. Ears: Hearing grossly intact. Neck: Trachea midline, no adenopathy, no thyromegaly. Lungs: Clear to auscultation bilaterally. Chest wall: No tenderness or deformity. Heart: Regular heart sounds, S1, S2 normal, no murmur or rub heard. Abdomen: Soft, non-tender to palpation. No masses felt, No organomegaly. No bruits heard. Extremities: No peripheral edema. No cyanosis. Pulses: Radial pulses 2+ bilaterally. Dorsalis pedis and tibialis posterior 2+ bilaterally. Skin: No pallor, rashes or lesions. Neurologic: Normal strength, nonfocal on exam. Data No results found for: NA, K, CL, CO2, BUN, CREATININE, GLUCOSE, CALCIUM, MG, PHOS CrCl cannot be calculated (No order found.). Lab Results Component Value Date/Time WBC 5.02 10/06/2012 09:13 HCT 37.7 10/06/2012 09:13 PLT 243 10/06/2012 09:13 MCV 92 10/06/2012 09:13 No results found for: INR, PTT No results found for: CHOL, LDLBASE, HDL, TRIG, HGBA1C No results found for: BNP, NTBNP, TSH A/P: 1. Supraventricular tachycardia, currently partially suppressed with diltiazem. 2. Treated obstructive sleep apnea. EKG obtained in the office today demonstrated sinus rhythm with 1 PVC. I had a long discussion with Mrs Fritz regarding her condition. She gives a good history for episodes of recurrent supraventricular tachycardia and states that she had a failed ablation procedure at [facility]. I would like to get the records from her ablation procedure as well as the recent cardiology evaluation by Dr Perry. We discussed the 2 main options, one proceeding to a repeated ablation procedure or continue watchful waiting. As she feels generally well on the current dose of diltiazem, particularly after treating the sleep apnea, and she will need calcium channel blockers or other medications to control blood pressure moving forward, it would be reasonable to just continue current management. The patient is not interested in having an ablation procedure now; however, we gave her our office contact number, and we would be happy to schedule an ablation if she has more recurrent episodes. It was a privilege to be involved in her care. Please do not hesitate to contact me if you have further questions. I reviewed records. She had a cryoablation for AVNRT. Also had frequent PVCs with dobutamine infusion. Plan as above. Carlos nelson Sa, MD 01/31/2017 9:43 Cardiac Construction Director CC: Yoselin Roberts documented in this encounter Plan of Treatment Upcoming Encounters Date Type Department Care Team (Late st Contact Info) Description 05/24/2024 14:00 EDT Office Visit [facility] Ophthalmology - On License Of [facility] [address] [place] [address] Josemanuel Gomes MD [address] [place] [address], [address] [place] [id number] documented as of this encounter Procedures Procedure Name Priority Date/Time Associated Diagnosis Comments ECG REPORT - SCANNED 02/01/2017 14:29 EST EKG 12-LEAD Routine 01/31/2017 9:18 EST Atrial fibrillation, unspecified type (CMS-HCC) (HCC-CMS) documented in this encounter Results * ECG REPORT - SCANNED (02/01/2017 14:29 EST) 02/01/2017 14:2 9 EST us Scan 2 Nurse Licensed Practical PROCEDURE/MINOR SURGICAL OR DERABLES Final Result * EKG 12-LEAD (01/31/2017 9:18 EST) 01/31/2017 9:18 EST Narrative [facility] EKG - 02/01/2017 14:25 EST ? [facility] ? Test Date: ?2017-01-31 Pat Name: ? MACY FRITZ ?Department: ?? [facility] ? Room: ? Gender: ? F ?Grind Operator: ?? [id number] : ?1940 ? Requested By: TAIWO Gaytan Order Number: [id number] ? Reading MD: ?? ABELINO CORTEZ MD ? Measurements Intervals ?[place] ? Rate: ? 67 ? P: ?61 WI: ? 178 ?QRS: ?7 QRSD: ? 98 ? T: ?43 QT: ? 380 ? QTc: ?403 ? Interpretive Statements SINUS RHYTHM WITH OCCASIONAL VENTRICULAR PREMATURE COMPLEXES OTHERWISE NORMAL EKG. Compared to ECG 08/22/2003 14:51:39 Ventricular premature complex(es) now present I reviewed the tracing and have either agreed or edited the findings in this report. Electronically Signed On 02-01-17 14:25:40 EST by ABELINO CORTEZ MD. Procedure Note Abelino Cortez MD - 02/01/2017 [facility] Test Date: 2017-01-31 Pat Name: MACY FRITZ Department: [facility] Room: Gender: F Grind Operator: [id number] : 1940 Requested By: TAIWO BREWER Order Number: [id number] Reading MD: ABELINO CORTEZ MD Measurements Intervals [place] Rate: 67 P: 61 WI: 178 QRS: 7 QRSD: 98 T: 43 QT: 380 QTc: 403 Interpretive Statements SINUS RHYTHM WITH OCCASIONAL VENTRICULAR PREMATURE COMPLEXES OTHERWISE NORMAL EKG. Compared to ECG 08/22/2003 14:51:39 Ventricular premature complex(es) now present I reviewed the tracing and have either agreed or edited the findings inthis report. Electronically Signed On 02-01-17 14:25:40 EST by ABLEINO GALICIA. us Carlos nelson Sa, MD CARDIAC ECG ORDERABLES Final Result [facility] EKG documented in this encounter Visit Diagnoses Diagnosis Atrial fibrillation, unspecified type (HCC-CMS)- Primary SVT (supraventricular tachycardia) (HCC-CMS) Other specified cardiac dysrhythmias documented in this encounter Care Teams Parts Fabricator Relationship Specialty Start Date End Date Yoselin Roberts MD [address] [place] [address] [place] [address] PCP - General 04/22/11 documented as of this encounter
--- OUTSIDE RECORDS SUMMARY | 2024-04-02 00:32 | XMS_ITS | Encounter Summary ---
Author Organization [facility] Address [address] [place] [address] Care Team Providers Care Community Support Professional Name Role Phone Yoselin Roberts MD Primary Care Provider +1- [phone] Reason for Referral * (Routine) - Closed Specialty Diagnoses / Procedures [facility] Referred To Contact Diagnoses CNVM (choroidal neovascular membrane) Procedures OCT (OPHTHALMIC DIGITAL IMAGING, POSTERIOR SEGMENT) Josemanuel Gomes MD Phone: tel: fax: Referral ID Status Reason Start Date Expiration Date Visits Re quested Visits Authorized [id number] Closed 08/04/2014 1 1 Reason for Visit * Reason Comments Eye Problem CNVM left eye histor y of Avastin left eye. 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 Modifying factors: History of Avastin injections left eye Associated Signs & Symptoms: Vision both eyes is the same. No pain,flashes or floaters Feels like she has central blind spot in left eye Has to move her eye around to see around it however Visual Fluctuations: None Attestation: Base Eye Exam Visual Acuity (Snellen - Linear) Right Left Dist cc 20/30 20/200 Tonometry (Applanation, 13:25) Right Left Pressure 15 16 Pupils Pupils APD Right PERRL None Left PERRL None Extraocular Movement Right Left Result Full Full Neuro/Psych Oriented x3: Yes Mood/Affect: Normal Dilation Both eyes: 2.5% Phenylephrine, 1.0% Mydriacyl @ 13:25 Slit Lamp and Fundus Exam Pen Light Exam Right Left Lids/Lashes Blepharitis Blepharitis Conjunctiva/Sclera White and quiet White and quiet Cornea Clear Clear Anterior Chamber Deep and quiet Deep and quiet Iris Round and reactive Round and reactive Lens Posterior chamber intraocular lens Posterior chamber intraocular lens Vitreous Posterior vitreous detachment Posterior vitreous detachment Fundus Exam Right Left Disc tilted Normal C/D Ratio 0.5-0.6 0.5 Macula RPE changes, no fluid or heme atrophic scar, no fluid or heme Vessels Normal Normal Periphery Normal Normal Edited by: Mona Thomas OTA; Corinna Gilmore OTA All five layers of the cornea are normal unless otherwise specified. Please refer to large retinal drawing. IMAGING: OCT REPORT Indications: CNVM Findings: Right Eye Left Eye - scar Original test to be found in patients shadow chart IMPRESSION: 1. CNVM (choroidal neovascular membrane) OCT (OPHTHALMIC DIGITAL IMAGING, POSTERIOR SEGMENT) 2. Progressive high (degenerative) myopia 3. Posterior vitreous detachment of both eyes PLAN: CNVM left eye Looks quiet Hold injection today Also pt sick PVD both eyes No holes, tears Observe HM both eyes No holes, tears Observe Return in 5-6 wks with OCT and ?Avastin I, Dr. Josemanuel Gomes, have performed my [...] Description 05/24/2024 14:00 EDT Office Visit [facility] Ophthalmology - [facility] [address] [place] [address] Josemanuel Gomes MD [address] [place] [address], [address] [place] [address] Scheduled Orders Name Type Priority Associated Diagnoses Orde r Schedule OCT (OPHTHALMIC DIGITAL IMAGING, POSTERIOR SEGMENT) Ophthalmology Routine CNVM (choroidal neovascular membrane) Ordered: 08/04/2014 documented as of this encounter Visit Diagnoses Diagnosis CNVM (choroidal neovascular membrane)- Primary 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 Posterior vitreous detachment of both eyes Vitreous degeneration documented in this encounter Discontinued Medications Medication Sig Discontinue Reason Start Date End Da te Fenofibrate Nanocrystallized (TRICOR) 145 mg Tab Take 160 mg by mouth daily. Therapy completed 08/04/2014 MV,CA,MIN/FA/HERBAL NO.159 (ESTROVEN REGULAR STRENGTH ORAL) Take 1 Tab by mouth daily. Therapy completed 08/04/2014 documented as of this encounter Eye Exam Visual Acuity (Snellen - Linear) Right eye Left eye Dist cc 20/30 20/200 Tonometry (Applanation, 13:25) Right eye Left eye Pressure 15 16 Pupils Pupils APD Right eye PERRL None Left eye PERRL None Extraocular Movement Right eye Left eye Full Full Neuro/Psych Oriented x3: Yes Mood/Affect: Normal Dilation Both eyes: 2.5% Phenylephrin e, 1.0% Mydriacyl @ 13:25 Pen Light Exam Right eye Left eye Lids/Lashes Blepharitis Blepharitis Conjunctiva/Sclera White and quiet White and marysol et Cornea Clear Clear Anterior Chamber Deep and quiet Deep and quiet Iris Round and reactive Round and marko ctive Lens Posterior chamber in traocular lens Posterior chamber intraocular lens Vitreous Posterior vitreous detachment Po sterior vitreous detachment Fundus Exam Right eye Left eye Disc tilted Normal C/D Ratio 0.5-0.6 0.5 Macula RPE changes, no fluid or heme at rophic scar, no fluid or heme Vessels Normal Normal Periphery Normal Normal Care Teams Community Support Professional Relationship Specialty Start Date End Date Yoselin Roberts MD [address] [place] [address] [place] [address] PCP - General 04/22/11 documented as of this encounter
--- OUTSIDE RECORDS SUMMARY | 2024-04-02 00:32 | XMS_ITS | Encounter Summary ---
Author Organization [facility] Address [address] [place] [address] Care Team Providers Care Manager Ambulatory Name Role Phone Yoselin Roberts MD Primary Care Provider [phone]- [phone] Encounter Details Date Type Department Care Team (Late st Contact Info) Description 08/19/2018 11:35 EDT - 08/19/2018 16:44 EDT Hospital Encounter [facility] Perioperative Services - [address] [id number] Rocio Gama MD [address] [facility], [address] [place] [address] Discharge Disposition: Home or Self Care Social [...] Sign Reading Time Taken Comments Blood Pressure 129/70 08/19/2018 1630 EDT Pulse - - Temperature 36.2 ??C (97.2 ??F) 08/19/2018 1630 EDT Respiratory Rate 20 08/19/2018 1630 EDT Oxygen Saturation 99% 08/19/2018 1630 EDT Inhaled Oxygen Concentration - - Weight 99.8 kg (220 lb) 08/12/2018 1048 EDT Height 161.3 cm (5' 3.5) 08/12/2018 1048 EDT Body Mass Index 38.36 08/12/2018 1048 EDT documented in this encounter Functional Status * [...] Diagnosis H02.403 Unspecified ptosis of bilateral eyelids-H02.403[ICD-10-CM] I10 Essential (primary) hypertension-I10[ICD-10-CM] E78.00 Pure hypercholesterolemia, unspecified-E78.00[ICD-10-CM] K21.9 Gastro-esophageal reflux disease without esophagitis-K21.9[ICD-10-CM] E03.9 Hypothyroidism, unspecified-E03.9[ICD-10-CM] Z79.899 Other correction (current) drug therapy-Z79.899[ICD-10-CM] documented in this encounter Discharge Instructions * Discharge Instructions* Rocio Gama MD - 08/19/2018 13:37 EDT - You may shower after 24 hours and get incisions wet (wash face like usual) - For 3 days, no heavy lifting or heavy activity including running; no bending below the waist. - No eye rubbing - Use prescribed ointment on wounds over both upper eyelids twice a day - Use ice over the wounds for 15 minutes of every 1-2 hours you are awake for the first 48 hours. - Take Tylenol 650mg by mouth every 4-6 hours as needed for pain control (not to exceed a total of 4000mg in 24 hours) - Follow up in 7-[address] Gama (if unsure of appointment time, call [phone]) - If you have decreasing vision, uncontrollable pain, or significant bleeding call [phone] Gama documented in this encounter Medications at Time of Discharge CELECOXIB (CELEBREX ORAL) Take 200 mg by [...] Take 81 mg by mouth daily. 2 neomycin-polymyx in-dexamethasone (MAXITROL) ophthalmic ointment Apply to both upper eyelids twice daily for 10 days 1 Tube 08/19/2018 9 neomycin-polymyx in-dexamethasone (MAXITROL) ophthalmic ointment Apply to both upper eyelids twice daily for 10 days 1 Tube 08/19/2018 9 timolol (TIMOPTIC) 0.5 % ophthalmic solution Place 1 Drop into both eyes daily. In the morning. 1 documented as of this encounter Ordered Prescriptions Prescription Sig Dispense Quantity Refills Last Filled Start Date End Date neomycin-polymyxin -dexamethasone (MAXITROL) ophthalmic ointment Apply to both upper eyelids twice daily for 10 days 1 Tube 08/19/2018 9 neomycin-polymyxin -dexamethasone (MAXITROL) ophthalmic ointment Apply to both upper eyelids twice daily for 10 days 1 Tube 08/19/2018 9 documented in this encounter Discharge Disposition Disposition Code Departure Means Destination Home or Self Care documented in this encounter Progress Notes * Ivonne Cortes RN - 08/12/2018 1111 EDT Courtney Mckenzie has been instructed as follows regarding medication administration for the day of the scheduled procedure. Date of Surgery: 08/19/18 Instructions for Taking Medications Day of Surgery Medication Sig Last Dose Hold DOS Take DOS aspirin 81 mg EC tablet Take 81 mg by mouth daily. Pt instructed by PCP and MD last dose 08/08/18 CELECOXIB (CELEBREX ORAL) Take 200 mg by mouth daily. 08/15/18 Diltiazem HCl 180 mg tablet extended release 24 hr Take 180 mg by mouth daily. x docusate sodium (COLACE) 100 mg capsule Take 100 mg by mouth daily. x duloxetine (CYMBALTA) 60 mg capsule Take 60 mg by mouth daily. x furosemide (LASIX) 20 mg tablet Take 20 mg by mouth daily. x ipratropium, 0.5mg/2.5ml, (ATROVENT) 0.02 % nebulizer solution Take 0.5 mg by nebulization 4 times daily. Nares inhaler X prn lansoprazole (PREVACID) 30 mg capsule Take 30 mg by mouth daily. x latanoprost (XALATAN) 0.005 % ophthalmic solution Place 1 Drop into both eyes at bedtime. x levothyroxine (SYNTHROID) 125 mcg tablet Take 125 mcg by mouth daily. x linaclotide (LINZESS) 72 mcg capsule Take 72 mcg by mouth daily. x loratadine (CLARITIN) 10 mg tablet Take 10 mg by mouth daily. PRN x losartan (COZAAR) 50 mg tablet Take 50 mg by mouth daily. 08/17/18 Multivitamins with Minerals Tab Take 1 Tab by mouth daily. 08/13/18 polyethylene glycol 3350 (MIRALAX) 17 gram packet Take 17 g by mouth daily. x simvastatin (ZOCOR) 10 mg tablet Take 10 mg by mouth every evening. x sumatriptan (IMITREX) 50 mg tablet Take 50 mg by mouth as needed. X prn timolol (TIMOPTIC) 0.5 % ophthalmic solution Place 1 Drop into both eyes daily. In the morning. x traMADol (ULTRAM) 50 mg tablet Take 50 mg by mouth daily. X prn UNABLE TO FIND 1,000 mg daily. Med Name: Lineilic (CLA), 1000 mg. 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 The patient was greeted in the preoperative waiting area where the operative site was identified. The patient was taken to the operating room and was positioned on the operating table. A time out was held. Tetracaine was instilled in the patients' eyes. The patient was prepped and draped in usual sterile fashion appropriatefor oculoplastic surgery. Calipers and smooth forceps were used to determine the area of skin to beresected - following the eyelid crease and extending superiorly to the extent that would not cause exposure of the cornea when the patient closes her eyes. The upper eyelids were marked with a marking pen to outline the area of skin to be resected. 2% lidocaine with 1:100,000 epinephrine was injected subcutaneously in both upper eyelids. A #15 blade was used to incise the skin along the line previously marked. Iris scissors were used to excise this area of skin on each upper eyelid. Bipolar cautery was used to obtain hemostasis. The orbital septum was opened medially and the orbital fat was prolapsed. This was gently dissectedfree from the underlying levator tendon. The tendon was divided from the tarsus inferiorly, and dissection on its posterior surface was carried out superiorly. 3 double-armed 5.0 mersilene sutures were passed partial-thickness through the tarsus, at the medial limbus, center of the pupil, and lateral limbus. Both arms were passed superiorly through the levator tendon and tied in a slipknot. The level and contour of the upper lids was adjusted by having the patient open and close the eyes. The knots were then tied and cut. A distal cuff of levator tendon was excised for smooth closure. Again, hemostasis was achieved using bipolar cautery. The skin was closed using 8-0 Nylon suture. Maxitrol and xeroform gauze were applied to the incisions OU. Two clean, dry 4x4's were placed over the incisions. The patient was taken to the PACU in stable condition where an ice pack was applied to the patient's eyelids. An identical procedure was performed on both upper eyelids. documented in this encounter Miscellaneous Notes * Anesthesia Post-[facility]ar[facility] - Diallo Rutherford, AA - 08/19/2018 1518 EDT Anesthesia Post op Note Courtney Mckenzie PF120/01 Anesthesia received: MAC; Vital Signs: Temp: 35.7 ??C (96.3 ??F), BP: (!) 147/90, Resp: 16, SpO2: 94 % Vital signs Stable: Yes Consciousness: Recovered to baseline Patient's participation in evaluation:Able to participate Temperature Status: Normothermic Respiratory Status: Airway patent Supplemental O2: Nasal cannula Oxygen Saturation: Within patient's normal range Cardiovascular Status: Within patient's normal range Post-op Hydration: Adequate Nausea / Vomiting: None Pain Control: Adequate Current Pain Score: Numeric Pain Level (Scale 1-10): 5 Post-op Assessment: Tolerated procedure well Disposition: Home Complications: No apparent anesthetic complications CARLA Sunshine 08/19/2018 15:18 * Brief Op Note - Rocio Gama MD - 08/19/2018 1512 EDT Ophthalmology BRIEF OPERATIVE NOTE Surgeon: Rocio Gama MD Incinerator Attendant: Natalia Rodríguez Pre-Op Diagnosis: bilateral blepharoptosis Post-Op Diagnosis: same Procedure: bilateral ptosis repair (external levator resection) Anesth: MAC with local 50:50 mixture of 2% lidocaine with 1:100,000 epinephrine and 0.5% marcaine with 1:200,000 epinephrine EBL: <5cc Findings: bilateral ptosis Specimen: none Foreign Material Retained: none Complications: none Dispo: To PACU in stable condition Rocio Gama MD 08/19/2018, 15:12 documented in this encounter Plan of Treatment Upcoming Encounters Date Type Department Care Team (Late st Contact Info) Description 05/24/2024 14:00 EDT Office Visit [facility] Ophthalmology - [address] [place] [address] Josemanuel Gomes MD [address] [facility], [address] [place] [address] documented as of this encounter Visit Diagnoses Not on filedocumented in this encounter Administered Medications Inactive Administered Medications - up to 3 most recent administrations Medication Order MAR Action Action Date Dose Rate Site acetaminophen (TYLENOL) tablet 1,000 mg 1,000 mg, oral, PRN, 1 dose, Starting on Fri08/19/18 at 1513, Until Fri08/19/18 at 1547, Fever, Routine, Recovery (only) Given 08/19/2018 15:47 EDT 1,000 mg atropine 0.1 mg/mL syringe 0.5 mg 0.5 mg, intravenous, PRN, Starting on Fri08/19/18 at 1513, Until Fri08/19/18 at 1905, Symptomatic HR < 50, Routine, Recovery (only) diphenhydrAMINE (BENADRYL) injection 12.5 mg 12.5 mg, intravenous, PRN, 1 dose, Starting on Fri08/19/18 at 1513, Until Fri08/19/18 at 1905, nausea, Routine, Recovery (only) fentaNYL citrate (PF) injection 25-50 mcg 25-50 mcg, intravenous, EVERY 5 MIN PRN, Starting on Fri08/19/18 at 1513, Until Fri08/19/18 at 1905, Pain, Routine, Recovery (only) lactated ringers (LR) infusion at 25 mL/hr, intravenous, CONTINUOUS, Starting on Fri08/19/18 at 1215, Until Fri08/19/18 at 1905, Routine, Preprocedure New Bag 08/19/2018 12:10 EDT 25 mL/hr lactated ringers (LR) infusion at 75 mL/hr, intravenous, CONTINUOUS, Starting on Fri08/19/18 at 1530, Until Fri08/19/18 at 1905, Routine, Recovery (only) naloxone (NARCAN) injection 0.2 mg 0.2 mg, intravenous, PRN, Starting on Fri08/19/18 at 1513, Until Fri08/19/18 at 1905, Opioid Reversal, Routine, Recovery (only) ondansetron (PF) (ZOFRAN) injection 4 mg 4 mg, intravenous, PRN, 1 dose, Starting on Fri08/19/18 at 1513, Until Fri08/19/18 at 1905, Nausea, Vomiting, Routine, Recovery (only) documented in this encounter Discontinued Medications Medication Sig Discontinue Reason Start Date End Da te gabapentin (NEURONTIN) 100 mg capsule Take 100 mg by mouth 3 times daily. Therapy completed 08/12/2018 ipratropium, 0.5mg/2.5ml, (ATROVENT) 0.02 % nebulizer solution 0.5 mg by nasal route 4 times daily. Therapy completed 08/12/2018 PREGABALIN (LYRICA ORAL) Take by mouth Therapy completed 08/12/2018 ipratropium (ATROVENT HFA) 17 mcg/actuation inhaler Inhale 2 Puffs as directed every 6 hours. Error 08/12/2018 documented as of this encounter Historical Medications * This list may reflect changes made after this encounter. ipratropium, 0.5mg/2.5ml, (ATROVENT) 0.02 % nebulizer solution Take 2.5 mL by nebulization 4 times daily. Nares inhaler traMADol (ULTRAM) 50 mg tablet Take 1 Tablet by mouth daily. docusate sodium (COLACE) 100 mg capsule Take 1 Capsule by mouth daily. linaCLOtide (LINZESS) 72 mcg capsule Take 1 Capsule by mouth daily. polyethylene glycol 3350 (MIRALAX) 17 gram packet Take 17 g by mouth daily. furosemide (LASIX) 20 mg tablet Take 1 Tablet by mouth daily. ipratropium (ATROVENT HFA) 17 mcg/actuation inhaler Inhale 2 Puffs as directed every 6 hours. 9 added in this encounter Active and Recently Administered Medications Times are shown in EDT. Continuous Medication Order 08/17/2018 08/18/2018 08/19/2018 lactated ringers (LR) infusion at 25 mL/hr, intravenous, CONTINUOUS, Starting on Fri08/19/18 at 1215, Until Fri08/19/18 at 1905, Routine, Preprocedure 1210 (New Bag - Prov ider: Myriam Meade RN)1625 (Completed - Provider: Fabby Lucero - Comment: PIV removed) lactated ringers (LR) infusion at 75 mL/hr, intravenous, CONTINUOUS, Starting on Fri08/19/18 at 1530, Until Fri08/19/18 at 1905, Routine, Recovery (only) 1530 (Canceled Entry - Provider: Batch Job User Admin - Comment: Automatically canceled at discontinue of medication order) PRN Medication Order 08/17/2018 08/18/2018 08/19/2018 acetaminophen (TYLENOL) tablet 1,000 mg (COMPLETED) 1,000 mg, oral, PRN, 1 dose, Starting on Fri08/19/18 at 1513, Until Fri08/19/18 at 1547, Fever, Routine, Recovery (only) 1547 (Given - Provid er: Rosina Bryant RN) atropine 0.1 mg/mL syringe 0.5 mg 0.5 mg, intravenous, PRN, Starting on Fri08/19/18 at 1513, Until Fri08/19/18 at 1905, Symptomatic HR < 50, Routine, Recovery (only) diphenhydrAMINE (BENADRYL) injection 12.5 mg 12.5 mg, intravenous, PRN, 1 dose, Starting on Fri08/19/18 at 1513, Until Fri08/19/18 at 1905, nausea, Routine, Recovery (only) fentaNYL citrate (PF) injection 25-50 mcg 25-50 mcg, intravenous, EVERY 5 MIN PRN, Starting on Fri08/19/18 at 1513, Until Fri08/19/18 at 1905, Pain, Routine, Recovery (only) naloxone (NARCAN) injection 0.2 mg 0.2 mg, intravenous, PRN, Starting on Fri08/19/18 at 1513, Until Fri08/19/18 at 1905, Opioid Reversal, Routine, Recovery (only) ondansetron (PF) (ZOFRAN) injection 4 mg 4 mg, intravenous, PRN, 1 dose, Starting on Fri08/19/18 at 1513, Until Fri08/19/18 at 1905, Nausea, Vomiting, Routine, Recovery (only) documented in this encounter Orders Medications Ordered That Ramon ht Not Have Been Administered Count Last Ordered Date First Ordered Date atropine 0.1 mg/mL syringe 0.5 mg 1 019 diphenhydrAMINE (BENADRYL) i njection 12.5 mg 1 08/19/2018 fentaNYL citrate (PF) injection 25-50 mcg 1 08/19/2018 lactated ringers (LR) infusion 08/19/2018 naloxone (NARCAN) injection 0.2 mg 1 2018 ondansetron (PF) (ZOFRAN) injection 4 mg 1 08/19/2018 Transfer Count Last Ordered Date First Orde red Date NOTIFY PPS OF DISCHARGE COMPLETE 08/20/19 NOTIFY PPS PATIENT ARRIVAL IN PACU 2018 Discharge Count Last Ordered Date First Orde red Date DISCHARGE PATIENT 08/19/2018 documented in this encounter Care Teams Manager Ambulatory Relationship Specialty Start Date End Date Yoselin Roberts MD [address] [place] [address] [place] [address] PCP - General 04/22/11 documented as of this encounter
--- OUTSIDE RECORDS SUMMARY | 2024-04-02 00:32 | XMS_ITS | Encounter Summary ---
Author Organization [facility] Address [address] [place] [address] Care Team Providers Care Marriage Performer Name Role Phone Yoselin Roberts MD Primary Care Provider [phone]- [phone] Reason for Referral * (Routine) - Closed Specialty Diagnoses / Procedures Referred By Contaudie t Referred To Contact Diagnoses Choroidal neovascularization of left eye Procedures OCT (OPHTHALMIC DIGITAL IMAGING, POSTERIOR SEGMENT) Josemanuel Gomes MD Phone: tel: fax: Referral ID Status Reason Start Date Expiration Date Visits Re quested Visits Authorized [id number] Closed 01/17/2015 1 1 Reason for Visit * Reason Comments Eye Problem Q. CNVM left eye, Hx of avastin left Encounter Details Date Type Department Care Team (Late st Contact Info) Description 01/17/2015 9:15 EST Office Visit [facility] Ophthalmology - [address] [id number] Josemanuel Gomes MD [address] [facility], [address] [place] [address] Social History Tobacco Use Types [...] on file documented as of this encounter Progress Notes * Josemanuel Gomes MD - 01/17/2015 1000 EST Chief Complaint Patient presents with ??? Eye Problem Q. CNVM left eye, Hx of avastin left HPI Location: Both eyes Pain: 0 - No pain Quality: Blurry Severity: Moderate Duration: Months Timing: Constant Lasts: Months Context: va stable Modifying factors: Hx of avastin left eye Associated Signs & Symptoms: no new flashes or floaters Visual Fluctuations: Floaters in her left eye Few there, no new burst of ones Rare flashes mostly left, and really only in dim lighting Attestation: Base Eye Exam Visual Acuity (Snellen - Linear) Right Left Dist cc 20/30 +/-2 20/80 -2+1 Correction: Glasses Tonometry (Applanation, 9:27) Right Left Pressure 20 20 Pupils Pupils Right PERRL Left PERRL Extraocular Movement Right Left Result Full Full Neuro/Psych Oriented x3: Yes Mood/Affect: Normal Dilation Both eyes: 1.0% Mydriacyl, 2.5% Phenylephrine @ 9:28 Slit Lamp and Fundus Exam External Exam Right Left External excessory frontalis use excessory frontalis use Slit Lamp Exam Right Left Lids/Lashes Dermatochalasis, Ptosis Dermatochalasis, Ptosis Conjunctiva/Sclera White and quiet White and quiet Cornea Clear Clear Anterior Chamber Deep and quiet Deep and quiet Iris Round and reactive Round and reactive Lens Posterior chamber intraocular lens Posterior chamber intraocular lens Vitreous PVD large PVD Fundus Exam Right Left Disc tilted, PPA tilted, PPA C/D Ratio 0.4-0.5 0.4-0.5 Macula RPE changes, no fluid or heme RPE changes, no fluid or heme Vessels Normal Normal Periphery Normal Normal All five layers of the cornea are normal unless otherwise specified. Please refer to large retinal drawing. 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 Posterior vitreous detachment of both eyes PLAN: CNVM left eye Quiet Observe High Myopia both eyes No holes, tears Observe PVD both eyes No holes, tears Observe Return as scheduled for OCT and ?Avastin I, Dr. Josemanuel Gomes, [...] 14:00 EDT Office Visit [facility] Ophthalmology - [address] [place], [place] [id number] Josemanuel Gomes MD [address] [place] [address], [facility] [address] [place] [address] Scheduled Orders Name Type Priority Associated Diagnoses Orde r Schedule OCT (OPHTHALMIC DIGITAL IMAGING, POSTERIOR SEGMENT) Ophthalmology Routine Choroidal neovascularization of left eye Ordered: 01/17/2015 documented as of this encounter Visit Diagnoses Diagnosis Choroidal neovascularization of left eye- Primary Retinal neovascularization NOS Progressive high myopia, bilateral Posterior vitreous detachment of both eyes Vitreous degeneration documented in this encounter Eye Exam Visual Acuity (Snellen - Linear) Right eye Left eye Dist cc 20/30 +/-2 20/80 -2+1 Correction: Glasses Tonometry (Applanation, 9:27) Right eye Left eye Pressure 20 20 Pupils Pupils Right eye PERRL Left eye PERRL Extraocular Movement Right eye Left eye Full Full Neuro/Psych Oriented x3: Yes Mood/Affect: Normal Dilation Both eyes: 1.0% Mydriacyl, 2 .5% Phenylephrine @ 9:28 External Exam Right eye Left eye External excessory frontalis use excessor y frontalis use Slit Lamp Exam Right eye Left eye Lids/Lashes Dermatochalasis, Ptosis Dermatoc halasis, Ptosis Conjunctiva/Sclera White and quiet White and marysol et Cornea Clear Clear Anterior Chamber Deep and quiet Deep and quiet Iris Round and reactive Round and marko ctive Lens Posterior chamber in traocular lens Posterior chamber intraocular lens Vitreous PVD large PVD Fundus Exam Right eye Left eye Disc tilted, PPA tilted, PPA C/D Ratio 0.4-0.5 0.4-0.5 Macula RPE changes, no fluid or heme RP E changes, no fluid or heme Vessels Normal Normal Periphery Normal Normal Care Teams Marriage Performer Relationship Specialty Start Date End Date Yoselin Roberts MD [address] [place] [address] [place] [address] PCP - General 04/22/11 documented as of this encounter
--- OUTSIDE RECORDS SUMMARY | 2024-04-02 00:32 | XMS_ITS | Encounter Summary ---
Author Organization [facility] Address [address] [place] [address] Care Team Providers Care Glass Cut Off Tender Name Role Phone Yoselin Roberts MD Primary Care Provider +1- [phone] Reason for Referral * (Routine) - Closed Specialty Diagnoses / Procedures Referred By Contac t Referred To Contact Diagnoses Retinal neovascularization, left Procedures OCT (OPHTHALMIC DIGITAL IMAGING, POSTERIOR SEGMENT) Josemanuel Gomes MD Phone: tel: fax: Referral ID Status Reason Start Date Expiration Date Visits Re quested Visits Authorized [id number] Closed 12/05/2015 1 1 Reason for Visit * Reason Comments Eye Problem Hx CNVM left eye, hi gh myopia both eyes, PVD both eyes, hx avastin injections. Encounter Details Date Type Department Care Team (Late st Contact Info) Description 12/05/2015 14:00 EDT Office Visit [facility] Ophthalmology - [address] [place], [place] [id number] Josemanuel Gomes MD [address] [facility], [address] [place] [address] Discharge Disposition: Auto Discharge Social [...] as of this encounter Discharge Diagnoses Diagnosis H43.813 Vitreous degeneration, bilateral-H43.813[ICD-10-CM] H35.052 Retinal neovascularization, unspecified, left eye-H35.052[ICD-10-CM] H44.23 Degenerative myopia, bilateral-H44.23[ICD-10-CM] documented in this encounter Discharge Disposition Disposition Code Departure Means Destination Auto Discharge documented in this encounter Progress Notes * Josemanuel Gomes MD - 12/05/2015 1441 EDT Chief Complaint Patient presents with ??? Eye Problem Hx CNVM left eye, high myopia both eyes, PVD both eyes, hx avastin injections. HPI Location: Left eye Pain: 0 - No pain Quality: Blurry Severity: Moderate Duration: Years Timing: Constant Lasts: Continuous Context: No VA changes, no pain, no new flashes or floaters. Modifying factors: Hx CNVM left eye, high myopia both eyes, PVD both eyes, hx avastin injections. Associated Signs & Symptoms: Visual Fluctuations: None Attestation: Base Eye Exam Visual Acuity (Snellen - Linear) Right Left Dist cc 20/30 +2 20/80 -1 Correction: Glasses Tonometry (Applanation, 14:30) Right Left Pressure 18 19 Pupils Pupils Right PERRL Left PERRL Extraocular Movement Right Left Result Full Full Neuro/Psych Oriented x3: Yes Mood/Affect: Normal Dilation Both eyes: 1.0% Mydriacyl, 2.5% Phenylephrine @ 14:31 Slit Lamp and Fundus Exam External Exam Right Left External Normal Normal Slit Lamp Exam Right Left Lids/Lashes Dermatochalasis Dermatochalasis Conjunctiva/Sclera White and quiet White and quiet Cornea Arcus, SPK Arcus, SPK Anterior Chamber Deep and quiet Deep and quiet Iris Round and reactive Round and reactive Lens Posterior chamber intraocular lens Posterior chamber intraocular lens Vitreous Posterior vitreous detachment Posterior vitreous detachment Fundus Exam Right Left Disc tilted tilted C/D Ratio 0.3-0.4 0.3-0.4 Macula RPE changes atrophic scar, no fluid or heme Vessels Normal Normal Periphery Normal Normal All five layers of the cornea are normal unless otherwise specified. Please refer to large retinal drawing. IMAGING: OCT REPORT Indications: CNVM Findings: Right Eye Left Eye irregular scar Original test to be found in patients shadow chart IMPRESSION: 1. Posterior vitreous detachment of both eyes 2. Retinal neovascularization, left 3. Progressive high myopia, bilateral PLAN: High Myope both eyes No holes, tears Observe Hx CNVM left eye Quiet Observe PVD both eyes No holes, tears Observe Return in February for OCT and ?Avastin I, Dr. Josemanuel [...] Info) Description 05/24/2024 14:00 EDT Office Visit [facility] Ophthalmology - [facility] [address] [place] [address] Josemanuel Gomes MD [address] [place] [address], [address] [place] [address] Scheduled Orders Name Type Priority Associated Diagnoses Orde r Schedule OCT (OPHTHALMIC DIGITAL IMAGING, POSTERIOR SEGMENT) Ophthalmology Routine Retinal neovascularization, left Ordered: 12/05/2015 documented as of this encounter Visit Diagnoses Diagnosis Posterior vitreous detachment of both eyes- Primary Vitreous degeneration Retinal neovascularization, left Progressive high myopia, bilateral documented in this encounter Historical Medications * This list may reflect changes made after this encounter. Diltiazem HCl 180 mg tablet extended release 24 hr Take 180 mg by mouth daily. added in this encounter Eye Exam Visual Acuity (Snellen - Linear) Right eye Left eye Dist cc 20/30 +2 20/80 -1 Correction: Glasses Tonometry (Applanation, 14:30) Right eye Left eye Pressure 18 19 Pupils Pupils Right eye PERRL Left eye PERRL Extraocular Movement Right eye Left eye Full Full Neuro/Psych Oriented x3: Yes Mood/Affect: Normal Dilation Both eyes: 1.0% Mydriacyl, 2 .5% Phenylephrine @ 14:31 External Exam Right eye Left eye External Normal Normal Slit Lamp Exam Right eye Left eye Lids/Lashes Dermatochalasis Dermatochalasis Conjunctiva/Sclera White and quiet White and marysol et Cornea Arcus, SPK Arcus, SPK Anterior Chamber Deep and quiet Deep and quiet Iris Round and reactive Round and marko ctive Lens Posterior chamber in traocular lens Posterior chamber intraocular lens Vitreous Posterior vitreous detachment Po sterior vitreous detachment Fundus Exam Right eye Left eye Disc tilted tilted C/D Ratio 0.3-0.4 0.3-0.4 Macula RPE changes atrophic scar, n o fluid or heme Vessels Normal Normal Periphery Normal Normal Care Teams Glass Cut Off Tender Relationship Specialty Start Date End Date Yoselin Roberts MD [address] [place] [address] [place] [address] PCP - General 04/22/11 documented as of this encounter
--- OUTSIDE RECORDS SUMMARY | 2024-04-02 00:32 | XMS_ITS | Encounter Summary ---
Author Organization [facility] Address [address] [place] [address] Care Team Providers Care Criminal Justice Faculty Name Role Phone Yoselin Roberts MD Primary Care Provider +1- [phone] Reason for Referral * (Routine) - Closed Specialty Diagnoses / Procedures Referred By Contac t Referred To Contact Diagnoses Ptosis, bilateral Dermatochalasis of both upper eyelids Procedures VISUAL FIELD EXAM, INTERMEDIATE Rocio Gama MD Phone: tel: fax: Referral ID Status Reason Start Date Expiration Date Visits Re quested Visits Authorized [id number] Closed 10/07/2016 1 1 Reason for Visit * Reason Comments Eye Problem Here for reevaluatio n of Upper eyelids. Pt notes that upper eyelids are heavy and she needs to open eyes more to see better. MELVIN with Dr. Gomes for CNVM left eye and high myopia. H/o Avastin injections left eye; last injection was a couple years ago. Medication Management Timolol QAM and Xa latan HS both eyes Encounter Details Date Type Department Care Team (Late st Contact Info) Description 10/07/2016 14:45 EDT Office Visit [facility] Ophthalmology - [address] [place] [address] Rocio Gama MD [address] [facility], [address] [place] [address] Discharge Disposition: Auto Discharge Social [...] as of this encounter Discharge Diagnoses Diagnosis H02.403 Unspecified ptosis of bilateral eyelids-H02.403[ICD-10-CM] H02.831 Dermatochalasis of right upper eyelid-H02.831[ICD-10-CM] H35.052 Retinal neovascularization, unspecified, left eye-H35.052[ICD-10-CM] H02.834 Dermatochalasis of left upper eyelid-H02.834[ICD-10-CM] documented in this encounter Discharge Disposition Disposition Code Departure Means Destination Auto Discharge documented in this encounter Progress Notes * Rocio Gama MD - 10/07/2016 1912 EDT Chief Complaint Patient presents with ??? Eye Problem Here for reevaluation of Upper eyelids. Pt notes that upper eyelids are heavy and she needs to openeyes more to see better. MELVIN with Dr. Gomes for CNVM left eye and high myopia. H/o Avastin injectionsleft eye; last injection was a couple years ago. ??? Medication Management Timolol QAM and Xalatan HS both eyes HPI The patient is a 76 y.o. female here for reevaluation of upper eyelid droopiness. Her eyelids have been droopy for years and this has progressively worsened. Pt notes that eyelids are heavy and she needs to open eyes more and hold eyelids open manually to see better, needs more light for near vision. No diplopia. C/o dryness, uses Ats BID. Pt notes that left eye has been feeling sore for the pastcouple of weeks.She was diagnosed with sleep apnea. Wears CPAP at night for sleep apnea, had ablation 12/2015 for SVT that failed. Appt.with materials handling coordinator 10/24. MELVIN with Dr. Gomes for CNVM left eye and high myopia 09/03/16. H/o Avastin injections left eye, last injection was a couple years ago. ROS Constitutional: NL ENT/Mouth NL Cardiovascular: High Cholesterol Respiratory: (uses CPAP at night) Gastrointestinal: NL Genitourinary: NL Musculoskeletal: NL Integumentary: NL Neurologic: NL Psychiatric: Depression Endocrine: Thyroid problems Hematologic: (asa 81 mg) Immunologic: Drug Allergy Automatic I Threading Machine Feeder: Exposures: None Other: Attestation: Allergies include: Sulfa (sulfonamide antibiotics) Patient Active Problem List Diagnosis ??? Retinal neovascularization ??? Progressive high myopia ??? Degenerative myopia ??? Posterior vitreous detachment of both eyes ??? Blepharitis of both eyes ??? Pseudophakia of both eyes ??? Neovascular membrane of left choroid artery Outpatient Prescriptions Marked as Taking for the 10/07/16 encounter (Office Visit) with Rocio Gama MD Medication Sig ??? aspirin 81 mg EC tablet Take 81 mg by mouth daily. ??? CELECOXIB (CELEBREX ORAL) Take by mouth ??? DILTiazem (TIAZAC) 120 mg SR capsule Take 120 mg by mouth daily. ??? duloxetine (CYMBALTA) 60 mg capsule Take 60 mg by mouth daily. ??? lansoprazole (PREVACID) 30 mg capsule Take 30 mg by mouth daily. ??? latanoprost (XALATAN) 0.005 % ophthalmic solution Place 1 Drop into both eyes at bedtime. ??? levothyroxine (SYNTHROID) 100 mcg tablet Take 100 mcg by mouth daily. ??? loratadine (CLARITIN) [...] 50 mg tablet Take 50 mg by mouth. Indications: MIGRAINE ??? timolol (TIMOPTIC) 0.5 % ophthalmic solution Place 1 Drop into both eyes daily. In the morning. ??? UNABLE TO FIND Med Name: Lineilic (CLA), 1000 mg. Base Eye Exam Visual Acuity (Snellen - Linear) Right Left Dist cc 20/40 +2 20/100 -3 Dist ph cc 20/30+2 NI Correction: Glasses Tonometry (Applanation, 15:14) Right Left Pressure 20 20 Pupils Pupils Dark Light React APD Right PERRL 4 3 Brisk None Left PERRL 4 3 Brisk None Visual De Jesus Right Left Result Full Full Extraocular Movement Right Left Result Full, Ortho Full, Ortho Neuro/Psych Oriented x3: Yes Mood/Affect: Normal Slit Lamp and Fundus Exam External Exam Right Left External Ptosis Ptosis MRD1 1 mm 1 mm MRD2 6 mm 6 mm Levator 15 mm 15 mm Slit Lamp Exam Right Left Lids/Lashes Dermatochalasis, Ptosis Dermatochalasis, Ptosis Conjunctiva/Sclera White and quiet White and quiet Cornea Clear Clear Anterior Chamber Deep and quiet Deep and quiet Iris Normal Normal Lens Posterior chamber intraocular lens Posterior chamber intraocular lens Refraction Wearing Rx Sphere Cylinder Belfry Add Right -3.25 +2.00 100 +2.50 Left -3.00 +2.00 092 +2.50 Type: PAL DIAGNOSTIC TESTS: Visual field: Superior 64 taped and untaped Indication: Dermatochalasis both upper eyelids Right eye: >25 % improvement in superior VF with taping of the eyelid Left eye: >25 % improvement in superior VF with taping of the eyelid IMPRESSION & PLAN: Encounter Diagnoses Name Primary? Ptosis, bilateral Yes ??? Dermatochalasis of both upper eyelids ??? CNVM (choroidal neovascular membrane), left 1. Ptosis, bilateral Patient is symptomatic and ptosis is visually significant. Risks, including, but not limited to, pain, bleeding, infection, overcorrection, undercorrection, asymmetry, vision loss, scarring, need foradditional surgery, dry eye; benefits and alternatives, including observation, were discussed with the patient. Her questions were answered. The patient elected to proceed with bilateral upper eyelidptosis repair. Informed consent was obtained. Patient is on aspirin and celecoxib both of which should be held pre-op for 7 days, pending PCP approval. 2. Dermatochalasis of both upper eyelids As above. 3. CNVM (choroidal neovascular membrane), left Continue care as planned every [address] Gomes I am scribing for Rocio Gama MD, while she is personally performing the service. Isabella Mcdaniels, ARELY, 10/07/2016 17:03 I have reviewed the patient's past medical, family, social and surgical history. I have also reviewed the patient's medications, allergies, and problem list. I performed my own HPI and have reviewed the tech's ROS as well. I personally completed this exam myself. Rocio Gama MD The patient was instructed to call our office or go to emergency room if worse vision, worse symptoms, or new/other concerns arise. documented in this encounter Plan of Treatment Upcoming Encounters Date Type Department Care Team (Late st Contact Info) Description 05/24/2024 14:00 EDT Office Visit [facility] Ophthalmology - [place] [address] [place], [place] [phone] Josemanuel Gomes MD [address] [place] [address] [address] [place] [address] Scheduled Orders Name Type Priority Associated Diagnoses Orde r Schedule VISUAL FIELD EXAM, INTERMEDIATE Ophthalmology Routine Ptosis, bilateral Dermatochalasis of both upper eyelids Ordered: 10/07/2016 documented as of this encounter Visit Diagnoses Diagnosis Ptosis, bilateral- Primary Unspecified ptosis of eyelid Dermatochalasis of both upper eyelids CNVM (choroidal neovascular membrane), left documented in this encounter Eye Exam Visual Acuity (Snellen - Linear) Right eye Left eye Dist cc 20/40 +2 20/100 -3 Dist ph cc 20/30+2 NI Correction: Glasses Tonometry (Applanation, 15:14) Right eye Left eye Pressure 20 20 Pupils Pupils Dark Light React APD Right eye PERRL 4 3 Brisk None Left eye PERRL 4 3 Brisk None Visual De Jesus Right eye Left eye Full Full Extraocular Movement Right eye Left eye Full, Ortho Full, Ortho Neuro/Psych Oriented x3: Yes Mood/Affect: Normal External Exam Right eye Left eye External Ptosis Ptosis Slit Lamp Exam Right eye Left eye Lids/Lashes Dermatochalasis, Ptosis Dermatoc halasis, Ptosis Conjunctiva/Sclera White and quiet White and marysol et Cornea Clear Clear Anterior Chamber Deep and quiet Deep and quiet Iris Normal Normal Lens Posterior chamber in traocular lens Posterior chamber intraocular lens External Right eye Left eye MRD1 1 mm 1 mm MRD2 6 mm 6 mm Levator 15 mm 15 mm Wearing Rx Sphere Cylinder Belfry Add Right eye -3.25 +2.00 100 +2.50 Left eye -3.00 +2.00 092 +2.50 Type: PAL Care Teams Criminal Justice Faculty Relationship Specialty Start Date End Date Yoselin Roberts MD [address] [place] [address] [place] [address] PCP - General 04/22/11 documented as of this encounter
--- OUTSIDE RECORDS SUMMARY | 2024-04-02 00:32 | XMS_ITS | Encounter Summary ---
Author Organization [facility] Address [address] [place] [address] Care Team Providers Care Die Sinking Machine Operator Name Role Phone Yoselin Roberts MD Primary Care Provider +1- [phone] Reason for Visit * Reason Onset Date Comments Appointment Related 06/11/2017 Cancel appt. Encounter Details Date Type Department Care Team (Late st Contact Info) Description 06/11/2017 Telephone [facility] Ophthalmology - [address] [address] Josemanuel Gomes MD [address] [facility], [address] [place] [address] Appointment Related (Cancel appt.) Social History Tobacco Use Types Packs/Day Years [...] encounter Miscellaneous Notes * Telephone Encounter - Karine Lisa - 06/11/2017 1954 EDT PAS Message: Cancelling appt. at 9:45 a.m. is ill and needs a medical driver. Will call to reschedule documented in this encounter Plan of Treatment Upcoming Encounters Date Type Department Care Team (Late st Contact Info) Description 05/24/2024 14:00 EDT Office Visit [facility] Ophthalmology [place] [address] [place] [address] Jsoemanuel Gomes MD [address] [facility], [address] [place] [address] documented as of this encounter Visit Diagnoses Not on filedocumented in this encounter Care Teams Die Sinking Machine Operator Relationship Specialty Start Date End Date Yoselin Roberts MD [address] [place] [address] [place] [address] PCP - General 04/22/11 documented as of this encounter
--- OUTSIDE RECORDS SUMMARY | 2024-04-02 00:32 | XMS_ITS | Encounter Summary ---
Author Organization [facility] Address [address] [place] [address] Care Team Providers Care Packaging Designer Name Role Phone Yoselin Roberts MD Primary Care Provider +1- [phone] Reason for Visit * Reason Onset Date Comments Medication Management 2014 pt was rx' d Lyrica by her PCP Yoselin Jorge for her fibromyalgia flare up. she has not started taking it yet, because she wants to check with [facility] that it wont affect her eyes. Encounter Details Date Type Department Care Team (Late st Contact Info) Description 2014 Telephone [facility] Ophthalmology - [facility] [address] [place], [place] [phone] Josemanuel Gomes MD [address] [facility], [address] [place] [address] Medication Management (pt was rx'd Lyrica by her PCP Yoselin Jorge for her fibromyalgia flare up. she has not started taking it yet, because she wants to check with [facility] that it wont affect her eyes.) Social History Tobacco Use Types Packs/Day Years [...] on file documented as of this encounter Miscellaneous Notes * Telephone Encounter - Caroline Ricci RN - 2014 1329 EDT I spoke with Dr. Gomes and per Dr. Gomes it is fine from his perspective to take the lyrica. 1330: I called this pt back and I relayed the above message from [facility] to her. Pt vocalized understanding of this message without any barriers and has no further questions at this time. documented in this encounter Plan of Treatment Upcoming Encounters Date Type Department Care Team (Late st Contact Info) Description 05/24/2024 14:00 EDT Office Visit [facility] Ophthalmology - [address] [address] Josemanuel Gomes MD [address] [place] [address], [facility] [address] [place] [address] documented as of this encounter Visit Diagnoses Not on filedocumented in this encounter Care Teams Packaging Designer Relationship Specialty Start Date End Date Yoselin Roberts MD [address] [place] [address] [place] [address] PCP - General 04/22/11 documented as of this encounter
--- OUTSIDE RECORDS SUMMARY | 2024-04-02 00:32 | XMS_ITS | Encounter Summary ---
Author Organization [facility] Address [address] [place] [address] Care Team Providers Care Hearth Feeder Name Role Phone Yoselin Roberts MD Primary Care Provider +1- [phone] Reason for Referral * (Routine) - New Request Specialty Diagnoses / Procedures Referred By Contac t Referred To Contact Diagnoses Retinal neovascularization of both eyes Procedures FLUORESCEIN ANGIOGRAPHY Josemanuel Gomes MD Phone: tel: fax: Referral ID Status Reason Start Date Expiration Date V isits Requested Visits Authorized [id number] New Request 09/11/2017 1 1 * (Routine) - New Request Specialty Diagnoses / Procedures Referred By Contaudie t Referred To Contact Diagnoses Retinal neovascularization of both eyes Procedures EYE PHOTOGRAPHY (FUNDUS) Josemanuel Gomes MD Phone: tel: fax: Referral ID Status Reason Start Date Expiration Date V isits Requested Visits Authorized [id number] New Request 09/11/2017 1 1 Reason for Visit * Reason Comments Eye Problem QCNVM left eye, high myope both eyes, PVD both eyes. Medication Management Timolol am/am, xal atan hs/hs Encounter Details Date Type Department Care Team (Late st Contact Info) Description 09/11/2017 9:15 EDT Office Visit [facility] Ophthalmology - [address] [place] [address] [place] [address] Josemanuel Gomes MD [address] [facility], [address] [place] [address] Discharge Disposition: Auto Discharge Social [...] Progress Notes * Josemanuel Gomes MD - 09/11/2017 0915 EDT Chief Complaint Patient presents with ??? Eye Problem QCNVM left eye, high myope both eyes, PVD both eyes. ??? Medication Management Timolol am/am, xalatan hs/hs HPI Location: Both eyes Pain: 0 - No pain Quality: Blurry Severity: Moderate Duration: Years Timing: Constant Lasts: Continuous Context: QCNVM left eye, high myope both eyes, PVD both eyes. Modifying factors: Patient states that she is not seeing as well at a distance but thinks it may bedue to her glasses. She has seasonal allergies, no pain. Has chronic floaters, no flashes of light. Associated Signs & Symptoms: Patient thought she was doing well until today and she notes her left eye was not quite as good as usual Not a big change but definitely having a hard time seeing around the area is blocked left eye Before today she was not really aware of this Visual Fluctuations: Floaters Attestation: Base Eye Exam Visual Acuity (Snellen - Linear) Right Left Dist cc 20/25 -1 20/150 +2 Dist ph cc 20/100+1 Correction: Glasses Tonometry (Applanation, 9:43) Right Left Pressure 22 22 Pupils Pupils Right PERRL Left PERRL Visual De Jesus Right Left Result Full Full Extraocular Movement Right Left Result Full, Ortho Full, Ortho Neuro/Psych Oriented x3: Yes Mood/Affect: Normal Dilation Both eyes: 1.0% Mydriacyl, 2.5% Phenylephrine @ 9:44 Slit Lamp and Fundus Exam External Exam Right Left External Normal Normal Slit Lamp Exam Right Left Lids/Lashes Blepharitis Blepharitis Conjunctiva/Sclera White and quiet White and quiet Cornea Arcus Arcus Anterior Chamber Deep and [...] Please refer to large retinal drawing. IMAGING: See IVFA and photos in chart IMPRESSION: 1. Posterior vitreous detachment of both eyes 2. Retinal neovascularization of both eyes EYE PHOTOGRAPHY (FUNDUS) FLUORESCEIN ANGIOGRAPHY 3. Degenerative myopia of both eyes PLAN: CNVM left eye VA down - will do IVFA and photos No fluid or heme on FA Observe HM both eyes No holes, tears or RD Observe PVD both eyes No holes, tears or RD Observe Return in 3 months with OCT I, Dr. Josemanuel Gomes, have performed my [...] Description 05/24/2024 14:00 EDT Office Visit [facility] Ophthalmology - [address] [place] [address] Josemanuel Gomes MD [address] [place] [address], [facility] [address] [place] [address] Scheduled Orders Name Type Priority Associated Diagnoses Orde r Schedule EYE PHOTOGRAPHY (FUNDUS) Ophthalmology Routine Retinal neovascularization of both eyes Ordered: 09/11/2017 FLUORESCEIN ANGIOGRAPHY Ophthalmology Routine Retinal neovascularization of both eyes Ordered: 09/11/2017 documented as of this encounter Visit Diagnoses Diagnosis Posterior vitreous detachment of both eyes- Primary Vitreous degeneration Retinal neovascularization of both eyes Retinal neovascularization NOS Degenerative myopia of both eyes Progressive high (degenerative) myopia documented in this encounter Historical Medications * This list may reflect changes made after this encounter. ipratropium, 0.5mg/2.5ml, (ATROVENT) 0.02 % nebulizer solution 0.5 mg by nasal route 4 times daily. 08/12/2018 added in this encounter Eye Exam Visual Acuity (Snellen - Linear) Right eye Left eye Dist cc 20/25 -1 20/150 +2 Dist ph cc 20/100+1 Correction: Glasses Tonometry (Applanation, 9:43) Right eye Left eye Pressure 22 22 Pupils Pupils Right eye PERRL Left eye PERRL Visual De Jesus Right eye Left eye Full Full Extraocular Movement Right eye Left eye Full, Ortho Full, Ortho Neuro/Psych Oriented x3: Yes Mood/Affect: Normal Dilation Both eyes: 1.0% Mydriacyl, 2 .5% Phenylephrine @ 9:44 External Exam Right eye Left eye External Normal Normal Slit Lamp Exam Right eye Left eye Lids/Lashes Blepharitis Blepharitis Conjunctiva/Sclera White and quiet White and marysol et Cornea Arcus Arcus Anterior Chamber Deep and [...] Normal Normal Periphery Normal Normal Care Teams Hearth Feeder Relationship Specialty Start Date End Date Yoselin Roberts MD [address] [place] [address] [place] [address] PCP - General 04/22/11 documented as of this encounter
--- OUTSIDE RECORDS SUMMARY | 2024-04-02 00:32 | XMS_ITS | Encounter Summary ---
Author Organization [facility] Address [address] [place] [address] Care Team Providers Care Motorboat Mechanic Name Role Phone Yoselin Roberts MD Primary Care Provider +1- [phone] Reason for Visit * Reason Comments Eye Problem High Myope, CNVM lef t eye s/p Avastin left eye 01/11/14 Encounter Details Date Type Department Care Team (Late st Contact Info) Description 04/04/2014 12:45 EST Office Visit [facility] Ophthalmology - [facility] [address] [place] [address] Josemanuel Gomes MD [address] [facility], [address] [place] [address] Social History Tobacco Use Types [...] Discharge Diagnoses Diagnosis 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 Eye Problem High Myope, CNVM left eye s/p Avastin left eye 01/11/14 HPI Location: Left eye Pain: 0 - No pain Quality: Blurry Severity: Severe Duration: Months Timing: Constant Lasts: Continuous Context: VA stable both eyes Modifying factors: no distortion Associated Signs & Symptoms: no flashes chronic floaters Visual Fluctuations: Floaters Attestation: Base Eye Exam Visual Acuity Right Left Dist sc +2 Dist cc 20/30 -2 20/80 -2 Method: Snellen - Linear Correction: Glasses Tonometry Right Left Pressure 18 18 Method: Applanation Time: 13:05 Pupils Pupils Right PERRL Left PERRL Extraocular Movement Right Left Result Full Full Neuro/Psych Oriented x3: Yes Mood/Affect: Normal Dilation Both eyes: 1.0% Mydriacyl, 2.5% Phenylephrine @ 13:05 Slit Lamp and Fundus Exam Pen Light Exam Right Left Lids/Lashes Blepharitis Blepharitis Conjunctiva/Sclera White and quiet White and quiet Cornea Clear Clear Anterior Chamber Deep and quiet Deep and quiet Iris Round and reactive Round and reactive Lens Posterior chamber intraocular lens Posterior chamber intraocular lens Vitreous Posterior vitreous detachment Posterior vitreous detachment Fundus Exam Right Left Disc Tilted disc Tilted disc C/D Ratio 0.3 0.3 Macula Normal atrophic scar, no heme, no SRF Vessels Normal Normal Periphery Normal Normal All five layers of the cornea are normal unless otherwise specified. Please refer to large retinal drawing. IMAGING: OCT REPORT Indications: CNVM Findings: Right Eye Left Eye SLT IRREGULAR IRREGULAR Original test to be found in patients shadow chart IMPRESSION: 1. Progressive high (degenerative) myopia 2. Retinal neovascularization NOS OCT (OPHTHALMIC DIGITAL IMAGING, POSTERIOR SEGMENT) PLAN: CNVM left with HM avastin left today Follow up approx 8 weeks Procedure Note: INTRAVITREAL Injection: Pre-op Diagnosis: CNVM Procedure: Intravitreal Avastin injection. Side: Left eye(s) Eye Prep: Betadine 5% ophthalmic solution to left eye(s). Anesthesia: Topical Proparacine HCl 0.4% Ophthalmic solution Drug used: Avastin Dosage: 1.25mg [facility] Number [id number] Paracentesis: No Vessel Specialist: ELSA Any excess Avastin was appropriately disposed of. Complications: None Post-op Instructions: No drops unless otherwise instructed Call immediately with pain, purulent discharge or loss of vision [phone] I have reviewed the patient's past medical, [...] Info) Description 05/24/2024 14:00 EDT Office Visit [facility] Ophthalmology - [place] [place] [address] Josemanuel Gomes MD [address] [place] [address], [facility] [address] [place] [address] Scheduled Orders Name Type Priority Associated Diagnoses Orde r Schedule OCT (OPHTHALMIC DIGITAL IMAGING, POSTERIOR SEGMENT) Ophthalmology Routine Retinal neovascularization NOS Ordered: 04/04/2014 documented as of this encounter Visit Diagnoses Diagnosis Progressive high (degenerative) myopia- Primary Retinal neovascularization NOS documented in this encounter Eye Exam Visual Acuity (Snellen - Linear) Right eye Left eye Dist sc +2 Dist cc 20/30 -2 20/80 -2 Correction: Glasses Tonometry (Applanation, 13:05) Right eye Left eye Pressure 18 18 Pupils Pupils Right eye PERRL Left eye PERRL Extraocular Movement Right eye Left eye Full Full Neuro/Psych Oriented x3: Yes Mood/Affect: Normal Dilation Both eyes: 1.0% Mydriacyl, 2 .5% Phenylephrine @ 13:05 Pen Light Exam Right eye Left eye [...] Right eye Left eye Disc Tilted disc Tilted disc C/D Ratio 0.3 0.3 Macula Normal atrophic scar, n o heme, no SRF Vessels Normal Normal Periphery Normal Normal Care Teams Motorboat Mechanic Relationship Specialty Start Date End Date Yoselin Roberts MD [address] [place] [address] [place] [address] PCP - General 04/22/11 documented as of this encounter
--- OUTSIDE RECORDS SUMMARY | 2024-04-02 00:32 | XMS_ITS | Encounter Summary ---
Author Organization [facility] Address [address] [place] [address] Care Team Providers Care Polymerization Supervisor Name Role Phone Yoselin Roberts MD Primary Care Provider +1- [phone] Reason for Referral * (Routine) - Closed Specialty Diagnoses / Procedures [facility] Referred To Contact Diagnoses CNVM (choroidal neovascular membrane), left Procedures OCT (OPHTHALMIC DIGITAL IMAGING, POSTERIOR SEGMENT) Josemanuel Gomes MD Phone: tel: fax: Referral ID Status Reason Start Date Expiration Date Visits Re quested Visits Authorized [id number] Closed 03/06/2016 1 1 Reason for Visit * Reason Comments Eye Problem High Myopia-both eye s, History of CNVM left eye Encounter Details Date Type Department Care Team (Late st Contact Info) Description 03/06/2016 10:00 EST Office Visit [facility] Ophthalmology - [facility] [address] [place] [address] Josemanuel Gomes MD 111 [facility], [address] [place] [address] Discharge Disposition: Auto Discharge Social [...] Diagnosis H35.052 Retinal neovascularization, unspecified, left eye-H35.052[ICD-10-CM] H44.23 Degenerative myopia, bilateral-H44.23[ICD-10-CM] H43.813 Vitreous degeneration, 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 Eye Problem High Myopia-both eyes, History of CNVM left eye HPI Location: Both eyes Pain: 0 - No pain Quality: Severity: Moderate Duration: Years Timing: Constant Lasts: Continuous Context: History of cnvm Modifying factors: Avastin injections Associated Signs & Symptoms: Vision is the same both eyes Visual Fluctuations: None Attestation: Base Eye Exam Visual Acuity (Snellen - Linear) Right Left Dist cc 20/30+ 20/80 Dist ph cc NI Tonometry (Applanation, 10:09) Right Left Pressure 17 17 Pupils Pupils APD Right PERRL None Left PERRL None Extraocular Movement Right Left Result Full Full Neuro/Psych Oriented x3: Yes Mood/Affect: Normal Dilation Both eyes: 2.5% Phenylephrine, 1.0% Mydriacyl @ 10:12 Slit Lamp and Fundus Exam External Exam [...] atrophy C/D Ratio 0.3-0.4 0.3-0.4 Macula RPE changes atrophic scar, no fluid or heme Vessels Normal Normal Periphery Normal Normal All five layers of the cornea are normal unless otherwise specified. Please refer to large retinal drawing. IMAGING: OCT REPORT Test Details: of , Indications: Cystoid Macular Edema Findings: Right Eye Left Eye Myopic macula. No edema myopic macula, no edema Original test to be found in patients shadow chart IMPRESSION: 1. CNVM (choroidal neovascular membrane), left OCT (OPHTHALMIC DIGITAL IMAGING, POSTERIOR SEGMENT) 2. Progressive high myopia, bilateral 3. Posterior vitreous detachment of both eyes PLAN: Quiescent CNVM left eye Hold on injection Reassure Continue observation High myopia both eyes RD warnings reviewed Follow PVD both eyes, no holes or tears Observe Return 3 months, sooner prn I, Dr. Josemanuel [...] Info) Description 05/24/2024 14:00 EDT Office Visit [facility] Ophthalmology - [address] [place] [address] Josemanuel Gomes MD [address] [place] [address], [address] [place] [address] Scheduled Orders Name Type Priority Associated Diagnoses Orde r Schedule OCT (OPHTHALMIC DIGITAL IMAGING, POSTERIOR SEGMENT) Ophthalmology Routine CNVM (choroidal neovascular membrane), left Ordered: 03/06/2016 documented as of this encounter Visit Diagnoses Diagnosis CNVM (choroidal neovascular membrane), left- Primary Progressive high myopia, bilateral Posterior vitreous detachment of both eyes Vitreous degeneration documented in this encounter Discontinued Medications Medication Sig Discontinue Reason Start Date End Da te metoprolol (LOPRESSOR) 50 mg tablet Take 50 mg by mouth 2 times daily Therapy completed 03/06/2016 lisinopril (PRINIVIL, ZESTRIL) 10 mg tablet Take 10 mg by mouth daily. Therapy completed 03/06/2016 documented as of this encounter Eye Exam Visual Acuity (Snellen - Linear) Right eye Left eye Dist cc 20/30+ 20/80 Dist ph cc NI Tonometry (Applanation, 10:09) Right eye Left eye Pressure 17 17 Pupils Pupils APD Right eye PERRL None Left eye PERRL None Extraocular Movement Right eye Left eye Full Full Neuro/Psych Oriented x3: Yes Mood/Affect: Normal Dilation Both eyes: 2.5% Phenylephrin e, 1.0% Mydriacyl @ 10:12 External Exam Right eye Left eye External [...] atrophy C/D Ratio 0.3-0.4 0.3-0.4 Macula RPE changes atrophic scar, n o fluid or heme Vessels Normal Normal Periphery Normal Normal Care Teams Polymerization Supervisor Relationship Specialty Start Date End Date Yoselin Roberts MD [address] [place] [address] [place] [address] PCP - General 04/22/11 documented as of this encounter
--- OUTSIDE RECORDS SUMMARY | 2024-04-02 00:32 | XMS_ITS | Encounter Summary ---
Author Organization [facility] Address [address] [place] [address] Care Team Providers Care Creative Services Coordinator Name Role Phone Yoselin Roberts MD Primary Care Provider +1- [phone] Reason for Visit * Reason Comments Ptosis 4 -5 yrs lids -- hav ing to tape lids up at Dr Calderon's to do [place] VF-- If holds lids up sees better with more light--- Pain no -- Dry eyes-- NOT dm no history of skin trouble-- Encounter Details Date Type Department Care Team (Late st Contact Info) Description 12/06/2014 12:30 EDT Office Visit [facility] Ophthalmology - [address] [id number] Rocio Gama MD 111 [facility], [address] [place] [address] Social History Tobacco Use Types [...] as of this encounter Progress Notes * Rocio Gama MD - 12/06/2014 1424 EDT Pt presenting for eyelid eval, but was seen by retina and phenylephrine administered so she will reschedule. documented in this encounter Plan of Treatment Upcoming Encounters Date Type Department Care Team (Late st Contact Info) Description 05/24/2024 14:00 EDT Office Visit [facility] Ophthalmology - [address] [place] [address] Josemanuel Gomes MD 111 [facility], [address] [place] [address] documented as of this encounter Visit Diagnoses Diagnosis Dermatochalasis, unspecified laterality- Primary documented in this encounter Eye Exam Visual Acuity (Snellen - Linear) Right eye Left eye Dist cc 20/30 20/80 Tonometry (Applanation, 12:50) Right eye Left eye Pressure 18 19 Taken today by Lina our COA from our office miquel hawkins transferred numbers. Pupils Dark React Right eye 7 dil Left eye [address] Gomes today Visual De Jesus Right eye Left eye Full Restrictions Partial outer davis perior temporal deficiency Extraocular Movement Right eye Left eye Full, Ortho Full, Ortho Neuro/Psych Oriented x3: Yes Mood/Affect: Normal Care Teams Creative Services Coordinator Relationship Specialty Start Date End Date Yoselin Roberts MD [address] [place] [address] [place] [address] PCP - General 04/22/11 documented as of this encounter
--- OUTSIDE RECORDS SUMMARY | 2024-04-02 00:32 | XMS_ITS | Encounter Summary ---
Author Organization [facility] Address [address] [place] [address] Care Team Providers Care Dealer Account Manager Name Role Phone Yoselin Roberts MD Primary Care Provider +1- [phone] Reason for Visit * Reason Comments Eye Problem QCNVM left eye. Hx o f avastin left eye. VA stable. No new F and F. No pain. 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 Eye Problem QCNVM left eye. Hx of avastin left eye. VA stable. No new F and F. No pain. HPI Location: Left eye Pain: 0 - No pain Quality: Blurry Severity: Moderate Duration: Months Timing: Constant Lasts: Months Context: VA stable. No new F and F. No pain. Modifying factors: History of Avastin injections left eye Associated Signs & Symptoms: chronic floaters in both eyes Left eye is still not quite as good as right Hasn't dropped a lot since last time she was seen, but not good enough to read Visual Fluctuations: Floaters Attestation: Base Eye Exam Visual Acuity (Snellen - Linear) Right Left Dist cc 20/30 +2 20/80 +1-1 Dist ph cc NI Correction: Glasses Tonometry (Applanation, 10:20) Right Left Pressure 18 19 Pupils Pupils APD Right PERRL - Left PERRL - Extraocular Movement Right Left Result Full Full Neuro/Psych Oriented x3: Yes Mood/Affect: Normal Dilation Both eyes: 1.0% Mydriacyl, 2.5% Phenylephrine @ 10:20 Slit Lamp and Fundus Exam External Exam Right Left External Normal Normal Pen Light Exam Right Left Lids/Lashes Blepharitis Blepharitis Conjunctiva/Sclera White and quiet White and quiet Cornea Clear Clear Anterior Chamber Deep and quiet Deep and quiet Iris Round and reactive Round and reactive Lens Posterior chamber intraocular lens Posterior chamber intraocular lens Vitreous Posterior vitreous detachment Posterior vitreous detachment Fundus Exam Right Left Disc Peripapillary atrophy Peripapillary atrophy C/D Ratio 0.4 0.4 Macula RPE changes atrophic scar Vessels Normal Normal Periphery Normal Normal All five layers of the cornea are normal unless otherwise specified. Please refer to large retinal drawing. IMAGING: OCT REPORT Indications: CNVM Findings: Right Eye Left Eye normal Subretinal Scar Original test to be found in patients shadow chart IMPRESSION: 1. 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 PVD (posterior vitreous detachment), bilateral PLAN: High Myopia-both eyes No holes or tears RD precautions Observe Quiet CNVM-left eye Hold off on injection Observe PVD-both eyes No holes or tears RD precautions Observe Follow up 6 weeks I, Dr. Josemanuel Gomes, have performed my own HPI and reviewed the tech's ROS. I have also reviewed thepatient's past medical, family, social and surgical history, as well as the patient's medications, allergies, and problem list. I am scribing for Dr. Josemanuel Gomes MD, while he is personally performing the service. ARELY Jauregui (Scribe) documented in this encounter Plan of Treatment Upcoming Encounters Date Type Department Care Team (Late st Contact Info) Description 05/24/2024 14:00 EDT Office Visit [facility] Ophthalmology - [facility] [address] [place] [address] Josemanuel Gomes MD 111 [facility], [facility] [address] [place] [address] documented as of this encounter Visit Diagnoses Diagnosis Progressive high (degenerative) myopia- Primary CNVM (choroidal neovascular membrane), left PVD (posterior vitreous detachment), bilateral documented in this encounter Eye Exam Visual Acuity (Snellen - Linear) Right eye Left eye Dist cc 20/30 +2 20/80 +1-1 Dist ph cc NI Correction: Glasses Tonometry (Applanation, 10:20) Right eye Left eye Pressure 18 19 Pupils Pupils APD Right eye PERRL - Left eye PERRL - Extraocular Movement Right eye Left eye Full Full Neuro/Psych Oriented x3: Yes Mood/Affect: Normal Dilation Both eyes: 1.0% Mydriacyl, 2 .5% Phenylephrine @ 10:20 External Exam Right eye Left eye External Normal Normal Pen Light Exam Right eye Left eye Lids/Lashes Blepharitis Blepharitis Conjunctiva/Sclera White and quiet White and marysol et Cornea Clear Clear Anterior Chamber Deep and quiet Deep and quiet Iris Round and reactive Round and marko ctive Lens Posterior chamber in traocular lens Posterior chamber intraocular lens Vitreous Posterior vitreous detachment Po sterior vitreous detachment Fundus Exam Right eye Left eye Disc Peripapillary atrophy Peripapill judy atrophy C/D Ratio 0.4 0.4 Macula RPE changes atrophic scar Vessels Normal Normal Periphery Normal Normal Care Teams Dealer Account Manager Relationship Specialty Start Date End Date Yoselin Roberts MD [address] [place] [address] [place] [address] PCP - General 04/22/11 documented as of this encounter
--- OUTSIDE RECORDS SUMMARY | 2024-04-02 00:32 | XMS_ITS | Encounter Summary ---
Author Organization [facility] Address [address] [place] [address] Care Team Providers Care Office Admin Name Role Phone Yoselin Roberts MD Primary Care Provider +1- [phone] Reason for Referral * (Routine) - Closed Specialty Diagnoses / [facility] Contact Diagnoses CNVM (choroidal neovascular membrane), left Procedures OCT (OPHTHALMIC DIGITAL IMAGING, POSTERIOR SEGMENT) Josemanuel Gomes MD Phone: tel: fax: Referral ID Status Reason Start Date Expiration Date Visits Re quested Visits Authorized [id number] Closed 03/06/2017 1 1 Reason for Visit * Reason Comments Eye Problem CNVM left eye (quies cent) PVD both eyes. High myope both eyes Encounter Details Date Type Department Care Team (Late st Contact Info) Description 03/06/2017 10:15 EST Office Visit [facility] Ophthalmology - Main [place] [address] [place], [place] [id number] Josemanuel Gomes MD 111 [facility], [address] [place] [address] Discharge Disposition: Auto Discharge Social [...] Diagnosis H35.052 Retinal neovascularization, unspecified, left eye-H35.052[ICD-10-CM] H43.393 Other vitreous opacities, bilateral-H43.393[ICD-10-CM] H44.23 Degenerative myopia, bilateral-H44.23[ICD-10-CM] documented in this encounter Discharge Disposition Disposition Code Departure Means Destination Auto Discharge documented in this encounter Progress Notes * Josemanuel Gomes MD - 03/06/2017 1015 EST Chief Complaint Patient presents with ??? Eye Problem CNVM left eye (quiescent) PVD both eyes. High myope both eyes HPI Location: Both eyes Pain: 0 - No pain Quality: Blurry Severity: Moderate Duration: Years Timing: Constant Lasts: Continuous Context: CNVM left eye (quiescent) PVD both eyes. High Myope both eyes Modifying factors: lantanoprost QHS both eyes. timolol both daily Associated Signs & Symptoms: Patient states she thought she may have had a bleed a couple weeksago but things went back to normal in her left eye. Stable floaters but denies flashes and eye pain Visual Fluctuations: Floaters CNVM left eye; vision moderately blurred centrally but stable left eye Unable to read with left eye; vision is clear with right eye, can drive and read well with specs both Has to use right to read with both months Attestation: Base Eye Exam Visual Acuity (Snellen - Linear) Right Left Dist cc 20/30 -1 20/80 -2 Dist ph cc NI Correction: Glasses Tonometry (Applanation, 10:19) Right Left Pressure 18 18 Pupils Pupils Right PERRL Left PERRL Neuro/Psych Oriented x3: Yes Mood/Affect: Normal Dilation Both eyes: 1.0% Mydriacyl, 2.5% Phenylephrine @ 10:19 Slit Lamp and Fundus Exam External Exam [...] OCT REPORT Test Details: of , Indications: CNVM Findings: Right Eye Left Eye high myopia Subretinal Scar Original test to be found in patients shadow chart IMPRESSION: 1. CNVM (choroidal neovascular membrane), left 2. Progressive high myopia, bilateral 3. Posterior vitreous detachment of both eyes PLAN: Quiescent CNVM left eye No heme, no SRF Reassure Continue observation High myopia both eyes, no tears, no RD No CNVM right eye RD warnings reviewed Observe PVD both eyes, no tears Follow Recheck [...] 05/24/2024 14:00 EDT Office Visit [facility] Ophthalmology - [address] [place] [id number] Josemanuel Gomes MD 111 [facility], [address] [place] [address] Scheduled Orders Name Type Priority Associated Diagnoses Orde r Schedule OCT (OPHTHALMIC DIGITAL IMAGING, POSTERIOR SEGMENT) Ophthalmology Routine CNVM (choroidal neovascular membrane), left Ordered: 03/06/2017 documented as of this encounter Visit Diagnoses Diagnosis CNVM (choroidal neovascular membrane), left- Primary Progressive high myopia, bilateral Posterior vitreous detachment of both eyes Vitreous degeneration documented in this encounter Eye Exam Visual Acuity (Snellen - Linear) Right eye Left eye Dist cc 20/30 -1 20/80 -2 Dist ph cc NI Correction: Glasses Tonometry (Applanation, 10:19) Right eye Left eye Pressure 18 18 Pupils Pupils Right eye PERRL Left eye PERRL Visual De Jesus Right eye Left eye Full Full Extraocular Movement Right eye Left eye Full, Ortho Full, Ortho Neuro/Psych Oriented x3: Yes Mood/Affect: Normal Dilation Both eyes: 1.0% Mydriacyl, 2 .5% Phenylephrine @ 10:19 External Exam Right eye Left eye External [...] Normal Normal Periphery Normal Normal Care Teams Office Admin Relationship Specialty Start Date End Date Yoselin Roberts MD [address] [place] [address] [place] [address] PCP - General 04/22/11 documented as of this encounter
--- OUTSIDE RECORDS SUMMARY | 2024-04-02 00:32 | XMS_ITS | Encounter Summary ---
Author Organization [facility] Address [address] [place] [address] Care Team Providers Care Park Interpretive Specialist Name Role Phone Yoselin Roberts MD Primary Care Provider +1- [phone] Reason for Visit * Reason Comments Eye Exam Here for re-eval for Ptosis. BUL are drooping more and it is still interfering with her vision. She had to cancel her surgery that was scheduled for personal reasons. She is taking AT's for dryness which helps. Her upper lids are getting heavier. Encounter Details Date Type Department Care Team (Late st Contact Info) Description 05/21/2018 9:45 EST Office Visit [facility] Ophthalmology - [address] [place] [address] Rocio Gama MD [address] [facility], [address] [place] [address] Discharge Disposition: Auto Discharge Social [...] eyelids-H02.403[ICD-10-CM] H02.831 Dermatochalasis of right upper eyelid-H02.831[ICD-10-CM] H02.834 Dermatochalasis of left upper eyelid-H02.834[ICD-10-CM] documented in this encounter Discharge Disposition Disposition Code Departure Means Destination Auto Discharge documented in this encounter Progress Notes * Rocio Gama MD - 05/21/2018 0945 EST Chief Complaint Patient presents with ??? Eye Exam Here for re-eval for Ptosis. BUL are drooping more and it is still interfering with her vision. Shehad to cancel her surgery that was scheduled for personal reasons. She is taking AT's for dryness which helps. Her upper lids are getting heavier. HPI The patient is a 77 y.o. female here for reevaluation for Ptosis Both upper eyelids. Both upper eyelids are drooping more and still interfering with her vision. She had to cancel her scheduled surgery for personal reasons. Patient feels her upper lids are getting heavier. She notices improvement inher vision with manual elevation of the eyelids. She denies diplopia. She does have some dryness and uses drops daily. Patient's father and two uncles had ptosis of BUL's. ROS Constitutional: NL ENT/Mouth NL Cardiovascular: High Cholesterol Respiratory: NL Gastrointestinal: NL Genitourinary: NL Musculoskeletal: NL Integumentary: NL Neurologic: NL Psychiatric: NL Endocrine: Thyroid problems Hematologic: NL Immunologic: Drug Allergy Casino Supervisor: Menopause Exposures: None Other: Attestation: Allergies include: Percocet [oxycodone-acetaminophen] and Sulfa (sulfonamide antibiotics) Patient Active Problem List Diagnosis ??? Retinal neovascularization ??? Degenerative myopia ??? Posterior vitreous detachment of both eyes ??? Blepharitis of both eyes ??? Pseudophakia of both eyes ??? Neovascular membrane of left choroid artery ??? SVT (supraventricular tachycardia) ([facility]) Outpatient Medications Marked as Taking for the 05/21/18 encounter (Office Visit) with Rocio Gama MD Medication Sig ??? aspirin 81 mg EC tablet Take 81 mg by mouth daily. ??? CELECOXIB (CELEBREX ORAL) Take 200 mg by mouth daily. ??? DILTiazem (TIAZAC) 120 mg SR capsule Take 180 mg by mouth daily. ??? duloxetine (CYMBALTA) 60 mg capsule Take 60 mg by mouth daily. ??? gabapentin (NEURONTIN) 100 mg capsule Take 100 mg by mouth 3 times daily. ??? ipratropium, 0.5mg/2.5ml, (ATROVENT) 0.02 % nebulizer solution 0.5 mg by nasal route 4 times daily. ??? lansoprazole (PREVACID) 30 mg capsule [...] Take 1 Tab by mouth daily. ??? simvastatin (ZOCOR) 10 [...] Linear) Right Left Dist cc 20/40 20/200 -1 Dist ph cc 20/30 Correction: Glasses Tonometry (Applanation, 9:38) Right Left Pressure 15 15 Extraocular Movement Right Left Full Full Neuro/Psych Oriented x3: Yes Mood/Affect: Normal Slit Lamp and Fundus Exam External Exam Right Left External accessory frontalis use, dermatochalasis, ptosis, prolapse orbital fat accessory frontalisuse, dermatochalasis, ptosis, prolapse orbital fat MRD1 1 mm 0 mm MRD2 5 mm 5 mm Levator 15 mm 15 mm Slit Lamp Exam Right Left Lids/Lashes ptosis, dermatochalasis, prolapse orbital fat ptosis, dermatochalasis, prolapse orbitalfat Conjunctiva/Sclera White and quiet White and quiet Cornea Clear Clear Anterior Chamber Deep and quiet Deep and quiet Iris Round and reactive Round and reactive Lens PCIOL PCIOL DIAGNOSTIC TESTS: External Photo/Anterior segment taken today demonstrating bilateral blepharoptosis which persists with manual elevation of the eyelids. IMPRESSION & PLAN: Encounter Diagnoses Name Primary? Ptosis, bilateral Yes ??? Dermatochalasis of both upper eyelids 1. Ptosis, bilateral This is visually significant and patient is symptomatic. Risks, including, but not limited to, pain, bleeding, infection, overcorrection, undercorrection, asymmetry, vision loss, scarring, need for additional surgery, dry eye; benefits and alternatives, including observation, were discussed with the patient. Her questions were answered. The patient elected to proceed with bilateral ptosis repair.Informed consent was obtained. She is on 81mg of aspirin and this should be held 7-10 days pre-op pending PCP approval 2. Dermatochalasis of both upper eyelids As above. I have reviewed the patient's past medical, family, social and surgical history. I have also reviewed the patient's medications, allergies, and problem list. I performed my own HPI and have reviewed the [facility]'s ROS as well. I personally completed this [...] Info) Description 05/24/2024 14:00 EDT Office Visit [facility] Ophthalmology - [address] [place] [address] Josemanuel Gomes MD [address] [facility], [address] [place] [address] documented as of this encounter Visit Diagnoses Diagnosis Ptosis, bilateral- Primary Unspecified ptosis of eyelid Dermatochalasis of both upper eyelids documented in this encounter Eye Exam Visual Acuity (Snellen - Linear) Right eye Left eye Dist cc 20/40 20/200 -1 Dist ph cc 20/30 Correction: Glasses Tonometry (Applanation, 9:38) Right eye Left eye Pressure 15 15 Extraocular Movement Right eye Left eye Full Full Neuro/Psych Oriented x3: Yes Mood/Affect: Normal External Exam Right eye Left eye External accessory frontalis use, dermatochalasis, ptosis, prolapse orbital fat accessory frontalis use, dermatochalasis, ptosis, prolapse orbital fat Slit Lamp Exam Right eye Left eye Lids/Lashes ptosis, dermatochala sis, prolapse orbital fat ptosis, dermatochalasis, prolapse orbital fat Conjunctiva/Sclera White and quiet White and marysol et Cornea Clear Clear Anterior Chamber Deep and quiet Deep and quiet Iris Round and reactive Round and marko ctive Lens PCIOL PCIOL External Right eye Left eye MRD1 1 mm 0 mm MRD2 5 mm 5 mm Levator 15 mm 15 mm Care Teams Park Interpretive Specialist Relationship Specialty Start Date End Date Yoselin Roberts MD [address] [place] [address] [place] [address] PCP - General 04/22/11 documented as of this encounter
--- OUTSIDE RECORDS SUMMARY | 2024-04-02 00:32 | XMS_ITS | Encounter Summary ---
Author Organization [facility] Address [address] [place] [address] Care Team Providers Care Front Desk Representative Name Role Phone Yoselin Roberts MD Primary Care Provider +1- [phone] Reason for Visit * Reason Onset Date Comments Discuss Surgery 01/11/2015 Encounter Details Date Type Department Care Team (Late st Contact Info) Description 01/11/[address] [facility] Ophthalmology - [address] [id number] Rocio Gama MD [address] [facility], [address] [place] [address] Discuss Surgery Social History Tobacco Use Types Packs/Day Years [...] encounter Miscellaneous Notes * Telephone Encounter - Rocio Gama MD - 01/11/2015 0915 EDT I called the patient to discuss her surgery--that she does not meet medicare guidelines based on her VF testing. There was no answer so I left a message for her to call me back. documented in this encounter Plan of Treatment Upcoming Encounters Date Type Department Care Team (Late st Contact Info) Description 05/24/2024 14:00 EDT Office Visit [facility] Ophthalmology - [facility] [address] [place] [address] Josemanuel Gomes MD [address] [place] [address], [facility] [address] [place] [address] documented as of this encounter Visit Diagnoses Not on filedocumented in this encounter Care Teams Front Desk Representative Relationship Specialty Start Date End Date Yoselin Roberts MD [address] [place] [address] [place] [address] PCP - General 04/22/11 documented as of this encounter
--- OUTSIDE RECORDS SUMMARY | 2024-04-02 00:32 | XMS_ITS | Encounter Summary ---
Author Organization [facility] Address [address] [place] [address] Care Team Providers Care Sales Planning Coordinator Name Role Phone Yoselin Roberts MD Primary Care Provider +1- [phone] Reason for Visit * Reason Onset Date Comments Follow-up 08/30/2018 Encounter Details Date Type Department Care Team (Late st Contact Info) Description 08/30/[address] [address] Jenna Lackey MD 111 [facility] [address] [place] [address] Follow-up Social History Tobacco Use Types Packs/Day Years [...] encounter Miscellaneous Notes * Telephone Encounter - Jenna Lackey MD - 08/30/2018 1306 EDT Courtney called me yesterday regarding her left upper lid incision. It appeared open with small amount of discharge in the wound. No increased redness or swell. The left lid has been more swollen thanthe right since the surgery, more work was done on that side. No tenderness to touch. No change/loss of vision. I discussed seeing her the same day vs watching as it sounded as if it was normal postop changes. Ilet her know that I cannot know that it's normal and not infected without examining the incision. We discussed that an infection could lead to poor wound healing and loss of vision. She elected to watch at home. I asked her to re-start Maxitrol ointment bid to APRIL and cool compresses. I called her for follow up today. She states the incision has closed and there's no discharge. The swelling is still more than on the left side, but decreased from yesterday. I asked her to call if any new/worsening symptoms. documented in this encounter Plan of Treatment Upcoming Encounters Date Type Department Care Team (Late st Contact Info) Description 05/24/2024 14:00 EDT Office Visit [facility] Ophthalmology - [id number] [place] [address] Josemanuel Gomes MD [address] [facility], [address] [place] [address] documented as of this encounter Visit Diagnoses Not on filedocumented in this encounter Care Teams Sales Planning Coordinator Relationship Specialty Start Date End Date Yoselin Roberts MD [address] [place] [address] [place] [address] PCP - General 04/22/11 documented as of this encounter
--- OUTSIDE RECORDS SUMMARY | 2024-04-02 00:32 | XMS_ITS | Encounter Summary ---
Author Organization [facility] Address [address] [place] [address] Care Team Providers Care Head Waitress Name Role Phone Yoselin Roberts MD Primary Care Provider +1- [phone] Reason for Referral * (Routine) - Closed Specialty Diagnoses / Procedures Referred By Contac t Referred To Contact Diagnoses Progressive high myopia, bilateral Procedures OCT (OPHTHALMIC DIGITAL IMAGING, POSTERIOR SEGMENT) Josemanuel Gomes MD Phone: tel: fax: Referral ID Status Reason Start Date Expiration Date Visits Re quested Visits Authorized [id number] Closed 03/02/2015 1 1 Reason for Visit * Reason Comments Eye Problem CNVM-Left eye;PVD Baljit th eyes; S/P Avastin injection to the Left eye 06/07/14. No changes in [place]; No flashes of light; Floaters both eyes-no new floaters. Left eye distortion. No pain. Medication Management Timolol OU daily i n the morning; Xalatan OU daily at bedtime Encounter Details Date Type Department Care Team (Late st Contact Info) Description 02/28/2015 14:00 EST Office Visit [facility] Ophthalmology - [address] [id number] Josemanuel Gomes MD [address] [facility], [address] [place] [address] Social History Tobacco Use Types [...] Progress Notes * Josemanuel Gomes MD - 02/28/2015 6726 EST Chief Complaint Patient presents with ??? Eye Problem CNVM-Left eye;PVD Both eyes; S/P Avastin injection to the Left eye 06/07/14. No changes in VA; No flashes of light; Floaters both eyes-no new floaters. Left eye distortion. No pain. ??? Medication Management Timolol OU daily in the morning; Xalatan OU daily at bedtime HPI Location: Left eye Pain: 0 - No pain Quality: Blurry, Distorted Severity: Moderate Duration: Years Timing: Constant Lasts: Continuous Context: No changes in VA; No flashes of light; Floaters both eyes-no new floaters. Left eye distortion. No pain. Few floaters in each eye Move around, but not too bothersome Modifying factors: Timolol OU daily in the morning; Xalatan OU daily at bedtime S/P Avastin injection to the Left eye 06/07/14 Associated Signs & Symptoms: CNVM-Left eye;PVD Both eyes; Visual Fluctuations: Floaters Attestation: Base Eye Exam Visual Acuity (Snellen - Linear) Right Left Dist cc 20/30 -2 20/100 Dist ph cc NI Tonometry (Applanation, 14:12) Right Left Pressure 19 20 Pupils Dark Light React Right 4 3 Brisk Left 4 3 Brisk Extraocular Movement Right Left Result Full Full Neuro/Psych Oriented x3: Yes Mood/Affect: Normal Dilation Both eyes: 0.5% Mydriacyl, 2.5% Phenylephrine @ 14:12 Slit Lamp and Fundus Exam External Exam Right Left External excessory frontalis use excessory frontalis use Slit Lamp Exam Right Left Lids/Lashes Dermatochalasis Dermatochalasis Conjunctiva/Sclera White and quiet White and quiet Cornea Arcus, SPK Arcus, SPK Anterior Chamber Deep and quiet Deep and quiet Iris Nevus Nevus Lens Posterior chamber intraocular lens Posterior chamber intraocular lens Vitreous PVD large PVD Fundus Exam Right Left Disc tilted, PPA tilted, PPA C/D Ratio 0.4-0.5 0.4-0.5 Macula RPE changes, no fluid or heme RPE changes, atrophy, no fluid or heme Vessels Normal Normal Periphery Normal Normal All five layers of the cornea are normal unless otherwise specified. Please refer to large retinal drawing. IMAGING: OCT REPORT Indications: Cystoid Macular Edema Findings: Right Eye Left Eye RPE changes atrophy Original test to be found in patients shadow chart IMPRESSION: 1. Choroidal neovascularization of left eye 2. Progressive high myopia, bilateral 3. Posterior vitreous detachment of both eyes 4. Dry eye, bilateral PLAN: Quiescent CNVM left eye Hold on injection Continue observation High myopia both eyes No RD, no CNVM right eye Observe PVD both eyes, no holes or tears RD warnings reviewed Observe Dry eyes, both Frequent ATs Recheck in April sooner prn I, Dr. Josemanuel Gomes, have [...] Info) Description 05/24/2024 14:00 EDT Office Visit [facility] Ophthalmology - [address] [place] [address] Josemanuel Gomes MD [address] [place] [address], [facility] [address] [place] [address] Scheduled Orders Name Type Priority Associated Diagnoses Orde r Schedule OCT (OPHTHALMIC DIGITAL IMAGING, POSTERIOR SEGMENT) Ophthalmology Routine Progressive high myopia, bilateral Ordered: 03/02/2015 documented as of this encounter Visit Diagnoses Diagnosis Choroidal neovascularization of left eye- Primary Retinal neovascularization NOS Progressive high myopia, bilateral Posterior vitreous detachment of both eyes Vitreous degeneration Dry eye, bilateral documented in this encounter Eye Exam Visual Acuity (Snellen - Linear) Right eye Left eye Dist cc 20/30 -2 20/100 Dist ph cc NI Tonometry (Applanation, 14:12) Right eye Left eye Pressure 19 20 Pupils Dark Light React Right eye 4 3 Brisk Left eye 4 3 Brisk Extraocular Movement Right eye Left eye Full Full Neuro/Psych Oriented x3: Yes Mood/Affect: Normal Dilation Both eyes: 0.5% Mydriacyl, 2 .5% Phenylephrine @ 14:12 External Exam Right eye Left eye External excessory frontalis use excessor y frontalis use Slit Lamp Exam Right eye Left eye Lids/Lashes Dermatochalasis Dermatochalasis Conjunctiva/Sclera White and quiet White and marysol et Cornea Arcus, SPK Arcus, SPK Anterior Chamber Deep and quiet Deep and quiet Iris Nevus Nevus Lens Posterior chamber in traocular lens Posterior chamber intraocular lens Vitreous PVD large PVD Fundus Exam Right eye Left eye Disc tilted, PPA tilted, PPA C/D Ratio 0.4-0.5 0.4-0.5 Macula RPE changes, no fluid or heme RP E changes, atrophy, no fluid or heme Vessels Normal Normal Periphery Normal Normal Care Teams Head Waitress Relationship Specialty Start Date End Date Yoselin Roberts MD [address] [place] [address] [place] [address] PCP - General 04/22/11 documented as of this encounter
--- OUTSIDE RECORDS SUMMARY | 2024-04-02 00:32 | XMS_ITS | Encounter Summary ---
Author Organization [facility] Address [address] [place] [address] Care Team Providers Care Gallery Or Museum Technician Name Role Phone Yoselin Roberts MD Primary Care Provider +1- [phone] Reason for Referral * (Routine) - Closed Specialty Diagnoses / Procedures Referred By Contaudie t Referred To Contact Diagnoses Retinal neovascularization NOS Procedures OCT (OPHTHALMIC DIGITAL IMAGING, POSTERIOR SEGMENT) Josemanuel Gomes MD Phone: tel: fax: Referral ID Status Reason Start Date Expiration Date Visits Re quested Visits Authorized [id number] Closed 10/26/2014 1 1 Reason for Visit * Reason Comments Eye Problem 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 eye Encounter Details Date Type Department Care Team (Late st Contact Info) Description 10/25/2014 10:15 EDT Office Visit [facility] Ophthalmology - [address] [id number] Josemanuel Gomes MD [address] [facility], [address] [place] [address] Social History Tobacco Use Types [...] Progress Notes * Josemanuel Gomes MD - 10/25/2014 1056 EDT Chief Complaint Patient presents with ??? Eye Problem 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 eye HPI Location: Left eye Pain: 0 - No pain Quality: Blurry Severity: Moderate Duration: Months Timing: Constant Lasts: Months Context: va stable Modifying factors: History of Avastin injections left eye Associated Signs & Symptoms: chronic floaters in both eyes No flashes eyes both Left eye is not as good as right, but not a lot worse than last time Visual Fluctuations: Floaters Attestation: Base Eye Exam Visual Acuity (Snellen - Linear) Right Left Dist cc 20/25 -2+1 20/80 +1 Correction: Glasses Tonometry (Applanation, 10:34) Right Left Pressure 19 17 Pupils Pupils Right PERRL Left PERRL Extraocular Movement Right Left Result Full Full Neuro/Psych Oriented x3: Yes Mood/Affect: Normal Dilation Both eyes: 1.0% Mydriacyl, 2.5% Phenylephrine @ 10:34 Slit Lamp and Fundus Exam External Exam [...] vitreous detachment Fundus Exam Right Left Disc tilted, PPA tilted, PPA C/D Ratio 0.5-0.6 0.5-0.6 Macula RPE changes, no fluid or heme SR scar, no heme or fluid Vessels Normal Normal Periphery Normal Normal Edited by: Rolando Steven OTA; Corinna Gilmore OTA All five layers of the cornea are normal unless otherwise specified. Please refer to large retinal drawing. IMAGING: OCT REPORT Indications: CNVM Findings: Right Eye Left Eye irregular retina irregular retina, scar Original test to be found in patients shadow chart IMPRESSION: 1. Progressive high (degenerative) myopia 2. Posterior vitreous detachment of both eyes 3. Retinal neovascularization NOS PLAN: High Myopia No holes, tears Observe CNVM Quiet Observe PVD both eyes No holes, tears Observe Return as scheduled for OCT and ?injection I, Dr. Josemanuel Gomes, have performed my [...] Info) Description 05/24/2024 14:00 EDT Office Visit [facility] Ophthalmology - [address] [place] [address] Josemanuel Gomes MD [address] [place] [address], [facility] [address] [place] [address] Scheduled Orders Name Type Priority Associated Diagnoses Orde r Schedule OCT (OPHTHALMIC DIGITAL IMAGING, POSTERIOR SEGMENT) Ophthalmology Routine Retinal neovascularization NOS Ordered: 10/26/2014 documented as of this encounter Visit Diagnoses Diagnosis Progressive high (degenerative) myopia- Primary Posterior vitreous 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 CELECOXIB (CELEBREX ORAL) Take 200 mg by mouth daily. PREGABALIN (LYRICA ORAL) Take by mouth 08/12/2018 added in this encounter Eye Exam Visual Acuity (Snellen - Linear) Right eye Left eye Dist cc 20/25 -2+1 20/80 +1 Correction: Glasses Tonometry (Applanation, 10:34) Right eye Left eye Pressure 19 17 Pupils Pupils Right eye PERRL Left eye PERRL Extraocular Movement Right eye Left eye Full Full Neuro/Psych Oriented x3: Yes Mood/Affect: Normal Dilation Both eyes: 1.0% Mydriacyl, 2 .5% Phenylephrine @ 10:34 External Exam Right eye Left eye External [...] Disc tilted, PPA tilted, PPA C/D Ratio 0.5-0.6 0.5-0.6 Macula RPE changes, no fluid or heme SR scar, no heme or fluid Vessels Normal Normal Periphery Normal Normal Care Teams Gallery Or Museum Technician Relationship Specialty Start Date End Date Yoselin Roberts MD [address] [place] [address] [place] [address] PCP - General 04/22/11 documented as of this encounter
--- OUTSIDE RECORDS SUMMARY | 2024-04-02 00:32 | XMS_ITS | Encounter Summary ---
Author Organization [facility] Address [address] [place] [address] Care Team Providers Care Computational Chemist Name Role Phone Yoselin Roberts MD Primary Care Provider +1- [phone] Reason for Referral * (Routine) - Closed Specialty Diagnoses / Procedures [facility] To Contact Diagnoses CNVM (choroidal neovascular membrane), left Procedures OCT (OPHTHALMIC DIGITAL IMAGING, POSTERIOR SEGMENT) Josemanuel Gomes MD Phone: tel: fax: Referral ID Status Reason Start Date Expiration Date Visits Re quested Visits Authorized [id number] Closed 04/23/2018 1 1 Reason for Visit * Reason Comments Eye Problem F/u on High Myopia b oth. CNVM left eye. Encounter Details Date Type Department Care Team (Late st Contact Info) Description 04/23/2018 10:00 EST Office Visit [facility] Ophthalmology - [address] [id number] Josemanuel Gomes MD [address] [place] [address], [address] [place] [address] Discharge Disposition: Auto Discharge Social [...] documented in this encounter Discharge Diagnoses Diagnosis H43.813 Vitreous degeneration, bilateral-H43.813[ICD-10-CM] H43.392 Other vitreous opacities, left eye-H43.392[ICD-10-CM] documented in this encounter Discharge Disposition Disposition Code Departure Means Destination Auto Discharge documented in this encounter Progress Notes * Josemanuel Gomes MD - 04/23/2018 1000 EST Chief Complaint Patient presents with ??? Eye Problem F/u on High Myopia both. CNVM left eye. HPI Location: Both eyes Pain: 0 - No pain Quality: Blurry Severity: Duration: Months Timing: Constant Lasts: Continuous Context: F/u on High Myopia both. CNVM left eye. Modifying factors: Using Xalatan and Timolol 1 x a day both. Associated Signs & Symptoms: VA not as good per pt. Need glasses change. New floater left eye. No flashes. No pain. c/o Dry eyes,using Systane daily with good relief. Visual Fluctuations: Attestation: Vision poor left eye, years constant No pain no flashes same floaters both eyes, maybe a new one left eye, months constant Floater left at top of vision Has gotten better with time Base Eye Exam Visual Acuity (Snellen - Linear) Right Left Dist cc 20/30 -2 20/300 +2 Dist ph cc 20/30 +2 20/200 -2 Correction: Glasses Tonometry (Applanation, 10:22) Right Left Pressure 15 15 Pupils Pupils APD Right PERRL - Left PERRL - Visual De Jesus Right Left Full Full Extraocular Movement Right Left Full, Ortho Full, Ortho Neuro/Psych Oriented x3: Yes Mood/Affect: Normal Dilation Both eyes: 1.0% Mydriacyl, 2.5% Phenylephrine @ 10:22 Slit Lamp and Fundus Exam External Exam Right Left External Normal Normal Slit Lamp Exam Right Left Lids/Lashes Blepharitis Blepharitis Conjunctiva/Sclera White and quiet Injection Cornea Arcus [...] Indications: CNVM Findings: Right Eye Left Eye myopic appearing Subretinal Scar Original test to be found in patients shadow chart IMPRESSION: 1. Progressive high myopia, bilateral 2. CNVM (choroidal neovascular membrane), left OCT (OPHTHALMIC DIGITAL IMAGING, POSTERIOR SEGMENT) 3. Posterior vitreous detachment of both eyes 4. Vitreous syneresis of left eye PLAN: CNVM left eye Quiet High myope No active CNVM No new holes breaks or tears RD precautions Observe PVD both eyes No new holes breaks or tears RD precautions Observe VS left eye With large PVD No new holes breaks or tears RD precautions Observe Return in about 4 months (around 08/21/2018), or if symptoms worsen or fail to improve. I, Dr. Josemanuel Gomes, have performed my [...] Info) Description 05/24/2024 14:00 EDT Office Visit [facility] Ophthalmology - [address] [place] [address] Josemanuel Gomes MD [address] [facility], [facility] [address] [place] [address] Scheduled Orders Name Type Priority Associated Diagnoses Orde r Schedule OCT (OPHTHALMIC DIGITAL IMAGING, POSTERIOR SEGMENT) Ophthalmology Routine CNVM (choroidal neovascular membrane), left Ordered: 04/23/2018 documented as of this encounter Visit Diagnoses Diagnosis Progressive high myopia, bilateral- Primary CNVM (choroidal neovascular membrane), left Posterior vitreous detachment of both eyes Vitreous degeneration Vitreous syneresis of left eye documented in this encounter Eye Exam Visual Acuity (Snellen - Linear) Right eye Left eye Dist cc 20/30 -2 20/300 +2 Dist ph cc 20/30 +2 20/200 -2 Correction: Glasses Tonometry (Applanation, 10:22) Right eye Left eye Pressure 15 15 Pupils Pupils APD Right eye PERRL - Left eye PERRL - Visual De Jesus Right eye Left eye Full Full Extraocular Movement Right eye Left eye Full, Ortho Full, Ortho Neuro/Psych Oriented x3: Yes Mood/Affect: Normal Dilation Both eyes: 1.0% Mydriacyl, 2 .5% Phenylephrine @ 10:22 External Exam Right eye Left eye External Normal Normal Slit Lamp Exam Right eye Left eye Lids/Lashes Blepharitis Blepharitis Conjunctiva/Sclera White and quiet Injection Cornea Arcus [...] Periphery scattered cobblestones scattered cobblestones Care Teams Computational Chemist Relationship Specialty Start Date End Date Yoselin Roberts MD [address] [place] [address] [place] [address] PCP - General 04/22/11 documented as of this encounter
--- OUTSIDE RECORDS SUMMARY | 2024-04-02 00:32 | XMS_ITS | Encounter Summary ---
Author Organization [facility] Address [address] [place] [address] Care Team Providers Care Leg Man Name Role Phone Yoselin Roberts MD Primary Care Provider +1- [phone] Reason for Referral * (Routine) - Closed Specialty Diagnoses / Procedures [facility] Referred To Contact Diagnoses CNVM (choroidal neovascular membrane), left Procedures OCT (OPHTHALMIC DIGITAL IMAGING, POSTERIOR SEGMENT) Josemanuel Gomes MD Phone: tel: fax: Referral ID Status Reason Start Date Expiration Date Visits Re quested Visits Authorized [id number] Closed 09/03/2016 1 1 Reason for Visit * Reason Comments Eye Problem High myope, Hx of CN VM left eye Encounter Details Date Type Department Care Team (Late st Contact Info) Description 09/03/2016 10:30 EDT Office Visit [facility] Ophthalmology - [address] [place] [address] Josemanuel Gomes MD [address] [facility], [address] [place] [address] Discharge Disposition: Auto Discharge Social [...] Progress Notes * Josemanuel Gomes MD - 09/03/2016 1030 EDT Chief Complaint Patient presents with ??? Eye Problem High myope, Hx of CNVM left eye HPI Location: Left eye Pain: 0 - No pain Quality: Blurry Severity: Moderate Duration: Years Timing: Constant Lasts: Continuous Context: High myope, Hx of CNVM left eye Modifying factors: Hx of Avastin left eye Associated Signs & Symptoms: Vision same both eyes. No pain same F/F Left eye is ok for far, but not for reading For months Uses right to get over issues with reading left Doing fine with both eyes Visual Fluctuations: Attestation: Base Eye Exam Visual Acuity (Snellen - Linear) Right Left Dist cc 20/30 20/80 Dist ph cc NI Correction: Glasses Tonometry (Applanation, 10:50) Right Left Pressure 18 16 Pupils Pupils Right PERRL Left PERRL Visual De Jesus Right Left Result Full Full Extraocular Movement Right Left Result Full, Ortho Full, Ortho Neuro/Psych Oriented x3: Yes Mood/Affect: Normal Dilation Both eyes: 1.0% Mydriacyl, 2.5% Phenylephrine @ 10:50 Slit Lamp and Fundus Exam External Exam [...] CNVM Findings: Right Eye Left Eye Normal Subretinal Scar Original test to be found in patients shadow chart IMPRESSION: 1. CNVM (choroidal neovascular membrane), left OCT (OPHTHALMIC DIGITAL IMAGING, POSTERIOR SEGMENT) 2. Posterior vitreous detachment of both eyes 3. 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 High myopia both eyes No holes, tears or RD RD warnings reviewed ?? PVD both eyes, no tears Follow ?? Recheck 3 months, sooner prn I, Dr. [...] 05/24/2024 14:00 EDT Office Visit [facility] Ophthalmology - [address] [place], [place] [id number] Josemanuel Gomes MD [address] [place] [address], [address] [place] [address] Scheduled Orders Name Type Priority Associated Diagnoses Orde r Schedule OCT (OPHTHALMIC DIGITAL IMAGING, POSTERIOR SEGMENT) Ophthalmology Routine CNVM (choroidal neovascular membrane), left Ordered: 09/03/2016 documented as of this encounter Visit Diagnoses Diagnosis CNVM (choroidal neovascular membrane), left- Primary Posterior vitreous detachment of both eyes Vitreous degeneration Progressive high myopia, bilateral documented in this encounter Eye Exam Visual Acuity (Snellen - Linear) Right eye Left eye Dist cc 20/30 20/80 Dist ph cc NI Correction: Glasses Tonometry (Applanation, 10:50) Right eye Left eye Pressure 18 16 Pupils Pupils Right eye PERRL Left eye PERRL Visual De Jesus Right eye Left eye Full Full Extraocular Movement Right eye Left eye Full, Ortho Full, Ortho Neuro/Psych Oriented x3: Yes Mood/Affect: Normal Dilation Both eyes: 1.0% Mydriacyl, 2 .5% Phenylephrine @ 10:50 External Exam Right eye Left eye External [...] Normal Normal Periphery Normal Normal Care Teams Leg Man Relationship Specialty Start Date End Date Yoselin Roberts MD [address] [place] [address] [place] [address] PCP - General 04/22/11 documented as of this encounter
--- OUTSIDE RECORDS SUMMARY | 2024-04-02 00:32 | XMS_ITS | Encounter Summary ---
Author Organization [facility] Address [address] [place] [address] Care Team Providers Care Hand Slitter Name Role Phone Yoselin Roberts MD Primary Care Provider +1- [phone] Reason for Visit * Reason Comments Eye Problem f/u on CNVM left eye . High Myopia both. Hx of Intravitreal Avastin injections left eye 06/07/14. VA unchanged. No new F and F. c/o left eye is dry occ'ly. Encounter Details Date Type Department Care Team (Late st Contact Info) Description 12/03/2016 10:15 EDT Office Visit [facility] Ophthalmology - [address] [place], [place] [id number] Josemanuel Gomes MD 111 [facility], [facility] [address] [place] [address] Discharge Disposition: Auto Discharge Social [...] Progress Notes * Josemanuel Gomes MD - 12/03/2016 1015 EDT Chief Complaint Patient presents with ??? Eye Problem f/u on CNVM left eye. High Myopia both. Hx of Intravitreal Avastin injections left eye 06/07/14. VA unchanged. No new F and F. c/o left eye is dry occ'ly. HPI Location: Left eye Pain: 0 - No pain Quality: Blurry Severity: Moderate Duration: Years Timing: Constant Lasts: Continuous Context: f/u on CNVM left eye. High Myopia both. Hx of Intravitreal Avastin injections left eye. Modifying factors: c/o occ'l sorrenes of left eye. Improved with use of AT's Associated Signs & Symptoms: VA unchanged. No new F and F. c/o left eye is dry occ'ly. Using Xalatan and Timolol 1 x a day both eyes. Left eye seems to be loop drier operator than usual Especially worse end of summer Better with rest Worse if she doesn't rest Better also with AT Visual Fluctuations: Floaters Attestation: Base Eye Exam Visual Acuity (Snellen - Linear) Right Left Dist cc 20/25 -1 20/70 +2-2 Dist ph cc 20/60+2-1 Correction: Glasses Tonometry (Applanation, 10:30) Right Left Pressure 19 19 Pupils Pupils APD Right PERRL - Left PERRL - Visual De Jesus Right Left Result Full Full Extraocular Movement Right Left Result Full, Ortho Full, Ortho Neuro/Psych Oriented x3: Yes Mood/Affect: Normal Dilation Both eyes: 1.0% Mydriacyl, 2.5% Phenylephrine @ 10:30 Slit Lamp and Fundus Exam External Exam [...] OCT REPORT Test Details: of , Indications: cnvm Findings: Right Eye Left Eye good foveal contour Subretinal Scar Original test to be found in patients shadow chart IMPRESSION: 1. CNVM (choroidal neovascular membrane), left 2. Progressive high myopia, bilateral 3. Posterior vitreous detachment of both eyes PLAN: Quiescent CNVM left eye Vision stable Reassure Continue observation High myopia both eyes No holes/tears or RD RD warnings PVD both eyes, no holes or tears RD warnings Observe I, Dr. Josemanuel Gomes, have performed my [...] 05/24/2024 14:00 EDT Office Visit [facility] Ophthalmology - [address] [place] [address] Josemanuel Gomes MD [address] [place] [address], [address] [place] [address] documented as of this encounter Visit Diagnoses Diagnosis CNVM (choroidal neovascular membrane), left- Primary Progressive high myopia, bilateral Posterior vitreous detachment of both eyes Vitreous degeneration documented in this encounter Eye Exam Visual Acuity (Snellen - Linear) Right eye Left eye Dist cc 20/25 -1 20/70 +2-2 Dist ph cc 20/60+2-1 Correction: Glasses Tonometry (Applanation, 10:30) Right eye Left eye Pressure 19 19 Pupils Pupils APD Right eye PERRL - Left eye PERRL - Visual De Jesus Right eye Left eye Full Full Extraocular Movement Right eye Left eye Full, Ortho Full, Ortho Neuro/Psych Oriented x3: Yes Mood/Affect: Normal Dilation Both eyes: 1.0% Mydriacyl, 2 .5% Phenylephrine @ 10:30 External Exam Right eye Left eye External [...] Normal Normal Periphery Normal Normal Care Teams Hand Slitter Relationship Specialty Start Date End Date Yoselin Roberts MD [address] [place] [address] [place] [address] PCP - General 04/22/11 documented as of this encounter
--- OUTSIDE RECORDS SUMMARY | 2024-04-02 00:32 | XMS_ITS | Encounter Summary ---
Author Organization [facility] Address [address] [place] [address] Care Team Providers Care Distillery Miller Name Role Phone Yoselin Roberts MD Primary Care Provider +1- [phone] Reason for Referral * (Routine) - Closed Specialty Diagnoses / Procedures Referred By Contac t Referred To Contact Diagnoses Choroidal neovascularization of left eye Procedures OCT (OPHTHALMIC DIGITAL IMAGING, POSTERIOR SEGMENT) Josemanuel Gomes MD Phone: tel: fax: Referral ID Status Reason Start Date Expiration Date Visits Re quested Visits Authorized [id number] Closed 09/05/2015 1 1 Reason for Visit * Reason Comments Eye Problem CNVM left eye, high myopia both eyes, PVD both eyes, ?avastin today. No VA changes, no pain in either eye, no new flashes or floaters. Encounter Details Date Type Department Care Team (Late st Contact Info) Description 09/05/2015 10:[address] [facility] Ophthalmology - [address] [id number] Josemanuel Gomes MD [address] [place] [address], [address] [place] [address] Discharge Disposition: Auto Discharge Social [...] as of this encounter Discharge Diagnoses Diagnosis G43.111 Migraine with aura, intractable, with status migrainosus-G43.111[ICD-10-CM] documented in this encounter Discharge Disposition Disposition Code Departure Means Destination Auto Discharge documented in this encounter Progress Notes * Josemanuel Gomes MD - 09/05/2015 1033 EDT Chief Complaint Patient presents with ??? Eye Problem CNVM left eye, high myopia both eyes, PVD both eyes, ?avastin today. No VA changes, no pain in either eye, no new flashes or floaters. HPI Location: Both eyes (CNVM left eye ) Pain: 0 - No pain Quality: Blurry Severity: Moderate Duration: Years Timing: Constant Lasts: Continuous Context: No VA changes, no pain in either eye, no new flashes or floaters. Modifying factors: CNVM left eye, high myopia both eyes, PVD both eyes, ?avastin today. Associated Signs & Symptoms: Visual Fluctuations: None Attestation: Base Eye Exam Visual Acuity (Snellen - Linear) Right Left Dist cc 20/30 +1 20/100 Correction: Glasses Tonometry (Applanation, 10:19) Right Left Pressure 20 19 Pupils Pupils Dark Light React APD Right PERRL 4 3 Brisk None Left PERRL 4 3 Brisk None Extraocular Movement Right Left Result Full [...] Disc tilted, PPA tilted, PPA C/D Ratio 0.4 0.4 Macula RPE changes, no fluid or heme Atrophic scar, no fluid or heme Vessels Normal Normal Periphery Normal Normal All five layers of the cornea are normal unless otherwise specified. Please refer to large retinal drawing. IMAGING: OCT REPORT Test Details: of , Indications: Cystoid Macular Edema Findings: Right Eye Left Eye Normal Subretinal Scar Original test to be found in patients shadow chart IMPRESSION: 1. Choroidal neovascularization of left eye OCT (OPHTHALMIC DIGITAL IMAGING, POSTERIOR SEGMENT) 2. Progressive high myopia, bilateral 3. Posterior vitreous detachment of both eyes PLAN: Hx CNVM left eye, quiescent Hold on injection Continue observation High myopia both eyes No tears, no RD Reassure Observe PVD both eyes, no holes or tears RD warnings reviewed Follow Return 3 months sooner prn I, Dr. Josemanuel Gomes, have [...] Info) Description 05/24/2024 14:[address] [facility] Ophthalmology - [facility] [address] [place], [place] [phone] Josemanuel Gomes MD [address] [place] [address], [address] [place] [address] Scheduled Orders Name Type Priority Associated Diagnoses Orde r Schedule OCT (OPHTHALMIC DIGITAL IMAGING, POSTERIOR SEGMENT) Ophthalmology Routine Choroidal neovascularization of left eye Ordered: 09/05/2015 documented as of this encounter Visit Diagnoses Diagnosis Choroidal neovascularization of left eye- Primary Retinal neovascularization NOS Progressive high myopia, bilateral Posterior vitreous detachment of both eyes Vitreous degeneration documented in this encounter Eye Exam Visual Acuity (Snellen - Linear) Right eye Left eye Dist cc 20/30 +1 20/100 Correction: Glasses Tonometry (Applanation, 10:19) Right eye Left eye Pressure 20 19 Pupils Pupils Dark Light React APD Right eye PERRL 4 3 Brisk None Left eye PERRL 4 3 Brisk None Extraocular Movement Right eye Left eye [...] Disc tilted, PPA tilted, PPA C/D Ratio 0.4 0.4 Macula RPE changes, no fluid or heme At rophic scar, no fluid or heme Vessels Normal Normal Periphery Normal Normal Care Teams Distillery Miller Relationship Specialty Start Date End Date Yoselin Roberts MD [address] [place] [address] [place] [address] PCP - General 04/22/11 documented as of this encounter
--- OUTSIDE RECORDS SUMMARY | 2024-04-02 00:32 | XMS_ITS | Encounter Summary ---
Author Organization [facility] Address [address] [place] [address] Care Team Providers Care Digital Account Supervisor Name Role Phone Yoselin Roberts MD Primary Care Provider +1- [phone] Reason for Referral * (Routine) - New Request Specialty Diagnoses / Procedures Referred By Contac t Referred To Contact Diagnoses CNVM (choroidal neovascular membrane), left Procedures OCT (OPHTHALMIC DIGITAL IMAGING, POSTERIOR SEGMENT) Josemanuel Gomes MD Phone: tel: fax: Referral ID Status Reason Start Date Expiration Date V isits Requested Visits Authorized [id number] New Request 12/25/2017 1 1 Reason for Visit * Reason Comments Eye Problem CNVM left eye, PVD b oth eyes, high myope both eyes. Encounter Details Date Type Department Care Team (Late st Contact Info) Description 12/25/2017 10:30 EDT Office Visit [facility] Ophthalmology - [address] [address] Josemanuel Gomes MD [address] [place] [address], [address] [place] [address] Discharge Disposition: Auto Discharge Social [...] Progress Notes * Josemanuel Gomes MD - 12/25/2017 1030 EDT Chief Complaint Patient presents with ??? Eye Problem CNVM left eye, PVD both eyes, high myope both eyes. HPI Location: Left eye Pain: 0 - No pain Quality: Blurry Severity: Moderate Duration: Years Timing: Constant Lasts: Continuous Context: CNVM left eye, PVD both eyes, high myope both eyes. Modifying factors: Pt states that distance vision is not as good, the left eye is itchy and burny, feels like there is a stick in her eye. She doesn't recall getting anything in her eye it just started. The left eye hurts, eye is uncomfortable now but no pain. There are all kinds of old ones talking about floaters, no flashes of light. Associated Signs & Symptoms: Visual Fluctuations: Floaters CNVM left eye Vision mildly blurred right eye, severely blurred left eye, months, constant Having some discomfort, burning and itching left eye past few days Better with rubbing Has not had cold recently, but does feel a little under weather right now Attestation: Base Eye Exam Visual Acuity (Snellen - Linear) Right Left Dist cc 20/40 +2 20/300 -1 Dist ph cc NI 20/300+1 Correction: Glasses Tonometry (Applanation, 10:45) Right Left Pressure 16 16 Pupils Pupils Right PERRL Left PERRL Visual De Jesus Right Left Result Full Full Extraocular Movement Right Left Result Full, Ortho Full, Ortho Neuro/Psych Oriented x3: Yes Mood/Affect: Normal Dilation Both eyes: 1.0% Mydriacyl, 2.5% Phenylephrine @ 10:46 Slit Lamp and Fundus Exam External Exam [...] Indications: CNVM Findings: Right Eye Left Eye No edema SR scar Original test to be found in patients shadow chart IMPRESSION: 1. CNVM (choroidal neovascular membrane), left OCT (OPHTHALMIC DIGITAL IMAGING, POSTERIOR SEGMENT) 2. Progressive high myopia, bilateral 3. Posterior vitreous detachment of both eyes 4. Acute viral conjunctivitis of left eye PLAN: Quiescent CNVM left eye No heme or SRF on exam or OCT Continue observation High myopia both eyes No CNVM right eye Reassure PVD both eyes No holes/tears/RD RD precautions reviewed Follow Acute conjunctivitis left eye ATs prn Reassure Recheck 3-4 months, sooner prn I, Dr. Josemanuel Gomes, [...] 05/24/2024 14:00 EDT Office Visit [facility] Ophthalmology - [facility] [address] [place] [address] Josemanuel Gomes MD [address] [place] [address], [facility] [address] [place] [address] Scheduled Orders Name Type Priority Associated Diagnoses Orde r Schedule OCT (OPHTHALMIC DIGITAL IMAGING, POSTERIOR SEGMENT) Ophthalmology Routine CNVM (choroidal neovascular membrane), left Ordered: 12/25/2017 documented as of this encounter Visit Diagnoses Diagnosis CNVM (choroidal neovascular membrane), left- Primary Progressive high myopia, bilateral Posterior vitreous detachment of both eyes Vitreous degeneration Acute viral conjunctivitis of left eye documented in this encounter Historical Medications * This list may reflect changes made after this encounter. gabapentin (NEURONTIN) 100 mg capsule Take 100 mg by mouth 3 times daily. 08/12/2018 added in this encounter Eye Exam Visual Acuity (Snellen - Linear) Right eye Left eye Dist cc 20/40 +2 20/300 -1 Dist ph cc NI 20/300+1 Correction: Glasses Tonometry (Applanation, 10:45) Right eye Left eye Pressure 16 16 Pupils Pupils Right eye PERRL Left eye PERRL Visual De Jesus Right eye Left eye Full Full Extraocular Movement Right eye Left eye Full, Ortho Full, Ortho Neuro/Psych Oriented x3: Yes Mood/Affect: Normal Dilation Both eyes: 1.0% Mydriacyl, 2 .5% Phenylephrine @ 10:46 External Exam Right eye Left eye External [...] Normal Normal Periphery Normal Normal Care Teams Digital Account Supervisor Relationship Specialty Start Date End Date Yoselin Roberts MD [address] [place] [address] [place] [address] PCP - General 04/22/11 documented as of this encounter
--- OUTSIDE RECORDS SUMMARY | 2024-04-02 00:32 | XMS_ITS | Encounter Summary ---
Author Organization [facility] Address [address] [place] [address] Care Team Providers Care Overedger Name Role Phone Yoselin Roberts MD Primary Care Provider +1- [phone] Reason for Visit * Reason Onset Date Comments Other 04/23/2018 Encounter Details Date Type Department Care Team (Late st Contact Info) Description 04/23/2018 Telephone [facility] Ophthalmology - [address] [phone] Rocio Gama MD 111 [facility], [address] [place] [address] Other Social History Tobacco Use [...] documented in this encounter Procedure Notes * Sweta Monroe - 04/30/2018 1141 EST A user error has taken place: encounter opened in error, closed for administrative reasons. documented in this encounter Plan of Treatment Upcoming Encounters Date Type Department Care Team (Late st Contact Info) Description 05/24/2024 14:00 EDT Office Visit [facility] Ophthalmology - [id number] [place] [address] Josemanuel Gomes MD [address] [place] [address], [address] [place] [phone] documented as of this encounter Visit Diagnoses Not on filedocumented in this encounter Care Teams Overedger Relationship Specialty Start Date End Date Yoselin Roberts MD [address] [place] [id number] PCP - General 04/22/11 documented as of this encounter
--- OUTSIDE RECORDS SUMMARY | 2024-04-02 00:32 | XMS_ITS | Encounter Summary ---
Author Organization [facility] Address [address] [place] [address] Care Team Providers Care Worm Farmer Name Role Phone Yoselin Roberts MD Primary Care Provider +1- [phone] Reason for Visit * Reason Onset Date Comments Discuss Surgery 05/23/2018 Encounter Details Date Type Department Care Team (Late st Contact Info) Description 05/23/2018 Telephone [facility] Ophthalmology - [address] [phone] Rocio Gama MD 111 [facility], [address] [place] [address] Discuss Surgery Social History Tobacco [...] encounter Miscellaneous Notes * Telephone Encounter - Misa Boyd - 08/11/2018 0943 EDT Pt has been holding her ASA 81mg as discussed with her provider during pre-op physical so that she can proceed with surgery with Dr. Gama on 08/19. I have put in another call to her doctor's office asking for pre-op note to be addended to indicatethey discussed this and that 7-10d hold is approved. * Telephone Encounter - Misa Boyd - 05/23/2018 1533 EST LMOM to let her know I am able to offer her Dr. Gama's next available OR date for her surgery. I did not leave date or details because I would like to discuss with patient, as Dr. Gama is booking afew months out at this time. I left her my direct phone number and asked her to call me back next week any day but . documented in this encounter Plan of Treatment Upcoming Encounters Date Type Department Care Team (Late st Contact Info) Description 05/24/2024 14:00 EDT Office Visit [facility] Ophthalmology - [address] [place] [address] Josemanuel Gomes MD 111 [facility], [address] [place] [address] documented as of this encounter Visit Diagnoses Not on filedocumented in this encounter Care Teams Worm Farmer Relationship Specialty Start Date End Date Yoselin Roberts MD [address] [place] [address] [place] [address] PCP - General 04/22/11 documented as of this encounter
--- OUTSIDE RECORDS SUMMARY | 2024-04-02 00:32 | XMS_ITS | Encounter Summary ---
Author Organization [facility] Address [address] [place] [address] Care Team Providers Care Forestry Laborer Name Role Phone Yoselin Roberts MD Primary Care Provider +1- [phone] Reason for Referral * (Routine) - Closed Specialty Diagnoses / Procedures Referred By Contaudie t Referred To Contact Diagnoses Choroidal neovascularization of left eye Procedures OCT (OPHTHALMIC DIGITAL IMAGING, POSTERIOR SEGMENT) Josemanuel Gomes MD Phone: tel: fax: Referral ID Status Reason Start Date Expiration Date Visits Re quested Visits Authorized [id number] Closed 04/25/2015 1 1 Reason for Visit * Reason Comments Eye Problem 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 Encounter Details Date Type Department Care Team (Late st Contact Info) Description 04/25/2015 10:00 EST Office Visit [facility] Ophthalmology - [address] [phone] Josemanuel Gomes MD 111 [facility], [address] 5 [place] [address] Discharge Disposition: Auto Discharge Social [...] Degenerative myopia, bilateral-H44.23[ICD-10-CM] H43.813 Vitreous degeneration, bilateral-H43.813[ICD-10-CM] H04.123 Dry eye syndrome of bilateral lacrimal glands-H04.123[ICD-10-CM] documented in this encounter Discharge Disposition Disposition Code Departure Means Destination Auto Discharge documented in this encounter Progress Notes * Josemanuel Gomes MD - 04/25/2015 1034 EST Chief Complaint Patient presents with ??? Eye Problem 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 HPI Location: Left eye Pain: 0 - No pain Quality: Blurry, Distorted Severity: Moderate Duration: Years Timing: Constant Lasts: Continuous Context: va seems stable Modifying factors: Hx of avastin left eye Associated Signs & Symptoms: no new flashes or floaters Left eye is worse than right However it is about the same as it has been Visual Fluctuations: Floaters Attestation: Base Eye Exam Visual Acuity (Snellen - Linear) Right Left Dist cc 20/30 20/100 -2 Correction: Glasses Tonometry (Applanation, 10:13) Right Left Pressure 19 19 Pupils Pupils Right PERRL Left PERRL Extraocular Movement Right Left Result Full Full Neuro/Psych Oriented x3: Yes Mood/Affect: Normal Dilation Both eyes: 1.0% Mydriacyl, 2.5% Phenylephrine @ 10:13 Slit Lamp and Fundus Exam External Exam [...] Disc tilted, PPA tilted, PPA C/D Ratio 0.35 0.35 Macula RPE changes, no fluid or heme RPE changes, atrophy, no fluid or heme Vessels Normal Normal Periphery Normal Normal All five layers of the cornea are normal unless otherwise specified. Please refer to large retinal drawing. IMAGING: OCT REPORT Test Details: of , Indications: Cystoid Macular Edema Findings: Right Eye Left Eye Normal atrophy Original test to be found in patients shadow chart IMPRESSION: 1. Choroidal neovascularization of left eye 2. Progressive high myopia, bilateral 3. Posterior vitreous detachment of both eyes 4. Dry eye, bilateral PLAN: Quiescent CNVM left eye Hold on injection Reassure Continue observation High myopia both eyes No RD Follow PVD both eyes, no holes or tears RD warnings Follow Dry eyes, both Artificial tears prn Recheck 3 months sooner prn I, Dr. Josemanuel Gomes, have performed my own HPI and reviewed the tech's ROS. I have also reviewed thepatient's past medical, family, social and surgical history, as well as the patient's medications, allergies, and problem list. I am scribing for Josemanuel Gomes MD while he is personally performing the service. ARELY Atkinson (Scribe) ' documented in this encounter Plan of Treatment Upcoming Encounters Date Type Department Care Team (Late st Contact Info) Description 05/24/2024 14:00 EDT Office Visit [facility] Ophthalmology - [facility] [address] [place], [place] [phone] Josemanuel Gomes MD [address] [place] [address], [address] 5 [place] [address] Scheduled Orders Name Type Priority Associated Diagnoses Orde r Schedule OCT (OPHTHALMIC DIGITAL IMAGING, POSTERIOR SEGMENT) Ophthalmology Routine Choroidal neovascularization of left eye Ordered: 04/25/2015 documented as of this encounter Visit Diagnoses Diagnosis Choroidal neovascularization of left eye- Primary Retinal neovascularization NOS Progressive high myopia, bilateral Posterior vitreous detachment of both eyes Vitreous degeneration Dry eye, bilateral documented in this encounter Historical Medications * This list may reflect changes made after this encounter. metoprolol (LOPRESSOR) 50 mg tablet Take 50 mg by mouth 2 times daily 03/06/2016 added in this encounter Eye Exam Visual Acuity (Snellen - Linear) Right eye Left eye Dist cc 20/30 20/100 -2 Correction: Glasses Tonometry (Applanation, 10:13) Right eye Left eye Pressure 19 19 Pupils Pupils Right eye PERRL Left eye PERRL Extraocular Movement Right eye Left eye Full Full Neuro/Psych Oriented x3: Yes Mood/Affect: Normal Dilation Both eyes: 1.0% Mydriacyl, 2 .5% Phenylephrine @ 10:13 External Exam Right eye Left eye External [...] Disc tilted, PPA tilted, PPA C/D Ratio 0.35 0.35 Macula RPE changes, no fluid or heme RP E changes, atrophy, no fluid or heme Vessels Normal Normal Periphery Normal Normal Care Teams Forestry Laborer Relationship Specialty Start Date End Date Yoselin Roberts MD [address] [place] [address] [place] [address] PCP - General 04/22/11 documented as of this encounter
--- OUTSIDE RECORDS SUMMARY | 2024-04-02 00:32 | XMS_ITS | Encounter Summary ---
Author Organization [facility] Address [address] [place] [address] Care Team Providers Care Director Of Occupational Health Name Role Phone Yoselin Roberts MD Primary Care Provider +1- [phone] Reason for Visit * Reason Onset Date Comments Eye Problem 08/31/2018 Encounter Details Date Type Department Care Team (Late st Contact Info) Description 08/31/2018 Telephone [facility] Ophthalmology [address] [address] Rocio Gama MD 111 [facility], [facility] [address] [place] [address] Eye Problem Social History Tobacco Use Types Packs/Day [...] encounter Miscellaneous Notes * Telephone Encounter - Georgette Gorman - 08/31/2018 1303 EDT Patient is set for 11:15 Tomorrow * Telephone Encounter - Rocio Gama MD - 08/31/2018 1247 EDT I called the patient and recommended that she come in tomorrow at 11:15. * Telephone Encounter - Georgette Gorman - 08/31/2018 1159 EDT Patient Got a message from about coming in tomorrow but wasn't sure what office. There is no appt. Scheduled. * Telephone Encounter - Shari Lopez RN - 08/31/2018 1123 EDT Message given to Dr. Gama who said that she will call patient. * Telephone Encounter - Taylor Campos - 08/31/2018 0810 EDT Patient had surgery with Dr. Gama on August 19 and this weekend she noticed her left lid suture line has opened up. She spoke with the breakdown person doctor on the weekend and was told use more ointment. (see Dr. Lackey's note) documented in this encounter Plan of Treatment Upcoming Encounters Date Type Department Care Team (Late st Contact Info) Description 05/24/2024 14:00 EDT Office Visit [facility] Ophthalmology - [phone] [place] [address] Josemanuel Gomes MD 111 [facility], [address] [place] [address] documented as of this encounter Visit Diagnoses Not on filedocumented in this encounter Care Teams Director Of Occupational Health Relationship Specialty Start Date End Date Yoselin Roberts MD [address] [place] [id number] PCP - General 04/22/11 documented as of this encounter
--- OUTSIDE RECORDS SUMMARY | 2024-04-02 00:32 | XMS_ITS | Encounter Summary ---
Author Organization [facility] Address [address] [place] [address] Care Team Providers Care Extractor Plant Operator Name Role Phone Yoselin Roberts MD Primary Care Provider +1- [phone] Reason for Referral * (Routine) - Closed Specialty Diagnoses / Procedures Referred By Contaudie t Referred To Contact Diagnoses Dermatochalasis of both upper eyelids Procedures VISUAL FIELD EXAM, INTERMEDIATE Rocio Gama MD Phone: tel: fax: Referral ID Status Reason Start Date Expiration Date Visits Re quested Visits Authorized [id number] Closed 12/22/2014 1 1 Reason for Visit * Reason Comments Eye Problem Ptosis Evaluation pe r Dr Gomes. Increased drooping BUL's x 1 year. Patient states her father and uncle both had droopy eye lids. Occasional dryness both eyes. No pain both eyes. Same flashes and floaters both eyes. Patient would like to discuss ptosis surgery today Medication Management Eye Drops: Latanop bert both eyes QHS Systane both eyes PRN Timolol both eyes QD Encounter Details Date Type Department Care Team (Late st Contact Info) Description 12/21/2014 13:30 EDT Office Visit [facility] Ophthalmology - [address] [place] [address] [place], [place] [phone] Rocio Gama MD 111 [facility], [address] [place] [address] Social History Tobacco Use Types [...] Progress Notes * Rocio Gama MD - 12/21/2014 6657 EDT Chief Complaint Patient presents with ??? Eye Problem Ptosis Evaluation per Dr Gomes. Increased drooping BUL's x 1 year. Patient states her father and uncle both had droopy eye lids. Occasional dryness both eyes. No pain both eyes. Same flashes and floaters both eyes. Patient would like to discuss ptosis surgery today ??? Medication Management Eye Drops: Latanoprost both eyes QHS Systane both eyes PRN Timolol both eyes QD HPI The patient is a 74 y.o. female seen at the request of Dr. Gomes for upper eyelid evaluation. She reports that she has noticed the upper eyelids are heavy for at least a couple of years. She feels likethe upper lids do interfere with her vision and she notices it particularly when she is reading. She feels like her vision is improved with manual elevation of the eyelids. No diplopia. No variation over the course of the day. She has some dryness. She uses artificial tears. She uses them daily. She has a history of degenerative myopia with CNV which is treated by Dr. Gomes She is s/p CEIOL OU by Dr. Calderon. ROS Constitutional: NL ENT/Mouth NL Cardiovascular: High Blood Pressure, High Cholesterol Respiratory: NL Gastrointestinal: NL Genitourinary: NL Musculoskeletal: NL Integumentary: NL Neurologic: NL Psychiatric: NL Endocrine: NL Hematologic: NL Immunologic: Drug Allergy Proof Technician: Exposures: None Other: Attestation: Allergies include: Sulfa (sulfonamide antibiotics) Patient Active Problem List Diagnosis ??? Retinal neovascularization NOS ??? Progressive high myopia ??? Degenerative myopia ??? Posterior vitreous detachment of both eyes ??? Blepharitis of both eyes ??? Pseudophakia of both eyes Outpatient Prescriptions Marked as Taking for the 12/21/14 encounter (Office Visit) with Rocio Gama MD Medication Sig ??? aspirin 81 mg EC tablet Take 81 mg by mouth daily. ??? CELECOXIB (CELEBREX ORAL) Take by mouth ??? duloxetine (CYMBALTA) 60 mg capsule Take [...] Linear) Right Left Dist cc 20/30 20/100 +1 Correction: Glasses Tonometry (Applanation, 14:09) Right Left Pressure 17 18 Pupils Dark Light React APD Right 5 5 Minimal None Left 5 5 Minimal None Visual De Jesus Right Left Restrictions Partial superior temporal deficiency Neuro/Psych Oriented x3: Yes Mood/Affect: Normal Slit Lamp and Fundus Exam External Exam Right Left External excessory frontalis use excessory frontalis use MRD1 1mm 6mm MRD2 1mm 6mm Levator 16mm 16mm Slit Lamp Exam Right Left Lids/Lashes Dermatochalasis, Ptosis Dermatochalasis, Ptosis Conjunctiva/Sclera White and quiet Cornea Clear Clear Anterior Chamber Deep and quiet Deep and quiet Iris Round and reactive Round and reactive Lens Posterior chamber intraocular lens Posterior chamber intraocular lens Refraction Wearing Rx Sphere Cylinder [place] Add Right -3.25 +2.00 100 +2.50 Left -3.00 +2.00 092 +2.50 Type: PAL Manifest Refraction (Auto) Sphere Cylinder [place] Dist Right -3.50 +1.75 100 20/20-1 Left -3.00 +1.75 095 20/80-2 DIAGNOSTIC TESTS: VF superior 64 scressning: No significant improvement in superior VF with taping of the eyelids. IMPRESSION & PLAN: Encounter Diagnosis Name Primary? Dermatochalasis of both upper eyelids Yes 1. Dermatochalasis of both upper eyelids Visually significant. Altough not reflected in VF testing, the MRD and extent of dermatochalasis indicates that it is visually significant. Risks, including, but not limited to, pain, bleeding, infection, overcorrection, undercorrection, asymmetry, vision loss, scarring, need for additional surgery, dry eye; benefits and alternatives, including observation, were discussed with the patient. Her questions were answered. The patient elected to proceed with bilateral blepharoplasty. Informed consent was obtained. Degenerative myopia and CNV followed by Dr. Gomes. I have reviewed the patient's past medical, [...] Info) Description 05/24/2024 14:00 EDT Office Visit [facility] Ophthalmology - [facility] [address] [place] [address] Josemanuel Gomes MD [address] [place] [address], [facility] [address] [place] [address] Scheduled Orders Name Type Priority Associated Diagnoses Orde r Schedule VISUAL FIELD EXAM, INTERMEDIATE Ophthalmology Routine Dermatochalasis of both upper eyelids Ordered: 12/22/2014 documented as of this encounter Visit Diagnoses Diagnosis Dermatochalasis of both upper eyelids- Primary documented in this encounter Eye Exam Visual Acuity (Snellen - Linear) Right eye Left eye Dist cc 20/30 20/100 +1 Correction: Glasses Tonometry (Applanation, 14:09) Right eye Left eye Pressure 17 18 Pupils Dark Light React APD Right eye 5 5 Minimal None Left eye 5 5 Minimal None Visual De Jesus Right eye Left eye Restrictions Partial outer superior temporal deficiency Neuro/Psych Oriented x3: Yes Mood/Affect: Normal External Exam Right eye Left eye External excessory frontalis use excessor y frontalis use Slit Lamp Exam Right eye Left eye Lids/Lashes Dermatochalasis, Ptosis Dermatoc halasis, Ptosis Conjunctiva/Sclera White and quiet Cornea Clear Clear Anterior Chamber Deep and quiet Deep and quiet Iris Round and reactive Round and marko ctive Lens Posterior chamber in traocular lens Posterior chamber intraocular lens External Right eye Left eye MRD1 1 mm 6 mm MRD2 1 mm 6 mm Levator 16 mm 16 mm Wearing Rx Sphere Cylinder [place] Add Right eye -3.25 +2.00 100 +2.50 Left eye -3.00 +2.00 092 +2.50 Type: PAL Manifest Refraction (Auto) Sphere Cylinder [place] Dist VA Right eye -3.50 +1.75 100 20/20-1 Left eye -3.00 +1.75 095 20/80-2 Care Teams Extractor Plant Operator Relationship Specialty Start Date End Date Yoselin Roberts MD [address] [place] [address] [place] [address] PCP - General 04/22/11 documented as of this encounter
--- OUTSIDE RECORDS SUMMARY | 2024-04-02 00:32 | XMS_ITS | Encounter Summary ---
Author Organization [facility] Address [address] [place] [address] Care Team Providers Care Chief Minister Name Role Phone Yoselin Roberts MD Primary Care Provider +1- [phone] Reason for Visit * Reason Comments Eye Problem High Myopia both eye s; hx CNVM left eye s/p Avastin injections, last 06-07-14 Encounter Details Date Type Department Care Team (Late st Contact Info) Description 07/11/2015 8:15 EDT Office Visit [facility] Ophthalmology - [address] [address] Josemanuel Gomes MD [address] [place] [address], [address] [place] [address] Discharge Disposition: Auto Discharge Social [...] Progress Notes * Josemanuel Gomes MD - 07/11/2015 0836 EDT Chief Complaint Patient presents with ??? Eye Problem High Myopia both eyes; hx CNVM left eye s/p Avastin injections, last 06-07-14 HPI Location: Both eyes Pain: 0 - No pain Quality: Blurry Severity: Moderate Duration: Years Timing: Constant Lasts: Continuous Context: High myopia both eyes Modifying factors: hx CNVM left eye s/p Avastin injections, last 06-07-14 Associated Signs & Symptoms: ocular hypertension, using timolol and xalatan Visual Fluctuations: None Attestation: Base Eye Exam Visual Acuity (Snellen - Linear) Right Left Dist cc 20/30 +2 20/200 +1 Dist ph cc NI Correction: Glasses Tonometry (Applanation, 8:30) Right Left Pressure 16 18 Pupils Pupils Right PERRL Left PERRL Extraocular Movement Right Left Result Full Full Neuro/Psych Oriented x3: Yes Mood/Affect: Normal Dilation Both eyes: 1.0% Mydriacyl @ 8:30 Slit Lamp and Fundus Exam External Exam [...] OCT REPORT Test Details: of , Indications: Age-related Macular Degeneration Findings: Right Eye Left Eye Normal atrophic scar Original test to be found in patients shadow chart IMPRESSION: 1. Choroidal neovascularization of left eye 2. Progressive high myopia, bilateral 3. Posterior vitreous detachment of both eyes PLAN: Quiescent CNVM left eye Hold on injection Continue observation High myopia both eyes No RD, no holes or tears RD warnings reviewed PVD both eyes, no holes or tears Follow Recheck 8 weeks I, Dr. Josemanuel Gomes, have performed [...] Info) Description 05/24/2024 14:00 EDT Office Visit [facility] Ophthalmology - [phone] [place], [place] [phone] Josemaneul Gomes MD [address] [place] [address], [facility] [address] [place] [address] documented as of this encounter Visit Diagnoses Diagnosis Choroidal neovascularization of left eye- Primary Retinal neovascularization NOS Progressive high myopia, bilateral Posterior vitreous detachment of both eyes Vitreous degeneration documented in this encounter Eye Exam Visual Acuity (Snellen - Linear) Right eye Left eye Dist cc 20/30 +2 20/200 +1 Dist ph cc NI Correction: Glasses Tonometry (Applanation, 8:30) Right eye Left eye Pressure 16 18 Pupils Pupils Right eye PERRL Left eye PERRL Extraocular Movement Right eye Left eye Full Full Neuro/Psych Oriented x3: Yes Mood/Affect: Normal Dilation Both eyes: 1.0% Mydriacyl @ 8:30 External Exam Right eye Left eye External [...] Normal Normal Periphery Normal Normal Care Teams Chief Minister Relationship Specialty Start Date End Date Yoselin Roberts MD [address] [place] [address] [place] [address] PCP - General 04/22/11 documented as of this encounter
--- OUTSIDE RECORDS SUMMARY | 2024-04-02 00:32 | XMS_ITS | Encounter Summary ---
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 VA stable. No new F and F. No pain. Encounter Details Date Type Department Care Team (Late st Contact Info) Description 09/13/2014 14:45 EDT Office Visit [facility] Ophthalmology - Main [address] [address] Josemanuel Gomes MD [address] [place] [address], [address] [place] [address] Discharge Disposition: Auto Discharge Social [...] Progress Notes * Josemanuel Gomes MD - 09/13/2014 1514 EDT Chief Complaint Patient presents with ??? Eye Problem QCNVM left eye. History of Avastin left eye. VA stable. No new F and F. No pain. HPI Location: Both eyes Pain: 0 - No pain Quality: Severity: Mild Duration: Years Timing: Constant Lasts: Continuous Context: QCNVM left eye. History of Avastin left eye. Modifying factors: History of Avastin injections left eye Associated Signs & Symptoms: Vision both eyes is the same. Seems like the right eye got better since last time Not quite as blurry as before Visual Fluctuations: None Attestation: Base Eye Exam Visual Acuity (Snellen - Linear) Right Left Dist cc 20/25 -3 20/80 -2 Correction: Glasses Tonometry (Applanation, 14:43) Right Left Pressure 19 16 Pupils Pupils Right PERRL Left PERRL Extraocular Movement Right Left Result Full Full Neuro/Psych Oriented x3: Yes Mood/Affect: Normal Dilation Both eyes: 1.0% Mydriacyl, 2.5% Phenylephrine @ 14:44 Slit Lamp and Fundus Exam Pen Light Exam Right Left Lids/Lashes Blepharitis Blepharitis Conjunctiva/Sclera White and quiet White and quiet Cornea Clear Clear Anterior Chamber Deep and quiet Deep and quiet Iris Round and reactive Round and reactive Lens Posterior chamber intraocular lens Posterior chamber intraocular lens Vitreous Posterior vitreous detachment Posterior vitreous detachment Fundus Exam Right Left Disc tilted Normal C/D Ratio 0.3 0.3 Macula RPE changes, no fluid or heme atrophic scar, no fluid or heme Vessels Normal Normal Periphery Normal Normal Edited by: Lina Perales OTA All five layers of the cornea are normal unless otherwise specified. Please refer to large retinal drawing. IMAGING: OCT REPORT Indications: CNVM. Findings: Right Eye Left Eye Normal Subretinal Scar Original test to be found in patients shadow chart IMPRESSION: 1. CNVM (choroidal neovascular membrane), left 2. Progressive high (degenerative) myopia 3. Posterior vitreous detachment of both eyes PLAN: CNVM left eye Looks quiet No fluid or heme Hold injection today PVD both eyes No holes, tears RD precautions Observe HM both eyes No holes, tears RD precautions Observe Return in 6 wks with OCT/poss Avastin left eye. I, Dr. Josemanuel Gomes, have performed my own HPI and reviewed the tech's ROS. I have also reviewed thepatient's past medical, family, social and surgical history, as well as the patient's medications, allergies, and problem list. I am scribing for Dr.Brian Lucila Gomes MD while he is personally performing the service. ARELY Silva (Scribe) documented in this encounter Plan of Treatment Upcoming Encounters Date Type Department Care Team (Late st Contact Info) Description 05/24/2024 14:00 EDT Office Visit [facility] Ophthalmology - [facility] [address] [place] [address] Josemanuel Gomes MD [address] [facility], [address] [place] [address] documented as of this encounter Visit Diagnoses Diagnosis CNVM (choroidal neovascular membrane), left Progressive high (degenerative) myopia Posterior vitreous detachment of both eyes Vitreous degeneration documented in this encounter Eye Exam Visual Acuity (Snellen - Linear) Right eye Left eye Dist cc 20/25 -3 20/80 -2 Correction: Glasses Tonometry (Applanation, 14:43) Right eye Left eye Pressure 19 16 Pupils Pupils Right eye PERRL Left eye PERRL Extraocular Movement Right eye Left eye Full Full Neuro/Psych Oriented x3: Yes Mood/Affect: Normal Dilation Both eyes: 1.0% Mydriacyl, 2 .5% Phenylephrine @ 14:44 Pen Light Exam Right eye Left eye [...] Left eye Disc tilted Normal C/D Ratio 0.3 0.3 Macula RPE changes, no fluid or heme at rophic scar, no fluid or heme Vessels Normal Normal Periphery Normal Normal Care Teams Rock Splitter Relationship Specialty Start Date End Date Yoselin Roberts MD [address] [place] [address] [place] [address] PCP - General 04/22/11 documented as of this encounter
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
--- OUTSIDE RECORDS SUMMARY | 2024-04-02 00:32 | XMS_ITS | Encounter Summary ---
Author Organization [facility] Address [address] [place] [address] Care Team Providers Care Sandstone Inspector Repairer Name Role Phone Yoselin Roberts MD Primary Care Provider +1- [phone] Reason for Visit * Reason Comments Post-OP Follow Up 1 week post op s/p B ilateral ptosis repair on 08/19/18. Patient using Maxitrol yanet twice a day as directed.Eyelids doing good with a little dryness both eyes. VA better both eyes. No tearing. No discharge. No eye pain. No new or changed f/f. Encounter Details Date Type Department Care Team (Late st Contact Info) Description 08/26/2018 13:30 EDT Office Visit [facility] Ophthalmology [address] [id number] [place] [address] Rocio Gama MD [address] [facility], [address] [place] [address] Discharge Disposition: Auto Discharge Social [...] eyelid-H02.831[ICD-10-CM] H35.052 Retinal neovascularization, unspecified, left eye-H35.052[ICD-10-CM] documented in this encounter Discharge Disposition Disposition Code Departure Means Destination Auto Discharge documented in this encounter Progress Notes * Rocio Gama MD - 08/26/2018 1330 EDT Chief Complaint Patient presents with ??? Post-OP Follow Up 1 week post op s/p Bilateral ptosis repair on 08/19/18. Patient using Maxitrol yanet twice a day as directed.Eyelids doing good with a little dryness both eyes. VA better both eyes. No tearing. No discharge. No eye pain. No new or changed f/f. HPI The patient is a 77 y.o. female here for 1 week post op s/p Bilateral ptosis repair on 08/19/18. Patient using Maxitrol yanet twice a day as directed. A little dryness both eyes. No tearing or discharge. No eye pain. Vision seems more wide open both eyes. No new or changed flashes or floaters. ROS Constitutional: ENT/Mouth Cardiovascular: Respiratory: Gastrointestinal: Genitourinary: Musculoskeletal: Integumentary: Neurologic: Psychiatric: Endocrine: Hematologic: Immunologic: Drug Allergy Public Address Announcer: Exposures: Other: Attestation: Allergies include: Percocet [oxycodone-acetaminophen] and Sulfa (sulfonamide antibiotics) Patient Active Problem List Diagnosis ??? Retinal neovascularization ??? Degenerative myopia ??? Posterior vitreous detachment of both eyes ??? Blepharitis of both eyes ??? Pseudophakia of both eyes ??? Neovascular membrane of left choroid artery ??? SVT (supraventricular tachycardia) ([facility]) Outpatient Medications Marked as Taking for the 08/26/18 encounter (Office Visit) with Rocio Gama MD [...] Take 1 Tab by mouth daily. ??? vexyecbs-cyphslyik-hlqcehlihsret (MAXITROL) ophthalmic ointment Apply to both upper eyelids twice daily for 10 days ??? cxalllxn-fznlmqsdp-jpngrhxfgyjwc (MAXITROL) ophthalmic ointment Apply to both upper eyelids twice daily for 10 days ??? polyethylene glycol 3350 (MIRALAX) 17 gram [...] Linear) Right Left Dist cc 20/40 -2 20/800 Dist ph cc 20/250 -1 Tonometry (Applanation, 13:41) Right Left Pressure 23 21 Pupils Dark Light Shape React APD Right 4 3 Round Brisk None Left 4 3 Round Brisk None Neuro/Psych Oriented x3: Yes Mood/Affect: Normal Dilation Left eye: 2.5% Phenylephrine, 0.5% Mydriacyl @ 14:17 Slit Lamp and Fundus Exam External Exam Right Left External lids are good height and contour, ecchymosis and edema lids are good height and contour, ecchymosis and edema Slit Lamp Exam Right Left Lids/Lashes incision c/d/i incision c/d/i Conjunctiva/Sclera White and quiet White and quiet Cornea Clear Clear Anterior Chamber Deep and quiet Deep and quiet Iris Round and reactive Round and reactive Lens PCIOL PCIOL Vitreous floaters Fundus Exam Right Left Disc Normal Macula atrophic scar, no SRF/no SRH Vessels Normal Refraction Wearing Rx Sphere Cylinder Ossian Add Right -3.25 +2.00 100 +2.50 Left -3.00 +2.00 092 +2.50 Type: PAL DIAGNOSTIC TESTS: IMPRESSION & PLAN: Encounter Diagnoses Name Primary? Ptosis, bilateral Yes ??? Dermatochalasis of both upper eyelids ??? CNVM (choroidal neovascular membrane), left 1. Ptosis, bilateral POW#1 s/p repair Doing well Sutures removed today Discontinue ointment Follow up in 1 month 2. Dermatochalasis of both upper eyelids As above 3. CNVM (choroidal neovascular membrane), left Decreased vision left eye. No subretinal fluid or heme seen today on exam or OCT of the macula. Suspect progression of atrophic scar. She is scheduled to see Dr. Gomes in 2 weeks. Will send this note to him to see whether that time frame is appropriate from his standpoint. I have reviewed the patient's past medical, [...] Info) Description 05/24/2024 14:00 EDT Office Visit [facility] Ophthalmology - [facility] [address] [place] [address] Josemanuel Gomes MD [address] [place] [address], [address] [place] [address] documented as of this encounter Visit Diagnoses Diagnosis Ptosis, bilateral- Primary Unspecified ptosis of eyelid Dermatochalasis of both upper eyelids CNVM (choroidal neovascular membrane), left documented in this encounter Eye Exam Visual Acuity (Snellen - Linear) Right eye Left eye Dist cc 20/40 -2 20/800 Dist ph cc 20/250 -1 Tonometry (Applanation, 13:41) Right eye Left eye Pressure 23 21 Pupils Dark Light Shape React APD Right eye 4 3 Round Brisk None Left eye 4 3 Round Brisk None Neuro/Psych Oriented x3: Yes Mood/Affect: Normal Dilation Left eye: 2.5% Phenylephrine , 0.5% Mydriacyl @ 14:17 External Exam Right eye Left eye External lids are good height and contour, ecchymosis and edema lids are good height and contour, ecchymosis and edema Slit Lamp Exam Right eye Left eye Lids/Lashes incision c/d/i incision c/d/i Conjunctiva/Sclera White and quiet White and marysol et Cornea Clear Clear Anterior Chamber Deep and quiet Deep and quiet Iris Round and reactive Round and marko ctive Lens PCIOL PCIOL Vitreous floaters Fundus Exam Right eye Left eye Disc Normal Macula atrophic scar, n o SRF/no SRH Vessels Normal Wearing Rx Sphere Cylinder Ossian Add Right eye -3.25 +2.00 100 +2.50 Left eye -3.00 +2.00 092 +2.50 Type: PAL Care Teams Sandstone Inspector Repairer Relationship Specialty Start Date End Date Yoselin Roberts MD [address] [place] [address] [place] [address] PCP - General 04/22/11 documented as of this encounter
--- OUTSIDE RECORDS SUMMARY | 2024-04-02 00:32 | XMS_ITS | Encounter Summary ---
Author Organization [facility] Address [address] [place] [address] Care Team Providers Care Manager Of Merchandising Name Role Phone Yoselin Roberts MD Primary Care Provider [phone]- [phone] Reason for Referral * (Routine) - Closed Specialty Diagnoses / Procedures Referred By Contac t Referred To Contact Diagnoses CNVM (choroidal neovascular membrane) Procedures OCT (OPHTHALMIC DIGITAL IMAGING, POSTERIOR SEGMENT) Josemanuel Gomes MD Phone: tel: fax: Referral ID Status Reason Start Date Expiration Date Visits Re quested Visits Authorized [id number] Closed 06/07/2014 1 1 Reason for Visit * Reason Comments Follow-up 8 week f/u high myop ia, CNVM left eye s/p Avastin 04/04/14 left eye. Using Xalatan HS and Timoptic QAM both eyes. Vision unchanged since last visit. No new floaters or flashes. Encounter Details Date Type Department Care Team (Late st Contact Info) Description 06/07/2014 13:45 EDT Office Visit [facility] Ophthalmology - Main [place] [address] [place], [place] [id number] Josemanuel Gomes MD [address] [facility], [address] [place] [address] Social History Tobacco Use Types [...] Progress Notes * Josemanuel Gomes MD - 06/07/2014 6132 EDT Chief Complaint Patient presents with ??? Follow-up 8 week f/u high myopia, CNVM left eye s/p Avastin 04/04/14 left eye. Using Xalatan HS and Timoptic QAM both eyes. Vision unchanged since last visit. No new floaters or flashes. HPI Location: Left eye Pain: 0 - No pain Quality: Severity: Duration: Years Timing: Constant Lasts: Continuous Context: 8 week f/u CNVM left Modifying factors: avastin left eye 04/04/14 Associated Signs & Symptoms: poor vision left eye Visual Fluctuations: Floaters (longstanding) Attestation: Base Eye Exam Visual Acuity (Snellen - Linear) Right Left Dist cc 20/30 -1+2 20/100 -2+2 Correction: Glasses Tonometry (Applanation, 13:41) Right Left Pressure 17 17 Pupils Pupils Dark Light React APD Right PERRL 5 4 Brisk None Left PERRL 5 4 Brisk None Neuro/Psych Oriented x3: Yes Mood/Affect: Normal Dilation Both eyes: 1.0% Mydriacyl, 2.5% Phenylephrine @ 13:42 Slit Lamp and Fundus Exam Pen Light Exam Right Left Lids/Lashes Blepharitis Blepharitis Conjunctiva/Sclera White and quiet White and quiet Cornea Clear Clear Anterior Chamber Deep and quiet Deep and quiet Iris Round and reactive Round and reactive Lens Posterior chamber intraocular lens Posterior chamber intraocular lens Vitreous Posterior vitreous detachment Posterior vitreous detachment Fundus Exam Right Left Disc Normal Normal C/D Ratio 0.3 0.3 Macula RPE changes, no fluid or heme scar, no heme or fluid Edited by: Isabella Mcdaniels OTA; Corinna Gilmore OTA All five layers of the cornea are normal unless otherwise specified. Please refer to large retinal drawing. IMAGING: OCT REPORT Indications: CNVM Findings: Right Eye Left Eye Normal Subretinal Scar and mild irregular Original test to be found in patients shadow chart IMPRESSION: 1. CNVM (choroidal neovascular membrane) OCT (OPHTHALMIC DIGITAL IMAGING, POSTERIOR SEGMENT) 2. Progressive high (degenerative) myopia PLAN: CNVM/High Myopia left eye Recommend Avastin injection today Pt agrees Return as scheduled for OCT and ?Avastin Procedure Note: INTRAVITREAL Injection: Pre-op Diagnosis: CNVM Procedure: Intravitreal Avastin injection. Side: Left eye(s) Eye Prep: Betadine 5% ophthalmic solution to left eye(s). Anesthesia: Topical Proparacine HCl 0.4% Ophthalmic solution Drug used: Avastin Dosage: 1.25mg [facility] Number [address]-29 Paracentesis: No Coal Chemist: LB Any excess Avastin was appropriately disposed of. Complications: None Post-op Instructions: No drops unless otherwise instructed Call immediately with pain, purulent discharge or loss of vision [phone] I, Dr. Josemanuel Gomes, have performed my [...] [facility] - [facility] [address] [place] [address] Josemanuel Gomes MD [address] [place] [address], [facility] [address] [place] [address] Scheduled Orders Name Type Priority Associated Diagnoses Orde r Schedule OCT (OPHTHALMIC DIGITAL IMAGING, POSTERIOR SEGMENT) Ophthalmology Routine CNVM (choroidal neovascular membrane) Ordered: 06/07/2014 documented as of this encounter Visit Diagnoses Diagnosis CNVM (choroidal neovascular membrane)- Primary 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 documented in this encounter Eye Exam Visual Acuity (Snellen - Linear) Right eye Left eye Dist cc 20/30 -1+2 20/100 -2+2 Correction: Glasses Tonometry (Applanation, 13:41) Right eye Left eye Pressure 17 17 Pupils Pupils Dark Light React APD Right eye PERRL 5 4 Brisk None Left eye PERRL 5 4 Brisk None Neuro/Psych Oriented x3: Yes Mood/Affect: Normal Dilation Both eyes: 1.0% Mydriacyl, 2 .5% Phenylephrine @ 13:42 Pen Light Exam Right eye Left eye Lids/Lashes Blepharitis Blepharitis Conjunctiva/Sclera White and quiet White and marysol et Cornea Clear Clear Anterior Chamber Deep and quiet Deep and quiet Iris Round and reactive Round and marko ctive Lens Posterior chamber in traocular lens Posterior chamber intraocular lens Vitreous Posterior vitreous detachment Po sterior vitreous detachment Fundus Exam Right eye Left eye Disc Normal Normal C/D Ratio 0.3 0.3 Macula RPE changes, no fluid or heme sc ar, no heme or fluid Care Teams Manager Of Merchandising Relationship Specialty Start Date End Date Yoselin Roberts MD [address] [place] [address] [place] [address] PCP - General 04/22/11 documented as of this encounter
--- OUTSIDE RECORDS SUMMARY | 2024-04-02 00:33 | XMS_ITS | Encounter Summary ---
Author Organization [facility] Address [address] [place] [address] Care Team Providers Care School Health Assistant Name Role Phone Yoselin Roberts MD Primary Care Provider [phone] Reason for Visit * Reason Comments Follow-up CNVM left eye. Possi ble Avastin left eye today Encounter Details Date Type Department Care Team (Late st Contact Info) Description 06/12/2012 9:30 EDT Office Visit [facility] Ophthalmology - [address] [address] Josemanuel Gomes MD 111 [facility], [address] [place] [address] Social History Tobacco Use Types Packs/Day Years Used Date Smoking Tobacco: Never Alcohol Use Standard Drinks/Week Comments Yes 0 (1 standard drink = 0.6 oz pur e alcohol) occ Comments Unknown Sex and Gender Information Value Date Recorded [...] Progress Notes * Josemanuel Gomes MD - 06/12/2012 1002 EDT Chief Complaint Patient presents with ??? Follow-up CNVM left eye. Possible Avastin left eye today HPI Location: Both eyes Pain: 0 - No pain Quality: Blurry Severity: Moderate Duration: Years Timing: Constant Lasts: Continuous Context: Possible Avastin left eye today Modifying factors: No eye problems. No eye pain. No flashes or floaters. Associated Signs & Symptoms: High myopia with CNVM Visual Fluctuations: None Attestation: Base Ophthalmology Exam Visual Acuity Right Left Both Dist cc 20/20 20/40 -2 +1 Method: Snellen - Linear Correction: Glasses Tonometry Right Left Pressure 18 18 Method: Applanation Time: 9:28 Dilation Both eyes: 1.0% Mydriacyl, 2.5% Derek Synephrine @ 9:28 Pupils Pupils Right PERRL Left PERRL Main Ophthalmology Exam External Exam Right Left External Normal Normal Slit Lamp Exam Right Left Lids/Lashes Blepharitis Blepharitis Conjunctiva/Sclera White and quiet White and quiet Cornea Corneal scar temporally Clear Anterior Chamber Deep and quiet Deep and quiet Iris Round and reactive Round and reactive Lens Posterior chamber intraocular lens Posterior chamber intraocular lens Vitreous Posterior vitreous detachment Posterior vitreous detachment Fundus Exam Right Left Disc tilted tilted C/D Ratio 0.4 0.4 Macula Retinal pigment epithelial mottling, no SRF, no heme scar, no fluid or heme, mild edema Vessels Normal Normal Periphery Normal Normal Neuro/Psych Oriented x3: Yes Mood/Affect: Normal All five layers of the cornea are normal unless otherwise specified. Please refer to large retinal drawing. IMAGING: OCT REPORT Indications: CNVM Findings: Right Eye Left Eye Cystoid Macular Degeneration Original test to be found in patients shadow chart IMPRESSION: 1. Macular degeneration (senile) of retina, unspecified 2. Degenerative myopia PLAN: HM with CNVM left Avastin left today Follow up as scheduled Procedure Note: INTRAVITREAL Injection: Pre-op Diagnosis: CNVM Procedure: Intravitreal Avastin injection. Side: Left eye(s) Eye Prep: Betadine 5% ophthalmic solution to left eye(s). Anesthesia: Akten 3.5% Drug used: Avastin Dosage: 1.25mg [facility] Number [id number] Paracentesis: No Investigator Claims: ELSA Complications: None Post-op Instructions: Per Dr Fabian: Per Dr Gomes: No drops unless otherwise instructed. Patient warned regarding risk of infection, post injection. Patient is instructed to call [phone] immediately for symptoms of increasing pain, purulent discharge, loss of vision and increased floaters. Patient made to understand the extreme urgency of such symptoms and warned that lack of communication of these symptoms could lead to loss of vision, blindness or loss of the eye. No drops unless otherwise instructed: Patient warned regarding risk of infection, post injection. Patient is instructed to call [phone] immediately for symptoms of increasing pain, purulent discharge, loss of vision and increased floaters. Patient made to understand the extreme urgency of such symptoms and warned that lack of communication of these symptoms could lead to loss of vision, blindness or loss of the eye I have reviewed the patient's past medical, [...] performing the service. documented in this encounter Miscellaneous Notes * Scanned Note-Null - ELECTRONIC COMPONENT PROCESSOR, SCAN 2 - 06/15/2012 0907 EDT documented in this encounter Plan of Treatment Upcoming Encounters Date Type Department Care Team (Late st Contact Info) Description 05/24/2024 14:00 EDT Office Visit [facility] Ophthalmology - [address] [address] Josemanuel Gomes MD [address] [place] [address], [address] [place] [address] documented as of this encounter Visit Diagnoses Diagnosis Macular degeneration (senile) of retina, unspecified- Primary Degenerative myopia Progressive high (degenerative) myopia documented in this encounter Eye Exam Visual Acuity (Snellen - Linear) Right eye Left eye Dist cc 20/20 20/40 -2 +1 Correction: Glasses Tonometry (Applanation, 9:28) Right eye Left eye Pressure 18 18 Pupils Pupils Right eye PERRL Left eye PERRL Neuro/Psych Oriented x3: Yes Mood/Affect: Normal Dilation Both eyes: 1.0% Mydriacyl, 2 .5% Derek Synephrine @ 9:28 External Exam Right eye Left eye External Normal Normal Slit Lamp Exam Right eye Left eye Lids/Lashes Blepharitis Blepharitis Conjunctiva/Sclera White and quiet White and marysol et Cornea Corneal scar temporally Clear Anterior Chamber Deep and quiet Deep and quiet Iris Round and reactive Round and marko ctive Lens Posterior chamber in traocular lens Posterior chamber intraocular lens Vitreous Posterior vitreous detachment Po sterior vitreous detachment Fundus Exam Right eye Left eye Disc tilted tilted C/D Ratio 0.4 0.4 Macula Retinal pigment epit helial mottling, no SRF, no heme scar, no fluid or heme, mild edema Vessels Normal Normal Periphery Normal Normal Care Teams School Health Assistant Relationship Specialty Start Date End Date Yoselin Roberts MD [address] [place] [address] [place] [address] PCP - General 04/22/11 documented as of this encounter
--- OUTSIDE RECORDS SUMMARY | 2024-04-02 00:33 | XMS_ITS | Encounter Summary ---
Author Organization [facility] Address [address] [place] [address] Care Team Providers Care Property Technician Name Role Phone Yoselin Roberts MD Primary Care Provider [phone] Reason for Visit * Reason Comments Follow-up 6 wk f/u, Q CNVM lef t eye. High myopia both. ?Avastin left today. No pain, No f/f. Encounter Details Date Type Department Care Team (Late st Contact Info) Description 10/15/2011 10:30 EDT Office Visit [facility] Ophthalmology - [address] [address] Josemanuel Gomes MD 111 [facility], [address] [place] [address] Social History Tobacco Use Types [...] Progress Notes * Josemanuel Gomes MD - 10/15/2011 1148 EDT Chief Complaint Patient presents with ??? Follow-up 6 wk f/u, Q CNVM left eye. High myopia both. ?Avastin left today. No pain, No f/f. HPI Location: Left eye Pain: Quality: Blurry Severity: Moderate Duration: Months Timing: Constant Lasts: Continuous Context: 6 wk f/u, Q CNVM left eye. High myopia both. ?Avastin left today. Modifying factors: no f/f Associated Signs & Symptoms: no pain Visual Fluctuations: None Attestation: Base Ophthalmology Exam Visual Acuity Right Left Both Dist cc 20/20 -2 20/40 +1 Dist ph cc NI NI Method: Snellen - Linear Correction: Glasses Tonometry Right Left Pressure 18 18 Method: Applanation Time: 10:39 Dilation Both eyes: 1.0% Mydriacyl, 2.5% Phenylephrine @ 10:41 Main Ophthalmology Exam External Exam Right Left [...] tilted tilted C/D Ratio 0.4 0.4 Macula no heme Retinal pigment epithelial mottling, no fluid or heme Neuro/Psych Oriented x3: Yes Mood/Affect: Normal All five layers of the cornea are normal unless otherwise specified. Please refer to large retinal drawing. 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 Posterior vitreous detachment, both eyes 4. Blepharitis, both eyes PLAN: QCNVM left eye - recom Avastin injection today High Myopia PVD both eyes - no holes, tears, RD Bleph both w/c Procedure Note: INTRAVITREAL Injection: Pre-op Diagnosis: CNVM Procedure: Intravitreal Avastin injection. Side: Left eye(s) Pre-op Medications: Ocuflox Eye Prep: Betadine 5% ophthalmic solution to left eye(s). Anesthesia: Akten 3.5% Drug used: Avastin Dosage: 1.25mg [facility] Number [id number] Paracentesis: No Oil And Gas Drafter: LB Complications: None Post-op Instructions: Ocuflox Per Dr Fabian: Per Dr Gomes: No drops unless otherwise instructed. Patient warned regarding risk of infection, post injection. Patient is instructed to call [phone] immediately for symptoms of increasing pain, purulent discharge, loss of vision and increased floaters. Patient made to understand the extreme urgency of such symptoms and warned that lack of communication of these symptoms could lead to loss of vision, blindness or loss of the eye. Four times a dayfor 2 days Patient warned regarding risk of infection, post injection. Patient is instructed to call [phone] immediately for symptoms of increasing pain, purulent discharge, loss of vision and increased floaters. Patient made to understand the extreme urgency of such symptoms and warned that lack of communication of these symptoms could lead to loss of vision, blindness or loss of the eye I, Dr. Josemanuel Gomes, have performed my own HPI and reviewed the tech's ROS. I have also reviewed thepatient's past medical, family, social and surgical history, as well as the patient's medications, allergies, and problem list. I am scribing for Dr. Josemanuel Gomes MD while he is personally performing the service. 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 Posterior vitreous detachment, both eyes Vitreous degeneration Blepharitis, both eyes Blepharitis, unspecified documented in this encounter Eye Exam Visual Acuity (Snellen - Linear) Right eye Left eye Dist cc 20/20 -2 20/40 +1 Dist ph cc NI NI Correction: Glasses Tonometry (Applanation, 10:39) Right eye Left eye Pressure 18 18 Neuro/Psych Oriented x3: Yes Mood/Affect: Normal Dilation Both eyes: 1.0% Mydriacyl, 2 .5% Phenylephrine @ 10:41 External Exam Right eye Left eye External [...] tilted tilted C/D Ratio 0.4 0.4 Macula no heme Retinal pigment epithelial mottling, no fluid or heme Care Teams Property Technician Relationship Specialty Start Date End Date Yoselin Roberts MD [address] [place] [address] [place] [address] PCP - General 04/22/11 documented as of this encounter
--- OUTSIDE RECORDS SUMMARY | 2024-04-02 00:33 | XMS_ITS | Encounter Summary ---
Author Organization [facility] Address [address] [place] [address] Care Team Providers Care Public Speaker Name Role Phone Kayleen Lawton MD, Kaitlynn Primary Care Provider [phone] Encounter Details Date Type Department Care Team (Late st Contact Info) Description 12/12/2009 9:57 EDT - 12/12/2009 23:59 EDT Hospital Encounter [facility] Ophthalmology - [address] [address] Josemanuel Gomes MD [address] [place] [address] Discharge Disposition: Home or Self Care Social History Tobacco Use Types Packs/Day Years Used Date Smoking Tobacco: Never Assessed Comments Unknown Sex and Gender Information Value Date Recorded Sex Assigned at Not on file Legal Sex Female 17:30 EST Gender Identity Not on file Sexual Orientation Not on file documented as of this encounter Discharge Disposition Disposition Code Departure Means Destination Home or Self Senior Care documented in this encounter Plan of Treatment Upcoming Encounters Date Type Department Care Team (Late st Contact Info) Description 05/24/2024 14:00 EDT Office Visit [facility] [address] [place] [address] Josemanuel Gomes MD [address] [phone] documented as of this encounter Visit Diagnoses Not on filedocumented in this encounter Care Teams Public Speaker Relationship Specialty Start Date End Date Kaitlynn Beyer MD [address] [place] [address] PCP - General 08/21/09 04/21/11 documented as of this encounter
--- OUTSIDE RECORDS SUMMARY | 2024-04-02 00:33 | XMS_ITS | Encounter Summary ---
Author Organization [facility] Address [address] [place] [address] Care Team Providers Care Religion Professor Name Role Phone Yoselin Roberts MD Primary Care Provider [phone] Encounter Details Date Type Department Care Team (Late st Contact Info) Description 10/06/2012 Phlebotomy Only [address] [address] Welt Stitcher, Outpatient Headache Social History Tobacco Use Types Packs/Day Years [...] on file documented as of this encounter Plan of Treatment Upcoming Encounters Date Type Department Care Team (Late st Contact Info) Description 05/24/2024 14:[address] [facility] [place] [address] [place], [place] [id number] Josemanuel Gomes MD 111 [facility], [address] [place] [phone] documented as of this encounter Procedures Procedure Name Priority Date/Time Associated Diagnosis Comments DIFFERENTIAL Routine 10/06/2012 9:13 EDT SED RATE STAT 10/06/2012 9:13 EDT Headache COMPLETE BLOOD COUNT Routine 10/06/2012 9:13 EDT COMPLETE BLOOD COUNT AND DIFFERENTIAL STAT 10/06/2012 9:13 EDT Headache C REACTIVE PROTEIN STAT 10/06/2012 9: 13 EDT Headache documented in this encounter Results * DIFFERENTIAL (10/06/2012 9:13 EDT) % Neutrophils 51.3 45.5 - 79.7 % [facility] % Lymphocytes 37.4 15.0 - 46.8 % [facility] % Monocytes 8.2 1.8 - 12.0 % [facility] % Eosinophils 1.7 0.6 - 6.9 % [facility] % Basophils 1.4 0.2 - 1.4 % [facility] ABS Neutrophils 2.58 2.20 - 8.85 K/cmm [facility] ABS Lymphs 1.88 1.09 - 3.30 K/cmm [facility] ABS Monocytes 0.41 0.1 - 0.8 K/cmm [facility] ABS Eosinophils 0.09 0.03 - 0.61 K/cmm [facility] ABS Basophils 0.07 0.01 - 0.11 K/cmm [facility] Type of Diff: Automated [facility] 10/06/2012 9:13 EDT 10/06/2012 9:22 EDT us Josemanuel Gomes MD HEMATOLOGY & PF4 ORDERABLES F inal Result [facility] [address] [place] [address] * HEMAGRAM (10/06/2012 9:13 EDT) WBC 5.02 4.0 - 12.4 K/cmm [facility] RBC 4.09 3.86 - 5.04 M/cmm [facility] Hemoglobin 12.9 11.6 - 15.2 gm/dl [facility] HCT 37.7 34.9 - 44.4 % [facility] MCV 92 81 - 98 fl [facility] MCH 31.5 26.7 - 33.3 pg [facility] MCHC 34.2 32.1 - 35.9 gm/dl [facility] PLT 243 141 - 320 K/cmm [facility] RDW-CV 13.7 11.7 - 14.6 % [facility] 10/06/2012 9:13 EDT 10/06/2012 9:22 EDT Josemanuel Gomes MD HEMATOLOGY & PF4 ORDERABLES F inal Result Performing Organization Address [facility] Co de Phone Number [facility] [address] [place] [address] * SED. RATE:ALEKSEYREN (10/06/2012 9:13 EDT) Pathologist [facility] Sed. Rate Westergren 10 0 - 30 mm/hr [facility] Blood specimen (specimen) 10/06/2012 9:13 EDT 10/06/2012 9:22 EDT Josemanuel Gomes MD HEMATOLOGY & PF4 ORDERABLES F inal Result Performing Organization Address [facility] de Phone Number [facility] [address] [place] [address] * C-REACTIVE PROTEIN (10/06/2012 9:13 EDT) [facility] C-Reactive Protein <0.7 <1.0 mg/dl [facility] Blood specimen (specimen) 10/06/2012 9:13 EDT 10/06/2012 9:22 EDT Josemanuel Gomes MD CHEMISTRY & BLOOD GAS ORDERAB LES Final Result Performing Organization Address [facility] Co de Phone Number [facility] [address] [place] [address] documented in this encounter Visit Diagnoses Diagnosis Headache(784.0) Headache documented in this encounter Care Teams Religion Professor Relationship Specialty Start Date End Date Yoselin Roberts MD [address] [place] [address] [place] [address] PCP - General 04/22/11 documented as of this encounter
--- OUTSIDE RECORDS SUMMARY | 2024-04-02 00:33 | XMS_ITS | Encounter Summary ---
Author Organization [facility] Address [address] [place] [address] Care Team Providers Care Take Away Man Name Role Phone Kayleen Lawton MD, Kaitlynn Primary Care Provider [phone] Reason for Visit * Reason Comments Follow-up High Myope, CNVM Lef t eye and PVD both eyes Encounter Details Date Type Department Care Team (Late st Contact Info) Description 01/01/2011 14:00 EDT Office Visit [facility] Ophthalmology - [facility] [address] [place], [place] [address] Josemanuel Gomes MD 111 [facility], [address] [place] [address] Social History Tobacco Use Types Packs/Day Years Used Date Smoking Tobacco: Never Assessed Comments Unknown Sex and Gender Information Value Date Recorded Sex Assigned at Not on file Legal Sex Female 17:30 EST Gender Identity Not on file Sexual Orientation Not on file documented as of this encounter Progress Notes * Corinna Gilmore OTA - 01/01/2011 1443 EDT Chief Complaint Patient presents with ??? Follow-up High Myope, CNVM Left eye and PVD both eyes HPI Location: Left eye Pain: 0 - No pain Quality: Blurry Severity: Mild Duration: Weeks (1) Timing: Constant Lasts: Continuous Context: Va left eye getting a little better per pt. Modifying factors: N/A Associated Signs & Symptoms: No flashes or floaters that are new Visual Fluctuations: Flashes;Floaters (Chronic/unchanged in both eyes) Attestation: Base Ophthalmology Exam Visual Acuity Right Left Both Dist cc 20/20 20/50-2 +1 Method: Snellen - Linear Correction: Glasses Tonometry Right Left Pressure 20 18 Method: Applanation Time: 14:21 Dilation Both eyes: 1.0% Mydriacyl, 2.5% Phenylephrine @ 14:21 Pupils Pupils Right PERRL Left PERRL Main Ophthalmology Exam External Exam Right Left External Normal Normal Slit Lamp Exam Right Left Lids/Lashes Blepharitis Blepharitis Conjunctiva/Sclera White and quiet White and quiet Cornea Trace SPK Trace SPK Anterior Chamber Deep and quiet Deep and quiet Iris Round and reactive Round and reactive Lens Posterior chamber intraocular lens Posterior chamber intraocular lens Vitreous Posterior vitreous detachment Posterior vitreous detachment Fundus Exam Right Left Disc Normal Normal C/D Ratio 0.4 0.7 Macula Normal Min'l CME, SRH Vessels Normal Normal Periphery Pavingstone degeneration Pavingstone degeneration Neuro/Psych Oriented x3: Yes Mood/Affect: Normal All five layers of the cornea are normal unless otherwise specified. Please refer to large retinal drawing. IMPRESSION: 1. Myopic degeneration 2. Retinal neovascularization NOS PLAN: CNVM left eye recom repeat Avastin inj left eye today F/U 8 weeks Procedure Note: INTRAVITREAL Injection: Pre-op Diagnosis: CNVM Procedure: Intravitreal Avastin injection. Side: Left eye(s) Pre-op Medications: Ocuflox Eye Prep: Betadine 5% ophthalmic solution to left eye(s). Anesthesia: AKten Drug used: Avastin Dosage: 1.25mg Paracentesis: No Board Winder: ELSA Complications: None Post-op Instructions: Ocuflox Per Dr Fabian: Per Dr Gomes: ONE drop every minute for 5 minutes. Then every hour until bedtime. Then four times a day for 5 days. Four times a day for 5 days I, Dr. 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 documented in this encounter Eye Exam Visual Acuity (Snellen - Linear) Right eye Left eye Dist cc 20/20 20/50-2 +1 Correction: Glasses Tonometry (Applanation, 14:21) Right eye Left eye Pressure 20 18 Pupils Pupils Right eye PERRL Left eye PERRL Neuro/Psych Oriented x3: Yes Mood/Affect: Normal Dilation Both eyes: 1.0% Mydriacyl, 2 .5% Phenylephrine @ 14:21 External Exam Right eye Left eye External Normal Normal Slit Lamp Exam Right eye Left eye Lids/Lashes Blepharitis Blepharitis Conjunctiva/Sclera White and quiet White and marysol et Cornea Trace SPK Trace SPK Anterior Chamber Deep and quiet Deep and quiet Iris Round and reactive Round and marko ctive Lens Posterior chamber in traocular lens Posterior chamber intraocular lens Vitreous Posterior vitreous detachment Po sterior vitreous detachment Fundus Exam Right eye Left eye Disc Normal Normal C/D Ratio 0.4 0.7 Macula Normal Min'l CME, SRH Vessels Normal Normal Periphery Pavingstone degeneration Pavings tone degeneration Care Teams Take Away Man Relationship Specialty Start Date End Date Kaitlynn Beyer MD [address] [place] [address] PCP - General 08/21/09 04/21/11 documented as of this encounter
--- OUTSIDE RECORDS SUMMARY | 2024-04-02 00:33 | XMS_ITS | Encounter Summary ---
Author Organization [facility] Address [address] [place] [address] Care Team Providers Care Avionics Technician Name Role Phone Unavailable Primary Care Provider Unavailabl e Encounter Details Date Type Department Care Team (Latest Contact Info) Description 12/21/2003 5:55 EDT - 12/21/2003 11:59 EDT Hospital Encounter [facility]- [address] [address] Dann Calderon MD Discharge Disposition: Auto Discharge Social History Tobacco [...] Destination Auto Discharge documented in this encounter Plan of Treatment Upcoming Encounters Date Type Department Care Team (Late st Contact Info) Description 05/24/2024 14:00 EDT Office Visit [facility] Ophthalmology - [address] [place] [address] Josemanuel Gomes MD 111 [facility], [facility] [address] [place] [phone] documented as of this encounter Visit Diagnoses Not on filedocumented in this encounter
--- OUTSIDE RECORDS SUMMARY | 2024-04-02 00:33 | XMS_ITS | Encounter Summary ---
Author Organization [facility] Address [address] [place] [address] Care Team Providers Care Ev[employer] Of Products [employer] Co Founder Name Role Phone Kayleen Lawton MD, Kaitlynn Primary Care Provider Reason for Visit * Reason Comments Eye Problem F/U Myopic Degen.OU, CNVM OS. Va increase, better. 0 pain, 0 F/F. Encounter Details Date Type Department Care Team (Late st Contact Info) Description 03/05/2010 11:00 EST Office Visit [facility] Ophthalmology - Main [address] [address] Josemanuel Gomes MD [address] [place] [address], [address] [place] [address] Discharge Disposition: Auto Discharge Social [...] Progress Notes * Josemanuel Gomes MD - 03/19/2010 1227 EST DIVISION OF OPHTHALMOLOGY [facility] PROGRESS/FOLLOWUP NOTE - 03/05/2010 Anya Mas MD [facility] [address] Dear Anya: This is a letter of update for a patient I am going to be sending you. 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 She has now had 4 injections in her left eye, the last one being on 03/05/2010. She is going down to [facility] for the winter, so I suggested she see you while she is down there. I have been spacing her injections apart about every 6 to 8 weeks so I w ill schedule an appointment with you in about 6 weeks or so. I would be happy to see her when she returns. She does look like she is quieting quite a bit. She has a great foveal contour at this pointwith just a small amount of subretinal hemorrhage, which is much improved from before. She is now 20/30+ where previously she was 20/70 before injections. Thanks again for taking care of her. Sincerely, Electronically Signed by Josemanuel Gomes MD 03/19/2010 12:27 Josemanuel Gomes MD [facility] [address] [place] [address] - Josemanuel Gomes MD - JV Job ID: SM Doc ID: [id number] Ext Doc ID: [id number] cc: MD Anya Mcclelland MD * Rolando Steven OTA - 03/05/2010 1155 EST Chief Complaint Patient presents with ??? Eye Problem F/U Myopic Degen.OU, CNVM OS. Va increase, better. 0 pain, 0 F/F. HPI Location: Left eye Pain: 0 - No pain Quality: Blurry Severity: Duration: Months Timing: Constant Lasts: Continuous Context: Modifying factors: Associated Signs & Symptoms: Visual Fluctuations: None Attestation: Base Ophthalmology Exam Visual Acuity Right Left Dist cc 20/20 -1 20/30 +2 Dist ph cc NI Method: Snellen - Linear Correction: Glasses Tonometry Right Left Pressure 18 18 Method: Applanation Time: 11:32 Dilation Comments: Tropicamide 1%, phenlephrine 2.5% Main Ophthalmology Exam Slit Lamp Exam Right Left Lids/Lashes Blepharitis Blepharitis Conjunctiva/Sclera White and quiet White and quiet Cornea Clear Clear Anterior Chamber Deep and quiet Deep and quiet Iris Round and reactive Round and reactive Lens Posterior chamber intraocular lens Posterior chamber intraocular lens Vitreous Posterior vitreous detachment Posterior vitreous detachment Fundus Exam Right Left C/D Ratio 0.4 0.4 Neuro/Psych Oriented x3: Yes OCT REPORT Indications: Myopic degeneration Findings: Right Eye Left Eye Minimal RE, but good fc Original test to be found in patients shadow chart Procedure Note: INTRAVITREAL Injection: Pre-op Diagnosis: Myopic Degen. With CNVM Procedure: Intravitreal Avastin injection. Side: Left eye(s) Pre-op Medications: Ocuflox Eye Prep: Betadine 5% ophthalmic solution to left eye(s). Anesthesia: Subconjunctival block w/ lidocaine 2% Drug used: Avastin Dosage: 1.25mg Paracentesis: No Strategic Communications Specialist: DYLON Silverio Complications: None Post-op Instructions: Ocuflox Per Dr Fabian: Per Dr Gomes: ONE drop every minute for 5 minutes. Then every hour until bedtime. Then four times a day for TEN days. Four times a day for 5 days IMPRESSION: 1. 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 Retinal neovascularization NOS (362.16) PLAN: Avastin today left eye. Pt to follow up with anya mas at [facility] Follow up in [place] when she returns in spring I, Dr. Josemanuel Gomes, have performed my own HPI and reviewed the tech's ROS. I have also reviewed thepatient's past medical, family, social and surgical history, as well as the patient's medications, allergies, and problem list. I scribed parts of this documentation while Josemanuel Gomes MD personally performed and dictated details regarding trejo components of the service. DYLON Silverio (Scribe) documented in this encounter Miscellaneous Notes * Scanned Note-Null - Inpatient, Physician - 03/26/2010 1708 EST * Scanned Note-Null - Inpatient, Physician - 03/06/2010 1824 EST documented in this encounter Plan of Treatment Upcoming Encounters Date Type Department Care Team (Late st Contact Info) Description 05/24/2024 14:00 EDT Office Visit [facility] Ophthalmology - [facility] [address] [place] [address] Josemanuel Gomes MD [address] [facility] [address] [place] [address] Scheduled Orders Name Type Priority Associated Diagnoses Orde r Schedule OCT (OPHTHALMIC DIGITAL IMAGING, POSTERIOR SEGMENT) Ophthalmology Routine 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 Patient Stopped Taking 03/05/2010 documented as of this encounter Eye Exam Visual Acuity (Snellen - Linear) Right eye Left eye Dist cc 20/20 -1 20/30 +2 Dist ph cc NI Correction: Glasses Tonometry (Applanation, 11:32) Right eye Left eye Pressure 18 18 Neuro/Psych Oriented x3: Yes Dilation Tropicamide 1%, phenlephrine 2.5% Slit Lamp Exam Right eye Left eye Lids/Lashes Blepharitis Blepharitis Conjunctiva/Sclera White and quiet White and marysol et Cornea Clear Clear Anterior Chamber Deep and quiet Deep and quiet Iris Round and reactive Round and marko ctive Lens Posterior chamber in traocular lens Posterior chamber intraocular lens Vitreous Posterior vitreous detachment Po sterior vitreous detachment Fundus Exam Right eye Left eye C/D Ratio 0.4 0.4 Care Teams [employer] Products [employer] Founder Relationship Specialty Start Date End Date Kaitlynn Beyer MD [address] [place] [address] PCP - General 08/21/09 04/21/11 documented as of this encounter
--- OUTSIDE RECORDS SUMMARY | 2024-04-02 00:33 | XMS_ITS | Encounter Summary ---
Author Organization [facility] Address [address] [place] [address] Care Team Providers Care Cake Press Operator Helper Name Role Phone Yoselin Roberts MD Primary Care Provider [phone] Reason for Visit * Reason Comments Follow-up High myopia, CNVM le ft eye s/p Avastin injection. Still sees black spot, VA better?? Encounter Details Date Type Department Care Team (Late st Contact Info) Description 04/23/2011 13:15 EST Office Visit [facility] Ophthalmology - [address] [address] Josemanuel Gomes MD [address] [place] [address], [address] [place] [address] Social History Tobacco Use Types Packs/Day Years Used Date Smoking Tobacco: Never Assessed Comments Unknown Sex and Gender Information Value Date Recorded Sex Assigned at Not on file Legal Sex Female 17:30 EST Gender Identity Not on file Sexual Orientation Not on file documented as of this encounter Progress Notes * Josemanuel Gomes MD - 04/23/2011 1326 EST Chief Complaint Patient presents with ??? Follow-up High myopia, CNVM left eye s/p Avastin injection. Still sees black spot, VA better?? HPI Location: Left eye Pain: Quality: Blurry Severity: Mild Duration: Weeks (1) Timing: Constant Lasts: Continuous Context: High myopia, CNVM left eye Modifying factors: Hx of Avastin left eye Associated Signs & Symptoms: No flashes or floaters that are new, distortion left eye as before Visual Fluctuations: Flashes;Floaters (Chronic/unchanged in both eyes) Attestation: Base Ophthalmology Exam Visual Acuity Right Left Both Dist cc 20/30 +2 20/200 Dist ph cc 20/25 NI Method: Snellen - Linear Correction: Glasses Tonometry Right Left Pressure 17 18 Method: Applanation Time: 13:14 Dilation Both eyes: 1.0% Mydriacyl, 2.5% Phenylephrine @ 13:16 Main Ophthalmology Exam External Exam Right Left External Normal Normal Slit Lamp Exam Right Left Lids/Lashes Blepharitis Blepharitis Conjunctiva/Sclera White and quiet White and quiet Cornea Clear Clear Anterior Chamber Deep and quiet Deep and quiet Iris Round and reactive Round and reactive Lens Posterior chamber intraocular lens Posterior chamber intraocular lens Fundus Exam Right Left Disc Tilted disc Tilted disc C/D Ratio 0.4 0.4 Macula Retinal pigment epithelial mottling Retinal pigment epithelial mottling, Cystoid macular edema Neuro/Psych Oriented x3: Yes Mood/Affect: Normal All five layers of the cornea are normal unless otherwise specified. Please refer to large retinal drawing. 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 Side: Left eye(s) Pre-op Medications: Ocuflox Eye Prep: Betadine 5% ophthalmic solution to left eye(s). Anesthesia: Akten 3.5% Drug used: Avastin Dosage: 1.25mg [facility] Number [id number] Paracentesis: No Reservation Agent: barby Complications: None Post-op Instructions: Ocuflox Per Dr [...] ARELY Atkinson (Scribe) documented in this encounter Miscellaneous Notes * Scanned Note-Null - Marking Machine Tender, Scan - 04/24/2011 1516 EST documented in this encounter Plan of Treatment Upcoming Encounters Date Type Department Care Team (Late st Contact Info) Description 05/24/2024 14:00 EDT Office Visit [facility] Ophthalmology - [place] [id number] [place], [place] [id number] Josemanuel Gomes MD [address] [place] [address], [facility] [address] [place] [address] documented as of this encounter Visit Diagnoses Diagnosis 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 documented in this encounter Eye Exam Visual Acuity (Snellen - Linear) Right eye Left eye Dist cc 20/30 +2 20/200 Dist ph cc 20/25 NI Correction: Glasses Tonometry (Applanation, 13:14) Right eye Left eye Pressure 17 18 Neuro/Psych Oriented x3: Yes Mood/Affect: Normal Dilation Both eyes: 1.0% Mydriacyl, 2 .5% Phenylephrine @ 13:16 External Exam Right eye Left eye External Normal Normal Slit Lamp Exam Right eye Left eye Lids/Lashes Blepharitis Blepharitis Conjunctiva/Sclera White and quiet White and marysol et Cornea Clear Clear Anterior Chamber Deep and quiet Deep and quiet Iris Round and reactive Round and marko ctive Lens Posterior chamber in traocular lens Posterior chamber intraocular lens Fundus Exam Right eye Left eye Disc Tilted disc Tilted disc C/D Ratio 0.4 0.4 Macula Retinal pigment epithelial mottl ing Retinal pigment epithelial mottling, Cystoid macular edema Care Teams Cake Press Operator Helper Relationship Specialty Start Date End Date Yoselin Roberts MD [address] [place] [address] [place] [address] PCP - General 04/22/11 documented as of this encounter
--- OUTSIDE RECORDS SUMMARY | 2024-04-02 00:33 | XMS_ITS | Encounter Summary ---
Author Organization [facility] Address [address] [place] [address] Care Team Providers Care Stitching Machine Operator Name Role Phone Kayleen Lawton MD, Kaitlynn Primary Care Provider [phone] Reason for Visit * Reason Comments Follow-up High Myope with CNVM left eye. Hx of Avastin left eye. Vision stable. No new flashes or floaters Encounter Details Date Type Department Care Team (Late st Contact Info) Description 02/27/2011 12:[address] [facility] Ophthalmology - [address] [address] Josemanule Gomes MD [address] [facility], [address] [place] [address] Social History Tobacco Use Types Packs/Day Years Used Date Smoking Tobacco: Never Assessed Comments Unknown Sex and Gender Information Value Date Recorded Sex Assigned at Not on file Legal Sex Female 17:30 EST Gender Identity Not on file Sexual Orientation Not on file documented as of this encounter Progress Notes * Josemanuel Gomes MD - 02/27/2011 1257 EST Chief Complaint Patient presents with ??? Follow-up High Myope with CNVM left eye. Hx of Avastin left eye. Vision stable. No new flashes or floaters HPI Location: Left eye Pain: 0 - No pain Quality: Blurry Severity: Mild Duration: Weeks (1) Timing: Constant Lasts: Continuous Context: va stable Modifying factors: Hx of Avastin left eye Associated Signs & Symptoms: No flashes or floaters that are new Visual Fluctuations: Flashes;Floaters (Chronic/unchanged in both eyes) Attestation: Base Ophthalmology Exam Visual Acuity Right Left Both Dist cc 20/20 -2 20/60 -1 Dist ph cc NI Method: Snellen - Linear Correction: Glasses Tonometry Right Left Pressure 22 20 Method: Applanation Time: 12:39 Dilation Both eyes: 1.0% Mydriacyl, 2.5% Phenylephrine @ 12:39 Pupils Pupils Right PERRL Left PERRL Main [...] C/D Ratio 0.4 0.7 Macula Normal Min'l CME Vessels Normal Normal Periphery Pavingstone degeneration Pavingstone [...] neovascularization NOS 2. Progressive high (degenerative) myopia 3. Posterior vitreous detachment, both eyes PLAN: CME/CNVM left eye Avastin left eye Recheck 8 weeks, possible repeat injection Procedure Note: INTRAVITREAL Injection: Pre-op Diagnosis: cme Procedure: Intravitreal Avastin injection. Side: Left eye(s) Pre-op Medications: Ocuflox Eye Prep: Betadine 5% ophthalmic solution to left eye(s). Anesthesia: akten Drug used: Avastin Dosage: 1.25mg Paracentesis: No Echocardiologist: nc Complications: None Post-op Instructions: Ocuflox Per Dr [...] encounter Miscellaneous Notes * Scanned Note-Null - Scooter Mechanic, Scan - 02/28/2011 0932 EST documented in this encounter Plan of Treatment Upcoming Encounters Date Type Department Care Team (Late st Contact Info) Description 05/24/2024 14:[address] 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, both eyes Vitreous degeneration documented in this encounter Eye Exam Visual Acuity (Snellen - Linear) Right eye Left eye Dist cc 20/20 -2 20/60 -1 Dist ph cc NI Correction: Glasses Tonometry (Applanation, 12:39) Right eye Left eye Pressure 22 20 Pupils Pupils Right eye PERRL Left [...] C/D Ratio 0.4 0.7 Macula Normal Min'l CME Vessels Normal Normal Periphery Pavingstone degeneration Pavings tone degeneration Care Teams Stitching Machine Operator Relationship Specialty Start Date End Date Kaitlynn Beyer MD [address] [place] [address] PCP - General 08/21/09 04/21/11 documented as of this encounter
--- OUTSIDE RECORDS SUMMARY | 2024-04-02 00:33 | XMS_ITS | Encounter Summary ---
Author Organization [facility] Address [address] [place] [address] Care Team Providers Care Hunting Sales Associate Name Role Phone Yoselin Roberts MD Primary Care Provider [phone] Reason for Visit * Reason Comments Eye Problem CNVM Left Encounter Details Date Type Department Care Team (Late st Contact Info) Description 07/14/2012 10:15 EDT Office Visit [facility] Ophthalmology - [address] [address] Josemanuel Gomes MD 111 [facility], [address] [place] [address] Social History Tobacco Use Types [...] Progress Notes * Josemanuel Gomes MD - 07/14/2012 1043 EDT Chief Complaint Patient presents with ??? Eye Problem CNVM Left HPI Location: Both eyes Pain: 0 - No pain Quality: Blurry Severity: Moderate Duration: Years Timing: Constant Lasts: Continuous Context: VA blurry today maybe its because i'm tired, I'm physically tired and my eyes are tired Modifying factors: new floater on last visit and its gone now,0 new flashes, 0 pain Associated Signs & Symptoms: High myopia with CNVM left Visual Fluctuations: None Attestation: Base Ophthalmology Exam Visual Acuity Right Left Both Dist cc 20/20 -2 20/40 +2 Method: Snellen - Linear Correction: Glasses Tonometry Right Left Pressure 14 14 Method: Applanation Time: 10:27 Dilation Both eyes: 1.0% Mydriacyl, 2.5% Derek Synephrine @ 10:30 Pupils Pupils Right PERRL Left PERRL Main [...] refer to large retinal drawing. 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 Done today Follow up as sched I, Dr. Josemanuel Gomes, have performed my own HPI and reviewed the tech's ROS. I have also reviewed thepatient's past medical, family, social and surgical history, as well as the patient's medications, allergies, and problem list. I am scribing for Dr. Josemanuel Gomes MD while he is personally performing the service. DYLON Silverio (Scribe) Procedure Note: INTRAVITREAL Injection: Pre-op Diagnosis: CNVM Procedure: Intravitreal Avastin injection. Side: Left eye(s) Eye Prep: Betadine 5% ophthalmic solution to left eye(s). Anesthesia: Topical Proparacine HCl 0.4% Ophthalmic solution Drug used: Avastin Dosage: 1.25mg [facility] Number [id number] Paracentesis: No Director Of Veterans Affairs: DYLON Silverio Complications: None Post-op Instructions: Per Dr Fabian: Per Dr Gomes: No drops unless otherwise instructed. Patient warned regarding risk of infection, post injection. Patient is instructed to call [phone] immediately for symptoms of increasing pain, purulent discharge, loss of vision and increased floaters. Patient made to understand the extreme urgency of such symptoms and warned that lack of communication of these symptoms could lead to loss of vision, blindness or loss of the eye. No drops unless otherwise instructed: Patient warned regarding risk of infection, post injection. Patient is instructed to call [phone] immediately for symptoms of increasing pain, purulent discharge, loss of vision and increased floaters. Patient made to understand the extreme urgency of such symptoms and warned that lack of communication of these symptoms could lead to loss of vision, blindness or loss of the eye documented in this encounter Miscellaneous Notes * Scanned Note-Null - COPY DIRECTOR, SCAN 2 - 07/14/2012 1343 EDT documented in this encounter Plan of Treatment Upcoming Encounters Date Type Department Care Team (Late st Contact Info) Description 05/24/2024 14:00 EDT Office Visit [facility] Ophthalmology - [address] [address] Josemanuel Gomes MD [address] [place] [address], [address] [place] [address] documented as of this encounter Visit Diagnoses Diagnosis Progressive high (degenerative) myopia- Primary Retinal neovascularization NOS documented in this encounter Eye Exam Visual Acuity (Snellen - Linear) Right eye Left eye Dist cc 20/20 -2 20/40 +2 Correction: Glasses Tonometry (Applanation, 10:27) Right eye Left eye Pressure 14 14 Pupils Pupils Right eye PERRL Left eye PERRL Neuro/Psych Oriented x3: Yes Mood/Affect: Normal Dilation Both eyes: 1.0% Mydriacyl, 2 .5% Derek Synephrine @ 10:30 External Exam Right eye Left [...] Normal Normal Periphery Normal Normal Care Teams Hunting Sales Associate Relationship Specialty Start Date End Date Yoselin Roberts MD [address] [place] [address] [place] [address] PCP - General 04/22/11 documented as of this encounter
--- OUTSIDE RECORDS SUMMARY | 2024-04-02 00:33 | XMS_ITS | Encounter Summary ---
Author Organization [facility] Address [address] [place] [address] Care Team Providers Care Legal Recruiter Name Role Phone Kayleen Lawton MD, Kaitlynn Primary Care Provider Reason for Visit * Reason Onset Date Comments Eye Problem 09/18/2010 blurry vision le ft eye x3-5 days; suspects new bleed, due for ?inj 7.19.11; should she be seen sooner? Encounter Details Date Type Department Care Team (Late st Contact Info) Description 09/18/2010 Telephone [facility] Ophthalmology - [facility] [address] [place] [address] Josemanuel Gomes MD [address] [facility], [address] [place] [phone] Eye Problem (blurry vision left eye x3-5 days; suspects new bleed, due for ?inj 7.19.11; should she be seen sooner?) Social History Tobacco Use Types Packs/Day Years Used Date Smoking Tobacco: Never Assessed Comments Unknown Sex and Gender Information Value Date Recorded Sex Assigned at Not on file Legal Sex Female 17:30 EST Gender Identity Not on file Sexual Orientation Not on file documented as of this encounter Miscellaneous Notes * Telephone Encounter - Elizabeth Gamez - 09/18/2010 1405 EDT Pt given appt 7.6.11 w/[facility] @ 1300 per notes below ~[place] * Telephone Encounter - Corinna Gilmore OTA - 09/18/2010 1048 EDT Last injection February 2010 Left eye for CNVM - myopic degeneration End of last week VA getting worse - distortion, blurry - pt very concerned - will speak with Dr. Fabian (Dr. Gomes away) Pt will come tomorrow at 1pm documented in this encounter Plan of Treatment Upcoming Encounters Date Type Department Care Team (Late st Contact Info) Description 05/24/2024 14:00 EDT Office Visit [facility] Ophthalmology - [place] [address] [place], [place] [phone] Josemanuel Gomes MD [address] [facility], [facility] [address] [place] [phone] documented as of this encounter Visit Diagnoses Not on filedocumented in this encounter Care Teams Legal Recruiter Relationship Specialty Start Date End Date Kaitlynn Beyer MD [address] [place] [address] PCP - General 08/21/09 04/21/11 documented as of this encounter
--- OUTSIDE RECORDS SUMMARY | 2024-04-02 00:33 | XMS_ITS | Encounter Summary ---
Author Organization [facility] Address [address] [place] [address] Care Team Providers Care Electrostatic Powder Coating Technician Name Role Phone Yoselin Roberts MD Primary Care Provider [phone] Reason for Visit * Reason Comments Follow-up 6 week return for po ssible avastin injection int he left eye, HX of CNVM, recent GCA work up was ordered and findings where negative Encounter Details Date Type Department Care Team (Late st Contact Info) Description 12/01/2012 14:15 EDT Office Visit [facility] Ophthalmology - [address] [address] Josemanuel Gomes MD [address] [facility], [address] 5 [place] [address] Social History Tobacco Use Types [...] Progress Notes * Josemanuel Gomes MD - 12/01/2012 1502 EDT Chief Complaint Patient presents with ??? Follow-up 6 week return for possible avastin injection int he left eye, HX of CNVM, recent GCA work up was ordered and findings where negative HPI Location: Left eye Pain: 0 - No pain Quality: Severity: Moderate Duration: Years Timing: Constant Lasts: Continuous Context: Vision in the left eye is always blurry no change today, Pt saw primary care doctor for MORALES's she had a CT scan DX was migrains syptoms have improved since apt here she uses imitrex for migrain control Modifying factors: Same longstanding floaters and flashes both eyes Associated Signs & Symptoms: Pt will see regular eye doctor for glaucoma check next month timoptic both eyes in the morning and xalatan both eyes at bed time Visual Fluctuations: Flashes;Floaters (Same longstanding flashes and floaters) Attestation: Base Ophthalmology Exam Visual Acuity Right Left Dist cc 20/25 20/100 -1 Dist ph sc NI NI Method: Snellen - Linear Tonometry Right Left Pressure 17 17 Time: 14:30 Dilation Both eyes: 2.5% Phenylephrine, 1.0% Mydriacyl @ 14:30 Main Ophthalmology Exam External Exam Right Left [...] no heme scar, no fluid or heme, Vessels Normal Normal Periphery Normal Normal Neuro/Psych [...] SEGMENT) 2. Progressive high (degenerative) myopia 3. Retinal neovascularization NOS PLAN: High Myopia both, no tears CNVM left eye - recommend to inject today. Pt agreed. follow up as scheduled for OCT and possible Avastin to left eye Procedure Note: INTRAVITREAL Injection: Pre-op Diagnosis: CNVM/Derek Procedure: Intravitreal Avastin injection. Side: Left eye(s) Eye Prep: Betadine 5% ophthalmic solution to left eye(s). Anesthesia: Topical Proparacine HCl 0.4% Ophthalmic solution Drug used: Avastin Dosage: 1.25mg [facility] Number [id number] Paracentesis: No Supervisor Dimension Warehouse: SONI Complications: None Post-op Instructions: No drops unless otherwise instructed Call immediately with pain, purulent discharge or loss of vision [phone] I, Dr. Josemanuel Gomes, have performed my own HPI and reviewed the tech's ROS. I have also reviewed thepatient's past medical, family, social and surgical history, as well as the patient's medications, allergies, and problem list. I am scribing for Dr.Brian Lucila Gomes MD while he is personally performing the service. ARELY Silva (Scribe) documented in this encounter Miscellaneous Notes * Scanned Note-Null - GRANULATOR OPERATOR, SCAN 2 - 12/02/2012 1222 EDT documented in this encounter Plan of Treatment Upcoming Encounters Date Type Department Care Team (Late st Contact Info) Description 05/24/2024 14:00 EDT Office Visit [facility] Ophthalmology - [id number] [place] [address] Josemanuel Gomes MD [address] [place] [address], [address] 5 [place] [address] Scheduled Orders Name Type Priority Associated Diagnoses Orde r Schedule OCT (OPHTHALMIC DIGITAL IMAGING, POSTERIOR SEGMENT) Ophthalmology Routine CNVM (choroidal neovascular membrane) Ordered: 12/01/2012 documented as of this encounter Visit Diagnoses Diagnosis 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 SUMAtriptan (IMITREX) 50 mg tabletIndications :migraine Take 1 Tablet by mouth as needed. brimonidine-timol ol (COMBIGAN) 0.2-0.5 % Drops opthalmic solution Place 1 Drop into both eyes 2 times daily. 10/06/2013 added in this encounter Eye Exam Visual Acuity (Snellen - Linear) Right eye Left eye Dist cc 20/25 20/100 -1 Dist ph sc NI NI Tonometry (14:30) Right eye Left eye Pressure 17 17 Neuro/Psych Oriented x3: Yes Mood/Affect: Normal Dilation Both eyes: 2.5% Phenylephrin e, 1.0% Mydriacyl @ 14:30 External Exam Right eye Left eye External [...] no heme scar, no fluid or heme, Vessels Normal Normal Periphery Normal Normal Care Teams Electrostatic Powder Coating Technician Relationship Specialty Start Date End Date Yoselin Roberts MD [address] [place] [address] [place] [address] PCP - General 04/22/11 documented as of this encounter
--- OUTSIDE RECORDS SUMMARY | 2024-04-02 00:33 | XMS_ITS | Encounter Summary ---
Author Organization [facility] Address [address] [place] [address] Care Team Providers Care Vmware Engineer Name Role Phone Kayleen Lawton MD, Kaitlynn Primary Care Provider [phone] Encounter Details Date Type Department Care Team (Late st Contact Info) Description 11/07/2010 Abstract Used for ABSTRACTING Data [phone] Josemanuel Gomes MD [address] [place] [phone] Social History Tobacco Use Types Packs/Day Years [...] Info) Description 05/24/2024 14:00 EDT Office Visit [facility] Ophthalmology - [address] [place] [address] Josemanuel Gomes MD [address] [place] [phone] documented as of this encounter Visit Diagnoses Not on filedocumented in this encounter Care Teams Vmware Engineer Relationship Specialty Start Date End Date Kaitlynn Beyer MD [address] [place] [phone] PCP - General 08/21/09 04/21/11 documented as of this encounter
--- OUTSIDE RECORDS SUMMARY | 2024-04-02 00:33 | XMS_ITS | Encounter Summary ---
Author Organization [facility] Address [address] [place] [address] Care Team Providers Care Fabrication Machine Operator Name Role Phone Kayleen Lawton MD, Kaitlynn Primary Care Provider [phone] Encounter Details Date Type Department Care Team (Late st Contact Info) Description 08/03/2010 Abstract Used for ABSTRACTING Data [phone] Josemanuel Gomes MD [address] [place] [phone] Social History Tobacco Use Types Packs/Day Years [...] 05/24/2024 14:00 EDT Office Visit [facility] Ophthalmology - [id number] [place] [address] Josemanuel Gomes MD [address] [place] [phone] documented as of this encounter Visit Diagnoses Not on filedocumented in this encounter Care Teams Fabrication Machine Operator Relationship Specialty Start Date End Date Kaitlynn Beyer MD [address] [place] [phone] PCP - General 08/21/09 04/21/11 documented as of this encounter
--- OUTSIDE RECORDS SUMMARY | 2024-04-02 00:33 | XMS_ITS | Encounter Summary ---
Author Organization [facility] Address [address] [place] [address] Care Team Providers Care Commercial Lending Assistant Name Role Phone Unavailable Primary Care Provider Unavailabl e Encounter Details Date Type Department Care Team (Latest Contact Info) Description 11/30/2003 8:13 EDT - 11/30/2003 11:59 EDT Hospital Encounter [facility]- [address] [address] Dann Calderon MD Discharge Disposition: Auto Discharge [...] Office Visit [facility] Ophthalmology - [address] [place] [address] Josemanuel Gomes MD 111 [facility], [facility] [address] [place] [phone] documented as of this encounter Visit Diagnoses Not on filedocumented in this encounter
--- OUTSIDE RECORDS SUMMARY | 2024-04-02 00:33 | XMS_ITS | Encounter Summary ---
Author Organization [facility] Address [address] [place] [address] Care Team Providers Care Memorial Counselor Name Role Phone Kayleen Lawton MD, Kaitlynn Primary Care Provider [phone] Reason for Visit * Reason Comments Eye Problem Seeing Flashes left x 2-3 days Encounter Details Date Type Department Care Team (Late st Contact Info) Description 08/08/2010 13:30 EDT Office Visit [facility] Ophthalmology - [address] [address] Josemanuel Gomes MD 111 [facility], [address] [place] [address] Social History Tobacco Use Types Packs/Day Years Used Date Smoking Tobacco: Never Assessed Comments Unknown Sex and Gender Information Value Date Recorded Sex Assigned at Not on file Legal Sex Female 17:30 EST Gender Identity Not on file Sexual Orientation Not on file documented as of this encounter Progress Notes * Josemanuel Gomes MD - 08/08/2010 1426 EDT Chief Complaint Patient presents with ??? Eye Problem Seeing Flashes left x 2-3 days HPI Location: Left eye Pain: 0 - No pain Quality: Blurry Severity: Mild Duration: Months Timing: Constant Lasts: Continuous Context: Modifying factors: Associated Signs & Symptoms: vision slightly more blurry left eye today No distortion Visual Fluctuations: Flashes left eye few, past couple days No floaters No floaters or flashes right Attestation: Base Ophthalmology Exam Visual Acuity Right Left Dist cc 20/20 20/30 -2 Tonometry Right Left Pressure 19 20 Method: Applanation Time: 13:48 Dilation Both eyes: 1.0% Mydriacyl, 2.5% Phenylephrine @ 13:48 Pupils Pupils APD Right PERRL None Left PERRL None Main Ophthalmology Exam External Exam Right Left [...] vitreous detachment Fundus Exam Right Left Disc Normal, tilted Normal, tilted C/D Ratio 0.4 0.4 Macula Retinal pigment epithelial mottling Drusen, Retinal pigment epithelial mottling Vessels Normal Normal Periphery Normal Normal Neuro/Psych Oriented x3: Yes Mood/Affect: Normal All five layers of the cornea are normal unless otherwise specified. Please refer to large retinal drawing. 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 PVD (posterior vitreous detachment) (379.21Q) 3. 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 CNVM appears quiet today Did not receive treatment in [place] PVD both, no tears or breaks HM both, retinas flat Bleph WC both Observe. Recheck 8 weeks I, Dr. Josemanuel Gomes, [...] Description 05/24/2024 14:00 EDT Office Visit [facility] Ophthalmology - [address] [place] [address] Josemanuel Gomes MD 111 [facility] [address] [place] [phone] Scheduled Orders Name Type Priority Associated Diagnoses Orde r Schedule OCT (OPHTHALMIC DIGITAL IMAGING, POSTERIOR SEGMENT) Ophthalmology Routine Retinal neovascularization NOS Ordered: 08/08/2010 documented as of this encounter Visit Diagnoses Diagnosis Myopic degeneration Progressive high (degenerative) myopia PVD (posterior vitreous detachment) Vitreous degeneration Blepharitis, unspecified Retinal neovascularization NOS documented in this encounter Eye Exam Visual Acuity Right eye Left eye Dist cc 20/20 20/30 -2 Tonometry (Applanation, 13:48) Right eye Left eye Pressure 19 20 Pupils Pupils APD Right eye PERRL None Left eye PERRL None Neuro/Psych Oriented x3: Yes Mood/Affect: Normal Dilation Both eyes: 1.0% Mydriacyl, 2 .5% Phenylephrine @ 13:48 External Exam Right eye Left eye External [...] Fundus Exam Right eye Left eye Disc Normal, tilted Normal, tilted C/D Ratio 0.4 0.4 Macula Retinal pigment epithelial mottl ing Drusen, Retinal pigment epithelial mottling Vessels Normal Normal Periphery Normal Normal Care Teams Memorial Counselor Relationship Specialty Start Date End Date Kaitlynn Beyer MD [address] [place] [phone] PCP - General 08/21/09 04/21/11 documented as of this encounter
--- OUTSIDE RECORDS SUMMARY | 2024-04-02 00:33 | XMS_ITS | Encounter Summary ---
Author Organization [facility] Address [address] [place] [address] Care Team Providers Care Cable Driller Name Role Phone Unavailable Primary Care Provider Unavailabl e Encounter Details Date Type Department Care Team (Latest Contact Info) Description 12/15/2006 10:45 EDT - 12/15/2006 11:59 EDT Hospital Encounter [facility] [address] [place] [address] Kaitlynn Beyer MD [address] [place] [phone] Discharge Disposition: Auto Discharge Social History Tobacco [...] Office Visit [facility] Ophthalmology - [address] [place] [address] Josemanuel Gomes MD [address] [facility], [address] [place] [address] documented as of this encounter Visit Diagnoses Not on filedocumented in this encounter
--- OUTSIDE RECORDS SUMMARY | 2024-04-02 00:33 | XMS_ITS | Encounter Summary ---
Author Organization [facility] Address [address] [place] [address] Care Team Providers Care Impregnator Electrolytic Capacitors Name Role Phone Kayleen Lawton MD, Kaitlynn Primary Care Provider [phone] Encounter Details Date Type Department Care Team (Late st Contact Info) Description 12/26/2010 Abstract Used for ABSTRACTING Data [phone] Josemanuel Gomes MD [address] [place] [phone] Social History Tobacco Use Types Packs/Day Years [...] Info) Description 05/24/2024 14:00 EDT Office Visit [facility] Ophthalmology - [address] [place] [address] Josemanuel Gomes MD [address] [place] [phone] documented as of this encounter Visit Diagnoses Not on filedocumented in this encounter Care Teams Impregnator Electrolytic Capacitors Relationship Specialty Start Date End Date Kaitlynn Beyer MD [address] [place] [phone] PCP - General 08/21/09 04/21/11 documented as of this encounter
--- OUTSIDE RECORDS SUMMARY | 2024-04-02 00:33 | XMS_ITS | Encounter Summary ---
Author Organization [facility] Address [address] [place] [address] Care Team Providers Care Monorail Car Operator Name Role Phone Yoselin Roberts MD Primary Care Provider [phone] Reason for Visit * Reason Comments Follow-up High Myope, QCNVM le ft eye s/p Avastin 10/15/11 Encounter Details Date Type Department Care Team (Late st Contact Info) Description 11/27/2011 10:30 EDT Office Visit [facility] Ophthalmology - [address] [address] Josemanuel Gomes MD [address] [place] [address], [address] [place] [address] Social History Tobacco Use Types [...] Progress Notes * Josemanuel Gomes MD - 11/27/2011 1109 EDT Chief Complaint Patient presents with ??? Follow-up High Myope, QCNVM left eye s/p Avastin 10/15/11 HPI Location: Left eye Pain: Quality: Blurry Severity: Moderate Duration: Months Timing: Constant Lasts: Continuous Context: VA seems to be about the same left eye. no changes in the right eye Modifying factors: no new flashes or floaters Associated Signs & Symptoms: Visual Fluctuations: None Attestation: Base Ophthalmology Exam Visual Acuity Right Left Both Dist sc +1 Dist cc 20/20 20/30 -1 Method: Snellen - Linear Correction: Glasses Tonometry Right Left Pressure 20 16 Method: Applanation Time: 10:27 Dilation Both eyes: 1.0% Mydriacyl, 2.5% Phenylephrine @ 10:27 Main Ophthalmology Exam External Exam Right Left [...] CNVM Findings: Right Eye Left Eye Normal Cystoid Macular Degeneration Original test to be found in patients shadow chart IMPRESSION: 1. Progressive high (degenerative) myopia 2. Retinal neovascularization NOS PLAN: Mild CME left with CNVM and HM Inject avastin left today Follow up as scheduled Procedure Note: INTRAVITREAL Injection: Pre-op Diagnosis: CNVM Procedure: Intravitreal Avastin injection. Side: Left eye(s) Eye Prep: Betadine 5% ophthalmic solution to left eye(s). Anesthesia: Akten 3.5% Drug used: Avastin Dosage: 1.25mg [facility] Number [id number] Paracentesis: No Division Head: LB Complications: None Post-op Instructions: Per Dr Fabian: Per Dr Gomes: No drops unless otherwise instructed. Patient warned regarding risk of infection, post injection. Patient is instructed to call [phone] immediately for symptoms of increasing pain, purulent discharge, loss of vision and increased floaters. Patient made to understand the extreme urgency of such symptoms and warned that lack of communication of these symptoms could lead to loss of vision, blindness or loss of the eye. No drops unless otherwise instructed: Patient warned regarding risk of infection, post injection. Patient is instructed to call [phone] immediately for symptoms of increasing pain, purulent [...] encounter Miscellaneous Notes * Scanned Note-Null - WEB CONTENT COORDINATOR, SCAN 2 - 11/28/2011 1248 EDT documented in this encounter Plan of Treatment Upcoming Encounters Date Type Department Care Team (Late st Contact Info) Description 05/24/2024 14:00 EDT Office Visit [facility] Ophthalmology - [address] [address] Josemanuel Gomes MD [address] [place] [address], [facility] [address] [place] [address] documented as of this encounter Visit Diagnoses Diagnosis 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 documented in this encounter Eye Exam Visual Acuity (Snellen - Linear) Right eye Left eye Dist sc +1 Dist cc 20/20 20/30 -1 Correction: Glasses Tonometry (Applanation, 10:27) Right eye Left eye Pressure 20 16 Neuro/Psych Oriented x3: Yes Mood/Affect: Normal Dilation Both eyes: 1.0% Mydriacyl, 2 .5% Phenylephrine @ 10:27 External Exam Right eye Left eye External [...] mottling, no fluid or heme Care Teams Monorail Car Operator Relationship Specialty Start Date End Date Yoselin Roberts MD [address] [place] [address] [place] [address] PCP - General 04/22/11 documented as of this encounter
--- OUTSIDE RECORDS SUMMARY | 2024-04-02 00:33 | XMS_ITS | Encounter Summary ---
Author Organization [facility] Address [address] [place] [address] Care Team Providers Care Reading Interventionist Name Role Phone Unavailable Primary Care Provider Unavailabl e Encounter Details Date Type Department Care Team (Late st Contact Info) Description 12/15/2006 Before PRISM Converted Visit ([facility]) [facility] - Maple conversion [address] [place] [address] Raulito Wynne MD Social History Tobacco Use Types Packs/Day Years Used Date Smoking Tobacco: Never Assessed Comments Unknown Sex and Gender Information Value Date Recorded Sex Assigned at Not on file Legal Sex Female 17:30 EST Gender Identity Not on file Sexual Orientation Not on file documented as of this encounter Progress Notes * Raulito Wynne MD - 01/22/2009 1934 EST [facility] [id number] December 15, 2006 Referring Provider: Dr. Beyer Date of Examination: 12/15/2006 Reason for Study: Menopause, Loss of height Densitometer: [place] Quality of Study: Spine L1-L4: Not adequate for interpretation because of excess sclerosis Proximal Femur (hip): Adequate for interpretation The results of this study and any comparable previous studies are as follows: Region Scan Date g/cm2 % Young Normal Control % Age Matched T-Score Femoral Neck (mean)* 12/15/2006 1.031 99 124 -0.1 *This site has the lowest bone density in the hip area and therefore is being used for diagnosis. WHO Classification by T-score The T-score in bone densitometry measures the number of standard deviations the density is below that of a young adult population matched for sex. The World Health Organization (WHO) has classified bone mass using T-score as follows: Normal: T-score of -1 or greater Little risk of fracture Osteopenia: T-score between -1 and -2.5 Low bone mass Osteoporosis: T-score of -2.5 or less Increased risk of fracturing Severe Osteoporosis: Osteoporosis by T-score plus previous fragility fracture Diagnosis by WHO Classification: Normal At this time there is little risk of fracturing. Risk Factors Identified by the Patient ?? Family history of osteoporosis ?? Oophorectomy The above listed risk factors are likely to increase the risk of fracture. Patient's Present Therapy and Suggested Treatment Patient's dietary intake of calcium from questionnaire: 700 mg. Patient's calcium supplementation from questionnaire: 100 mg. NIH Consensus Panel recommendation: 1500 mg. Adequate vitamin D is recommended: 400-800 units daily. These recommendations for calcium and vitamin D intake may not apply to people with chronic kidney disease or who are on dialysis. Patient should also be encouraged to participate in weight bearing exercise. Hormone replacement therapy (HRT) is not indicated for the prevention of bone loss alone but may beprescribed if there are additional indications such as menopausal symptoms. An assessment was made of the risks for such therapy. No risk factors were identified specific to this individual. By questionnaire the following therapy is being used: estrogen The use of a pharmacological agent will reduce the risk of a future fracture by 35-50% compared to the risk if not on therapy. Based on the above findings, calcium and vitamin D may be adequate to reduce the risk of future fractures. Estrogen could be continued if there are other indications for its use. If hormone replacement were discontinued, a repeat bone density study in 3-4 years is recommended. The measurement of bone mass cannot diagnose or adequately screen for the presence of metabolic bone disease. Therefore, when clinically indicated, additional studies may be needed. A report of our findings has been sent to your patient. Sincerely, Raulito Wynne M.D. Director [facility] 12/16/2006 07:23 PM What's Trending Document ID: [id number] documented in this encounter Plan of Treatment Upcoming Encounters Date Type Department Care Team (Late st Contact Info) Description 05/24/2024 14:00 EDT Office Visit [facility] Ophthalmology - [address] [place] [address] Josemanuel Gomes MD [address] [place] [address], [facility] [address] [place] [phone] documented as of this encounter Visit Diagnoses Not on filedocumented in this encounter
--- OUTSIDE RECORDS SUMMARY | 2024-04-02 00:33 | XMS_ITS | Encounter Summary ---
Author Organization [facility] Address [address] [place] [address] Care Team Providers Care Pulverizer Name Role Phone Yoselin Roberts MD Primary Care Provider +1- [phone] Reason for Visit * Reason Comments Injections CNVM left eye. Here for possible Avastin ijection left eye. No problems with previous injection left eye. No change in vision. No eye pain. One tiny new floater left eye since injection. Only sees it with a bright background. Encounter Details Date Type Department Care Team (Late st Contact Info) Description 09/08/2012 10:15 EDT Office Visit [facility] Ophthalmology - [address] [id number] Josemanuel Gomes MD [address] [facility], Level 5 [place] [phone] Social History Tobacco Use Types Packs/Day Years [...] Progress Notes * Josemanuel Gomes MD - 09/08/2012 1046 EDT Chief Complaint Patient presents with ??? Injections CNVM left eye. Here for possible Avastin ijection left eye. No problems with previous injection left eye. No change in vision. No eye pain. One tiny new floater left eye since injection. Only sees itwith a bright background. HPI Location: Both eyes Pain: Quality: Blurry Severity: Moderate Duration: Years Timing: Constant Lasts: Continuous Context: CNVM left eye. Here for possible Avastin inj. ~8 weeks post Avastin to left eye. No changein vision. New tiny floater left since last inj. Did not really notice vision left had dropped Modifying factors: Avastin. Associated Signs & Symptoms: High myopia with CNVM left Visual Fluctuations: None Attestation: Base Ophthalmology Exam Visual Acuity Right Left Dist cc 20/30-1 20/200-1 Dist ph cc 20/20- 20/70+ Method: Snellen - Linear Correction: Glasses Comments: Left eye see the right side of the chart. Doesn't see center . WS Tonometry Right Left Pressure 18 19 Method: Applanation Time: 10:26, WS Dilation Both eyes: 1.0% Mydriacyl, 2.5% Phenylephrine @ 10:26 Pupils Dark Light React APD Right 6 5 2 None Left 6 5 2 None Main Ophthalmology Exam External Exam Right [...] Indications: CNVM Findings: Right Eye Left Eye Subretinal Scar Original test to be found in patients shadow chart IMPRESSION: 1. Progressive high (degenerative) myopia 2. Retinal neovascularization NOS PLAN: Vision drop on chart, pt did not notice Avastin left today Follow up 4 and 12 weeks Procedure Note: INTRAVITREAL Injection: Pre-op Diagnosis: CNVM Procedure: Intravitreal Avastin injection. Side: Left eye(s) Eye Prep: Betadine 5% ophthalmic solution to left eye(s). Anesthesia: Topical Proparacine HCl 0.4% Ophthalmic solution Drug used: Avastin Dosage: 1.25mg [facility] Number [id number] Paracentesis: No Irrigationist: LAURA Complications: None Post-op Instructions: Per Dr Fabian: Per Dr Gomes: No drops unless otherwise instructed. Patient warned regarding risk of infection, post injection. Patient is instructed to call [phone] immediately for symptoms of increasing pain, purulent discharge, loss of vision and increased floaters. Patient made to understand the extreme urgency of such symptoms and warned that lack of communication of these symptoms could lead to loss of vision, blindness or loss of the eye. No drops unless otherwise instructed: Patient warned regarding risk of infection, post injection. Patient is instructed to call [phone] immediately for symptoms of increasing pain, purulent [...] I personally completed this exam myself. Josemanuel Gmoes MD I am scribing for Dr. Josemanuel Gomes MD, while he is personally performing the service. documented in this encounter Miscellaneous Notes * Scanned Note-Null - VISUAL MERCHANDISING ASSISTANT, SCAN 2 - 09/09/2012 0926 EDT documented in this encounter Plan of Treatment Upcoming Encounters Date Type Department Care Team (Late st Contact Info) Description 05/24/2024 14:00 EDT Office Visit [facility] Ophthalmology - [phone] [place] [address] Josemanuel Gomes MD [address] [place] [address] 5 [place] [phone] documented as of this encounter Visit Diagnoses Diagnosis Progressive high (degenerative) myopia- Primary Retinal neovascularization NOS documented in this encounter Eye Exam Visual Acuity (Snellen - Linear) Right eye Left eye Dist cc 20/30-1 20/200-1 Dist ph cc 20/20- 20/70+ Correction: Glasses Left eye see the right side of the chart. Doesn't see center . WS Tonometry (Applanation, 10:26, WS) Right eye Left eye Pressure 18 19 Pupils Dark Light React APD Right eye 6 5 2 None Left eye 6 5 2 None Neuro/Psych Oriented x3: Yes Mood/Affect: Normal Dilation Both eyes: 1.0% Mydriacyl, 2 .5% Phenylephrine @ 10:26 External Exam Right eye Left eye External [...] Normal Normal Periphery Normal Normal Care Teams Pulverizer Relationship Specialty Start Date End Date Yoselin Roberts MD [address] [place] [address] PCP - General 04/22/11 documented as of this encounter
--- OUTSIDE RECORDS SUMMARY | 2024-04-02 00:33 | XMS_ITS | Encounter Summary ---
Author Organization [facility] Address [address] [place] [address] Care Team Providers Care Circulation Man Name Role Phone Yoselin Roberts MD Primary Care Provider [phone]- [phone] Reason for Visit * Reason Comments Follow-up follow up for CNVM l eft eye, Feels vision could be slightly better, flashes- stable left, floaters- stable left, 3/10 occ stabbing pain left, Zamaxid qid left, Timolol once daily both, Xalatan qhs both Encounter Details Date Type Department Care Team (Late st Contact Info) Description 07/17/2011 10:00 EDT Office Visit [facility] Ophthalmology - [address] [id number] Josemanuel Gomes MD [address] [facility], Level 5 [place] [address] Social History Tobacco Use Types [...] Progress Notes * Josemanuel Gomes MD - 07/17/2011 1110 EDT Chief Complaint Patient presents with ??? Follow-up follow up for CNVM left eye, Feels vision could be slightly better, flashes- stable left, floaters-stable left, 3/10 occ stabbing pain left, Zamaxid qid left, Timolol once daily both, Xalatan qhs both HPI Location: Left eye Pain: 3 (left) Quality: Blurry Severity: Mild Duration: Months Timing: Constant Lasts: Continuous Context: Modifying factors: Associated Signs & Symptoms: interferes with reading Visual Fluctuations: Flashes;Floaters Attestation: Base Ophthalmology Exam Visual Acuity Right Left Both Dist cc 20/20 20/40 -2 Dist ph cc NI Method: Snellen - Linear Correction: Glasses Tonometry Right Left Pressure 20 20 Method: Applanation Time: 10:28 Dilation Both eyes: 1.0% Mydriacyl, 2.5% Phenylephrine @ 10:32 Comments: A/C deep bilat Main Ophthalmology Exam External Exam Right Left [...] CNVM Findings: Right Eye Left Eye - min'l CME Original test to be found in patients shadow chart IMPRESSION: 1. Retinal neovascularization NOS 2. Progressive high (degenerative) myopia PLAN: CNVM left eye - recom Avastin injection today left eye High Myope Return in about 6 weeks (around 08/28/2011) for OCT and Avastin left eye . Procedure Note: INTRAVITREAL Injection: Pre-op Diagnosis: CNVM Procedure: Intravitreal Avastin injection. Side: Left eye(s) Pre-op Medications: Ocuflox Eye Prep: Betadine 5% ophthalmic solution to left eye(s). Anesthesia: Akten 3.5% Drug used: Avastin Dosage: 1.25mg [facility] Number [id number] Paracentesis: No Lead Php Developer: LB Complications: None Post-op Instructions: Ocuflox Per Dr Fabian: Per Dr Gomes: Per instructions at visit. Four times a day for 2 days I, Dr. 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 documented in this encounter Eye Exam Visual Acuity (Snellen - Linear) Right eye Left eye Dist cc 20/20 20/40 -2 Dist ph cc NI Correction: Glasses Tonometry (Applanation, 10:28) Right eye Left eye Pressure 20 20 Neuro/Psych Oriented x3: Yes Mood/Affect: Normal Dilation Both eyes: 1.0% Mydriacyl, 2 .5% Phenylephrine @ 10:32 A/C deep bilat External Exam Right eye Left eye External [...] epithelial mottling, Cystoid macular edema Care Teams Circulation Man Relationship Specialty Start Date End Date Yoselin Roberts MD [address] [place] [address] [place] [address] PCP - General 04/22/11 documented as of this encounter
--- OUTSIDE RECORDS SUMMARY | 2024-04-02 00:33 | XMS_ITS | Encounter Summary ---
Author Organization [facility] Address [address] [place] [address] Care Team Providers Care Literacy Specialist Name Role Phone Yoselin Roberts MD Primary Care Provider [phone]- [phone] Reason for Visit * Reason Comments Follow-up High myopia with CNV M left eye Encounter Details Date Type Department Care Team (Late st Contact Info) Description 04/07/2012 13:00 EST Office Visit [facility] Ophthalmology - [address] [address] Josemanuel Gomes MD [address] [facility], Level [address] [place] [address] Social History Tobacco Use Types [...] Progress Notes * Josemanuel Gomes MD - 04/07/2012 1316 EST Chief Complaint Patient presents with ??? Follow-up High myopia with CNVM left eye HPI Location: Both eyes Pain: 0 - No pain Quality: Severity: Duration: Timing: Constant Lasts: Context: Vision unchanged Modifying factors: No new flashes or floaters Associated Signs & Symptoms: High myopia with CNVM Visual Fluctuations: None Attestation: Base Ophthalmology Exam Visual Acuity Right Left Both Dist cc 20/20 -2 20/25 -2 +1 Dist ph cc NI Method: Snellen - Linear Correction: Glasses Tonometry Right Left Pressure 19 18 Method: Applanation Time: 13:08 Dilation Both eyes: 1.0% Mydriacyl, 2.5% Phenylephrine @ 13:08 Pupils Dark Light React APD Right 5 4 Brisk None Left 5 4 Brisk None Main Ophthalmology Exam External Exam Right [...] 0.4 0.4 Macula Retinal pigment epithelial mottling scar, no fluid or heme Vessels Normal Normal Periphery Normal Normal Neuro/Psych Oriented x3: Yes Mood/Affect: Normal All five layers of the cornea are normal unless otherwise specified. Please refer to large retinal drawing. IMAGING: OCT REPORT Indications: CNVM Findings: Right Eye Left Eye Normal Subretinal Scar Original test to be found in patients shadow chart IMPRESSION: 1. 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 Posterior vitreous detachment of both eyes PLAN: High Myopia both, no tears Hx CNVM left eye - does not look active today. Will follow closely and see pt back in 3 wks PVD both eyes no holes, tears, RD Return in about 3 days (around 04/10/2012) for OCT and ?Avastin . I, Dr. Josemanuel Gomes, have performed my [...] [facility] Ophthalmology - [address] [place] [address] Josemanuel Gomes MD [address] [facility], [facility] [address] [place] [phone] documented as of this encounter Visit Diagnoses Diagnosis Progressive high (degenerative) myopia- Primary Retinal neovascularization NOS Posterior vitreous detachment of both eyes Vitreous degeneration documented in this encounter Eye Exam Visual Acuity (Snellen - Linear) Right eye Left eye Dist cc 20/20 -2 20/25 -2 +1 Dist ph cc NI Correction: Glasses Tonometry (Applanation, 13:08) Right eye Left eye Pressure 19 18 Pupils Dark Light React APD Right eye 5 4 Brisk None Left eye 5 4 Brisk None Neuro/Psych Oriented x3: Yes Mood/Affect: Normal Dilation Both eyes: 1.0% Mydriacyl, 2 .5% Phenylephrine @ 13:08 External Exam Right eye Left eye External [...] 0.4 Macula Retinal pigment epithelial mottl ing scar, no fluid or heme Vessels Normal Normal Periphery Normal Normal Care Teams Literacy Specialist Relationship Specialty Start Date End Date Yoselin Roberts MD [address] [place] [address] [place] [address] PCP - General 04/22/11 documented as of this encounter
--- OUTSIDE RECORDS SUMMARY | 2024-04-02 00:33 | XMS_ITS | Encounter Summary ---
Author Organization [facility] Address [address] [place] [address] Care Team Providers Care Cnc Milling Machinist Name Role Phone Yoselin Roberts MD Primary Care Provider +1- [phone] Reason for Visit * Reason Comments Eye Problem high myope with QCNV M s/p Avastin left 01/11/14 Encounter Details Date Type Department Care Team (Late st Contact Info) Description 02/22/2014 9:45 EST Office Visit [facility] Ophthalmology - [facility] [address] [place], [place] [phone] Josemanuel Gomes MD 111 [facility], Level [address] [place] [address] Social History Tobacco Use Types [...] 362.16 RETINAL NEOVASCULAR NOS[ICD-9-CM] 379.21 VITREOUS DEGENERATION[ICD-9-CM] 373.00 BLEPHARITIS NOS[ICD-9-CM] 360.21 PROGRESSIVE HIGH MYOPIA[ICD-9-CM] documented in this encounter Progress Notes * Josemanuel Gomes MD - 02/22/2014 1021 EST Chief Complaint Patient presents with ??? Eye Problem high myope with QCNVM s/p Avastin left 01/11/14 HPI Location: Left eye Pain: 0 - No pain Quality: Blurry Severity: Severe Duration: Months Timing: Constant Lasts: Continuous Context: VA seems to be stable both eyes Modifying factors: pt indicates she had a black spot in the left eye for a few weeks after her lastinjection - not sure if it is still there Faded away with just time Associated Signs & Symptoms: no flashes Visual Fluctuations: Floaters both, but no new random burst of floaters Attestation: Base Eye Exam Visual Acuity Right Left Dist sc +1 Dist cc 20/25 -3 20/70 -2 Method: Snellen - Linear Tonometry Right Left Pressure 16 16 Time: 10:02 Dilation Both eyes: 1.0% Mydriacyl, 2.5% Phenylephrine @ 10:03 Slit Lamp and Fundus Exam Pen Light [...] large retinal drawing. IMAGING: OCT REPORT Indications: Age-related Macular Degeneration Findings: Right Eye Left Eye irregular irregular Original test to be found in patients shadow chart IMPRESSION: 1. 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 Posterior vitreous detachment of both eyes 4. Blepharitis of both eyes PLAN: High myopia both eyes RD warnings Observe Hx CNVM left eye, no heme, no SRF on exam today Offered Avastin injection today Pt chooses no injection Recheck as scheduled next month PVD both eyes, no holes, tears or RD Observe Bleph both eyes, WC I, Dr. 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 simvastatin (ZOCOR) 10 mg tablet Take 1 Tablet by mouth every evening. added in this encounter Eye Exam Visual Acuity (Snellen - Linear) Right eye Left eye Dist sc +1 Dist cc 20/25 -3 20/70 -2 Tonometry (10:02) Right eye Left eye Pressure 16 16 Dilation Both eyes: 1.0% Mydriacyl, 2 .5% Phenylephrine @ 10:03 Pen Light Exam Right eye Left eye [...] Normal Normal Periphery Normal Normal Care Teams Cnc Milling Machinist Relationship Specialty Start Date End Date Yoselin Roberts MD [address] [place] [address] [place] [address] PCP - General 04/22/11 documented as of this encounter
--- OUTSIDE RECORDS SUMMARY | 2024-04-02 00:33 | XMS_ITS | Encounter Summary ---
Author Organization [facility] Address [address] [place] [address] Care Team Providers Care Wound/Ostomy Nurse Name Role Phone Yoselin Roberts MD Primary Care Provider [phone]- [phone] Reason for Visit * Reason Comments Follow-up High Myopia both. Hx of CNVM left eye. Hx of Avastin left eye Encounter Details Date Type Department Care Team (Late st Contact Info) Description 06/03/2011 9:15 EDT Office Visit [facility] Ophthalmology - [address] [phone] Josemanuel Gomes MD [address] [facility], [address] [place] [address] Social History Tobacco Use Types Packs/Day Years Used Date Smoking Tobacco: Never Assessed Comments Unknown Sex and Gender Information Value Date Recorded Sex Assigned at Not on file Legal Sex Female 17:30 EST Gender Identity Not on file Sexual Orientation Not on file documented as of this encounter Progress Notes * Josemanuel Gomes MD - 06/03/2011 0933 EDT Chief Complaint Patient presents with ??? Follow-up High Myopia both. Hx of CNVM left eye. Hx of Avastin left eye HPI Location: Left eye Pain: [...] Acuity Right Left Both Dist cc 20/20 -1 20/40 +2 Method: Snellen - Linear Correction: Glasses Tonometry Right Left Pressure 18 19 Method: Applanation Time: 9:15 Dilation Both eyes: 1.0% Mydriacyl, 2.5% Phenylephrine @ 9:15 Main Ophthalmology Exam External Exam Right Left [...] Eye Left Eye Normal Cystoid Macular Degeneration and Subretinal Scar Original test to be found in patients shadow chart Procedure Note: INTRAVITREAL Injection: Pre-op Diagnosis: CNVM/CME Procedure: Intravitreal Avastin injection. Side: Left eye(s) Pre-op Medications: Zymaxid Eye Prep: Betadine 5% ophthalmic solution to left eye(s). Anesthesia: Akten 3.5% Drug used: Avastin Dosage: 1.25mg [facility] Number [id number] Paracentesis: No Terrazzo Helper: Lina Sanchez Complications: None Post-op Instructions: Zymaxid Per Dr Fabian: Per Dr Gomes: Per instructions at visit. Four times a day for 2 days IMPRESSION: 1. 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 Myopic degeneration 4. Posterior vitreous detachment, both eyes 5. Pseudophakia, both eyes 6. Blepharitis, both eyes PLAN:Avastin to left eye today. RTC in 5-6 weeks with OCT and possible Avastin to left eye. I, Dr. 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 Myopic degeneration Progressive high (degenerative) myopia Posterior vitreous detachment, both eyes Vitreous degeneration Pseudophakia, both eyes Lens replaced by other means Blepharitis, both eyes Blepharitis, unspecified documented in this encounter Eye Exam Visual Acuity (Snellen - Linear) Right eye Left eye Dist cc 20/20 -1 20/40 +2 Correction: Glasses Tonometry (Applanation, 9:15) Right eye Left eye Pressure 18 19 Neuro/Psych Oriented x3: Yes Mood/Affect: Normal Dilation Both eyes: 1.0% Mydriacyl, 2 .5% Phenylephrine @ 9:15 External Exam Right eye Left eye External [...] epithelial mottling, Cystoid macular edema Care Teams Wound/Ostomy Nurse Relationship Specialty Start Date End Date Yoselin Roberts MD [address] [place] [address] [place] [address] PCP - General 04/22/11 documented as of this encounter
--- OUTSIDE RECORDS SUMMARY | 2024-04-02 00:33 | XMS_ITS | Encounter Summary ---
Author Organization [facility] Address [address] [place] [address] Care Team Providers Care Truckload Checker Name Role Phone Kayleen Lawton MD, Kaitlynn Primary Care Provider [phone] Encounter Details Date Type Department Care Team (Late st Contact Info) Description 2010 Abstract Used for ABSTRACTING Data [phone] Josemanuel Gomes MD [address] [place] [phone] Social History Tobacco Use Types Packs/Day Years [...] Info) Description 05/24/2024 14:00 EDT Office Visit [facility] Ophthalmology - [address] [phone] [place] [address] Josemanuel Gomes MD [address] [place] [phone] documented as of this encounter Visit Diagnoses Not on filedocumented in this encounter Care Teams Truckload Checker Relationship Specialty Start Date End Date Kaitlynn Beyer MD [address] [place] [phone] PCP - General 08/21/09 04/21/11 documented as of this encounter
--- OUTSIDE RECORDS SUMMARY | 2024-04-02 00:33 | XMS_ITS | Encounter Summary ---
Author Organization [facility] Address [address] [place] [address] Care Team Providers Care Lead Maintenance Technician Name Role Phone Yoselin Roberts MD Primary Care Provider [phone] Reason for Visit * Reason Comments Follow-up High myopia/CNVM lef t eye s/p avastin injections last done 12-01-12. Encounter Details Date Type Department Care Team (Late st Contact Info) Description 01/22/2013 10:00 EST Office Visit [facility] Ophthalmology - [address] [address] Josemanuel Gomes MD [address] [place] [address], [address] [place] [address] Social History Tobacco Use Types [...] Progress Notes * Josemanuel Gomes MD - 01/22/2013 1041 EST Chief Complaint Patient presents with ??? Follow-up High myopia/CNVM left eye s/p avastin injections last done 12-01-12. HPI Location: Left eye Pain: 0 - No pain Quality: Blurry Severity: Moderate Duration: Months Timing: Constant Lasts: Continuous Context: High myopia both eyes Modifying factors: CNVM left eye, s/p Avastin injections Associated Signs & Symptoms: stable vision, no eye pain Vision left was better after last injection She did definitely notice this Visual Fluctuations: Attestation: Base Eye Exam Visual Acuity Right Left Dist cc 20/25 20/60 scanning -1 Dist ph cc NI Method: Snellen - Linear Correction: Glasses Tonometry Right Left Pressure 17 15 Time: 10:34 Pupils Pupils Dark APD Right PERRL 4 None Left PERRL 4 None Neuro/Psych Oriented x3: Yes Mood/Affect: Normal Dilation Both eyes: 1.0% Mydriacyl, 2.5% Phenylephrine @ 10:35 Slit Lamp and Fundus Exam [...] heme, Vessels Normal Normal Periphery Normal Normal All five layers of the cornea are normal unless otherwise specified. Please refer to large retinal drawing. IMAGING: OCT REPORT Indications: CNVM Findings: Right Eye Left Eye Normal Subretinal Scar Original test to be found in patients shadow chart IMPRESSION: 1. 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 Josemanuel Gomes, have performed my own HPI and reviewed the tech's ROS. I have also reviewed thepatient's past medical, family, social and surgical history, as well as the patient's medications, allergies, and problem list. I am scribing for Dr. Josemanuel Gomes MD, while he is personally performing the service. ARELY Jauregui (Scribe) Procedure Note: INTRAVITREAL Injection: Pre-op Diagnosis: CNVM Procedure: Intravitreal Avastin injection. Side: Left eye(s) Eye Prep: Betadine 5% ophthalmic solution to left eye(s). Anesthesia: Topical Proparacine HCl 0.4% Ophthalmic solution Drug used: Avastin Dosage: 1.25mg [facility] Number [id number] Paracentesis: No Lithographic Artist: bsb Complications: None Post-op Instructions: No drops unless otherwise instructed Call immediately with pain, purulent discharge or loss of vision [phone] documented in this encounter Plan of Treatment Upcoming Encounters Date Type Department Care Team (Late st Contact Info) Description 05/24/2024 14:00 EDT Office Visit [facility] Ophthalmology - [address] [id number] Josemanuel Gomes MD [address] [place] [address] [address] [place] [address] Scheduled Orders Name Type Priority Associated Diagnoses Orde r Schedule OCT (OPHTHALMIC DIGITAL IMAGING, POSTERIOR SEGMENT) Ophthalmology Routine Retinal neovascularization NOS Ordered: 01/22/2013 documented as of this encounter Visit Diagnoses Diagnosis 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 09/19/2010 01/22/2013 documented as of this encounter Eye Exam Visual Acuity (Snellen - Linear) Right eye Left eye Dist cc 20/25 20/60 scanning - 1 Dist ph cc NI Correction: Glasses Tonometry (10:34) Right eye Left eye Pressure 17 15 Pupils Pupils Dark APD Right eye PERRL 4 None Left eye PERRL 4 None Neuro/Psych Oriented x3: Yes Mood/Affect: Normal Dilation Both eyes: 1.0% Mydriacyl, 2 .5% Phenylephrine @ 10:35 External Exam Right eye Left [...] Normal Normal Periphery Normal Normal Care Teams Lead Maintenance Technician Relationship Specialty Start Date End Date Yoselin Roberts MD [address] [place] [address] [place] [address] PCP - General 04/22/11 documented as of this encounter
--- OUTSIDE RECORDS SUMMARY | 2024-04-02 00:33 | XMS_ITS | Encounter Summary ---
Author Organization [facility] Address [address] [place] [address] Care Team Providers Care Criminal Analyst Name Role Phone Kayleen Lawton MD, Kaitlynn Primary Care Provider [phone] Encounter Details Date Type Department Care Team (Late st Contact Info) Description 11/13/2009 10:29 EDT - 11/13/2009 23:59 EDT Hospital Encounter [facility] Ophthalmology - [address] [address] Josemanuel Gomes MD [address] [place] [address] Discharge Disposition: Home or Self Care [...] Code Departure Means Destination Home or Self Skilled Nursing documented in this encounter Plan of Treatment Upcoming Encounters Date Type Department Care Team (Late st Contact Info) Description 05/24/2024 14:00 EDT Office Visit [facility] [address] [place] [address] Josemanuel Gomes MD [address] [phone] documented as of this encounter Visit Diagnoses Not on filedocumented in this encounter Care Teams Criminal Analyst Relationship Specialty Start Date End Date Kaitlynn Beyer MD [address] [place] [address] PCP - General 08/21/09 04/21/11 documented as of this encounter
--- OUTSIDE RECORDS SUMMARY | 2024-04-02 00:33 | XMS_ITS | Encounter Summary ---
Author Organization [facility] Address [address] [place] [address] Care Team Providers Care Laborer Plumbing Name Role Phone Yoselin Roberts MD Primary Care Provider [phone] Reason for Visit * Reason Comments Eye Problem High Myopia both eye s, CNVM left eye s/p avastin injections, last done 07-27-13 Encounter Details Date Type Department Care Team (Late st Contact Info) Description 10/06/2013 11:[address] [facility] Ophthalmology - Main [address] [address] Josemanuel Gomes MD [address] [place] [address], [address] [place] [address] Social History Tobacco Use Types [...] Progress Notes * Josemanuel Gomes MD - 10/06/2013 1230 EDT Chief Complaint Patient presents with ??? Eye Problem High Myopia both eyes, CNVM left eye s/p avastin injections, last done 07-27-13 HPI Location: Left eye Pain: 0 - No pain Quality: Blurry Severity: Moderate Duration: Timing: Constant Lasts: Continuous Context: High myopia both eyes Modifying factors: CNVM left eye s/p avastin injections Associated Signs & Symptoms: VA stable, no new distortion Visual Fluctuations: None Attestation: Base Eye Exam Visual Acuity Right Left Dist cc 20/25 20/200 Dist ph cc 20/100 Method: Snellen - Linear Correction: Glasses Tonometry Right Left Pressure 16 15 Method: Applanation Time: 11:50 Pupils Pupils Dark APD Right PERRL 4 None Left PERRL 4 None Neuro/Psych Oriented x3: Yes Mood/Affect: Normal Dilation Both eyes: 1.0% Mydriacyl, 2.5% Phenylephrine @ 11:50 Slit Lamp and Fundus Exam External Exam Right Left External Normal Normal Slit Lamp Exam Right Left Lids/Lashes Blepharitis Blepharitis Conjunctiva/Sclera White and quiet White and quiet Cornea Clear Clear Anterior Chamber Deep and quiet Deep and quiet Iris Round and reactive Round and reactive Lens Posterior chamber intraocular lens Posterior chamber intraocular lens Fundus Exam Right Left Macula Normal SR scar, mild irregular retina All five layers of the cornea are normal unless otherwise specified. Please refer to large retinal drawing. IMAGING: OCT REPORT Indications: CNVM Findings: Right Eye Left Eye Normal irregular retina Original test to be found in patients shadow chart IMPRESSION: 1. CNVM (choroidal neovascular membrane) OCT (OPHTHALMIC DIGITAL IMAGING, POSTERIOR SEGMENT) 2. Progressive high (degenerative) myopia 3. Retinal neovascularization NOS PLAN: High Myope with CNVM left No holes, tears, RD Observe CNVM left eye Recommend Avastin injection to left eye today Pt agrees Observe Follow up 9 weeks possible avastin left eye I, Dr. Josemanuel Gomes, have performed [...] Ophthalmic solution Drug used: Avastin Dosage: 1.25mg [facility] Number [id number] Paracentesis: No Meat Team Member: bsb Any excess Avastin was appropriately disposed of. Complications: None Post-op Instructions: No drops unless otherwise instructed Call immediately with pain, purulent discharge or loss of vision [phone] documented in this encounter Plan of Treatment Upcoming Encounters Date Type Department Care Team (Late st Contact Info) Description 05/24/2024 14:[address] 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 10/06/2013 documented as of this encounter Eye Exam Visual Acuity (Snellen - Linear) Right eye Left eye Dist cc 20/25 20/200 Dist ph cc 20/100 Correction: Glasses Tonometry (Applanation, 11:50) Right eye Left eye Pressure 16 15 Pupils Pupils Dark APD Right eye PERRL 4 None Left eye PERRL 4 None Neuro/Psych Oriented x3: Yes Mood/Affect: Normal Dilation Both eyes: 1.0% Mydriacyl, 2 .5% Phenylephrine @ 11:50 External Exam Right eye Left eye External Normal Normal Slit Lamp Exam Right eye Left eye Lids/Lashes Blepharitis Blepharitis Conjunctiva/Sclera White and quiet White and marysol et Cornea Clear Clear Anterior Chamber Deep and quiet Deep and quiet Iris Round and reactive Round and marko ctive Lens Posterior chamber in traocular lens Posterior chamber intraocular lens Fundus Exam Right eye Left eye Macula Normal SR scar, mild ir regular retina Care Teams Laborer Plumbing Relationship Specialty Start Date End Date Yoselin Roberts MD [address] [place] [address] [place] [address] PCP - General 04/22/11 documented as of this encounter
--- OUTSIDE RECORDS SUMMARY | 2024-04-02 00:33 | XMS_ITS | Encounter Summary ---
Author Organization [facility] Address [address] [place] [address] Care Team Providers Care Cut And Cover Line Worker Name Role Phone Yoselin Roberts MD Primary Care Provider [phone] Reason for Visit * Reason Comments Follow-up CNVM left eye, Avast in left eye today. No pain, no new f/f. Encounter Details Date Type Department Care Team (Late st Contact Info) Description 12/07/2013 12:45 EDT Office Visit [facility] Op[facility]mology - [address] [address] Josemanuel Gomes MD [address] [place] [address], [address] [place] [address] Social History Tobacco Use Types [...] Progress Notes * Josemanuel Gomes MD - 12/07/2013 1300 EDT Chief Complaint Patient presents with ??? Follow-up CNVM left eye, Avastin left eye today. No pain, no new f/f. HPI Location: Left eye Pain: 0 - No pain Quality: Blurry Severity: Moderate Duration: Months Timing: Constant Lasts: Months Context: CNVM lleft eye, Avastin left eye today Modifying factors: no pain Associated Signs & Symptoms: no new f/f Eyes both feel dry Uses drops to make better Did put drops in today before appt, which actually seemed to blur vision a bit both Visual Fluctuations: None Attestation: Base Eye Exam Visual Acuity Right Left Dist cc 20/25 20/100 Method: Snellen - Linear Correction: Glasses Tonometry Right Left Pressure 15 15 Method: Tonopen Time: 12:51 Pupils Pupils Right PERRL Left PERRL Extraocular Movement Right Left Result Full Full Neuro/Psych Oriented x3: Yes Mood/Affect: Normal Dilation Both eyes: 2.5% Phenylephrine, 1.0% Mydriacyl @ 12:51 Slit Lamp and Fundus Exam External Exam Right Left External Normal Normal Slit Lamp Exam Right Left Lids/Lashes Blepharitis Blepharitis Conjunctiva/Sclera White and quiet White and quiet Cornea Clear Clear Anterior Chamber Deep and quiet Deep and quiet Iris Round and reactive Round and reactive Lens Posterior chamber intraocular lens Posterior chamber intraocular lens Fundus Exam Right Left Disc tilted Macula Retinal pigment epithelial mottling atrophic scar, no fluid or heme Vessels Normal Normal Periphery Normal Normal All five layers of the cornea are normal unless otherwise specified. Please refer to large retinal drawing. IMAGING: OCT REPORT Indications: CNVM Findings: Right Eye Left Eye SR scar, no fluid or heme irregular retina Original test to be found in patients shadow chart IMPRESSION: 1. CNVM (choroidal neovascular membrane) OCT (OPHTHALMIC DIGITAL IMAGING, POSTERIOR SEGMENT) 2. Progressive high (degenerative) myopia PLAN: CNVM left eye Quiet Options: Observe vs Avastin injection RB&A discussed Pt wishes to observe and will monitor VA daily High Myope No holes, tears Observe Return in 5 wks with OCT and ?Avastin I, Dr. 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 documented in this encounter Eye Exam Visual Acuity (Snellen - Linear) Right eye Left eye Dist cc 20/25 20/100 Correction: Glasses Tonometry (Tonopen, 12:51) Right eye Left eye Pressure 15 15 Pupils Pupils Right eye PERRL Left eye PERRL Extraocular Movement Right eye Left eye Full Full Neuro/Psych Oriented x3: Yes Mood/Affect: Normal Dilation Both eyes: 2.5% Phenylephrin e, 1.0% Mydriacyl @ 12:51 External Exam Right eye Left eye External [...] Exam Right eye Left eye Disc tilted Macula Retinal pigment epithelial mottl ing atrophic scar, no fluid or heme Vessels Normal Normal Periphery Normal Normal Care Teams Cut And Cover Line Worker Relationship Specialty Start Date End Date Yoselin Roberts MD [address] [place] [address] [place] [address] PCP - General 2/6/12 documented as of this encounter
--- OUTSIDE RECORDS SUMMARY | 2024-04-02 00:33 | XMS_ITS | Encounter Summary ---
Author Organization [facility] Address [address] [place] [address] Care Team Providers Care Program Research Specialist Name Role Phone Kayleen Lawton MD, Kaitlynn Primary Care Provider [phone] Yoselin Roberts MD Primary Care Provider [phone] Encounter Details Date Type Department Care Team (Late st Contact Info) Description 08/22/2003 Before PRISM Converted Visit (Maple) [facility] - Maple conversion [address] [place], [place] [address] Mary Garcia MD Social History Tobacco Use Types Packs/Day [...] Info) Description 05/24/2024 14:00 EDT Office Visit [facility] Ophthalmology - [address] [place] [address] Josemanuel Gomes MD [address] [facility], [address] [place] [address] documented as of this encounter Procedures Procedure Name Priority Date/Time Associated Diagnosis Comments NM NUCLEAR STRESS EXERCISE Routine 08/22/2003 15:50 EDT documented in this encounter Results * NUCLEAR STRESS TEST (08/22/2003 15:50 EDT) Anatomical Region Laterality Modality Other 08/22/2003 15:5 0 EDT Narrative 11/28/2008 15:29 EDT CARDIAC STRESS- (786.50) CP, ETT-CL SPECT Tc-99m SESTAMIBI (CARDIOLITE) MYOCARDIAL PERFUSION STRESS AND REST SCINTIGRAPHY: 08/22/03 TECHNIQUE: With the patient at rest, 16 mCi of Tc-99m Sestamibi (Cardiolite) were injected intravenously. SPECT images were obtained one hour later. At peak exercise, 36 mCi of Tc-99m Sestamibi (Cardiolite) were injected intravenously. SPECT and SPECT-gated images were obtained after an appropriate delay. FINDINGS: Right and left ventricular size, myocardial perfusion, and wall motion are normal. LVEF = 70%. Dr. Tee Batista of Cardiology participated in the interpretation of this study. mary Procedure Note Shyam Dewitt MD - 11/28/2008 CARDIAC STRESS- (786.50) CP, ETT-CL SPECT Tc-99m SESTAMIBI (CARDIOLITE) MYOCARDIAL PERFUSION STRESS AND REST SCINTIGRAPHY: 08/22/03 TECHNIQUE: With the patient at rest, 16 mCi of Tc-99m Sestamibi (Cardiolite) were injected intravenously. SPECT images were obtained one hour later. At peak exercise, 36 mCi of Tc-99m Sestamibi (Cardiolite) were injected intravenously. SPECT and SPECT-gated images were obtained after an appropriate delay. FINDINGS: Right and left ventricular size, myocardial perfusion, and wall motion are normal. LVEF = 70%. Dr. Tee Batista of Cardiology participated in the interpretation of this study. mary Mary Garcia MD CARDIAC NM ORDERABLES Final Res ult documented in this encounter Visit Diagnoses Not on filedocumented in this encounter Care Teams Program Research Specialist Relationship Specialty Start Date End Date Kaitlynn Beyer MD [address] [place] [phone] PCP - General 08/21/09 04/21/11 Yoselin Roberts MD [address] [place] [address] PCP - General 04/22/11 documented as of this encounter
--- OUTSIDE RECORDS SUMMARY | 2024-04-02 00:33 | XMS_ITS | Encounter Summary ---
Author Organization [facility] Address [address] [place] [address] Care Team Providers Care Wheel And Caster Repairer Name Role Phone Yoselin Roberts MD Primary Care Provider [phone] Reason for Visit * Reason Comments Follow-up High Myopia. CNVM le ft eye s/p Avastin 06/08/13 Encounter Details Date Type Department Care Team (Late st Contact Info) Description 07/27/2013 9:45 EDT Office Visit [facility] Ophthalmology - [address] [id number] Josemanuel Gomes MD [address] [facility], [address] [place] [address] Social History Tobacco Use Types [...] PROGRESSIVE HIGH MYOPIA[ICD-9-CM] documented in this encounter Patient Instructions * Patient Instructions* Elizabeth Gamez - 07/27/2013 10:31 EDT POST OP Lucentis / Avastin / Eylea / Macugen You have undergone a Lucentis/Avastin/Eylea injection in the last few days in one of your eyes. These medications, as you may know, are genetically engineered products that have been proven in controlled randomized trials to improve the outlook for retention of vision in patients that have wet macular degeneration. The main risks of Lucentis/Avastin/Eylea are: 1. Infection. The symptoms of infection are increasing pain, purulent ???goopy?? discharge from the eye or loss of vision. Should any of these symptoms occur, you need to communicate with the office immediately, even over the weekend; there is always a doctor solution sales senior executive for emergencies. The risk of infection is less than one percent per year. a. Infection symptoms usually occur 18-72 hours after an injection. Call immediately for: i. Increasing pain ii. Puss-like ???goopy?? discharge iii. Loss of vision iv. New floaters b. An infection could ruin an eye within hours, so an immediate call regarding any of the above symptoms is ABSOLUTELY NECESSARY NOTE: The eye may NORMALLY feel a bit burn-y and scratchy immediately AFTER THE NUMBING DROPS wear off, and this may last for several hours. 2. Retinal detachment. You should immediately report sudden worsening of flashing lights or floating dots. You may already have floating dots in your vision that predate your injection. If there is no change in the floating dots, you need not report this to us. 3. Stroke. There have been reports of strokes or transient ischemic attacks (TIA) in patients treated with Lucentis/Avastin. If you suffer stroke or TIA-like symptoms (i.e. numbness, weakness, tingling), go to the ER immediately. 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 Eylea, Lucentis, and Avastin injections are generally done every 4-8 weeks for an extended period of time. Before you leave, you should have an appointment made for your next injection in the next 4-8 weeks or so. (Depending on your eyes??? reaction to the treatment, you may be scheduled anywhere from 6 to 12 weeks between injections). You should not have an injection if you have an infection of the eye or eyelids. Report this to your retina doctor if this is occurring at or around the time of your next injection. We enjoy taking part in your care. Please call us if you have problems. documented in this encounter Progress Notes * Josemanuel Gomes MD - 07/27/2013 1006 EDT Chief Complaint Patient presents with ??? Follow-up High Myopia. CNVM left eye s/p Avastin 06/08/13 HPI Location: Left eye Pain: 0 - No pain Quality: Blurry Severity: Moderate Duration: Months Timing: Constant Lasts: Months Context: VA seems to be stable - pt indicates it is difficult to tell if VA has changed Modifying factors: Hx of avastin left Associated Signs & Symptoms: no new flashes or floaters Visual Fluctuations: Flashes;Floaters Attestation: Base Eye Exam Visual Acuity Right Left Dist sc -2 +1 Dist cc 20/25 +1 20/80 -1 Dist ph cc NI Method: Snellen - Linear Correction: Glasses Tonometry Right Left Pressure 17 17 Method: Applanation Time: 9:47 Neuro/Psych Oriented x3: Yes Mood/Affect: Normal Dilation Both eyes: 1.0% Mydriacyl, 2.5% Phenylephrine @ 9:47 Slit Lamp and Fundus Exam External Exam [...] CNVM Findings: Right Eye Left Eye Normal Irreg contour Original test to be found in patients shadow chart IMPRESSION: 1. Progressive high (degenerative) myopia 2. Retinal neovascularization NOS PLAN: High Myope with CNVM left No holes, tears, RD Observe CNVM left eye Recommend Avastin injection to left eye today Pt agrees Observe Re check as scheduled in September with OCT and Avastin to left eye Procedure Note: INTRAVITREAL Injection: Pre-op Diagnosis: CNVM Procedure: Intravitreal Avastin injection. Side: Left eye(s) Eye Prep: Betadine 5% ophthalmic solution to left eye(s). Anesthesia: Topical Proparacine HCl 0.4% Ophthalmic solution Drug used: Avastin Dosage: 1.25mg [facility] Number [address]-04 Paracentesis: No Seismograph Computer: ML Any excess Avastin was appropriately disposed of. Complications: None Post-op Instructions: No drops unless otherwise instructed Call immediately with pain, purulent discharge or loss of vision [phone] I, Dr. Josemanuel Gomes, have performed my [...] 05/24/2024 14:00 EDT Office Visit [facility] Ophthalmology - [facility] [address] [place] [address] Josemanuel Gomes MD [address] [place] [address], [address] [place] [address] documented as of this encounter Visit Diagnoses Diagnosis Progressive high (degenerative) myopia- Primary Retinal neovascularization NOS documented in this encounter Eye Exam Visual Acuity (Snellen - Linear) Right eye Left eye Dist sc -2 +1 Dist cc 20/25 +1 20/80 -1 Dist ph cc NI Correction: Glasses Tonometry (Applanation, 9:47) Right eye Left eye Pressure 17 17 Neuro/Psych Oriented x3: Yes Mood/Affect: Normal Dilation Both eyes: 1.0% Mydriacyl, 2 .5% Phenylephrine @ 9:47 External Exam Right eye Left eye External [...] scar, mild ir regular retina Care Teams Wheel And Caster Repairer Relationship Specialty Start Date End Date Yoselin Roberts MD [address] [place] [address] [place] [address] PCP - General 04/22/11 documented as of this encounter
--- OUTSIDE RECORDS SUMMARY | 2024-04-02 00:33 | XMS_ITS | Encounter Summary ---
Author Organization [facility] Address [address] [place] [address] Care Team Providers Care Hard Metals Hand Engraver Name Role Phone Unavailable Primary Care Provider Unavailabl e Encounter Details Date Type Department Care Team (Late st Contact Info) Description 08/22/2003 Office Visit [facility] Cardiology [facility] [address] [place], [place] [address] Mary Garcia MD Discharge Disposition: Auto Discharge Social History [...] Description 05/24/2024 14:00 EDT Office Visit [facility] Ophthalmology [address] [place] [address] Josemanuel Gomes MD [address] [facility], [address] [place] [phone] documented as of this encounter Visit Diagnoses Not on filedocumented in this encounter
--- OUTSIDE RECORDS SUMMARY | 2024-04-02 00:33 | XMS_ITS | Encounter Summary ---
Author Organization [facility] Address [address] [place] [address] Care Team Providers Care Sheet Rock Installation Helper Name Role Phone Yoselin Roberts MD Primary Care Provider [phone] Reason for Visit * Reason Comments Follow-up Pt. is here for Mild CME - left eye with CNVM and HM s/p Avastin 11/27/11, Pt. states VA stable, no pain, no new f/f Encounter Details Date Type Department Care Team (Late st Contact Info) Description 02/25/2012 14:45 EST Office Visit [facility] Ophthalmology - [address] [address] Josemanuel Gomes MD 111 [facility], [address] [place] [address] Social History Tobacco Use Types [...] Progress Notes * Josemanuel Gomes MD - 02/25/2012 0058 EST Chief Complaint Patient presents with ??? Follow-up Pt. is here for Mild CME - left eye with CNVM and HM s/p Avastin 11/27/11, Pt. states VA stable, no pain, no new f/f HPI Location: Left eye Pain: 0 - No pain Quality: Blurry Severity: Moderate Duration: Years Timing: Constant Lasts: Continuous Context: High Myope, Mild CME - left eye with CNVM and HM Modifying factors: VA stable Associated Signs & Symptoms: no pain, no new f/f Visual Fluctuations: None Attestation: Base Ophthalmology Exam Visual Acuity Right Left Both Dist cc 20/20 20/25 -3 Method: Snellen - Linear Correction: Glasses Tonometry Right Left Pressure 19 19 Method: Applanation Time: 14:28 Dilation Both eyes: 1.0% Mydriacyl, 2.5% Phenylephrine @ 14:36 Pupils Pupils Right PERRL Left PERRL Visual De Jesus Right Left Result Full Full Extraocular Movement Right Left Result Full Full Main Ophthalmology Exam External Exam Right Left [...] Left Disc Normal Normal C/D Ratio 0.4 0.4 Macula Retinal pigment epithelial mottling, no fluid, no heme SR scar off center, rpe changes, no fluid, no heme Vessels Normal Normal Periphery Normal Normal [...] eyes 4. Blepharitis of both eyes PLAN: HM both without tears No active CNVM left Hold injection PVD both, no tears Bleph WC both Follow as scheduled I, Dr. 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 Posterior vitreous detachment of both eyes Vitreous degeneration Blepharitis of both eyes Blepharitis, unspecified documented in this encounter Eye Exam Visual Acuity (Snellen - Linear) Right eye Left eye Dist cc 20/20 20/25 -3 Correction: Glasses Tonometry (Applanation, 14:28) Right eye Left eye Pressure 19 19 Pupils Pupils Right eye PERRL Left eye PERRL Visual De Jesus Right eye Left eye Full Full Extraocular Movement Right eye Left eye Full Full Neuro/Psych Oriented x3: Yes Mood/Affect: Normal Dilation Both eyes: 1.0% Mydriacyl, 2 .5% Phenylephrine @ 14:36 External Exam Right eye Left eye External [...] eye Disc Normal Normal C/D Ratio 0.4 0.4 Macula Retinal pigment epit helial mottling, no fluid, no heme SR scar off center, rpe changes, no fluid, no heme Vessels Normal Normal Periphery Normal Normal Care Teams Sheet Rock Installation Helper Relationship Specialty Start Date End Date Yoselin Roberts MD [address] [place] [address] [place], [place] [id number] PCP - General 04/22/11 documented as of this encounter
--- OUTSIDE RECORDS SUMMARY | 2024-04-02 00:33 | XMS_ITS | Encounter Summary ---
Author Organization [facility] Address [address] [place] [address] Care Team Providers Care Dinkey Engineer Name Role Phone Kayleen Lawton MD, Kaitlynn Primary Care Provider [phone] Encounter Details Date Type Department Care Team (Late st Contact Info) Description 11/10/2009 14:44 EDT - 11/10/2009 23:59 EDT Hospital Encounter [facility] Ophthalmology - [address] [phone] Josemanuel Gomes MD [address] [place] [address] Discharge Disposition: Home or Self Care [...] Code Departure Means Destination Home or Self Fpc documented in this encounter Plan of Treatment Upcoming Encounters Date Type Department Care Team (Late st Contact Info) Description 05/24/2024 14:00 EDT Office Visit [facility] [address] [place] [address] Josemanuel Gomes MD [address] [phone] documented as of this encounter Visit Diagnoses Not on filedocumented in this encounter Care Teams Dinkey Engineer Relationship Specialty Start Date End Date Kaitlynn Beyer MD [address] [place] [address] PCP - General 08/21/09 04/21/11 documented as of this encounter
--- OUTSIDE RECORDS SUMMARY | 2024-04-02 00:33 | XMS_ITS | Encounter Summary ---
Author Organization [facility] Address [address] [place] [address] Care Team Providers Care Photoengraving Sketch Maker Name Role Phone Yoselin Roberts MD Primary Care Provider [phone] Reason for Visit * Reason Comments Follow-up CNVM left eye s/p Av astin left 09/08/12 High Myope Encounter Details Date Type Department Care Team (Late st Contact Info) Description 10/06/2012 8:00 EDT Office Visit [facility] Ophthalmology - [facility] [address] [place] [address] Josemanuel Gomes MD [address] [place] [address], [address] [place] [address] Social History Tobacco Use Types [...] as of this encounter Progress Notes * Allie Hunter - 10/06/2012 0859 EDT I have faxed this note to patient's PCP Yoselin Roberts 7.23.13 @ 8:59 AM * Josemanuel Gomes MD - 10/06/2012 0836 EDT Chief Complaint Patient presents with ??? Follow-up CNVM left eye s/p Avastin left 09/08/12 High Myope HPI Location: Both eyes Pain: 0 - No pain Quality: Blurry Severity: Moderate Duration: Years Timing: Constant Lasts: Continuous Context: VA seems to be stable both eyes Modifying factors: no new or different flashes or floaters Associated Signs & Symptoms: Headache for past 2 weeks Right side of head Worse with combing hair, also chewing Whole right side of head Has had MORALES before, but not like this Visual Fluctuations: None Attestation: Base Ophthalmology Exam Visual Acuity Right Left Dist cc 20/25 20/100 -2 Method: Snellen - Linear Correction: Glasses Tonometry Right Left Pressure 16 16 Method: Applanation Time: 8:29 Dilation Both eyes: 1.0% Mydriacyl, 2.5% Phenylephrine @ 8:29 Main Ophthalmology Exam External Exam Right Left [...] no heme scar, no fluid or heme, no edema Vessels Normal Normal Periphery Normal Normal Neuro/Psych Oriented x3: Yes Mood/Affect: Normal All five layers of the cornea are normal unless otherwise specified. Please refer to large retinal drawing. IMAGING: OCT REPORT Indications: CNVM Findings: Right Eye Left Eye Normal Subretinal Scar Original test to be found in patients shadow chart IMPRESSION: 1. Headache HEMAGRAM AND DIFFERENTIAL, C-REACTIVE PROTEIN, SED. RATE:WESTERGREN 2. Retinal neovascularization NOS 3. Progressive high (degenerative) myopia 4. Posterior vitreous detachment of both eyes PLAN: High Myopia both, no tears QCNVM left eye - hold injection today - follow up as scheduled Headache, scalp tenderness, pain while chewing - will send pt to lab for STAT GCA workup Does not seem likely, but it is possible She will also contact PCP as well Copy of note to Dr Armando TINAJERO both eyes - no holes, tears, RD - observe Return on 12/01 as scheduled for OCT and ?Avastin left eye I, Dr. Josemanuel Gomes, have [...] Visit [facility] Ophthalmology - [address] [place] [address] Josemanuel Gomes MD 111 [facility], [address] [place] [address] documented as of this encounter Results * SED. RATE:WESTERGREN (10/06/2012 9:13 EDT) Pathologist [facility] Sed. Rate Westergren 10 0 - 30 mm/hr KELL SIMON Blood specimen (specimen) 10/06/2012 9:13 EDT 10/06/2012 9:22 EDT us Josemanuel Gomes MD HEMATOLOGY & PF4 ORDERABLES F inal Result [facility] G[facility] [address] [place] [address] * C-REACTIVE PROTEIN (10/06/2012 9:13 EDT) Pathologist [facility] C-Reactive Protein <0.7 <1.0 mg/dl KELL SIMON Blood specimen (specimen) 10/06/2012 9:13 EDT 10/06/2012 9:22 EDT us Josemanuel Gomes MD CHEMISTRY & BLOOD GAS ORDERAB LES Final Result [facility] [address] [place] [address] documented in this encounter Visit Diagnoses Diagnosis Headache(784.0)- Primary Headache 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 Posterior vitreous detachment of both eyes Vitreous degeneration documented in this encounter Eye Exam Visual Acuity (Snellen - Linear) Right eye Left eye Dist cc 20/25 20/100 -2 Correction: Glasses Tonometry (Applanation, 8:29) Right eye Left eye Pressure 16 16 Neuro/Psych Oriented x3: Yes Mood/Affect: Normal Dilation Both eyes: 1.0% Mydriacyl, 2 .5% Phenylephrine @ 8:29 External Exam Right eye Left eye External [...] no heme scar, no fluid or heme, no edema Vessels Normal Normal Periphery Normal Normal Care Teams Photoengraving Sketch Maker Relationship Specialty Start Date End Date Yoselin Roberts MD [address] [place] [address] [place] [address] PCP - General 04/22/11 documented as of this encounter
--- OUTSIDE RECORDS SUMMARY | 2024-04-02 00:33 | XMS_ITS | Encounter Summary ---
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 Encounter Details Date Type Department Care Team (Late st Contact Info) Description 11/13/2010 13:[address] [facility] Ophthalmology - [address] [id number] Josemanuel Gomes MD 111 [facility], [address] [place] [address] Social History Tobacco Use Types Packs/Day Years Used Date Smoking Tobacco: Never Assessed Comments Unknown Sex and Gender Information Value Date Recorded Sex Assigned at Not on file Legal Sex Female 17:30 EST Gender Identity Not on file Sexual Orientation Not on file documented as of this encounter Progress Notes * Josemanuel Gomes MD - 11/13/2010 1524 EDT Chief Complaint Patient presents with ??? 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 HPI Location: Left eye Pain: 0 - No pain Quality: Blurry Severity: Mild Duration: Weeks (1) Timing: Constant Lasts: Continuous Context: Saw Dr. Fabian and he gave an injection and VA still not that good. Headache and sore for 1 week Modifying factors: N/A Associated Signs & Symptoms: No flashes or floaters that are new Visual Fluctuations: Flashes;Floaters (Chronic/unchanged in both eyes) Attestation: Base Ophthalmology Exam Visual Acuity Right Left Dist cc 20/20 -1 20/200 Method: Snellen - Linear Correction: Glasses Tonometry Right Left Pressure 21 20 Method: Applanation Time: 14:38 Dilation Both eyes: 1.0% Mydriacyl, 2.5% Phenylephrine @ 14:38 Pupils Pupils Right PERRL Left PERRL Main Ophthalmology Exam External Exam Right Left External Normal Normal Slit Lamp Exam Right Left Lids/Lashes Blepharitis Blepharitis Conjunctiva/Sclera White and quiet White and quiet Cornea Trace SPK Trace SPK Anterior Chamber Deep and quiet Deep and quiet Iris Round and reactive Round and reactive Lens Posterior chamber intraocular lens Posterior chamber intraocular lens Vitreous Normal Normal Fundus Exam Right Left Disc Normal Normal C/D Ratio 0.4 0.7 Macula Normal SRH, SRF Vessels Normal Normal Periphery Pavingstone degeneration Pavingstone degeneration Neuro/Psych Oriented x3: Yes Mood/Affect: Normal All five layers of the cornea are normal unless otherwise specified. Please refer to large retinal drawing. IMAGING: OCT REPORT Indications: Cystoid Macular Edema Findings: Right Eye Left Eye Normal Cystoid Macular Degeneration Original test to be found in patients shadow chart IMPRESSION: 1. 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 Side: Left eye(s) Pre-op Medications: Ocuflox Eye Prep: Betadine 5% ophthalmic solution to left eye(s). Anesthesia: akten Drug used: Avastin Dosage: 1.25mg Paracentesis: No Cna Pct: nc Complications: None Post-op Instructions: Ocuflox Per [...] encounter Miscellaneous Notes * Scanned Note-Null - Epoxy Fabrication Supervisor, Scan - 01/23/2011 1445 EST documented in this encounter Plan of Treatment Upcoming Encounters Date Type Department Care Team (Late st Contact Info) Description 05/24/2024 14:[address] [facility] Ophthalmology - [facility] [address] [place] [address] Josemanuel Gomes MD 111 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 Patient Stopped Taking 11/13/2010 documented as of this encounter Eye Exam Visual Acuity (Snellen - Linear) Right eye Left eye Dist cc 20/20 -1 20/200 Correction: Glasses Tonometry (Applanation, 14:38) Right eye Left eye Pressure 21 20 Pupils Pupils Right eye PERRL Left eye PERRL Neuro/Psych Oriented x3: Yes Mood/Affect: Normal Dilation Both eyes: 1.0% Mydriacyl, 2 .5% Phenylephrine @ 14:38 External Exam Right eye Left eye External Normal Normal Slit Lamp Exam Right eye Left eye Lids/Lashes Blepharitis Blepharitis Conjunctiva/Sclera White and quiet White and marysol et Cornea Trace SPK Trace SPK Anterior Chamber Deep and quiet Deep and quiet Iris Round and reactive Round and marko ctive Lens Posterior chamber in traocular lens Posterior chamber intraocular lens Vitreous Normal Normal Fundus Exam Right eye Left eye Disc Normal Normal C/D Ratio 0.4 0.7 Macula Normal SRH, SRF Vessels Normal Normal Periphery Pavingstone degeneration Pavings tone degeneration Care Teams Corner Former Relationship Specialty Start Date End Date Kaitlynn Beyer MD [address] [place] [address] PCP - General 08/21/09 04/21/11 documented as of this encounter
--- OUTSIDE RECORDS SUMMARY | 2024-04-02 00:33 | XMS_ITS | Encounter Summary ---
Author Organization [facility] Address [address] [place] [address] Care Team Providers Care Orthotic/Prosthetic Practitioner Name Role Phone Yoselin Roberts MD Primary Care Provider [phone]- [phone] Reason for Visit * Reason Comments Eye Problem High Myope/ CME Left Encounter Details Date Type Department Care Team (Late st Contact Info) Description 01/24/2012 9:30 EST Office Visit [facility] Ophthalmology - [address] [address] Josemanuel Gomes MD 111 [facility], [address] [place] [address] Social History Tobacco Use Types [...] Progress Notes * Josemanuel Gomes MD - 01/24/2012 1028 EST Chief Complaint Patient presents with ??? Eye Problem High Myope/ CME Left HPI Location: Left eye Pain: Quality: Blurry Severity: Moderate Duration: Months Timing: Constant Lasts: Continuous Context: VA Modifying factors: Associated Signs & Symptoms: High Myope Both/CME Left Visual Fluctuations: None Attestation: Base Ophthalmology Exam Visual Acuity Right Left Both Dist cc 20/20 -1 20/20 -3 Method: Snellen - Linear Correction: Glasses Tonometry Right Left Pressure 17 18 Method: Applanation Time: 9:50 Dilation Both eyes: 1.0% Mydriacyl, 2.5% Phenylephrine @ 9:52 Main Ophthalmology Exam External Exam Right Left [...] Right Left Disc tilted Normal C/D Ratio 0.4 0.4 Macula , Retinal pigment epithelial mottling atrophic scar , no fluid or CME Vessels Normal Normal Periphery Normal Normal Neuro/Psych Oriented x3: Yes Mood/Affect: Normal All five layers of the cornea are normal unless otherwise specified. Please refer to large retinal drawing. IMAGING: OCT REPORT Indications: CNVM Findings: Right Eye Left Eye Normal Normal Original test to be found in patients shadow chart IMPRESSION: 1. 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 Posterior vitreous detachment of both eyes 4. Blepharitis of both eyes PLAN: Spoke with patient about EnviroGene and previous Avastin injection. I explained that there has been no known problem with this product, but if patient experiences symptoms of severe eye infection; including severe vision loss and/or severe eye pain in the affected eye to contact us right away. Patient understands. High Myopia both, no tears PVD both eyes - no holes, tears, RD QCNVM left eye - observe Bleph both w/c Return for as scheduled . I, Dr. 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 Blepharitis of both eyes Blepharitis, unspecified documented in this encounter Eye Exam Visual Acuity (Snellen - Linear) Right eye Left eye Dist cc 20/20 -1 20/20 -3 Correction: Glasses Tonometry (Applanation, 9:50) Right eye Left eye Pressure 17 18 Neuro/Psych Oriented x3: Yes Mood/Affect: Normal Dilation Both eyes: 1.0% Mydriacyl, 2 .5% Phenylephrine @ 9:52 External Exam Right eye Left eye External [...] Left eye Disc tilted Normal C/D Ratio 0.4 0.4 Macula , Retinal pigment epithelial mot tling atrophic scar , no fluid or CME Vessels Normal Normal Periphery Normal Normal Care Teams Orthotic/Prosthetic Practitioner Relationship Specialty Start Date End Date Yoselin Roberts MD [address] [place] [address] [place] [address] PCP - General 04/22/11 documented as of this encounter
--- OUTSIDE RECORDS SUMMARY | 2024-04-02 00:33 | XMS_ITS | Encounter Summary ---
Author Organization [facility] Address [address] [place] [address] Care Team Providers Care Blow Machine Tender Starch Spraying Name Role Phone Yoselin Roberts MD Primary Care Provider [phone]- [phone] Reason for Visit * Reason Comments Follow-up CNVM left eye s/p Av astin left 07/17/11 Encounter Details Date Type Department Care Team (Late st Contact Info) Description 08/27/2011 13:45 EDT Office Visit [facility] Ophthalmology - [address] [id number] Josemanuel Gomes MD 111 [facility], [address] [place] [address] Social History Tobacco Use Types [...] Progress Notes * Josemanuel Gomes MD - 08/27/2011 7978 EDT Chief Complaint Patient presents with ??? Follow-up CNVM left eye s/p Avastin left 07/17/11 HPI Location: Left eye Pain: 0 - No pain Quality: Blurry Severity: Mild Duration: Months Timing: Constant Lasts: Continuous Context: chronic flashes and floaters. no change in VA both eyes Modifying factors: Associated Signs & Symptoms: interferes with reading Visual Fluctuations: Flashes;Floaters Attestation: Base Ophthalmology Exam Visual Acuity Right Left Both Dist sc -1 Dist cc 20/20 -1 20/30 +1 Method: Snellen - Linear Correction: Glasses Tonometry Right Left Pressure 18 18 Method: Applanation Time: 14:01 Dilation Both eyes: 1.0% Mydriacyl, 2.5% Phenylephrine @ 14:01 Main Ophthalmology Exam External Exam Right Left [...] Right Left Disc Normal Normal C/D Ratio 0.5 0.5 Macula Normal SR scar, no swelling, no heme Vessels Normal Normal Periphery Normal [...] myopia 3. Posterior vitreous detachment, both eyes 4. Blepharitis, both eyes PLAN: Q CNVM left eye Hx high myopia both eyes. Holiday today, pt agrees, understands risks. Recheck 6 and 12 weeks, ? Avastin left eye I, Dr. 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 Posterior vitreous detachment, both eyes Vitreous degeneration Blepharitis, both eyes Blepharitis, unspecified documented in this encounter Eye Exam Visual Acuity (Snellen - Linear) Right eye Left eye Dist sc -1 Dist cc 20/20 -1 20/30 +1 Correction: Glasses Tonometry (Applanation, 14:01) Right eye Left eye Pressure 18 18 Neuro/Psych Oriented x3: Yes Mood/Affect: Normal Dilation Both eyes: 1.0% Mydriacyl, 2 .5% Phenylephrine @ 14:01 External Exam Right eye Left eye External [...] Left eye Disc Normal Normal C/D Ratio 0.5 0.5 Macula Normal SR scar, no swel ling, no heme Vessels Normal Normal Periphery Normal Normal Care Teams Blow Machine Tender Starch Spraying Relationship Specialty Start Date End Date Yoselin Roberts MD [address] [place] [address] [place] [address] PCP - General 04/22/11 documented as of this encounter
--- OUTSIDE RECORDS SUMMARY | 2024-04-02 00:33 | XMS_ITS | Encounter Summary ---
Author Organization [facility] Address [address] [place] [address] Care Team Providers Care Cable Armorer Operator Name Role Phone Yoselin Roberts MD Primary Care Provider [phone]- [phone] Reason for Visit * Reason Comments Eye Problem 73 year old female h ere for follow up of high myopia and CNVM left eye. Vision is blurry since she had back surgery on (12/23/2013). No pain, redness,double vision or discharge. Soreness both eyes and dryness boht eyes x 2 months Encounter Details Date Type Department Care Team (Late st Contact Info) Description 01/11/2014 13:30 EDT Office Visit [facility] Ophthalmology - [address] [phone] Josemanuel Gomes MD 111 [facility], [address] [place] [address] Social History Tobacco Use Types [...] Discharge Diagnoses Diagnosis 362.16 RETINAL NEOVASCULAR NOS[ICD-9-CM] documented in this encounter Progress Notes * Josemanuel Gomes MD - 01/11/2014 1418 EDT Chief Complaint Patient presents with ??? Eye Problem 73 year old female here for follow up of high myopia and CNVM left eye. Vision is blurry since she had back surgery on (12/23/2013). No pain, redness,double vision or discharge. Soreness both eyes and dryness boht eyes x 2 months HPI Location: Both eyes Pain: 0 - No pain Quality: Severity: Moderate Duration: Years Timing: Constant Lasts: Continuous Context: 73 year old female here for follow up of high myopia and CNVM left eye. Vision is blurry since she had back surgery on (12/23/2013). No pain, redness,double vision or discharge. Soreness both eyes and dryness boht eyes x 2 months Modifying factors: possible injection of Avastin in the left eye Associated Signs & Symptoms: Vision both eyes is the same. No pain, redness,double vision or discharge No new flashes or floaters Both eyes are dry Visual Fluctuations: None Attestation: Base Eye Exam Visual Acuity Right Left Dist cc 20/30 -2 20/400 Dist ph cc NI 20/200 Method: Snellen - Linear Tonometry Right Left Pressure 16 16 Method: Applanation Time: 13:54 Pupils Pupils APD Right PERRL None Left PERRL None Visual De Jesus Right Left Result Full Full Extraocular Movement Right Left Result Full, Ortho Full, Ortho Neuro/Psych Oriented x3: Yes Mood/Affect: Normal Dilation Both eyes: 2.5% Phenylephrine, 1.0% Mydriacyl @ 13:54 Slit Lamp and Fundus Exam External Exam [...] Degeneration Findings: Right Eye Left Eye Normal irregular retinal contour Original test to be found in patients shadow chart IMPRESSION: 1. CNVM (choroidal neovascular membrane) OCT (OPHTHALMIC DIGITAL IMAGING, POSTERIOR SEGMENT) 2. Progressive high (degenerative) myopia PLAN: High myopia both eyes Quiescent CNVM left eye Offered avastin injection left eye today Pt elects to proceed Recheck 6 weeks Procedure Note: INTRAVITREAL Injection: Pre-op Diagnosis: cnvm Procedure: Intravitreal Avastin injection. Side: Left eye(s) Eye Prep: Betadine 5% ophthalmic solution to left eye(s). Anesthesia: Topical Proparacine HCl 0.4% Ophthalmic solution Drug used: Avastin Dosage: 1.25mg [facility] Number [id number] Paracentesis: No Etl Analyst: barby Any excess Avastin was appropriately disposed of. Complications: None Post-op Instructions: No drops unless otherwise instructed Call immediately with pain, purulent discharge or loss of vision [phone] I, Dr. 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 documented in this encounter Eye Exam Visual Acuity (Snellen - Linear) Right eye Left eye Dist cc 20/30 -2 20/400 Dist ph cc NI 20/200 Tonometry (Applanation, 13:54) Right eye Left eye Pressure 16 16 Pupils Pupils APD Right eye PERRL None Left eye PERRL None Visual De Jesus Right eye Left eye Full Full Extraocular Movement Right eye Left eye Full, Ortho Full, Ortho Neuro/Psych Oriented x3: Yes Mood/Affect: Normal Dilation Both eyes: 2.5% Phenylephrin e, 1.0% Mydriacyl @ 13:54 External Exam Right eye Left eye External [...] Normal Normal Periphery Normal Normal Care Teams Cable Armorer Operator Relationship Specialty Start Date End Date Yoselin Roberts MD [address] [place] [address] [place] [address] PCP - General 04/22/11 documented as of this encounter
--- OUTSIDE RECORDS SUMMARY | 2024-04-02 00:33 | XMS_ITS | Encounter Summary ---
Author Organization [facility] Address [address] [place] [address] Care Team Providers Care Bench Mover Name Role Phone Yoselin Roberts MD Primary Care Provider [phone]- [phone] Encounter Details Date Type Department Care Team (Late st Contact Info) Description 10/06/2012 8:59 EDT - 10/06/2012 23:[address] [facility] [address] [place] [address] Emily Smart MD Kim, Josemanuel Soto MD 111 [facility], [address] [place] [address] Discharge Disposition: Auto Discharge Social [...] on file documented as of this encounter Medications at Time of Discharge DULoxetine (CYMBALTA) 60 mg capsule Take 1 Capsule by mouth daily. lansoprazole (PREVACID) 30 mg capsule Take 1 Capsule by mouth daily. latanoprost (XALATAN) 0.005 % ophthalmic solution Place 1 Drop into both eyes at bedtime. levothyroxine (SYNTHROID) 125 mcg tablet Take 1 Tablet by mouth daily. loratadine (CLARITIN) 10 mg tablet Take 1 Tablet by mouth daily. PRN Multivitamins with Minerals Tab Take 1 Tablet by mouth daily. UNABLE TO FIND 1,000 mg daily. Med Name: Lineilic (CLA), 1000 mg. aspirin 81 mg EC tablet Take 81 mg by mouth daily. 2 Fenofibrate Nanocrystallized (TRICOR) 145 mg Tab Take 160 mg by mouth daily. 5 gatifloxacin (ZYMAXID) 0.5 % Drop Apply 1 Drop to eye 4 times daily. 10 mL 6 09/19/2010 3 lisinopril (PRINIVIL, ZESTRIL) 10 mg tablet Take 10 mg by mouth daily. 6 MV,CA,MIN/FA/HERBAL NO.159 (ESTROVEN REGULAR STRENGTH ORAL) Take 1 Tab by mouth daily. 5 timolol (TIMOPTIC) 0.5 % ophthalmic solution Place 1 Drop into both eyes daily. In the morning. 1 documented as of this encounter Discharge Disposition Disposition Code Departure Means Destination Auto Discharge Home documented in this encounter Plan of Treatment Upcoming Encounters Date Type Department Care Team (Late st Contact Info) Description 05/24/2024 14:00 EDT Office Visit [facility] Ophthalmology - [id number] [place] [address] Josemanuel Gomes MD [address] [place] [address], [address] [place] [address] documented as of this encounter Visit Diagnoses Not on filedocumented in this encounter Care Teams Bench Mover Relationship Specialty Start Date End Date Yoselin Roberts MD [address] [place] [address] [place] [address] PCP - General 04/22/11 documented as of this encounter
--- OUTSIDE RECORDS SUMMARY | 2024-04-02 00:33 | XMS_ITS | Encounter Summary ---
Author Organization [facility] Address [address] [place] [address] Care Team Providers Care Exchange Mechanic Name Role Phone Kayleen Lawton MD, Kaitlynn Primary Care Provider [phone] Encounter Details Date Type Department Care Team (Late st Contact Info) Description 01/22/2010 Abstract Used for ABSTRACTING Data [phone] Kaitlynn Beyer MD [address] [place] [address] Social History Tobacco Use Types Packs/Day Years [...] Info) Description 05/24/2024 14:00 EDT Office Visit [facility] Ophthalmology - [address] [place] [address] Josemanuel Gomes MD 111 [facility], [facility] [address] [place] [address] documented as of this encounter Visit Diagnoses Not on filedocumented in this encounter Historical Medications * This list may reflect changes made after this encounter. latanoprost (XALATAN) 0.005 % ophthalmic solution Place 1 Drop into both eyes at bedtime. UNABLE TO FIND 1,000 mg daily. Med Name: Lineilic (CLA), 1000 mg. Multivitamins with Minerals Tab Take 1 Tablet by mouth daily. levothyroxine (SYNTHROID) 125 mcg tablet Take 1 Tablet by mouth daily. loratadine (CLARITIN) 10 mg tablet Take 1 Tablet by mouth daily. PRN DULoxetine (CYMBALTA) 60 mg capsule Take 1 Capsule by mouth daily. lansoprazole (PREVACID) 30 mg capsule Take 1 Capsule by mouth daily. ofloxacin (OCUFLOX) 0.3 % ophthalmic solution Place 1 Drop into the left eye 4 times daily. 1 timolol (TIMOPTIC) 0.5 % ophthalmic solution Place 1 Drop into both eyes daily. In the morning. 1 aspirin 81 mg EC tablet Take 81 mg by mouth daily. 2 MV,CA,MIN/FA/HERBAL NO.159 (ESTROVEN REGULAR STRENGTH ORAL) Take 1 Tab by mouth daily. 5 gabapentin (NEURONTIN) 300 mg capsule Take 300 mg by mouth 3 times daily. 0 Fenofibrate Nanocrystallized (TRICOR) 145 mg Tab Take 160 mg by mouth daily. 5 added in this encounter Care Teams Exchange Mechanic Relationship Specialty Start Date End Date Kaitlynn Beyer MD [address] [place] [id number] PCP - General 08/21/09 04/21/11 documented as of this encounter
--- OUTSIDE RECORDS SUMMARY | 2024-04-02 00:33 | XMS_ITS | Encounter Summary ---
Author Organization [facility] Address [address] [place] [address] Care Team Providers Care Project Hire Name Role Phone Kayleen Lawton MD, Kaitlynn Primary Care Provider [phone] Encounter Details Date Type Department Care Team (Late st Contact Info) Description 11/07/2009 13:05 EDT - 11/07/2009 23:59 EDT Hospital Encounter [facility] Ophthalmology - [facility] [address] [place] [address] Josemanuel Gomes MD 111 [facility], [address] [place] [address] Discharge Disposition: Auto Discharge Social [...] Auto Discharge Home documented in this encounter Progress Notes * Josemanuel Gomes MD - 11/07/2009 6495 EDT DIVISION OF OPHTHALMOLOGY PC [facility] PROGRESS/FOLLOWUP NOTE - 11/07/2009 Dann Calderon MD [address] [place] [id number] Dear Ben: Thank you for allowing me to see Ms Mckenzie. As you know, I am seeing her in evaluation for possible CNVM in her left eye. Dilated fundus exam with extended ophthalmoscopy was performed in both eyes, and showed in the right eye, a cup-to-disc ratio of 0.4 with a tilted nerve. She has got a PVD in this eye. In her macula, she has RPE changes and no drusen. She has cobblestone atrophy peripherally. In her left eye, she has a cup-to-disc ratio of 0.4 with a PVD. She has subretinal hemorrhage with what appears to be greenish CNVM in the center of her macula. She has cobblestone atrophy peripherally. Impression: 1. Myopic maculopathy with CNVM, left. 2. PVD, both. 3. 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 4. Blepharitis, both. Plan: At this time, Ben, I agree with you. She has what appears to be a classic appearing CNVM in her left eye on fluorescein angiography. I do think that Avastin injection would be the most reasonable course of action here. She is going to take antibiotic drops for the next couple days and return on Friday for an injection. Thanks so much again for getting her to me. Sincerely, Electronically Signed by Josemanuel Gomes MD 11/22/2009 07:32 Josemanuel Gomes MD [facility] [address] [place] [id number] - Josemanuel Gomes [place] - [facility] [place] ID: Doc ID: [id number] [facility] Doc ID: [id number] cc: Dann Calderon MD documented in this encounter Plan of Treatment Upcoming Encounters Date Type Department Care Team (Late st Contact Info) Description 05/24/2024 14:00 EDT Office Visit [facility] Ophthalmology - [facility] [address] [place] [address] Josemanuel Gomes MD [address] [place] [address], [facility] [address] [place] [phone] documented as of this encounter Visit Diagnoses Not on filedocumented in this encounter Care Teams Project Hire Relationship Specialty Start Date End Date Kaitlynn Beyer MD [address] [place] [phone] PCP - General 08/21/09 04/21/11 documented as of this encounter
--- OUTSIDE RECORDS SUMMARY | 2024-04-02 00:33 | XMS_ITS | Encounter Summary ---
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 states VA possible decrease left eye. no pain, no new f/f. Hx of Avastin injection left eye. Encounter Details Date Type Department Care Team (Late st Contact Info) Description 04/28/2012 13:30 EST Office Visit [facility] Ophthalmology - [address] [address] Josemanuel Gomes MD 111 [facility], [address] [place] [address] Social History Tobacco Use Types [...] Progress Notes * Josemanuel Gomes MD - 04/28/2012 9425 EST Chief Complaint Patient presents with ??? 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 states VA possible decrease left eye. no pain, no new f/f. Hx of Avastin injection left eye. HPI Location: Both eyes Pain: 0 - No pain Quality: Blurry Severity: Moderate Duration: Years Timing: Constant Lasts: Continuous Context: Vision unchanged Modifying factors: No new flashes or floaters Associated Signs & Symptoms: High myopia with CNVM Visual Fluctuations: None Attestation: Base Ophthalmology Exam Visual Acuity Right Left Both Dist cc 20/20 -2 20/25 -3 Dist ph cc NI Method: Snellen - Linear Correction: Glasses Tonometry Right Left Pressure 18 18 Method: Applanation Time: 13:48 Dilation Both eyes: 1.0% Mydriacyl, 2.5% Phenylephrine @ 13:55 Main Ophthalmology Exam External Exam Right Left [...] SRF, no heme scar, no fluid or heme Vessels Normal Normal Periphery Normal Normal Neuro/Psych Oriented x3: Yes Mood/Affect: Normal All five layers of the cornea are normal unless otherwise specified. Please refer to large retinal drawing. IMAGING: OCT REPORT Indications: Cystoid Macular Edema Findings: Right Eye Left Eye RPE changes RPE changes Original test to be found in patients shadow chart IMPRESSION: 1. Retinal neovascularization NOS 2. Posterior vitreous detachment of both eyes 3. Blepharitis of both eyes PLAN: High Myopia with quiescent CNVM Will continue to observe PVD both eyes, no holes, tears, RD Bleph both eyes, WC Return as scheduled next month. 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 lisinopril (PRINIVIL, ZESTRIL) 10 mg tablet Take 10 mg by mouth daily. 03/06/2016 added in this encounter Eye Exam Visual Acuity (Snellen - Linear) Right eye Left eye Dist cc 20/20 -2 20/25 -3 Dist ph cc NI Correction: Glasses Tonometry (Applanation, 13:48) Right eye Left eye Pressure 18 18 Neuro/Psych Oriented x3: Yes Mood/Affect: Normal Dilation Both eyes: 1.0% Mydriacyl, 2 .5% Phenylephrine @ 13:55 External Exam Right eye Left eye External [...] 0.4 0.4 Macula Retinal pigment epithelial mottl ing, no SRF, no heme scar, no fluid or heme Vessels Normal Normal Periphery Normal Normal Care Teams Extruder Operator Multiple Relationship Specialty Start Date End Date Yoselin Roberts MD [address] [place] [address] [place] [address] PCP - General 04/22/11 documented as of this encounter
--- OUTSIDE RECORDS SUMMARY | 2024-04-02 00:33 | XMS_ITS | Encounter Summary ---
Author Organization [facility] Address [address] [place] [address] Care Team Providers Care Lead Retail Sales Associate Name Role Phone Yoselin Roberts MD Primary Care Provider [phone]- [phone] Reason for Visit * Reason Comments Eye Problem high myope both, CNV M left eye. Hx of avastin left. Encounter Details Date Type Department Care Team (Late st Contact Info) Description 03/30/2013 12:30 EST Office Visit [facility] Ophthalmology - [address] [id number] Josemanuel Gomes MD [address] [facility], Level [address] [place] [address] Social History Tobacco Use Types [...] Progress Notes * Josemanuel Gomes MD - 03/30/2013 1325 EST Chief Complaint Patient presents with ??? Eye Problem high myope both, CNVM left eye. Hx of avastin left. HPI Location: Left eye Pain: 0 - No pain Quality: Blurry Severity: Duration: Months Timing: Constant Lasts: Months Context: va stable Modifying factors: Hx of avastin left Associated Signs & Symptoms: no new flashes or floaters Visual Fluctuations: None Attestation: Base Eye Exam Visual Acuity Right Left Dist cc 20/25 -3+2 20/60 -2+1 Method: Snellen - Linear Correction: Glasses Tonometry Right Left Pressure 20 19 Method: Applanation Time: 12:37 Pupils Pupils Right PERRL Left PERRL Neuro/Psych Oriented x3: Yes Mood/Affect: Normal Dilation Both eyes: 1.0% Mydriacyl, 2.5% Phenylephrine @ 12:37 Slit Lamp and Fundus Exam External Exam Right Left External Normal Normal Slit Lamp Exam Right Left Lids/Lashes Blepharitis Blepharitis Conjunctiva/Sclera White and quiet White and quiet Cornea Corneal scar temporally Clear Anterior Chamber Deep and quiet Deep and quiet Iris Round and reactive Round and reactive Lens Posterior chamber intraocular lens Posterior chamber intraocular lens Fundus Exam Right Left Macula Normal SR scar All five layers of the cornea are normal unless otherwise specified. Please refer to large retinal drawing. IMAGING: OCT REPORT Indications: CNVM Findings: Right Eye Left Eye Normal Subretinal Scar and small mild retinal edema Original test to be found in patients shadow chart IMPRESSION: 1. Retinal neovascularization NOS OCT (OPHTHALMIC DIGITAL IMAGING, POSTERIOR SEGMENT) 2. Progressive high (degenerative) myopia PLAN: High Myope No holes, tears, RD Observe CNVM left eye Recommend Avastin injection today Pt agrees Observe Return in 9 wks with OCT and ?Avastin left eye Procedure Note: INTRAVITREAL Injection: Pre-op Diagnosis: CNVM Procedure: Intravitreal Avastin injection. Side: Left eye(s) Eye Prep: Betadine 5% ophthalmic solution to left eye(s). Anesthesia: Topical Proparacine HCl 0.4% Ophthalmic solution Drug used: Avastin Dosage: 1.25mg [facility] Number [id number] Paracentesis: No Technology Coordinator: ELSA Any excess Avastin was appropriately disposed of. Complications: None Post-op Instructions: No drops unless otherwise instructed Call immediately with pain, purulent discharge or loss of vision [phone] I, Dr. Josemanuel Gomes, have performed my [...] [facility] Ophthalmology - [facility] [address] [place], [place] [id number] Josemanuel Gomes MD [address] [place] [address], [facility] [address] [place] [address] Scheduled Orders Name Type Priority Associated Diagnoses Orde r Schedule OCT (OPHTHALMIC DIGITAL IMAGING, POSTERIOR SEGMENT) Ophthalmology Routine Retinal neovascularization NOS Ordered: 03/30/2013 documented as of this encounter Visit Diagnoses Diagnosis Retinal neovascularization NOS- Primary Progressive high (degenerative) myopia documented in this encounter Historical Medications * This list may reflect changes made after this encounter. losartan (COZAAR) 50 mg tablet Take 1 Tablet by mouth daily. added in this encounter Eye Exam Visual Acuity (Snellen - Linear) Right eye Left eye Dist cc 20/25 -3+2 20/60 -2+1 Correction: Glasses Tonometry (Applanation, 12:37) Right eye Left eye Pressure 20 19 Pupils Pupils Right eye PERRL Left eye PERRL Neuro/Psych Oriented x3: Yes Mood/Affect: Normal Dilation Both eyes: 1.0% Mydriacyl, 2 .5% Phenylephrine @ 12:37 External Exam Right eye Left eye External [...] Right eye Left eye Macula Normal SR scar Care Teams Lead Retail Sales Associate Relationship Specialty Start Date End Date Armando, Yoselin H, MD [address] [place] [address] [place] [address] PCP - General 04/22/11 documented as of this encounter
--- OUTSIDE RECORDS SUMMARY | 2024-04-02 00:33 | XMS_ITS | Encounter Summary ---
Author Organization [facility] Address [address] [place] [address] Care Team Providers Care Office Manager Receptionist Name Role Phone Yoselin Roberts MD Primary Care Provider [phone]- [phone] Reason for Visit * Reason Comments Eye Problem High myopia both, CN VM left. Hx of avastin left. Encounter Details Date Type Department Care Team (Late st Contact Info) Description 06/08/2013 13:00 EDT Office Visit [facility] Ophthalmology - [address] [address] Josemanuel Gomes MD 111 [facility], Level 5 [place] [address] Social History Tobacco Use Types [...] Progress Notes * Josemanuel Gomes MD - 06/08/2013 1329 EDT Chief Complaint Patient presents with ??? Eye Problem High myopia both, CNVM left. Hx of avastin left. HPI Location: Left eye Pain: 0 - No pain Quality: Blurry Severity: Moderate Duration: Months Timing: Constant Lasts: Months Context: va seems stable Modifying factors: Hx of avastin left Associated Signs & Symptoms: no new flashes or floaters Visual Fluctuations: None Attestation: Base Eye Exam Visual Acuity Right Left Dist cc 20/25 +/-2 20/80 +1 Method: Snellen - Linear Correction: Glasses Tonometry Right Left Pressure 22 20 Method: Applanation Time: 13:23 Pupils Pupils Right PERRL Left PERRL Neuro/Psych Oriented x3: Yes Mood/Affect: Normal Dilation Both eyes: 2.5% Phenylephrine, 0.5% Mydriacyl @ 13:23 Slit Lamp and Fundus Exam External Exam [...] Macular Degeneration Findings: Right Eye Left Eye NL Retinal Edema and SRS Original test to be found in patients shadow chart IMPRESSION: 1. Progressive high (degenerative) myopia 2. Retinal neovascularization NOS PLAN: High Myope with CNVM left No holes, tears, RD Observe CNVM left eye Recommend Avastin injection today Pt agrees Observe Return in 9 and 16 wks with OCT and ?Avastin left eye Procedure Note: INTRAVITREAL Injection: Pre-op Diagnosis: CNVM Procedure: Intravitreal Avastin injection. Side: Left eye(s) Eye Prep: Betadine 5% ophthalmic solution to left eye(s). Anesthesia: Topical Proparacine HCl 0.4% Ophthalmic solution Drug used: Avastin Dosage: 1.25mg [facility] Number [id number] Paracentesis: No Physician Office Nurse: ML Any excess Avastin was appropriately disposed of. Complications: None Post-op Instructions: No drops unless otherwise instructed Call immediately with pain, purulent discharge or loss of vision [phone] I, Dr. Josemanuel Gomes, have performed my [...] Info) Description 05/24/2024 14:00 EDT Office Visit [facility] Ophthalmology - [address] [id number] [place] [address] Josemanuel Gomes MD 111 [facility], [facility] 5 [place] [address] documented as of this encounter Visit Diagnoses Diagnosis Progressive high (degenerative) myopia- Primary Retinal neovascularization NOS documented in this encounter Eye Exam Visual Acuity (Snellen - Linear) Right eye Left eye Dist cc 20/25 +/-2 20/80 +1 Correction: Glasses Tonometry (Applanation, 13:23) Right eye Left eye Pressure 22 20 Pupils Pupils Right eye PERRL Left eye PERRL Neuro/Psych Oriented x3: Yes Mood/Affect: Normal Dilation Both eyes: 2.5% Phenylephrin e, 0.5% Mydriacyl @ 13:23 External Exam Right eye Left eye External [...] scar, mild ir regular retina Care Teams Office Manager Receptionist Relationship Specialty Start Date End Date Yoselin Roberts MD [address] [place] [address] [place] [address] PCP - General 04/22/11 documented as of this encounter
--- OUTSIDE RECORDS SUMMARY | 2024-04-02 00:33 | XMS_ITS | Encounter Summary ---
Author Organization [facility] Address [address] [place] [address] Care Team Providers Care Closing Machine Operator Name Role Phone Kayleen Lawton MD, Kaitlynn Primary Care Provider [phone] Reason for Visit * Reason Comments Blurred Vision New distortion in le ft eye x 1week. ? new bleed. Right eye doing well. Flashes & floaters unchanged in both eyes. No eye pain. Encounter Details Date Type Department Care Team (Late st Contact Info) Description 09/19/2010 13:00 EDT Office Visit [facility] Ophthalmology - [address] [address] Ashu Fabian MD [address] [facility], Level [address] [place] [address] Social History Tobacco Use Types Packs/Day Years Used Date Smoking Tobacco: Never Assessed Comments Unknown Sex and Gender Information Value Date Recorded Sex Assigned at Not on file Legal Sex Female 17:30 EST Gender Identity Not on file Sexual Orientation Not on file documented as of this encounter Ordered Prescriptions Prescription Sig Dispense Quantity Refills Last Filled Start Date End Date gatifloxacin (ZYMAXID) 0.5 % Drop Apply 1 Drop to eye 4 times daily. 10 mL 6 09/19/2010 01/22/2013 documented in this encounter Progress Notes * Ashu Fabian MD - 09/19/2010 1512 EDT Chief Complaint Patient presents with ??? Blurred Vision New distortion in left eye x 1week. ? new bleed. Right eye doing well. Flashes & floaters unchanged in both eyes. No eye pain. HPI Location: Left eye Pain: 0 - No pain Quality: Blurry Severity: Mild Duration: Weeks (1) Timing: Constant Lasts: Continuous Context: New distortion in left eye x 1 week Modifying factors: N/A Associated Signs & Symptoms: High myopia, hx CNVN in left eye. Has had 4 Avastin injections in the left eye. Visual Fluctuations: Flashes;Floaters (Chronic/unchanged in both eyes) Attestation: Blood pressure: A1c: Base Ophthalmology Exam Visual Acuity Right Left Dist sc -2 Dist cc 20/25 +1 20/200 Method: Snellen - Linear Correction: Glasses Tonometry Right Left Pressure 21 20 Method: Applanation Time: 13:34 Dilation Both eyes: 1.0% Mydriacyl @ 13:34 Comments: 2.5%KIRILL (phenylephrine HCL) Pupils Pupils Right PERRL Left PERRL Main [...] C/D Ratio 0.4 0.7 Macula Normal SRH, staph Vessels Normal Normal Periphery Pavingstone degeneration Pavingstone degeneration Impression: 1. Age-related macular degeneration, wet, both eyes (362.52Y) 2. 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 Aphakia (379.31) 6. Lens replaced by other means (V43.1) 7. Progressive high (degenerative) myopia (360.21) OCT (OPHTHALMIC DIGITAL IMAGING, POSTERIOR SEGMENT) 8. Retinal neovascularization NOS (362.16) OCT (OPHTHALMIC DIGITAL IMAGING, POSTERIOR SEGMENT) Plan: FA today acute left eye. On FA and clinical exam, pt appears to have CNVM left eye. Rec Lucentis today left eye. Pt agrees. Done today. Follow up 4-[address] Mireya, OCT and ?Avastin left I, Dr. Fbaian, have performed my own HPI and reviewed the tech's ROS. I have also reviewed the patient's past medical, family, social and surgical history, as well as the patient's medications, allergies, and problem list. I am scribing for Dr. Ashu Fabian MD, while he is personally performing the service. DYLON Silverio (Scribe) Procedure Note: INTRAVITREAL Injection: Pre-op Diagnosis: CNVM Procedure: Intravitreal Avastin injection. Side: Left eye(s) Pre-op Medications: Ocuflox Eye Prep: Betadine 5% ophthalmic solution to left eye(s). Anesthesia: 3.5% lido gel Drug used: Avastin Dosage: 1.25mg Paracentesis: No Tag And Label Cutter: DYLON Silverio Complications: None Post-op Instructions: Ocuflox Per Dr Fabian: Per Dr Gomes: ONE drop every minute for 5 minutes. Then every hour until bedtime. Then four times a day for TEN days. Four times a day for 5 days documented in this encounter Procedure Notes * Ashu Fabian MD - 09/24/2010 2230 EDT DIVISION OF OPHTHALMOLOGY [facility] PROCEDURE REPORT SERVICE DATE: 09/19/2010 FLUOROSCEIN AND COLOR PHOTOS COIL TESTER: Ashu Fabian MD. INDICATIONS FOR STUDY: High myopia with loss of vision. FINDINGS ON COLOR PHOTOS: Subretinal hemorrhage with myopic-looking fundus, left, 0.5 cup-to-disc ratio. In the right eye, the patient has a 0.5 cup-to-disc ratio with a myopic looking fundus but a more normal looking fovea. ASSESSMENT: Choroidal neovascular membrane, left, high myopia. PLAN: Fluorescein. FLUORESCEIN ANGIOGRAM: Fluorescein is directed toward the left eye and shows early blocking consistent with hemorrhage with a lace-like hyperfluorescent area subfoveally located, increasingly fluorescent, consistent with a choroidal neovascular membrane. The fellow eye shows no leakage that looks to be active. The patient does have some rarefaction of RPE with window defects. ASSESSMENT: 1. High myopia. 2. Choroidal neovascular membrane, left. 3. Wet ARMD, left. PLAN: Intravitreal Lucentis recommended, left. Clinical correlation indicated today. ADDENDUM: The patient would prefer to use Avastin. This has been used in her eye previously, so we will stay with Avastin. Clinical correlation today reveals a subretinal hemorrhage, flat peripheral retinal fold, increased cup-to-disc ratio with pressures in the 20 range. OVERALL ASSESSMENT: 1. High myopia. 2. CNVM/wet AMD, left. 3. COAG. 4. Aphakia/pseudophakia. 5. Mild blepharitis. PLAN: Risks, benefits and alternatives to intravitreal antibiotic compounds discussed. The patient understands no guarantee can be made as to the outcome of treatment and that with any intervention there is a chance of loss of vision, blindness, loss of the eye, and also some small risk of heart attack or stroke has been reported in the literature. She opts to proceed with Avastin, which was donewithout incident. Unless otherwise noted, there were no complications, no blood loss, cultures obtained, specimens removed, or drains retained. Electronically Signed by Ashu Fabian MD 09/24/2010 22:30 Ashu Fabian MD [facility] [address] [place] [address] - Ashu Fabian MD - LW Job ID: SM Doc ID: [id number] Ext Doc ID: [id number] cc: Josemanuel Gomes MD documented in this encounter Miscellaneous Notes * Scanned Note-Null - Santiago, Tailer In - 09/20/2010 1147 EDT * Scanned Note-Null - Santiago, Tailer In - 09/20/2010 1147 EDT documented in this encounter Plan of Treatment Upcoming Encounters Date Type Department Care Team (Late st Contact Info) Description 05/24/2024 14:00 EDT Office Visit [facility] Ophthalmology - [address] [id number] Josemanuel Gomes MD [address] 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 documented in this encounter Orders Ophthalmology Count Last Ordered Date First Ord ered Date OCT (OPHTHALMIC DIGITAL IMAG ING, POSTERIOR SEGMENT) 1 09/19/2010 documented in this encounter Eye Exam Visual Acuity (Snellen - Linear) Right eye Left eye Dist sc -2 Dist cc 20/25 +1 20/200 Correction: Glasses Tonometry (Applanation, 13:34) Right eye Left eye Pressure 21 20 Pupils Pupils Right eye PERRL Left eye PERRL Dilation Both eyes: 1.0% Mydriacyl @ 13:34 2.5%KIRILL (phenylephrine HCL) External Exam Right eye Left eye External [...] C/D Ratio 0.4 0.7 Macula Normal SRH, staph Vessels Normal Normal Periphery Pavingstone degeneration Pavings tone degeneration Care Teams Closing Machine Operator Relationship Specialty Start Date End Date Kaitlynn Beyer MD [address] [place] [address] PCP - General 08/21/09 04/21/11 documented as of this encounter
--- OUTSIDE RECORDS SUMMARY | 2024-04-02 00:34 | XMS_ITS ---
Author Organization Unknown Address [address] [place] [phone] Phone Care Team Providers Care Chainstitch Seat Joiner Name Role Phone NAEEM Gaytan Attending Unavailable RAYMOND CAMARA Primary Unavaila ble Immunization Immunization Date Status Additional Notes Code Code System influenza, unspecified formulation 01/08/2021 Completed 88 CVX COVID-19, mRNA, LNP-S, PF, 1 00 mcg/0.5mL dose or 50 mcg/0.25mL dose 05/03/2020 Completed 207 CVX COVID-19, mRNA, LNP-S, PF, 1 00 mcg/0.5mL dose or 50 mcg/0.25mL dose 05/31/2020 Completed 207 CVX COVID-19, mRNA, LNP-S, PF, 1 00 mcg/0.5mL dose or 50 mcg/0.25mL dose 01/20/2021 Completed 207 CVX Social History Type Status Start Date End Date Code Code Syst em Smoking History Never smoker (Never Smoked) [id number] SNOMED CT Sex Female Assessment You had the following problems:MRSA COLONIZATION Hospital Discharge Instructions Should you have any questions prior to discharge, please contact a member of your healthcare team. If you have left the hospital and have any questions, please contact your primary care physician. Reason For Referral No Data Found Implants Implanted XANDER Status Assigning Authority Procedure Date Lot Number Serial Number Manufacturing Date Expiration Date Distinct ID Code Brand Name Model Number Uncoated knee tibia prosthesis , [place] 0100 8855 5617 [id number] 1732 0219 1022 [id number] 170 Active FDA RIGHT TKA 08/07 [id number] 05/05/2031 JOURNE Y [id number] 1 Press-fit femoral stem prosthesis 0100 8855 5604 5497 1732 0103 1022 AM02 144 Active FDA RIGHT TKA 08/07 [id number] 03/19/2031 GENESI S II [id number] 9 Uncoated knee tibia prosthesis , metallic 0103 5960 1055 4277 1731 0922 1021 JM16 667 Active FDA RIGHT TKA 08/07 [id number] 12/06/2030 JOURNE Y [id number] 3 Uncoated knee femur prosthesis , metallic 0100 8855 5616 9865 1732 0102 1022 AM00 348 Active FDA RIGHT TKA 08/07 [id number] 03/18/2031 JOURNE Y [id number] 4 Polyethyle ne patella prosthesis 0103 5960 1055 4536 1732 0409 1022 DM07 577 Active FDA RIGHT TKA 08/07 [id number] 06/24/2031 JOURNE Y [id number] 2 Orthopaedi c cement, antimicrob ial 0100 8855 5658 2237 1726 1130 1021 MTC0 185 Active FDA RIGHT TKA 08/07 [id number] 02/13/2026 RALLY [id number] 0 Problems Problem Start Date Resolved Date Status Code Code System 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 169513233 S NOMED-CT Allergies and Adverse Reactions Allergy Substance Reaction Severity Start Date Concern Status Code Code System SULFA (sulfonamide) ORAL SORES (SNOMED-CT: null) Active 83971774 SNOMED-CT HYDROMORPHONE ITCHING (SNOMED-CT: null), DILAUDID (SNOMED-CT: null) Active 3423 RxNorm PERCOCET HALLUCINATIONS (SNOMED-CT: null) Active 15699 RxNorm Plan of Treatment PRE-OP TESTING 01/03/2022 PRE-OP COVID-19 TESTING 08/04/2021 PRE-OP TESTING 07/11/2021 Encounters Encounter Diagnosis Start Date Code Code Sys tem 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
--- OUTSIDE RECORDS SUMMARY | 2024-04-02 00:34 | XMS_ITS | Encounter Summary ---
Author Organization [facility] Address [address] [place] [address] Care Team Providers Care Nuclear Security Officer Name Role Phone Unavailable Primary Care Provider Unavailabl e Encounter Details Date Type Department Care Team (Late st Contact Info) Description 02/27/2001 Results Only [facility] - [place] [facility] [address] [place] [address] Mary Garcia MD Social History Tobacco Use [...] Info) Description 05/24/2024 14:00 EDT Office Visit [facility] - [place] [phone] [place] [address] Josemanuel Gomes MD 111 [facility], [facility] [address] [place] [phone] documented as of this encounter Procedures Procedure Name Priority Date/Time Associated Diagnosis Comments CYTOPATHOLOGY Routine 02/27/2001 0:00 EST documented in this encounter Results * CYTOPATHOLOGY (02/27/2001 0:00 EST) Pathology Report: CYTOPATHOLOGY REPORT Reports generated via electronic interface contain original data; however they are lacking the format of the original report. Caution should be taken when reading/interpreti ng unformatted reports. Name: ? MACY FRITZ ? Accession #: ? [id number] : ? 1940 (Age: 60) ??F ?Collect Date: ? 02/27/2001 Location: ? [facility] ? Receive Date: ? 03/04/2001 Provider: ?MARY GARCIA MD Copy to: ? Specimen/Source: ?ThinPrep Pap Test, Vagina Last Menstrual Period: ? 1990 Hormonal/Contracep tive Status: ? Yes Other: ? HPVL - HPV testing requested if LSIL/ASCUS/ROBBIE on the current ThinPrep Pap test. Client ID#: [id number] ? SPECIMEN ADEQUACY ? Satisfactory for evaluation. GENERAL CATEGORIZATION ? Within Normal Limits ? Document reviewed and electronically signed by: ? CANDIDO Huang(ASCP) ? Report Date: ??03/06/2001 08:15 End of Report KELL SIMON 02/27/2001 03/04/2001 us Mary Garcia MD PATHOLOGY ORDERABLES Final Resu lt KELL SIMON [address] [place] [address] documented in this encounter Visit Diagnoses Not on filedocumented in this encounter
--- OUTSIDE RECORDS SUMMARY | 2024-04-02 00:34 | XMS_ITS ---
Author Organization Unknown Address [address] [place] [address] [phone] Phone Care Team Providers Care Freight Adjuster Name Role Phone KERRY Hilario Attending Unavailable RAYMOND CAMARA Primary Unavaila ble [...] 50 mcg/0.25mL dose 01/20/2021 Completed 207 CVX Results TYPE AND SCREEN* - Collect D ate/Time: 07/11/2021 10:40 [facility] ID: [id number] [address] [place] [address], [phone] LOINC: Test Value Unit Reference Range Code Code System Flag Blood Group B 883-9 LOINC Rh (D) NEGATIVE 03478-2 LOINC Antibody Screen NEGATIVE 1005-8 LOINC PT PROTHROMBIN TIME* - Colle ct Date/Time: 07/11/2021 10:40 [facility] ID: [id number] [address] [place] [address], 5[address] LOINC: 5902-2 Test Value Unit Reference Range Code Code System Flag PROTIME 10.1 seconds L=9.3 H=11.4 5902-2 LOINC INR 1.01 L=2.00 H=3.00 76701-3 LOINC L MRSA/MSSA NASAL COMPLETE BY PCR* - Collect Date/Time: 07/11/2021 10:40 [facility] ID: [id number] [address] [place], [place], [phone] LOINC: Test Value Unit Reference Range Code Code System Flag MRSA POSITIVE Normal: Negative 14671-4 LOINC A MSSA DNR Normal: Negative BASIC METABOLIC PANEL (BMP) - Collect Date/Time: 07/11/2021 10:40 [facility] ID: [id number] 8 [place], [place], [address] LOINC: 34937-7 Test Value Unit Reference Range Code Code System Flag GLUCOSE 91 mg/dL L=70 H=116 2345-7 LOINC BUN 18 mg/dL L=6 H=25 3094-0 LOINC CREATININE 0.94 mg/dL L=0.51 H=0.95 2160-0 LOINC SODIUM SERUM 138 mmol/L L=136 H=145 2951-2 LOINC POTASSIUM SERUM 4.1 mmol/L L=3.4 H=5.2 2823-3 LOINC CHLORIDE SERUM 103 mmol/L L=96 H=110 2075-0 LOINC CARBON DIOXIDE (CO2) 24 mmol/L L=22 H=34 2028-9 LOINC ANION GAP 11.0 mmol/L 65059-8 LOINC CALCIUM SERUM 8.9 mg/dL L=8.2 H=10.2 51130-1 LOINC AGE 80 years eGFR (non-Afr.Amer.) 57 mL/min 57378-1 LOINC eGFR (Afr-Citizen Of [place]) 70 mL/min 14989-6 LOINC CBC W/ DIFFERENTIAL* - Colle ct Date/Time: 07/11/2021 10:40 [facility] ID: [id number] [address] [place] [address], [address] LOINC: 93399-5 Test Value Unit Reference Range Code Code System Flag WBC 4.45 th/cmm L=5.00 H=10.00 6690-2 LOINC L NEUT % 53.7 % L=40.0 H=80.0 LYMPH % 34.2 % L=10.0 H=50.0 MONO % 8.8 % L=2.0 H=12.0 52281-5 LOINC EOS % 2.0 % L=0.0 H=8.0 BASO % 1.1 % L=0.0 H=3.0 IG % 0.2 % L=0.0 H=1.1 2514-8 LOINC NRBC % 0.0 % L=0.0 H=0.0 25761-0 LOINC NEUT abs count 2.4 th/cmm L=1.6 H=8.4 751-8 LOINC LYMPH abs count 1.5 th/cmm L=1.5 H=4.0 731-0 LOINC MONO abs count 0.4 th/cmm L=0.2 H=1.0 742-7 LOINC EOS abs count 0.1 th/cmm L=0.0 H=0.5 711-2 LOINC BASO abs count 0.1 th/cmm L=0.0 H=0.2 704-7 LOINC IG abs count 0.0 th/cmm L=0.0 H=0.1 60122-2 LOINC NRBC abs count 0.0 mil/cmm L=0.0 H=0.0 94184-7 LOINC RBC 4.23 mil/cmm L=3.90 H=5.40 789-8 LOINC HEMOGLOBIN 13.2 gm/dL L=12.0 H=16.0 718-7 LOINC HEMATOCRIT 39 % L=37 H=47 4544-3 LOINC MCV 92 fL L=82 H=92 787-2 LOINC MCH 31.2 pg L=27.0 H=31.0 785-6 LOINC H MCHC 33.8 % L=32.0 H=36.0 786-4 LOINC RDW-SD 46.0 fL L=39.0 H=49.0 788-0 LOINC PLATELET COUNT 262 th/cmm L=150 H=450 777-3 LOINC XR BONE LENGTH STUDIES - Com pleted: 07/11/2021 11:35 LOINC: LEG LENGTH EXAMINATION:Romain rison x-rays of the knees are 05/21/21. Moderate to advanced degenerative changes of the knees are seen bilaterally. There joint space narrowing and periarticular spurring present. The findings are most marked in the medial femoral tibial joint in the left knee and the lateral femoral tibial joint of the right knee. The ankles are well maintained. Soft tissues are unremarkable. IMPRESSION:Osteoarthritis of the knees bilaterally. Dictated by: RILEY VILA MD Transcribed by: DUSTIN 07/11/2114:19 D Sunday, July 11, 2021 12:00:03 PM [id number] Electronically Reviewed and Signed By: LINDA VILA MD 07/11/21 14:41 Copy for: RAYMOND CAMARA via fax Copy for: 185 HEALTH INFORMATION MGMT Social History Type Status Start Date End Date Code Code Syst em Smoking History Never smoker (Never Smoked) 731217293 SNOMED CT Sex Female Assessment You had [...] BM15 170 Active FDA RIGHT TKA 08/07 [id number] 70 05/05/2031 JOURNE Y 5887775 1 Press-fit femoral stem prosthesis 0100 8855 5604 5497 1732 0103 1022 AM02 144 Active FDA RIGHT TKA 08/07 [id number] 44 03/19/2031 GENESI S II 3881859 9 Uncoated knee tibia prosthesis , metallic 0103 5960 1055 4277 1731 0922 1021 JM16 667 Active FDA RIGHT TKA 08/07 [id number] 67 12/06/2030 JOURNE Y 1009497 3 Uncoated knee femur prosthesis , metallic 0100 8855 5616 9865 1732 0102 1022 AM00 348 Active FDA RIGHT TKA 08/07 [id number] 48 03/18/2031 JOURNE Y 8786490 4 Polyethyle ne patella prosthesis 0103 5960 1055 4536 1732 0409 1022 DM07 577 Active FDA RIGHT TKA 08/07 [id number] 77 06/24/2031 JOURNE Y 8722685 2 Orthopaedi c cement, antimicrob ial 0100 8855 5658 2237 1726 1130 1021 MTC0 185 Active FDA RIGHT TKA 08/07 [id number] 85 02/13/2026 RALLY [id number] Problems Problem Start Date Resolved Date Status Code Code System 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 405480416 S NOMED-CT Allergies and Adverse Reactions Allergy Substance Reaction Severity Start Date Concern Status Code Code System SULFA (sulfonamide) ORAL SORES (SNOMED-CT: null) Active 11113200 SNOMED-CT HYDROMORPHONE ITCHING (SNOMED-CT: null), DILAUDID (SNOMED-CT: null) Active 3423 RxNorm PERCOCET HALLUCINATIONS (SNOMED-CT: null) Active 36768 RxNorm Plan of Treatment PRE-OP TESTING 01/03/2022 PRE-OP COVID-19 TESTING 08/04/2021 PRE-OP TESTING 07/11/2021 Encounters Encounter Diagnosis Start Date Code Code Sys tem Encounter for other preprocedural examination 07/12/19 22 SNOMED-CT Personal Care Team Section Performer Name Performer Role Active Date Inactive Da te
--- OUTSIDE RECORDS SUMMARY | 2024-04-02 00:34 | XMS_ITS ---
Author Organization Unknown Address [address] [place] [address] [phone] Phone Care Team Providers Care Call Centre Supervisor Name Role Phone KERRY Hilario Attending Unavailable [...] mcg/0.25mL dose 01/20/2021 Completed 207 CVX Results XR KNEE LT MIN 4V* - Complet ed: 05/21/2021 11:52 LOINC: LEFT KNEE - 4 VIEWS: There is no evidence of fracture although there does appear to be a joint effusion. There are significant tricompartmental osteoarthritic degenerative changes, most severe in the medial and patellofemoral compartments, more moderate in the lateral compartment. Bone density normal. No osseous lesions. Dictated by: SANDRA GARCIA MD Transcribed by: JUANJO 05/21/21/14:41 D 05/21/2021 12:58:43 [id number] Electronically Reviewed and Signed By: BERNARD GARCIA MD 05/21/21 18:15 Copy for: RAYMOND CAMARA via fax Copy for: 185 HEALTH INFORMATION MGMT XR KNEE RT MIN 4V* - Complet ed: 05/21/2021 11:52 LOINC: RIGHT KNEE - 4 VIEWS: Compared to 06/27/20. No evidence of fracture although small joint effusion is noted. The amount of degenerative change is radiographically unchanged from the prior study. Bone density remains normal. There is a bone lesion in the distal medial femoral metaphysis noted which remains unchanged from at least December 2017 and was also evident on images of April 2015. This has a benign appearance. IMPRESSION: Moderate-advanced degenerative changes again noted. Stable appearance of bone lesion in distal femur, unchanged from 2016. Dictated by: BERNARD GARCIA MD Transcribed by: JUANJO 05/21/21/14:43 D 05/21/2021 12:59:50 [id number] Electronically Reviewed and Signed By: BERNARD GARCIA MD 05/21/21 18:15 Copy for: RAYMOND CAMARA via fax Copy for: 185 HEALTH INFORMATION MGMT Social History Type Status Start Date End Date Code Code Syst em Smoking History Never smoker (Never Smoked) 978752536 SNOMED CT Sex Female Assessment You had [...] BM15 170 Active FDA RIGHT TKA 08/07 [id number] 70 05/05/2031 JOURNE Y 6814317 1 Press-fit femoral stem prosthesis 0100 8855 5604 5497 1732 0103 1022 AM02 144 Active FDA RIGHT TKA 08/07 [id number] 44 03/19/2031 GENESI S II 4424167 9 Uncoated knee tibia prosthesis , metallic 0103 5960 1055 4277 1731 0922 1021 JM16 667 Active FDA RIGHT TKA 08/07 [id number] 67 12/06/2030 JOURNE Y 2261424 3 Uncoated knee femur prosthesis , metallic 0100 8855 5616 9865 1732 0102 1022 AM00 348 Active FDA RIGHT TKA 08/07 [id number] 48 03/18/2031 JOURNE Y 6607691 4 Polyethyle ne patella prosthesis 0103 5960 1055 4536 1732 0409 1022 DM07 577 Active FDA RIGHT TKA 08/07 [id number] 77 06/24/2031 JOURNE Y 1908119 2 Orthopaedi c cement, antimicrob ial 0100 8855 5658 2237 1726 1130 1021 MTC0 185 Active FDA RIGHT TKA 08/07 [id number] 85 02/13/2026 RALLY [id number] Problems Problem Start Date Resolved Date Status Code Code System 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 235909597 S NOMED-CT Allergies and Adverse Reactions Allergy Substance Reaction Severity Start Date Concern Status Code Code System SULFA (sulfonamide) ORAL SORES (SNOMED-CT: null) Active 66173453 SNOMED-CT HYDROMORPHONE ITCHING (SNOMED-CT: null), DILAUDID (SNOMED-CT: null) Active 3423 RxNorm PERCOCET HALLUCINATIONS (SNOMED-CT: null) Active 19294 RxNorm Plan of Treatment PRE-OP TESTING 01/03/2022 PRE-OP COVID-19 TESTING 08/04/2021 PRE-OP TESTING 07/11/2021 Encounters Encounter Diagnosis Start Date Code Code Sys tem Idiopathic osteoarthritis 05/21/2021 960703115 SN OMED-CT Personal Care Team Section Performer Name Performer Role Active Date Inactive Da mary
--- OUTSIDE RECORDS SUMMARY | 2024-04-02 00:34 | XMS_ITS ---
Author Organization Unknown Address [address] [place] [address] [phone] Phone Care Team Providers Care Hotel Staff Member Name Role Phone Unavailable Xwatchlist Unavailable KERRY Hilario Attending Unavailable BEL Sheets CRNA Unavailable FAWN Joe Physician Merchandise Adjustment Clerk Unavailable RAYMOND CAMARA Primary Unavaila ble Immunization [...] 01/20/2021 Completed 207 CVX Results XR KNEE 1V OR 2V RT* - Compl eted: 08/07/2021 14:21 LOINC: RIGHT KNEE, 2 VIEWS: Comparison is 05/21/2021. The patient is now status post right total knee replacement. The orthopedic hardware appears in good position. Postsurgical changes are seen in the soft tissues. The bones are intact. IMPRESSION: Status post right TKR. Dictated by: RILEY VILA MD Transcribed by: SONI 08/08/21/14:57 [id number] Electronically Reviewed and Signed By: LINDA VILA MD 08/10/21 09:33 Copy for: RAYMOND CAMARA via fax Copy for: 185 HEALTH INFORMATION MGMT DISCHARGED Social History Type Status Start Date End Date Code Code Syst em Smoking History Never smoker (Never Smoked) 283613974 SNOMED CT Sex Female Vital Signs Vital Sign Value Unit [place] Value Windsor Unit Date/Time Recent/Initial? Code Code System Body Mass Index 39.07 kg/m2 07/24/2021 07:43 Initial 36213 -5 LOINC Systolic Blood Pressure 115 mm[Hg] 08/08/2021 11:40 Most Recent 8480- 6 LOINC Diastolic Blood Pressure 72 mm[Hg] 08/08/2021 11:40 Most Recent 8462- 4 LOINC Systolic Blood Pressure 127 mm[Hg] 08/07/2021 13:29 Initial 8480- 6 LOINC Diastolic Blood Pressure 53 mm[Hg] 08/07/2021 13:29 Initial 8462- 4 LOINC Body Surface Area 2.01 m2 07/24/2021 07:43 Initial 3140- 1 LOINC Height 154.940 0 cm 61.00 in 07/24/2021 07:43 Initial 8302- 2 LOINC O2 Saturation 96 % 2021 11:40 Most Recent 47568 -5 LOINC O2 Saturation 99 % 2021 13:29 Initial 54355 -5 LOINC Pulse 65.0 /min 08/08/2021 11:40 Most Recent 8867- 4 LOINC Pulse 54.0 /min 08/07/2021 13:29 Initial 8867- 4 LOINC Respiration 16 /min 08/09/19 22 11:40 Most Recent 9279- 1 LOINC Respiration 12 /min 08/08/19 22 13:29 Initial 9279- 1 LOINC Temperature 35.7 Cassie 96.3 F 08/09/19 22 11:40 Most Recent 8310- 5 LOINC Temperature 35.8 Cassie 96.4 F 08/08/19 22 13:29 Initial 8310- 5 LOINC Weight 104.24 kg 229.80 lbs 08/07/2021 14:23 Most Recent 13063 -7 LOINC Weight 93.80 kg 206.79 lbs 07/24/2021 07:43 Initial 59294 -7 LOINC Medications No Active Medications Assessment You had the following problems:MRSA COLONIZATION Hospital Discharge Instructions Should you have any questions prior to discharge, please contact a member of your healthcare team. If you have left the hospital and have any questions, please contact your primary care physician. Reason For Referral No Data Found Procedures Procedure Name Date Status Code Code Syste m Replace R Knee Jt w Zirc on Poly, Cement, Open 08/07/2021 completed 9JVV775 [id number] Robotic Assisted Procedure o f Lower Extremity, Open Approach 08/07/2021 completed [id number] S Introduction of Anesthetic A gent into Peripheral Nerves and Plexi, Percutaneous Approach 08/07/2021 completed 7C8Z1FB [id number] Anesthesia, Open/Surg Arthro scopic Proc, Knee Joint; Total Knee Arthroplasty 08/07/2021 completed 69636 CPT Implants Implanted XANDER Status Assigning Authority Procedure Date Lot Number Serial Number Manufacturing Date Expiration Date Distinct ID Code Brand Name Model Number Uncoated knee tibia prosthesis , [place] ne 0100 8855 5617 9017 1732 0219 1022 BM15 170 Active FDA RIGHT TKA 08/07 [id number] 70 05/05/2031 JOURNE Y 6663370 1 Press-fit femoral stem prosthesis 0100 8855 5604 5497 1732 0103 1022 AM02 144 Active FDA RIGHT TKA 08/07 [id number] 44 03/19/2031 GENESI S II 7502586 9 Uncoated knee tibia prosthesis , metallic 0103 5960 1055 4277 1731 0922 1021 JM16 667 Active FDA RIGHT TKA 08/07 98NB989 67 12/06/2030 JOURNE Y 5996062 3 Uncoated knee femur prosthesis , metallic 0100 8855 5616 9865 1732 0102 1022 AM00 348 Active FDA RIGHT TKA 08/07 [id number] 48 03/18/2031 JOURNE Y 8692776 4 Polyethyle ne patella prosthesis 0103 5960 1055 4536 1732 0409 1022 DM07 577 Active FDA RIGHT TKA 08/07 [id number] 77 06/24/2031 JOURNE Y 9355498 2 Orthopaedi c cement, antimicrob ial 0100 8855 5658 2237 1726 1130 1021 MTC0 185 Active FDA RIGHT TKA 08/07 [id number] 85 02/13/2026 CLAUDIA [id number] 0 Problems Problem Start Date Resolved Date Status Code Code System 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 543857842 S NOMED-CT Allergies and Adverse Reactions Allergy Substance Reaction Severity Start Date Concern Status Code Code System SULFA (sulfonamide) ORAL SORES (SNOMED-CT: null) Active 95016289 SNOMED-CT HYDROMORPHONE ITCHING (SNOMED-CT: null), DILAUDID (SNOMED-CT: null) Active 3423 RxNorm PERCOCET HALLUCINATIONS (SNOMED-CT: null) Active 61053 RxNorm Plan of Treatment PRE-OP TESTING 01/03/2022 PRE-OP COVID-19 TESTING 08/04/2021 PRE-OP TESTING 07/11/2021 Encounters Encounter Diagnosis Start Date Code Code Sys tem Unilateral primary osteoarthritis, right knee 08/08/19 22 SNOMED-CT Personal Care Team Section Performer Name Performer Role Active Date Inactive Da te Discharge Summary Notes [facility] 08/08/2021 12:59 Discharge Instructions after Total Knee Replacement RESUME your normal home medication unless you have been otherwise directed DISCONTINUE all NSAIDS (Ibuprofen, Aleve etc), for the first month after surgery Your new prescriptions were sent to [facility] [place] START the following medications: Narcan (naloxone) 2 pack nasal spray 4mg/0.1ml [place] 0.1ml in 1 nostril and repeat with 2nd device into other nostril if no or minimal response in 2-3 mins. Celebrex 200mg tablets 1 tab by mouth daily for 30 days Tylenol 500mg tablets 1-2 tablets by mouth every 6-8 hrs as needed for mild-moderate pain (max 4G/24hr) Tramadol 50mg tablets 1-2 tablet by mouth every 6-8 hours as needed for moderate-severe pain Eliquis 2.5mg tablets by mouth twice a day for 2 weeks This is a dose change from your Eliquis dosing preoperatively [facility] [place] Protocol: -Dressings are to be kept clean and dry unless showering. A small amount of clear or bloody drainage may take place. Do not take a bath or hot tub or submerge the incision until it has fully healed (about 1 month after surgery). -The bandage, a dry gauze (Telfa) with a clear tape (Tegaderm), should remain in place until 3 days after surgery. You may shower with the bandage on. After removing the bandage, you can shower without covering the incision. You may reinforce with a dry dressing if you experience any bleeding or drainage. -[place] were used to close your incision. These should remain in place for 10-14 days after surgery. The ada will be removed in the office at your 2 week follow-up appointment. JAIDA Dressing: -A JAIDA dressing was applied in the operating room to your surgical incision. This is to be kept intact for 1 week after surgery and you will have an appointment in the office for removal or home health services will remove the bandage. A small amount of clear or bloody drainage may appear on the bandage, this is normal. - Please check that the OK on the battery pack attached to the JAIDA dressing is blinking green several times per day. If it is not blinking green, please use the troubleshooting instructions from the director social service or contact [facility]. You may shower with the bandage on, but unplug the device prior to showering and reattach the battery immediately after. -After the bandage is removed, you can shower without covering the incision. You may reinforce with a dry dressing if you experience any bleeding or drainage. Do not take a bath, hot tub, or submerge the incision until it has fully healed (about 1 month after surgery). Weight Bearing - You can put as much weight on your leg as you feel is comfortable. Most people use a walker, cane or crutch for 3-4 weeks after surgery. Outpatient Physical Therapy - You will be given a home physical therapy exercise guide at discharge and should follow those instructions for the first 2-3 weeks postoperatively. - Outpatient physical therapy will begin around 2 weeks after surgery. - The goals of physical therapy are to obtain flexion and extension, restore normal walking pattern, and decrease swelling. - Zero degree knee pillow: heel should be placed in the pillow at all times when awake Swelling/Preventing Blood Clots - Swelling to some degree is common for up to 6 months after joint replacement. - To reduce swelling, elevation, and compression stockings are helpful. - Compression stockings, an SARABJIT wrap or MC hose help prevent blood from pooling in your leg. Put them on first thing in the morning and remove them before going to bed. Driving - You can drive again when you are no longer using narcotic pain medications (MS contin aka morphine sulfate, Vicodin aka hydrocodone, Percocet aka oxycodone) or assistive walking devices (cane, walker, crutches). - For most patients this is between 3-5 weeks after surgery Dental Work (or other invasive procedures) - Avoid dental work even for routine cleaning for the first 6 months after joint replacement surgery. - If you experience a dental emergency within 6 months, have the issue addressed and take antibiotics prior. Narcotic Pain Medication - Pain medication are unique to each individual. We encourage the use of pain medications as prescribed. They should gradually be decreased as your pain level diminishes. - Most people are able to wean down on their pain medications within the first 4 weeks, primarily continuing to use medicine as needed around therapy sessions in order to maximize benefit. Constipation - We encourage over the counter stool softeners while on narcotic pain medications. Examples: dulcolax, senokot, Colace - Drink lots of water and consume a high fiber diet Phone Calls - If you have questions or problems do not hesitate to call - If you develop significant increase in pain, redness, drainage, or fever greater than 102 degrees Fahrenheit. If you have new onset calf/thigh pain, as well as shortness of breath, please call us. - If questions arise Friday- Friday between 8am-4:30pm please call [facility] at - After hours, please call [facility] at and ask for the orthopedic provider sales promotion manager to be paged. You should get a call back very shortly. We have someone sales promotion manager 07/10. Follow-up - You will receive a phone call from our office around 1 week after surgery - Your follow up appointment has been schedule for Progress Notes [facility] 08/08/2021 13:00 Progress Note Knee POD1 S: Patient is 1 day status post Right knee replacement and is doing well. Pain has been difficult to controlled. Trying Dilaudid 2 mg 1-3 Q4-6 No nausea or vomiting. Vital Signs: Today Date/Time BP (mm/Hg) BP Position/Site Heart Rate Resp Temp (?C) Temp (?F) SPO2% O2 Device Blood Sugar (mg/dL) Pain Score Height (cm) Height (in) Weight (kg) Weight (lbs/ozs) BMI Head Cir (cm) 08/08/2021 07:34 119/57 LYING/R ARM 66 14 35.7 TEMPORAL SCANNING 96.3 TEMPORAL SCANNING 95 % Room Air 21% 08/08/2021 03:37 147/63 SITTING/R ARM 66 18 36.7 TEMPORAL 98.1 TEMPORAL 97 % 08/08/2021 00:01 111/53 LYING/R ARM 70 18 36.1 TEMPORAL SCANNING 97 TEMPORAL SCANNING 95 % Room Air 21% Lab Results: This Visit: No Labs Available Dressing dry No calf tenderness Distal motor and sensory exam is intact. A: doing well POD1 P: pain management, PT per Protocol, DVT prophylaxis. Discharge planning.
--- OUTSIDE RECORDS SUMMARY | 2024-04-02 00:34 | XMS_ITS ---
Author Organization Unknown Address [address] [place] [address] [phone] Phone Care Team Providers Care Pr Internship Name Role Phone KERRY Hilario Attending Unavailable [...] mcg/0.25mL dose 01/20/2021 Completed [address] [facility] COVID RHEONIX* - Vicente ect Date/Time: 08/04/2021 10:34 [facility] ID: [id number] [address] [place] [address], [phone] LOINC: 58702-3 Test Value Unit Reference Range Code Code System Flag Tier- PRE-OP 51415-0 LOINC SARS COV2 RNA: NEGATIVE REFERENCE RANGE: NEGAT 35598-4 L OINC Social History Type Status Start Date End Date Code Code Syst em Smoking History Never smoker (Never Smoked) 284297549 SNOMED CT Sex Female Assessment You had [...] BM15 170 Active FDA RIGHT TKA 08/07 [id number] 70 05/05/2031 JOURNE Y 4998705 1 Press-fit femoral stem prosthesis 0100 8855 5604 5497 1732 0103 1022 AM02 144 Active FDA RIGHT TKA 08/07 [id number] 44 03/19/2031 GENESI S II 8104632 9 Uncoated knee tibia prosthesis , metallic 0103 5960 1055 4277 1731 0922 1021 JM16 667 Active FDA RIGHT TKA 08/07 [id number] 67 12/06/2030 JOURNE Y 8044649 3 Uncoated knee femur prosthesis , metallic 0100 8855 5616 9865 1732 0102 1022 AM00 348 Active FDA RIGHT TKA 08/07 [id number] 48 03/18/2031 JOURNE Y 5861641 4 Polyethyle ne patella prosthesis 0103 5960 1055 4536 1732 0409 1022 DM07 577 Active FDA RIGHT TKA 08/07 [id number] 77 06/24/2031 JOURNE Y 7722790 2 Orthopaedi c cement, antimicrob ial 0100 8855 5658 2237 1726 1130 1021 MTC0 185 Active FDA RIGHT TKA 08/07 16KUB00 85 02/13/2026 VEENA [id number] 0 Problems Problem Start Date Resolved Date Status Code Code System 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 404784613 S NOMED-CT Allergies and Adverse Reactions Allergy Substance Reaction Severity Start Date Concern Status Code Code System SULFA (sulfonamide) ORAL SORES (SNOMED-CT: null) Active 79979058 SNOMED-CT HYDROMORPHONE ITCHING (SNOMED-CT: null), DILAUDID (SNOMED-CT: null) Active 3423 RxNorm PERCOCET HALLUCINATIONS (SNOMED-CT: null) Active 92558 RxNorm Plan of Treatment PRE-OP TESTING 01/03/2022 PRE-OP COVID-19 TESTING 08/04/2021 PRE-OP TESTING 07/11/2021 Encounters Encounter Diagnosis Start Date Code Code Sys tem Pre-surgery testing 08/04/2021 407656085 SNOMED-C T Personal Care Team Section Performer Name Performer Role Active Date Inactive Da te
--- OUTSIDE RECORDS SUMMARY | 2024-04-02 00:34 | XMS_ITS ---
Author Organization Unknown Address [address] [place] [address] [phone] Phone Care Team Providers Care Literacy Specialist Name Role Phone KERRY Hilario Attending Unavailable [...] em Smoking History Never smoker (Never Smoked) [id number] SNOMED CT Sex Female Assessment You had [...] BM15 170 Active FDA RIGHT TKA 08/07 [id number] 70 05/05/2031 JOURNE Y 1764421 1 Press-fit femoral stem prosthesis 0100 8855 5604 5497 1732 0103 1022 AM02 144 Active FDA RIGHT TKA 08/07 [id number] 44 03/19/2031 GENESI S II 5890090 9 Uncoated knee tibia prosthesis , metallic 0103 5960 1055 4277 1731 0922 1021 JM16 667 Active FDA RIGHT TKA 08/07 [id number] 67 12/06/2030 JOURNE Y 1784760 3 Uncoated knee femur prosthesis , metallic 0100 8855 5616 9865 1732 0102 1022 AM00 348 Active FDA RIGHT TKA 08/07 [id number] 48 03/18/2031 JOURNE Y 4429113 4 Polyethyle ne patella prosthesis 0103 5960 1055 4536 1732 0409 1022 DM07 577 Active FDA RIGHT TKA 08/07 [id number] 77 06/24/2031 JOURNE Y 7010512 2 Orthopaedi c cement, antimicrob ial 0100 8855 5658 2237 1726 1130 1021 MTC0 185 Active FDA RIGHT TKA 08/07 [id number] 85 02/13/2026 CLAUDIA [id number] 0 Problems Problem Start Date Resolved Date Status Code Code System 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 268905825 S NOMED-CT Allergies and Adverse Reactions Allergy Substance Reaction Severity Start Date Concern Status Code Code System SULFA (sulfonamide) ORAL SORES (SNOMED-CT: null) Active 63487661 SNOMED-CT HYDROMORPHONE ITCHING (SNOMED-CT: null), DILAUDID (SNOMED-CT: null) Active 3423 RxNorm PERCOCET HALLUCINATIONS (SNOMED-CT: null) Active 43579 RxNorm Plan of Treatment PRE-OP TESTING 01/03/2022 PRE-OP COVID-19 TESTING 08/04/2021 PRE-OP TESTING 07/11/2021 Encounters Encounter Diagnosis Start Date Code Code Sys tem 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
--- OUTSIDE RECORDS SUMMARY | 2024-04-02 00:34 | XMS_ITS ---
Author Organization Unknown Address [address] [place] [address] [phone] Phone Care Team Providers Care Carpenter Packing Name Role Phone KERRY Hilario Attending Unavailable [...] em Smoking History Never smoker (Never Smoked) 268093773 SNOMED CT Sex Female Assessment You had [...] BM15 170 Active FDA RIGHT TKA 08/07 [id number] 70 05/05/2031 JOURNE Y 2888599 1 Press-fit femoral stem prosthesis 0100 8855 5604 5497 1732 0103 1022 AM02 144 Active FDA RIGHT TKA 08/07 [id number] 44 03/19/2031 GENESI S II 3257561 9 Uncoated knee tibia prosthesis , metallic 0103 5960 1055 4277 1731 0922 1021 JM16 667 Active FDA RIGHT TKA 08/07 [id number] 67 12/06/2030 JOURNE Y 6045250 3 Uncoated knee femur prosthesis , metallic 0100 8855 5616 9865 1732 0102 1022 AM00 348 Active FDA RIGHT TKA 08/07 [id number] 48 03/18/2031 JOURNE Y 7791816 4 Polyethyle ne patella prosthesis 0103 5960 1055 4536 1732 0409 1022 DM07 577 Active FDA RIGHT TKA 08/07 [id number] 77 06/24/2031 JOURNE Y 1194623 2 Orthopaedi c cement, antimicrob ial 0100 8855 5658 2237 1726 1130 1021 MTC0 185 Active FDA RIGHT TKA 08/07 [id number] 85 02/13/2026 CLAUDIA [id number] 0 Problems Problem Start Date Resolved Date Status Code Code System 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 861312572 S NOMED-CT Allergies and Adverse Reactions Allergy Substance Reaction Severity Start Date Concern Status Code Code System SULFA (sulfonamide) ORAL SORES (SNOMED-CT: null) Active 39935092 SNOMED-CT HYDROMORPHONE ITCHING (SNOMED-CT: null), DILAUDID (SNOMED-CT: null) Active 3423 RxNorm PERCOCET HALLUCINATIONS (SNOMED-CT: null) Active 01700 RxNorm Plan of Treatment PRE-OP TESTING 01/03/2022 PRE-OP COVID-19 TESTING 08/04/2021 PRE-OP TESTING 07/11/2021 Encounters Encounter Diagnosis Start Date Code Code Sys tem Artificial knee joint present 08/14/2021 [id number] 2 SNOMED-CT Personal Care Team Section Performer Name Performer Role Active Date Inactive Da te
--- OUTSIDE RECORDS SUMMARY | 2024-04-02 00:34 | XMS_ITS ---
Author Organization Unknown Address [address] [place] [address] [phone] Phone Care Team Providers Care Harmonic Analyst Name Role Phone KERRY Hilario Attending Unavailable [...] em Smoking History Never smoker (Never Smoked) 552875980 SNOMED CT Sex Female Assessment You had [...] BM15 170 Active FDA RIGHT TKA 08/07 [id number] 70 05/05/2031 JOURNE Y 6023366 1 Press-fit femoral stem prosthesis 0100 8855 5604 5497 1732 0103 1022 AM02 144 Active FDA RIGHT TKA 08/07 [id number] 44 03/19/2031 GENESI S II 1968697 9 Uncoated knee tibia prosthesis , metallic 0103 5960 1055 4277 1731 0922 1021 JM16 667 Active FDA RIGHT TKA 08/07 [id number] 67 12/06/2030 JOURNE Y 1701634 3 Uncoated knee femur prosthesis , metallic 0100 8855 5616 9865 1732 0102 1022 AM00 348 Active FDA RIGHT TKA 08/07 [id number] 48 03/18/2031 JOURNE Y 1073445 4 Polyethyle ne patella prosthesis 0103 5960 1055 4536 1732 0409 1022 DM07 577 Active FDA RIGHT TKA 08/07 [id number] 77 06/24/2031 JOURNE Y 1197505 2 Orthopaedi c cement, antimicrob ial 0100 8855 5658 2237 1726 1130 1021 MTC0 185 Active FDA RIGHT TKA 08/07 [id number] 85 02/13/2026 CLAUDIA [id number] 0 Problems Problem Start Date Resolved Date Status Code Code System 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 824528280 S NOMED-CT Allergies and Adverse Reactions Allergy Substance Reaction Severity Start Date Concern Status Code Code System SULFA (sulfonamide) ORAL SORES (SNOMED-CT: null) Active 16364041 SNOMED-CT HYDROMORPHONE ITCHING (SNOMED-CT: null), DILAUDID (SNOMED-CT: null) Active 3423 RxNorm PERCOCET HALLUCINATIONS (SNOMED-CT: null) Active 88280 RxNorm Plan of Treatment PRE-OP TESTING 01/03/2022 PRE-OP COVID-19 TESTING 08/04/2021 PRE-OP TESTING 07/11/2021 Encounters Encounter Diagnosis Start Date Code Code Sys tem Canceled operative procedure 05/17/2021 66672710 SNOMED-CT Personal Care Team Section Performer Name Performer Role Active Date Inactive Da te
--- OUTSIDE RECORDS SUMMARY | 2024-04-02 00:35 | XMS_ITS ---
Author Organization Unknown Address [address] [place] [address] [phone] Phone Care Team Providers Care Precast Concrete Products Installer Name Role Phone KERRY Hilario Attending Unavailable [...] em Smoking History Never smoker (Never Smoked) 938827802 SNOMED CT Sex Female Assessment You had [...] BM15 170 Active FDA RIGHT TKA 08/07 [id number] 70 05/05/2031 JOURNE Y 8597330 1 Press-fit femoral stem prosthesis 0100 8855 5604 5497 1732 0103 1022 AM02 144 Active FDA RIGHT TKA 08/07 [id number] 44 03/19/2031 GENESI S II 8288733 9 Uncoated knee tibia prosthesis , metallic 0103 5960 1055 4277 1731 0922 1021 JM16 667 Active FDA RIGHT TKA 08/07 [id number] 67 12/06/2030 JOURNE Y 4203895 3 Uncoated knee femur prosthesis , metallic 0100 8855 5616 9865 1732 0102 1022 AM00 348 Active FDA RIGHT TKA 08/07 [id number] 48 03/18/2031 JOURNE Y 9156939 4 Polyethyle ne patella prosthesis 0103 5960 1055 4536 1732 0409 1022 DM07 577 Active FDA RIGHT TKA 08/07 [id number] 77 06/24/2031 JOURNE Y 3802033 2 Orthopaedi c cement, antimicrob ial 0100 8855 5658 2237 1726 1130 1021 MTC0 185 Active FDA RIGHT TKA 08/07 [id number] 85 02/13/2026 CLAUDIA [id number] 0 Problems Problem Start Date Resolved Date Status Code Code System 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 855669362 S NOMED-CT Allergies and Adverse Reactions Allergy Substance Reaction Severity Start Date Concern Status Code Code System SULFA (sulfonamide) ORAL SORES (SNOMED-CT: null) Active 53516061 SNOMED-CT HYDROMORPHONE ITCHING (SNOMED-CT: null), DILAUDID (SNOMED-CT: null) Active 3423 RxNorm PERCOCET HALLUCINATIONS (SNOMED-CT: null) Active 97334 RxNorm Plan of Treatment PRE-OP TESTING 01/03/2022 PRE-OP COVID-19 TESTING 08/04/2021 PRE-OP TESTING 07/11/2021 Encounters Encounter Diagnosis Start Date Code Code Sys tem Canceled operative procedure 09/07/2021 85957820 SNOMED-CT Personal Care Team Section Performer Name Performer Role Active Date Inactive Da te
--- OUTSIDE RECORDS SUMMARY | 2024-04-02 00:35 | XMS_ITS ---
Author Organization Unknown Address [address] [place] [address] [phone] Phone Care Team Providers Care Automotive Project Engineer Name Role Phone KERRY Hilario Attending Unavailable [...] em Smoking History Never smoker (Never Smoked) 605724814 SNOMED CT Sex Female Assessment You had [...] BM15 170 Active FDA RIGHT TKA 08/07 [id number] 70 05/05/2031 JOURNE Y 7033173 1 Press-fit femoral stem prosthesis 0100 8855 5604 5497 1732 0103 1022 AM02 144 Active FDA RIGHT TKA 08/07 [id number] 44 03/19/2031 GENESI S II 3014371 9 Uncoated knee tibia prosthesis , metallic 0103 5960 1055 4277 1731 0922 1021 JM16 667 Active FDA RIGHT TKA 08/07 [id number] 67 12/06/2030 JOURNE Y 2116733 3 Uncoated knee femur prosthesis , metallic 0100 8855 5616 9865 1732 0102 1022 AM00 348 Active FDA RIGHT TKA 08/07 [id number] 48 03/18/2031 JOURNE Y 0419445 4 Polyethyle ne patella prosthesis 0103 5960 1055 4536 1732 0409 1022 DM07 577 Active FDA RIGHT TKA 08/07 [id number] 77 06/24/2031 JOURNE Y 5863981 2 Orthopaedi c cement, antimicrob ial 0100 8855 5658 2237 1726 1130 1021 MTC0 185 Active FDA RIGHT TKA 08/07 [id number] 85 02/13/2026 CLAUDIA [id number] 0 Problems Problem Start Date Resolved Date Status Code Code System 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 395076764 S NOMED-CT Allergies and Adverse Reactions Allergy Substance Reaction Severity Start Date Concern Status Code Code System SULFA (sulfonamide) ORAL SORES (SNOMED-CT: null) Active 78581382 SNOMED-CT HYDROMORPHONE ITCHING (SNOMED-CT: null), DILAUDID (SNOMED-CT: null) Active 3423 RxNorm PERCOCET HALLUCINATIONS (SNOMED-CT: null) Active 35566 RxNorm Plan of Treatment PRE-OP TESTING 01/03/2022 PRE-OP COVID-19 TESTING 08/04/2021 PRE-OP TESTING 07/11/2021 Encounters Encounter Diagnosis Start Date Code Code Sys tem Aftercare 10/08/2021 806094973 SNOMED-CT Personal Care Team Section Performer Name Performer Role Active Date Inactive Da te
--- OUTSIDE RECORDS SUMMARY | 2024-04-02 00:35 | XMS_ITS ---
Author Organization Unknown Address [address] [place] [address] [phone] Phone Care Team Providers Care Shoe Fitter Name Role Phone KERRY Hilario Attending Unavailable [...] 01/20/2021 Completed 207 CVX Results XR KNEE 3V RT* - Completed: 09/10/2021 11:37 LOINC: RIGHT KNEE, 3 VIEWS: Comparison is 08/07/2021. 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 The bones are intact and normally mineralized. There is a decrease in the soft tissue swelling around the knee. Dictated by: RILEY VILA MD Transcribed by: SONI 09/10/21/14:46 [id number] Electronically Reviewed and Signed By: LINDA VILA MD 09/10/21 14:54 Copy for: RAYMOND CAMARA via fax Copy for: [facility] [employer] [facility] Social History Type Status Start Date End Date Code Code Syst em Smoking History Never smoker (Never Smoked) 114617186 SNOMED CT Sex Female Assessment You had [...] BM15 170 Active FDA RIGHT TKA 08/07 [id number] 70 05/05/2031 JOURNE Y 7889851 1 Press-fit femoral stem prosthesis 0100 8855 5604 5497 1732 0103 1022 AM02 144 Active FDA RIGHT TKA 08/07 [id number] 44 03/19/2031 GENESI S II 5434955 9 Uncoated knee tibia prosthesis , metallic 0103 5960 1055 4277 1731 0922 1021 JM16 667 Active FDA RIGHT TKA 08/07 [id number] 67 12/06/2030 JOURNE Y 2318415 3 Uncoated knee femur prosthesis , metallic 0100 8855 5616 9865 1732 0102 1022 AM00 348 Active FDA RIGHT TKA 08/07 [id number] 48 03/18/2031 JOURNE Y 1194284 4 Polyethyle ne patella prosthesis 0103 5960 1055 4536 1732 0409 1022 DM07 577 Active FDA RIGHT TKA 08/07 [id number] 77 06/24/2031 JOURNE Y 0630211 2 Orthopaedi c cement, antimicrob ial 0100 8855 5658 2237 1726 1130 1021 MTC0 185 Active FDA RIGHT TKA 08/07 [id number] 85 02/13/2026 VEENA 7477821 0 Problems Problem Start Date Resolved Date Status Code Code System 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 214848531 S NOMED-CT Allergies and Adverse Reactions Allergy Substance Reaction Severity Start Date Concern Status Code Code System SULFA (sulfonamide) ORAL SORES (SNOMED-CT: null) Active 31662279 SNOMED-CT HYDROMORPHONE ITCHING (SNOMED-CT: null), DILAUDID (SNOMED-CT: null) Active 3423 RxNorm PERCOCET HALLUCINATIONS (SNOMED-CT: null) Active 55220 RxNorm Plan of Treatment PRE-OP TESTING 01/03/2022 PRE-OP COVID-19 TESTING 08/04/2021 PRE-OP TESTING 07/11/2021 Encounters Encounter Diagnosis Start Date Code Code Sys tem Aftercare 09/10/2021 418145331 SNOMED-CT Personal Care Team Section Performer Name Performer Role Active Date Inactive Hermann hernandez
--- OUTSIDE RECORDS SUMMARY | 2024-04-02 00:35 | XMS_ITS ---
Author Organization Unknown Address [address] [place] [address] [phone] Phone Care Team Providers Care Package Sealer Name Role Phone KERRY Hilario Attending Unavailable [...] em Smoking History Never smoker (Never Smoked) 569971183 SNOMED CT Sex Female Assessment You had [...] BM15 170 Active FDA RIGHT TKA 08/07 [id number] 70 05/05/2031 JOURNE Y 5943418 1 Press-fit femoral stem prosthesis 0100 8855 5604 5497 1732 0103 1022 AM02 144 Active FDA RIGHT TKA 08/07 [id number] 44 03/19/2031 GENESI S II 2323397 9 Uncoated knee tibia prosthesis , metallic 0103 5960 1055 4277 1731 0922 1021 JM16 667 Active FDA RIGHT TKA 08/07 [id number] 67 12/06/2030 JOURNE Y 5768841 3 Uncoated knee femur prosthesis , metallic 0100 8855 5616 9865 1732 0102 1022 AM00 348 Active FDA RIGHT TKA 08/07 [id number] 48 03/18/2031 JOURNE Y 8542007 4 Polyethyle ne patella prosthesis 0103 5960 1055 4536 1732 0409 1022 DM07 577 Active FDA RIGHT TKA 08/07 [id number] 77 06/24/2031 JOURNE Y 5154533 2 Orthopaedi c cement, antimicrob ial 0100 8855 5658 2237 1726 1130 1021 MTC0 185 Active FDA RIGHT TKA 08/07 [id number] 85 02/13/2026 CLAUDIA [id number] 0 Problems Problem Start Date Resolved Date Status Code Code System 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 655284667 S NOMED-CT Allergies and Adverse Reactions Allergy Substance Reaction Severity Start Date Concern Status Code Code System SULFA (sulfonamide) ORAL SORES (SNOMED-CT: null) Active 88755133 SNOMED-CT HYDROMORPHONE ITCHING (SNOMED-CT: null), DILAUDID (SNOMED-CT: null) Active 3423 RxNorm PERCOCET HALLUCINATIONS (SNOMED-CT: null) Active 51907 RxNorm Plan of Treatment PRE-OP TESTING 01/03/2022 PRE-OP COVID-19 TESTING 08/04/2021 PRE-OP TESTING 07/11/2021 Encounters Encounter Diagnosis Start Date Code Code Sys tem Removal of suture 08/23/2021 14509706 SNOMED-CT Personal Care Team Section Performer Name Performer Role Active Date Inactive Da te
--- OUTSIDE RECORDS SUMMARY | 2024-04-02 00:36 | XMS_ITS ---
Author Organization Unknown Address [address] [place] [address] [phone] Phone Care Team Providers Care Custom Shop Worker Name Role Phone KERRY Hilario Attending Unavailable [...] em Smoking History Never smoker (Never Smoked) 110163466 SNOMED CT Sex Female Assessment You had [...] BM15 170 Active FDA RIGHT TKA 08/07 [id number] 70 05/05/2031 JOURNE Y 0650920 1 Press-fit femoral stem prosthesis 0100 8855 5604 5497 1732 0103 1022 AM02 144 Active FDA RIGHT TKA 08/07 [id number] 44 03/19/2031 GENESI S II 1683577 9 Uncoated knee tibia prosthesis , metallic 0103 5960 1055 4277 1731 0922 1021 JM16 667 Active FDA RIGHT TKA 08/07 [id number] 67 12/06/2030 JOURNE Y 8863892 3 Uncoated knee femur prosthesis , metallic 0100 8855 5616 9865 1732 0102 1022 AM00 348 Active FDA RIGHT TKA 08/07 [id number] 48 03/18/2031 JOURNE Y 6990604 4 Polyethyle ne patella prosthesis 0103 5960 1055 4536 1732 0409 1022 DM07 577 Active FDA RIGHT TKA 08/07 [id number] 77 06/24/2031 JOURNE Y 8628522 2 Orthopaedi c cement, antimicrob ial 0100 8855 5658 2237 1726 1130 1021 MTC0 185 Active FDA RIGHT TKA 08/07 [id number] 85 02/13/2026 CLAUDIA 5590737 0 Problems Problem Start Date Resolved Date Status Code Code System 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 470129307 S NOMED-CT Allergies and Adverse Reactions Allergy Substance Reaction Severity Start Date Concern Status Code Code System SULFA (sulfonamide) ORAL SORES (SNOMED-CT: null) Active 69808623 SNOMED-CT HYDROMORPHONE ITCHING (SNOMED-CT: null), DILAUDID (SNOMED-CT: null) Active 3423 RxNorm PERCOCET HALLUCINATIONS (SNOMED-CT: null) Active 40290 RxNorm Plan of Treatment PRE-OP TESTING 01/03/2022 PRE-OP COVID-19 TESTING 08/04/2021 PRE-OP TESTING 07/11/2021 Encounters Encounter Diagnosis Start Date Code Code Sys tem Specialized medical examination 01/23/2022 61724141 SNOMED-CT Personal Care Team Section Performer Name Performer Role Active Date Inactive Da te
--- OUTSIDE RECORDS SUMMARY | 2024-04-02 00:36 | XMS_ITS ---
Author Organization Unknown Address [address] [place] [address] [phone] Phone Care Team Providers Care Pharmacy Picking Technician Name Role Phone KERRY Hilario Attending Unavailable [...] SCREEN* - Collect D ate/Time: 01/03/2022 09:55 [facility] ID: [id number] [address] [place] [address], [id number] LOINC: Test Value Unit Reference Range Code Code System Flag Blood Group B 883-9 LOINC Rh (D) NEGATIVE 19704-0 LOINC Antibody Screen NEGATIVE 1005-8 LOINC PT PROTHROMBIN TIME* - Colle ct Date/Time: 01/03/2022 09:55 [facility] ID: [id number] [address] [place] [address], [address] LOINC: 5902-2 Test Value Unit Reference Range Code Code System Flag PROTIME 10.5 seconds L=9.3 H=11.4 5902-2 LOINC INR 1.05 L=2.00 H=3.00 67464-0 LOINC L MRSA/MSSA NASAL COMPLETE BY PCR* - Collect Date/Time: 01/03/2022 09:55 [facility] ID: [id number] [address] [place], [place], [phone] LOINC: Test Value Unit Reference Range Code Code System Flag MRSA POSITIVE Normal: Negative 46519-5 LOINC A MSSA DNR Normal: Negative BASIC METABOLIC PANEL (BMP) - Collect Date/Time: 01/03/2022 09:55 [facility] ID: [id number] [address] [place], [place], [address] LOINC: 71412-6 Test Value Unit Reference Range Code Code System Flag GLUCOSE 89 mg/dL L=70 H=116 2345-7 LOINC BUN 17 mg/dL L=6 H=25 3094-0 LOINC CREATININE 0.84 mg/dL L=0.51 H=0.95 2160-0 LOINC SODIUM SERUM 137 mmol/L L=136 H=145 2951-2 LOINC POTASSIUM SERUM 3.7 mmol/L L=3.4 H=5.2 2823-3 LOINC CHLORIDE SERUM 103 mmol/L L=96 H=110 2075-0 LOINC CARBON DIOXIDE (CO2) 27 mmol/L L=22 H=34 2028-9 LOINC ANION GAP 7.2 mmol/L 91094-4 LOINC CALCIUM SERUM 8.7 mg/dL L=8.2 H=10.2 46637-0 LOINC AGE 81 years eGFR (non-Afr.Amer.) 65 mL/min 87992-7 LOINC eGFR (Afr-Mosotho) 79 mL/min 54936-4 LOINC CBC W/ DIFFERENTIAL* - Colle ct Date/Time: 01/03/2022 09:55 [facility] ID: [id number] [address] [place] [address], [address] LOINC: 83072-3 Test Value Unit Reference Range Code Code System Flag WBC 4.21 th/cmm L=5.00 H=10.00 6690-2 LOINC L NEUT % 56.6 % L=40.0 H=80.0 LYMPH % 29.9 % L=10.0 H=50.0 MONO % 9.0 % L=2.0 H=12.0 02892-1 LOINC EOS % 2.9 % L=0.0 H=8.0 BASO % 1.4 % L=0.0 H=3.0 IG % 0.2 % L=0.0 H=1.1 2514-8 LOINC NRBC % 0.0 % L=0.0 H=0.0 81069-3 LOINC NEUT abs count 2.4 th/cmm L=1.6 H=8.4 751-8 LOINC LYMPH abs count 1.3 th/cmm L=1.5 H=4.0 731-0 LOINC L MONO abs count 0.4 th/cmm L=0.2 H=1.0 742-7 LOINC EOS abs count 0.1 th/cmm L=0.0 H=0.5 711-2 LOINC BASO abs count 0.1 th/cmm L=0.0 H=0.2 704-7 LOINC IG abs count 0.0 th/cmm L=0.0 H=0.1 59199-1 LOINC NRBC abs count 0.0 mil/cmm L=0.0 H=0.0 01344-9 LOINC RBC 4.01 mil/cmm L=3.90 H=5.40 789-8 LOINC HEMOGLOBIN 12.3 gm/dL L=12.0 H=16.0 718-7 LOINC HEMATOCRIT 37 % L=37 H=47 4544-3 LOINC MCV 93 fL L=82 H=92 787-2 LOINC H MCH 30.7 pg L=27.0 H=31.0 785-6 LOINC MCHC 33.0 % L=32.0 H=36.0 786-4 LOINC RDW-SD 49.1 fL L=39.0 H=49.0 788-0 LOINC H PLATELET COUNT 243 th/cmm L=150 H=450 777-3 [facility] Social History Type Status Start Date End Date Code Code Syst em Smoking History Never smoker (Never Smoked) 249602134 SNOMED CT Sex Female Assessment You had [...] BM15 170 Active FDA RIGHT TKA 08/07 [id number] 70 05/05/2031 JOURNE Y 6028592 1 Press-fit femoral stem prosthesis 0100 8855 5604 5497 1732 0103 1022 AM02 144 Active FDA RIGHT TKA 08/07 [id number] 44 03/19/2031 GENESI S II 5793587 9 Uncoated knee tibia prosthesis , metallic 0103 5960 1055 4277 1731 0922 1021 JM16 667 Active FDA RIGHT TKA 08/07 [id number] 67 12/06/2030 JOURNE Y 5394523 3 Uncoated knee femur prosthesis , metallic 0100 8855 5616 9865 1732 0102 1022 AM00 348 Active FDA RIGHT TKA 08/07 [id number] 48 03/18/2031 JOURNE Y 1261895 4 Polyethyle ne patella prosthesis 0103 5960 1055 4536 1732 0409 1022 DM07 577 Active FDA RIGHT TKA 08/07 [id number] 77 06/24/2031 JOURNE Y 5950815 2 Orthopaedi c cement, antimicrob ial 0100 8855 5658 2237 1726 1130 1021 MTC0 185 Active FDA RIGHT TKA 08/07 [id number] 85 02/13/2026 CLAUDIA 5670741 0 Problems Problem Start Date Resolved Date Status Code Code System 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 735280780 S NOMED-CT Allergies and Adverse Reactions Allergy Substance Reaction Severity Start Date Concern Status Code Code System SULFA (sulfonamide) ORAL SORES (SNOMED-CT: null) Active 77299633 SNOMED-CT HYDROMORPHONE ITCHING (SNOMED-CT: null), DILAUDID (SNOMED-CT: null) Active 3423 RxNorm PERCOCET HALLUCINATIONS (SNOMED-CT: null) Active 50840 RxNorm Plan of Treatment PRE-OP TESTING 01/03/2022 PRE-OP COVID-19 TESTING 08/04/2021 PRE-OP TESTING 07/11/2021 Encounters Encounter Diagnosis Start Date Code Code Sys tem Encounter for other preprocedural examination 01/04/20 SNOMED-CT Personal Care Team Section Performer Name Performer Role Active Date Inactive Da mary
--- OUTSIDE RECORDS SUMMARY | 2024-04-02 00:36 | XMS_ITS ---
Author Organization Unknown Address [address] [place] [address] [phone] Phone Care Team Providers Care Upholsterer Inside Name Role Phone KERRY Hilario Attending Unavailable [...] em Smoking History Never smoker (Never Smoked) 488769859 SNOMED CT Sex Female Assessment You had [...] BM15 170 Active FDA RIGHT TKA 08/07 [id number] 70 05/05/2031 JOURNE Y 4361015 1 Press-fit femoral stem prosthesis 0100 8855 5604 5497 1732 0103 1022 AM02 144 Active FDA RIGHT TKA 08/07 [id number] 44 03/19/2031 GENESI S II 7552017 9 Uncoated knee tibia prosthesis , metallic 0103 5960 1055 4277 1731 0922 1021 JM16 667 Active FDA RIGHT TKA 08/07 [id number] 67 12/06/2030 JOURNE Y 6295772 3 Uncoated knee femur prosthesis , metallic 0100 8855 5616 9865 1732 0102 1022 AM00 348 Active FDA RIGHT TKA 08/07 [id number] 48 03/18/2031 JOURNE Y 4553586 4 Polyethyle ne patella prosthesis 0103 5960 1055 4536 1732 0409 1022 DM07 577 Active FDA RIGHT TKA 08/07 [id number] 77 06/24/2031 JOURNE Y 3692465 2 Orthopaedi c cement, antimicrob ial 0100 8855 5658 2237 1726 1130 1021 MTC0 185 Active FDA RIGHT TKA 08/07 [id number] 85 02/13/2026 CLAUDIA 0200081 0 Problems Problem Start Date Resolved Date Status Code Code System 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 732235042 S NOMED-CT Allergies and Adverse Reactions Allergy Substance Reaction Severity Start Date Concern Status Code Code System SULFA (sulfonamide) ORAL SORES (SNOMED-CT: null) Active 54730089 SNOMED-CT HYDROMORPHONE ITCHING (SNOMED-CT: null), DILAUDID (SNOMED-CT: null) Active 3423 RxNorm PERCOCET HALLUCINATIONS (SNOMED-CT: null) Active 19428 RxNorm Plan of Treatment PRE-OP TESTING 01/03/2022 PRE-OP COVID-19 TESTING 08/04/2021 PRE-OP TESTING 07/11/2021 Encounters Encounter Diagnosis Start Date Code Code Sys tem Idiopathic osteoarthritis 01/01/2022 438596489 SN OMED-CT Personal Care Team Section Performer Name Performer Role Active Date Inactive Da te
--- OUTSIDE RECORDS SUMMARY | 2024-04-02 00:37 | XMS_ITS ---
Author Organization Unknown Address [address] [place] [address] [phone] Phone Care Team Providers Care Notching Machine Operator Name Role Phone FAWN HERMOSILLO Attending Unavailable RAYMOND KHAN MD Primary Unavailable Social History Type Status Start Date End Date Code Code Syst em Smoking History Never smoker (Never Smoked) 428648666 SNOMED CT Sex Female Assessment You had the following problems:MRSA COLONIZATION Hospital Discharge Instructions Should you have any questions prior to discharge, please contact a member of your healthcare team. If you have left the hospital and have any questions, please contact your primary care physician. Reason For Referral No Data Found Procedures Procedure Name Date Status Code Code Syste m Arthrocentesis Aspir&/Inj Ma lilly Jt/Bursa w/o 11/09/2020 completed CPT Implants Implanted XANDER Status Assigning Authority Procedure Date Lot Number Serial Number Manufacturing Date Expiration Date Distinct ID Code Brand Name Model Number Uncoated knee tibia prosthesis , [place] ne 0100 8855 5617 9017 1732 0219 1022 BM15 170 Active FDA RIGHT TKA 08/07 [id number] 70 05/05/2031 JOURNE Y [id number] 1 Press-fit femoral stem prosthesis 0100 8855 5604 5497 1732 0103 1022 AM02 144 Active FDA RIGHT TKA 08/07 [id number] 44 03/19/2031 GENESI S II [id number] 9 Uncoated knee tibia prosthesis , metallic 0103 5960 1055 4277 1731 0922 1021 JM16 667 Active FDA RIGHT TKA 08/07 [id number] 67 12/06/2030 JOURNE Y 8003031 3 Uncoated knee femur prosthesis , metallic 0100 8855 5616 9865 1732 0102 1022 AM00 348 Active FDA RIGHT TKA 08/07 [id number] 48 03/18/2031 JOURNE Y 9169978 4 Polyethyle ne patella prosthesis 0103 5960 1055 4536 1732 0409 1022 DM07 577 Active FDA RIGHT TKA 08/07 [id number] 77 06/24/2031 JOURNE Y 0248611 2 Orthopaedi c cement, antimicrob ial 0100 8855 5658 2237 1726 1130 1021 MTC0 185 Active FDA RIGHT TKA 08/07 [id number] 85 02/13/2026 RALLY [id number] Problems Problem Start Date Resolved Date Status Code Code System 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 387157698 S NOMED-CT Allergies and Adverse Reactions Allergy Substance Reaction Severity Start Date Concern Status Code Code System SULFA (sulfonamide) ORAL SORES (SNOMED-CT: null) Active 88869414 SNOMED-CT HYDROMORPHONE ITCHING (SNOMED-CT: null), DILAUDID (SNOMED-CT: null) Active 3423 RxNorm PERCOCET HALLUCINATIONS (SNOMED-CT: null) Active 74825 RxNorm Plan of Treatment PRE-OP TESTING 01/03/2022 PRE-OP COVID-19 TESTING 08/04/2021 PRE-OP TESTING 07/11/2021 Encounters Encounter Diagnosis Start Date Code Code Sys tem Bilateral primary osteoarthritis of knee 11/09/2020 SNOMED-CT Personal Care Team Section Performer Name Performer Role Active Date Inactive Da mary
--- OUTSIDE RECORDS SUMMARY | 2024-04-02 00:37 | XMS_ITS ---
Author Organization Unknown Address [address] [place] [address] [phone] Phone Care Team Providers Care Client Customer Manager Name Role Phone KERRY Hilario Attending Unavailable [...] em Smoking History Never smoker (Never Smoked) 237175498 SNOMED CT Sex Female Assessment You had [...] BM15 170 Active FDA RIGHT TKA 08/07 [id number] 70 05/05/2031 JOURNE Y 3546813 1 Press-fit femoral stem prosthesis 0100 8855 5604 5497 1732 0103 1022 AM02 144 Active FDA RIGHT TKA 08/07 [id number] 44 03/19/2031 GENESI S II [id number] 9 Uncoated knee tibia prosthesis , metallic 0103 5960 1055 4277 1731 0922 1021 JM16 667 Active FDA RIGHT TKA 08/07 [id number] 67 12/06/2030 JOURNE Y 2210102 3 Uncoated knee femur prosthesis , metallic 0100 8855 5616 9865 1732 0102 1022 AM00 348 Active FDA RIGHT TKA 08/07 [id number] 48 03/18/2031 JOURNE Y 7266570 4 Polyethyle ne patella prosthesis 0103 5960 1055 4536 1732 0409 1022 DM07 577 Active FDA RIGHT TKA 08/07 [id number] 77 06/24/2031 JOURNE Y 5363852 2 Orthopaedi c cement, antimicrob ial 0100 8855 5658 2237 1726 1130 1021 MTC0 185 Active FDA RIGHT TKA 08/07 [id number] 85 02/13/2026 CLAUDIA [id number] 0 Problems Problem Start Date Resolved Date Status Code Code System 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 791211343 S NOMED-CT Allergies and Adverse Reactions Allergy Substance Reaction Severity Start Date Concern Status Code Code System SULFA (sulfonamide) ORAL SORES (SNOMED-CT: null) Active 85904356 SNOMED-CT HYDROMORPHONE ITCHING (SNOMED-CT: null), DILAUDID (SNOMED-CT: null) Active 3423 RxNorm PERCOCET HALLUCINATIONS (SNOMED-CT: null) Active 29197 RxNorm Plan of Treatment PRE-OP TESTING 01/03/2022 PRE-OP COVID-19 TESTING 08/04/2021 PRE-OP TESTING 07/11/2021 Encounters Encounter Diagnosis Start Date Code Code Sys tem Body mass index 40+ - severely obese 06/19/2022 4080 40117 SNOMED-CT Personal Care Team Section Performer Name Performer Role Active Date Inactive Da te
--- OUTSIDE RECORDS SUMMARY | 2024-04-02 00:37 | XMS_ITS ---
Author Organization Unknown Address [address] [place] [address] [phone] Phone Care Team Providers Care Roll Cutter Name Role Phone KERRY Hilario Attending Unavailable [...] em Smoking History Never smoker (Never Smoked) 621423535 SNOMED CT Sex Female Vital Signs Vital Sign Value Unit [employer] Value [employer] Unit Date/Time Recent/Initial? Code Code System Body Mass Index 39.73 kg/m2 01/21/2022 15:26 Initial 25503- 5 LOINC Body Surface Area 2.04 m2 01/21/2022 15:26 Initial 3140-1 LOINC Height 155.5750 cm 61.25 in 01/21/2022 15:26 Initial 8302-2 LOINC Weight 96.16 kg 212.00 lbs 01/21/2022 15:26 Initial 98986- 7 LOINC Medications No Active Medications Assessment You [...] BM15 170 Active FDA RIGHT TKA 08/07 [id number] 70 05/05/2031 JOURNE Y 3960347 1 Press-fit femoral stem prosthesis 0100 8855 5604 5497 1732 0103 1022 AM02 144 Active FDA RIGHT TKA 08/07 [id number] 44 03/19/2031 GENESI S II 7535029 9 Uncoated knee tibia prosthesis , metallic 0103 5960 1055 4277 1731 0922 1021 JM16 667 Active FDA RIGHT TKA 08/07 [id number] 67 12/06/2030 JOURNE Y 7000790 3 Uncoated knee femur prosthesis , metallic 0100 8855 5616 9865 1732 0102 1022 AM00 348 Active FDA RIGHT TKA 08/07 [id number] 48 03/18/2031 JOURNE Y 9361779 4 Polyethyle ne patella prosthesis 0103 5960 1055 4536 1732 0409 1022 DM07 577 Active FDA RIGHT TKA 08/07 [id number] 77 06/24/2031 JOURNE Y 0180733 2 Orthopaedi c cement, antimicrob ial 0100 8855 5658 2237 1726 1130 1021 MTC0 185 Active FDA RIGHT TKA 08/07 [id number] 85 02/13/2026 CLAUDIA [id number] 0 Problems Problem Start Date Resolved Date Status Code Code System 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 147906873 S NOMED-CT Allergies and Adverse Reactions Allergy Substance Reaction Severity Start Date Concern Status Code Code System SULFA (sulfonamide) ORAL SORES (SNOMED-CT: null) Active 47122055 SNOMED-CT HYDROMORPHONE ITCHING (SNOMED-CT: null), DILAUDID (SNOMED-CT: null) Active 3423 RxNorm PERCOCET HALLUCINATIONS (SNOMED-CT: null) Active 59577 RxNorm Plan of Treatment PRE-OP TESTING 01/03/2022 PRE-OP COVID-19 TESTING 08/04/2021 PRE-OP TESTING 07/11/2021 Encounters Encounter Diagnosis Start Date Code Code Sys tem Procedure and treatment not carried out because of patient's decision for other reasons 01/31/2022 SNO MED-CT Personal Care Team Section Performer Name Performer Role Active Date Inactive Da te
--- OUTSIDE RECORDS SUMMARY | 2024-04-02 00:37 | XMS_ITS ---
Author Organization Unknown Address [address] [place] [address] [phone] Phone Care Team Providers Care Line Analyst Name Role Phone FAWN Sheets Attending Unavailable RAYMOND CAMARA Primary Unavaila ble [...] dose 01/20/2021 Completed 207 CVX Results XR ANKLE RT 3V* - Completed: 03/04/2022 12:58 LOINC: [place], [place] [address] [employer] REPORT Patient Name: MACY FRITZ MRN: Sex: : Age: [id number] F 1940 81 Account: Accession: Admit: StayType: [id number] 03/04/2022 CLINIC Ordered: Order ID: Submitted: Ordering Provider: 03/04/2022 11:45 [id number] JUDSON HARDING Completed: Technologist: Resulted: 03/04/2022 12:58 GENEVA 03/04/2022 15:25 Study Description: XR ANKLE RT 3V* Study Reason: RT FOOT PAIN 2D digital imaging was performed. COMPARISON: Prior x-rays 12/17/2021 FINDINGS: [There is no evidence of acute fracture nor widening of the ankle mortice. There is a subarticular lucency of the medial aspect of the talar dome which is probably degenerative subarticular cysts and was previously present on 12/17/2021. No findings in the lateral talar dome. Mild degenerative changes in the ankle joint. Mild degenerative changes in the subtalar joint. Calcaneocuboid and talonavicular joints appear unremarkable. Large inferior calcaneal spur is again noted as is a prominent enthesophyte on the posterior calcaneus at the Achilles insertional aspect. 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 Report Digitally Signed by Hugo Armenta on 03/04/2022 03:25 PM EST Social History Type Status Start Date End Date Code Code Syst em Smoking History Never smoker (Never Smoked) 532249074 SNOMED CT Sex Female Assessment You had [...] BM15 170 Active FDA RIGHT TKA 08/07 [id number] 70 05/05/2031 JOURNE Y 1446390 1 Press-fit femoral stem prosthesis 0100 8855 5604 5497 1732 0103 1022 AM02 144 Active FDA RIGHT TKA 08/07 [id number] 44 03/19/2031 GENESI S II 1767080 9 Uncoated knee tibia prosthesis , metallic 0103 5960 1055 4277 1731 0922 1021 JM16 667 Active FDA RIGHT TKA 08/07 [id number] 67 12/06/2030 JOURNE Y 5744160 3 Uncoated knee femur prosthesis , metallic 0100 8855 5616 9865 1732 0102 1022 AM00 348 Active FDA RIGHT TKA 08/07 [id number] 48 03/18/2031 JOURNE Y 8616149 4 Polyethyle ne patella prosthesis 0103 5960 1055 4536 1732 0409 1022 DM07 577 Active FDA RIGHT TKA 08/07 [id number] 77 06/24/2031 JOURNE Y 9328247 2 Orthopaedi c cement, antimicrob ial 0100 8855 5658 2237 1726 1130 1021 MTC0 185 Active FDA RIGHT TKA 08/07 [id number] 85 02/13/2026 RALLY [id number] 0 Problems Problem Start Date Resolved Date Status Code Code System 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 144740728 S NOMED-CT Allergies and Adverse Reactions Allergy Substance Reaction Severity Start Date Concern Status Code Code System SULFA (sulfonamide) ORAL SORES (SNOMED-CT: null) Active 46524569 SNOMED-CT HYDROMORPHONE ITCHING (SNOMED-CT: null), DILAUDID (SNOMED-CT: null) Active 3423 RxNorm PERCOCET HALLUCINATIONS (SNOMED-CT: null) Active 50507 RxNorm Plan of Treatment PRE-OP TESTING 01/03/2022 PRE-OP COVID-19 TESTING 08/04/2021 PRE-OP TESTING 07/11/2021 Encounters Encounter Diagnosis Start Date Code Code Sys tem 03/04/2022 [id number] SNOMED-CT Personal Care Team Section Performer Name Performer Role Active Date Inactive Da te
[2024-04-02] MEDS: Gadoterate meglumine 20 ML SYRINGE IVP (10:52)
[2024-04-02] MEDS: Normal Saline Flush 10 ML SYR IVP (10:53)
== END 2024-04-02 00:47 ==
LOC: DI 00:28
PROVIDERS: PCP Internal Medicine; Visit Provider Physician Assistant
DX: D32.9 Benign neoplasm of meninges, unspecified (principal)
CPT/HCPCS: 70553

== ENCOUNTER 2024-10-04 00:24 | Outpatient (CLI) | payer MEDICARE, SELFPAY ==
--- NOTE | 2024-10-04 | DI.MRI_ITS ---
Exam(s) MR BRAIN WO/W EXAM: MR BRAIN WO/W CLINICAL HISTORY: MENINGIOMA S/P RESECTION W GROWTH OF RESIDUAL SURVEILLANCE D32.9. TECHNIQUE: Multiplanar multisequence MRI of the brain was performed. CONTRAST MATERIAL: IV Contrast: 20 ML of Dotarem contrast administered. COMPARISON: MR MR BRAIN WO/W from 04/02/2024 FINDINGS: VENTRICLES AND EXTRA AXIAL SPACES: Normal in size and morphology for the patient's age. HEMORRHAGE: None. CEREBRAL PARENCHYMA: No focus of restricted diffusion to suggest acute infarct. Scattered foci of high signal in the white matter consistent with mild microvascular changes. Slight interval increase in size previously noted meningioma at the left vertex, now measured at 19 by 12 by 20 millimeters comp ared with 18 x 11 x 19 millimeters on the prior exam. Stable appearance area of encephalomalacia and surrounding edema in the medial high left parietal region, adjacent to the meningioma.. BRAINSTEM/CEREBELLUM: Normal. CALVARIUM: Normal. ENHANCEMENT: No suspicious enhancement identified. VISUALIZED PARANASAL SINUSES: Near complete opacification of the maxillary sinuses. Mucosal thickening of the ethmoid and sphenoid sinuses. MASTOIDS: Minimal fluid. Orbits: Stable appearance of elongated globes. Pituitary: Not enlarged. Vasculature: Normal flow voids. IMPRESSION: Slight interval increase in size of superior left falcine meningioma. Severe bilateral maxillary sinus disease. DATA REPOSITORY:
[2024-10-04] MEDS: Gadoterate meglumine 20 ML SYRINGE IVP (13:05)
[2024-10-04] MEDS: Normal Saline Flush 10 ML SYR IVP (13:06)
== END 2024-10-04 00:44 ==
LOC: DI 00:24
PROVIDERS: PCP Internal Medicine; Visit Provider Physician Assistant
DX: D32.9 Benign neoplasm of meninges, unspecified (principal); J32.0 Chronic maxillary sinusitis
CPT/HCPCS: 70553

== ENCOUNTER 2024-11-17 12:53 | Outpatient (CLI) | payer MEDICARE, SELFPAY ==
[2024-11-17 11:03] LABS: ALT 18 U/L (14-59); AST 11 U/L (15-37); Albumin 3.9 g/dL (3.4-5.0); Alkaline Phosphatase 104 U/L (46-116); Anion Gap 7.9 mmol/L (3-11); BUN 26 mg/dL (7-18); Bilirubin, Total 0.5 mg/dL (0.2-1.0); CO2 29.1 mmol/L (21.0-32.0); Calcium 8.8 mg/dL (8.5-10.1); Chloride 102 mmol/L (98-107); Estimated GFR 37.33 (mL/min/1.73m2); Glucose 94 mg/dL (74-106); Potassium 4.2 mmol/L (3.5-5.1); Sodium 139 mmol/L (136-145); Total Protein 7.7 g/dL (6.4-8.2)
== END 2024-11-17 12:54 | disposition home or self-care (01) ==
LOC: LBO 12:53
PROVIDERS: PCP Internal Medicine; Visit Provider Radiology Radiation Oncology
DX: D32.9 Benign neoplasm of meninges, unspecified (principal)
CPT/HCPCS: 36415; 80053